=== PATIENT | female | born 1930 | race Caucasian/White ===

== ENCOUNTER 2017-03-26 21:13 | Observation (INO) | payer MEDICARE, BC ==
[~2017-03-26] VITALS: Ht 162.6 cm; Wt 85.0 kg
[2017-03-26] MEDS ORDERED: ALBUTEROL 0.5% (NEB) 2.5 MG/0.5 ML AMP INH STA (21:27)
[2017-03-26] MEDS ORDERED: METHYLPREDNISOLONE 125 MG INJ IV STA (21:27)
[2017-03-26 22:04] LABS: ADD SCAN DIFF NO
[2017-03-26 22:05] LABS: BASOPHILS % 0.4 % (0.0-2.0); EOSINOPHILS # 0.1 10^3/ul (0.0-0.5); EOSINOPHILS % 1.3 % (0.0-7.0); HEMATOCRIT 42.1 % (37.0-47.0); HEMOGLOBIN 14.4 g/dl (12.0-16.0); LYMPHOCYTES # 2.1 10^3/ul (0.8-2.9); LYMPHOCYTES % 22.9 % (15.0-51.0); MEAN CORPUSCULAR HEMOGLOBIN 31.3 pg (29.0-33.0); MEAN CORPUSCULAR HGB CONC 34.2 g/dl (32.0-37.0); MEAN CORPUSCULAR VOLUME 91.5 fl (82.0-101.0); MEAN PLATELET VOLUME 9.9 fl (7.4-10.4); MONOCYTE # 0.7 10^3/ul (0.3-0.9); MONOCYTES % 7.3 % (0.0-11.0); NEUTROPHIL # 6.1 10^3/ul (1.6-7.5); NEUTROPHILS % 67.9 % (39.0-77.0); PLATELET COUNT 211 10^3/UL (140-415); RED CELL DISTRIBUTION WIDTH 13.2 % (11.5-14.5)
[2017-03-26 22:23] LABS: ANION GAP 14 (8-16); BLOOD UREA NITROGEN 8 mg/dl (7-20); CALCIUM 9.6 mg/dl (8.4-10.2); CARBON DIOXIDE 23 mmol/L (21-31); CHLORIDE 105 mmol/L (97-110); CREATININE 1.06 mg/dl (0.44-1.00); GLUCOSE 131 mg/dl (70-220); POTASSIUM 3.4 mmol/L (3.5-5.1); SODIUM 139 mmol/L (135-144)
[2017-03-26 22:52] LABS: TROPONIN-I < 0.012 ng/ml (0.00-0.12)
--- NOTE | 2017-03-26 23:10 | RADRPT ---
PROCEDURE: XR Chest. CLINICAL INDICATION: Asthma and chest pain TECHNIQUE: AP Portable chest. COMPARISON: None available FINDINGS: The soft tissues and bones are remarkable for bilateral acromioclavicular osteoarthropathy and thora cic spondylosis.. Right lower lobe consolidation is present. No pleural effusions are noted. Mild cardiomegaly is present. Vascular calcifications are present of the thoracic aorta and the mitral a nnulus. No pneumothorax is present. Hyperinflation is present compatible with the patient's known reactive airway disease. IMPRESSION: 1. Right lower lobe pneumonia and recommend follow-up until resolution. 2. Mild cardiomegaly and atherosclerotic vascular disease with mitral annular calcifications. 3. Thoracic spondylosis and bilateral acromioclavicular osteoarthropathy. 4. Hyperinflation RPTAT: HDC .Mariel cMdowell MD, Date Time Electronically viewed and signed by .Mariel Mcdowell MD, on 03/26/2017 23:10 .C/
--- NOTE | 2017-03-26 23:12 | RADRPT ---
PROCEDURE: Abdominal series CLINICAL INDICATION: Abdominal pain TECHNIQUE: AP abdomen supine COMPARISON: None available other than chest x-ray 03/26/2017 FINDINGS: There is a nonspecific, nonobstructive bowel gas pattern. No air-fluid levels are seen. No free ai r is evident. No abnormal calcifications project over the renal collecting systems. Vascular calcif ications are present of the aorta and the mitral annulus. The cardiomediastinal silhouette is faye l in appearance. The lungs are remarkable for right lower lobe pneumonia. No pleural effusions are present. The osseus structures are remarkable for thoracic spondylosis. IMPRESSION: 1. Nonobstructive bowel gas pattern. 2. Right lower lobe pneumonia. 3. Atherosclerotic vascular disease and mitral annular calcifications RPTAT: HDC .Mariel Mcdowell MD, Date Time Electronically viewed and signed by .Mariel Mcdoewll MD, on 03/26/2017 23:12 .C/
[2017-03-27] MEDS ORDERED: CEFEPIME 1GM/50 ML (PMX) 50 ML IVPB ONE (00:02)
[2017-03-27] MEDS ORDERED: VANCOMYCIN 1 GM (PMX) 250 ML IVPB ONE (00:02)
--- NOTE | 2017-03-27 00:24 | ERA ---
ER Documentation Chief Complaint Date/Time DATE: 03/27/17 TIME: 00:22 Chief Complaint sob, congestion HPI 86 female comes in with complaints of shortness of breath and congestion. She has had a bronchoscopy done yesterday for possible lung mass. No fevers no chills. No nausea no vomiting. No other current complaints. ROS All systems reviewed and are negative except as per history of present illness. Allergies Allergies: Coded Allergies: No Known Allergy (Unverified , 03/27/17) PMhx/Soc History of Surgery: Yes (masectomy, partial lobectomy on left) Anesthesia Reaction: No Hx Neurological Disorder: No Hx Respiratory Disorders: No Hx Cardiac Disorders: Yes (htn) Hx Psychiatric Problems: No Hx Miscellaneous Medical Probl: Yes (breast ca) Hx Alcohol Use: No Hx Substance Use: No Hx Tobacco Use: No Smoking Status: Never smoker Physical Exam Vitals Vital Signs Date Time Temp Pulse Resp B/P Pulse Ox O2 Delivery O2 Flow Rate FiO2 03/26/17 21:34 94 24 98 21 03/26/17 21:23 97.8 93 20 131/93 98 Physical Exam Const: [] Head: Atraumatic Eyes: Normal Conjunctiva ENT: Normal External Ears, Nose and Mouth. Neck: Full range of motion..~ No meningismus. Resp: Clear to auscultation bilaterally Cardio: Regular rate and rhythm, no murmurs Abd: Soft, non tender, non distended. Normal bowel sounds Skin: No petechiae or rashes Back: No midline or flank tenderness Ext: No cyanosis, or edema Neur: Awake and alert Psych: Normal Mood and Affect Result Diagram: 03/26/17214903/26/172149 Results 24 hrs Laboratory Tests Test 03/26/17 21:50 White Blood Count 9.010^3/ul Red Blood Count 4.6010^6/ul Hemoglobin 14.4g/dl Hematocrit 42.1% Mean Corpuscular Volume 91.5fl Mean Corpuscular Hemoglobin 31.3pg Mean Corpuscular Hemoglobin Concent 34.2g/dl Red Cell Distribution Width 13.2% Platelet Count 90731^3/UL Mean Platelet Volume 9.9fl Neutrophils % 67.9% Lymphocytes % 22.9% Monocytes % 7.3% Eosinophils % 1.3% Basophils % 0.4% Nucleated Red Blood Cells % 0.0/100WBC Neutrophils # 6.110^3/ul Lymphocytes # 2.110^3/ul Monocytes # 0.710^3/ul Eosinophils # 0.110^3/ul Basophils # 0.010^3/ul Nucleated Red Blood Cells # 0.010^3/ul Sodium Level 139mmol/L Potassium Level 3.4mmol/L Chloride Level 105mmol/L Carbon Dioxide Level 23mmol/L Anion Gap 14 Blood Urea Nitrogen 8mg/dl Creatinine 1.06mg/dl Glucose Level 131mg/dl Calcium Level 9.6mg/dl Troponin I < 0.012ng/ml Current Medications Medications (Trade) Dose Ordered Sig/Raffy Route PRN Reason Start Time Stop Time Status Last Admin Dose Admin Albuterol (Proventil 0.5% (Neb)) 10 mg ONCE STAT INH 03/26/17 21:27 03/26/17 21:28 DC 03/26/17 21:34 Methylprednisolone Sodium Succinate 125 mg 125 mg ONCE STAT IV 03/26/17 21:27 03/26/17 21:28 DC 03/26/17 22:11 Cefepime HCl 50 ml @ 100 mls/hr ONCE ONCE IVPB 03/27/17 00:02 03/27/17 00:31 Vancomycin HCl (Vancocin) 250 ml @ 125 mls/hr ONCE ONCE IVPB 03/27/17 00:02 03/27/17 02:01 Procedures/MDM EKG: Rate/Rhythm: [Normal Sinus Rhythm] QRS, ST, T-waves: [No changes consistent w/ acute ischemia] Impression: [No evidence of ischemia or arrhythmia] Chest X-ray 1V Interpreted by me: Soft Tissue: No acute abnormalities Bones: No acute abnormalities Mediastinum/Cardiac Silhouette/Lungs: Right lower lobe pneumonia Medical decision-makin-year-old female who has evidence of pneumonia. Started on broad-spectrum antibiotics post blood cultures. Patient will be admitted to hospitalist Departure Diagnosis: Primary Impression: Pneumonia Qualified Code: J18.1 - Pneumonia of right lower lobe due to infectious organism Condition: Serious OMAREVANSEDILBERTOGEORGIALanette Mar 27, 2017 00:24
[2017-03-27] MEDS ORDERED: MULT-853 PO (01:14)
[2017-03-27] MEDS ORDERED: ASPI81TA3 PO (01:14)
[2017-03-27 04:14] VITALS: Ht 162.6 cm; Wt 85.0 kg
[2017-03-27 04:26] VITALS: BP 124/56; PULSE 85; RESP 20
[2017-03-27] MEDS ORDERED: ALBUTEROL/IPRATROPIUM (NEB) 3 ML AMP HHN PRN (04:30)
[2017-03-27] MEDS ORDERED: LEVOFLOXACIN 500MG/D5W (PMX) 100 ML IVPB SCH (04:30)
--- NOTE | 2017-03-27 05:42 | HP ---
DATE OF ADMISSION: 03/26/2017 CHIEF COMPLAINT: Shortness of breath, congestion and constipation and rectal pain. HISTORY OF PRESENT ILLNESS: The patient is an 86-year-old female with a history of hypertension, br east cancer status post mastectomy and left lung lobotomy who presented today complaining of f eeling congested and also feeling as if phlegm is somehow stuck along her throat and unable to cough it out. She also reports there is some shortness of breath and pain in her rectal area attributed to constipation. Denied chest pain, fever, chills, nausea, vomiting. The patient had a bronchoscop y yesterday. When the patient presented to the ER, vitals were stable. Chest x-ray shows right-sided pneumonia. REVIEW OF SYSTEMS: A 12-point review of systems was performed and was negative except as mentioned in the HPI. PAST MEDICAL HISTORY: As per HPI. PAST SURGICAL HISTORY: As per HPI. ALLERGIES: NO KNOWN DRUG ALLERGIES. HOME MEDICATIONS: 1. Aspirin. 2. Multivitamins. PHYSICAL EXAMINATION: VITAL SIGNS: Stable. GENERAL: The patient lying in bed, sleepy, arousable, no acute distress. HEENT: No obvious head deformity. Extraocular muscles intact. CARDIOVASCULAR: Regular rate and rhythm. No extra sounds. LUNGS: Decreased breath sounds at the bases, right more so than left. ABDOMEN: Soft. There is discomfort with palpation, mainly in the left lower quadrant region. EXTREMITIES: No edema. NEUROLOGIC: No focal deficits. IMAGING: Chest x-ray shows right-sided pneumonia. A KUB shows bowel gas pattern. IMPRESSION: 1. Right middle lobe pneumonia. 2. Constipation. 3. History of breast cancer status post mastectomy. 4. History of left-sided lobectomy. 5. History of hypertension, blood pressure in acceptable range. 6. Probable lung mass, status post bronchoscopy yesterday. PLAN: She will be on IV antibiotic. Will obtain sputum for gram stain and culture. She will receive breathing treatments with consideration of adding Mucomyst. Bowel regimen for constipation . Will attempt to gather additional information regarding the reason for bronchoscopy and would do further workup and management as needed. Further workup and management per clinical course. Dictated By: GEOR[place]IA ROMEO/SAVITA Conf#: [id number] DID#: [id number]
[2017-03-27 07:36] VITALS: BP 94/54; RESP 18
[2017-03-27] MEDS ORDERED: SOD CHLORIDE 0.9% 1,000 ML IV SCH (15:52)
[2017-03-27] MEDS ORDERED: BISACODYL 10 MG SUPP PR PRN (16:00)
[2017-03-27] MEDS ORDERED: GUAIFENESIN/DM 5ML CUP PO PRN (16:00)
[2017-03-27] MEDS ORDERED: ACETAMINOPHEN 325 MG TAB PO PRN (16:00)
[2017-03-27] MEDS ORDERED: morphine 2 MG INJ IV PRN (16:00)
[2017-03-27] MEDS ORDERED: MAGNESIUM HYDROXIDE 30ML CUP PO PRN (16:00)
[2017-03-27] MEDS ORDERED: ALBUTEROL 18 GM INHALER INH PRN (16:00)
[2017-03-27] MEDS ORDERED: ONDANSETRON 4 MG INJ IV PRN (16:00)
[2017-03-27] MEDS ORDERED: BISACODYL (EC) 5 MG TAB PO PRN (16:00)
[2017-03-27] MEDS ORDERED: NACL 0.9% 3 ML SYG IV SCH (16:00)
[2017-03-27] MEDS ORDERED: HYDROCODONE/APAP (5/325) TAB PO PRN (16:00)
--- NOTE | 2017-03-27 16:17 | PDOCDIS ---
Discharge Instructions DIAGNOSIS Discharge Diagnosis: pnemonia CONDITION Patient Condition: Good HOME CARE INSTRUCTIONS: Diet Instructions: Reduced Sodium ACTIVITY: Activity Restrictions: Slowly Increase Activity Do not Drive FOLLOW UP/APPOINTMENTS Appointments pcp 1wk Onc as directed MICHAEL RAMSAY MD Mar 27, 2017 16:17
[2017-03-27] MEDS ORDERED: BISA5TAB6 PO (16:19)
[2017-03-27] MEDS ORDERED: ACET325T40 PO (16:19)
[2017-03-27] MEDS ORDERED: UDROBDM PO (16:19)
[2017-03-27] MEDS ORDERED: LEVO750T25 PO (16:19)
[2017-03-27] MEDS ORDERED: ALBUTEROL 0.083% (NEB) 2.5 MG/3 ML AMP HHN ONE (16:30)
--- NOTE | 2017-03-28 02:53 | DS ---
DATE OF ADMISSION: 03/26/2017 DATE OF DISCHARGE: 03/27/2017 PRIMARY CARE PHYSICIAN: DE Sanchez. FIELD CROP I FARMWORKER: None. DIAGNOSIS ON ADMISSION: Pneumonia. DIAGNOSES ON DISCHARGE: 1. Pneumonia. 2. Recent history of lung biopsy. 3. Breast cancer? HOSPITAL COURSE: An 86-year-old female admitted with shortness of breath, productive cough. No fev ers. No weight loss. No loss of appetite. Imaging concerning for pneumonia. The patient is actua lly stable and fit for discharge on oral antibiotics. She has no tachypnea, no wheezing, no renal i nsufficiency/end organ damage or hypoxia. There is a concern about malignancy. The patient had a biopsy done this past Saturday. She is follow ing up with her specialist this Saturday for results. There is a history of breast cancer as well. DISCHARGE PLAN: Home. Follow up with primary in 1 week, oncologist this week. DIET: Low salt. ACTIVITY: No driving if dizzy. ALLERGIES: NONE. DURABLE MEDICAL EQUIPMENT: None. BARRIERS TO DISCHARGE: None. PENDING TESTS: None. FUNCTIONAL STATUS: The patient awake, alert, agrees with plan of care. CONDITION: Stable. REASON FOR ADMISSION: Shortness of breath. LABORATORY DATA: BMP unremarkable. White cell count of 9, hemoglobin and hematocrit of 14 and 42, platelets of 211. IMAGING: Chest x-ray was read as right lower lobe pneumonia, cardiomegaly, spondylosis. KUB read a s same including no other process. DISCHARGE PLAN: Home. DISCHARGE MEDICATIONS: The patient to continue all home medications. NEW MEDICATIONS: 1. Levaquin 750 daily. 2. Robitussin as needed. 3. Albuterol MDI. Patient has at home. 4. Tylenol as needed. Dictated By: MICHAEL RAMSAY MD AC/NTS Conf#: [id number] DID#: [id number]
[2017-03-28] MEDS ORDERED: LEVOFLOXACIN 750 MG TABLET PO SCH (06:00)
[2017-03-28] MEDS ORDERED: ASPIRIN 81 MG TAB PO SCH (09:00)
[2017-03-28] MEDS ORDERED: ENOXAPARIN 40 MG/0.4 ML SYG SC SCH (09:00)
== END 2017-03-27 18:55 | disposition home or self-care (01) ==
LOC: E/R 21:13 → MS2 23:57
PROVIDERS: ADMIT Internal Medicine; ATTEND Internal Medicine
DX: J18.9 Pneumonia, unspecified organism (principal); I10 Essential (primary) hypertension; K59.00 Constipation, unspecified; Z85.3 Personal history of malignant neoplasm of breast; Z79.82 Long term (current) use of aspirin
CPT/HCPCS: 71010; 74000; 80048; 84484; 85025; 87040; 93005; 94644; 94664; 96366; 96374; 96375; 99285; G0378; J0692; J2930; J3370; J7030

== ENCOUNTER 2017-06-17 01:50 | Inpatient (IN) | payer MEDICARE, BC ==
[~2017-06-17] VITALS: Ht 162.6 cm; Wt 90.9 kg
[~2017-06-17 01:50] MED LIST: ACET325T40 PO; ASPI81TA3 PO; BISA5TAB6 PO; LEVO750T25 PO; MULT-853 PO; UDROBDM PO
[2017-06-17 01:53] VITALS: Ht 162.6 cm; Wt 90.9 kg
[2017-06-17] MEDS ORDERED: CEFEPIME 2GM/50 ML (PMX) 50 ML IVPB STA (01:53)
[2017-06-17] MEDS ORDERED: SOD CHLORIDE 0.9% 1,000 ML IV STA ×3 (01:53→02:24)
[2017-06-17] MEDS ORDERED: VANCOMYCIN 1 GM (PMX) 250 ML IVPB ONE (02:00)
[2017-06-17 02:55] LABS: ABNORMAL IP MESSAGE 1; BASOPHILS % 0.4 % (0.0-2.0); HEMATOCRIT 42.3 % (37.0-47.0); HEMOGLOBIN 14.5 g/dl (12.0-16.0); LYMPHOCYTES # 0.2 10^3/ul (0.8-2.9); MEAN CORPUSCULAR HEMOGLOBIN 33.7 pg (29.0-33.0); MEAN CORPUSCULAR HGB CONC 34.3 g/dl (32.0-37.0); MEAN CORPUSCULAR VOLUME 98.4 fl (82.0-101.0); MEAN PLATELET VOLUME 10.7 fl (7.4-10.4); MONOCYTE # 0.1 10^3/ul (0.3-0.9); NEUTROPHILS % 82.9 % (39.0-77.0); NUCLEATED RED BLOOD CELLS% 1.7 /100WBC (0.0-0.0); PLATELET COUNT 113 10^3/UL (140-415); RED CELL DISTRIBUTION WIDTH 19.6 % (11.5-14.5); WHITE BLOOD COUNT 2.4 10^3/ul (4.8-10.8)
[2017-06-17 02:57] LABS: POSITIVE DIFF @See below
--- NOTE | 2017-06-17 02:59 | RADRPT ---
PROCEDURE: XR Chest. CLINICAL INDICATION: Sepsis. TECHNIQUE: Single frontal chest x-ray. COMPARISON: 03/26/2017 FINDINGS: Patient is rotated to the left. Heart is enlarged.. Pulmonary vessels are top normal caliber witho ut definite CHF.. There is mild right basilar atelectasis versus infiltrate.. There is no pleural e ffusion. There is no pneumothorax. Bones are osteopenic. There are degenerative changes of the th oracic spine.. IMPRESSION: Cardiomegaly. Pulmonary vessels top normal caliber. Right basilar atelectasis versus infiltrate. RPTAT: HMVK .Gregory Mccall MD, MD Date Time Electronically viewed and signed by .Gregory Mccall MD, on 06/17/2017 02:58 .K/
--- NOTE | 2017-06-17 03:03 | RADRPT ---
PROCEDURE: CT Brain without contrast. CLINICAL INDICATION: Sepsis TECHNIQUE: A CT of the brain was performed on a GE 64-slice CT scanner utilizing axial imaging fro m the skull base through the vertex without intravenous contrast. Multiplanar reformatted images wer e made. The CTDIvol is 44.33 mGy and the DLP is 810.25 mGycm. One or more of the following dose red uction techniques were used: automated exposure control, adjustment of the mA and/or kV according to patient size, or use of iterative reconstruction technique. COMPARISON: None. FINDINGS: 8 mm calcified extra-axial lesion is seen at the vertex. There is no intracranial hemorrhage, mass effect, or midline shift. No extra-axial fluid collection is seen. Mild diffuse cortical atrophy i s identified with compensatory ventricular and sulcal enlargement. Mild decreased attenuation is se en in the periventricular and deep white matter, compatible with microvascular ischemic disease. The esparza white matter differentiation is well preserved with no acute infarct detected. A sellar supra sellar mass is seen measuring 1.2 x 1.3 cm on sagittal image 48. There is polypoid mucosal thickeni ng in the maxillary sinuses. The calvarium is normal. Bilateral internal carotid arteries are calci fied. IMPRESSION: 1. No evidence of acute intracranial pathology. 2. 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 Contrast enhanced MRI is recommended. Mild cortical atrophy. 3. Mild cortical atrophy. Mild microvascular ischemic disease. RPTAT: HCNS Physician Vinny Date Time Electronically viewed and signed by Physician Vinny on 06/17/2017 03:03 APARNA/
[2017-06-17 03:21] LABS: INR 1.05; PROTIME 13.7 Sec (12.2-14.2); PT RATIO 1.1
[2017-06-17 03:26] LABS: ALANINE AMINOTRANSFERASE 75 IU/L (13-69); ALBUMIN 3.2 g/dl (3.3-4.9); ALBUMIN/GLOBULIN RATIO 1.06; ALKALINE PHOSPHATASE 109 IU/L (42-121); ANION GAP 22 (8-16); ASPARTATE AMINO TRANSFERASE 42 IU/L (15-46); BILIRUBIN,INDIRECT 1.3 mg/dl (0-1.1); BILIRUBIN,TOTAL 1.3 mg/dl (0.2-1.3); BLOOD UREA NITROGEN 17 mg/dl (7-20); CALCIUM 8.3 mg/dl (8.4-10.2); CARBON DIOXIDE 24 mmol/L (21-31); CHLORIDE 99 mmol/L (97-110); CREATININE 0.78 mg/dl (0.44-1.00); GLUCOSE 255 mg/dl (70-220); POTASSIUM 3.7 mmol/L (3.5-5.1); SODIUM 141 mmol/L (135-144); TOTAL PROTEIN 6.2 g/dl (6.1-8.1)
[2017-06-17 03:32] LABS: PARTIAL THROMBOPLASTIN TIME 25.5 Sec (25.0-35.0)
[2017-06-17 03:39] LABS: TROPONIN-I 0.166 ng/ml (0.00-0.12)
[2017-06-17 03:47] LABS: ADD UMIC NO; UR ASCORBIC ACID 20 mg/dL (NEGATIVE); UR BILIRUBIN (Dip) NEGATIVE (NEGATIVE); UR BLOOD (Dip) NEGATIVE (NEGATIVE); UR CLARITY CLEAR (CLEAR); UR COLOR YELLOW (YELLOW); UR GLUCOSE (Dip) NEGATIVE (NEGATIVE); UR KETONES (Dip) NEGATIVE (NEGATIVE); UR LEUKOCYTE ESTERASE (Dip) NEGATIVE Leu/ul (NEGATIVE); UR NITRITE (Dip) NEGATIVE (NEGATIVE); UR TOTAL PROTEIN (Dip) NEGATIVE (NEGATIVE); UR UROBILINOGEN (Dip) NEGATIVE (NEGATIVE)
--- NOTE | 2017-06-17 03:58 | ERA ---
ER Documentation Chief Complaint Date/Time DATE: 06/17/17 TIME: 03:55 Chief Complaint CHANNING RA102 from home,ground level fall,ALOC X1 week per EMS report ROS All systems reviewed and are negative except as per history of present illness. Medications Home Meds Active Scripts Bisacodyl* (Bisacodyl*) 5 Mg Tablet.dr, 5 MG PO DAILY Y for CONSTIPATION for 1 Day, #1 Prov:MICHAEL RAMSAY MD 03/27/17 Guaifenesin-Dextromethorphan* (Robitussin* DM) 100MG/10MG/5ML Syrup, 10 ML PO Q4H Y for COUGH for 1 Day, #1 Prov:MICHAEL RAMSAY MD 03/27/17 Acetaminophen (MAPAP) 325 Mg Tablet, 650 MG PO Q6H Y for PAIN LEVEL 1-3 OR FEVER for 1 Day, #1 TAB Prov:MICHAEL RAMSAY MD 03/27/17 Levofloxacin* (Levaquin*) 750 Mg Tablet, 750 MG PO DAILY@06 for 5 Days, #5 TAB Prov:MICHAEL RAMSAY MD 03/27/17 Reported Medications Multivits-Min/Iron/FA/Lutein (Centrum Silver Women Tablet) 1 Each Tablet, 1 EACH PO, TAB 03/27/17 Aspirin* (Aspirin* Chew) 81 Mg Tab.chew, 81 MG PO DAILY, TAB.CHEW 03/27/17 Allergies Allergies: Coded Allergies: No Known Allergy (Unverified , 03/27/17) PMhx/Soc History of Surgery: Yes (lung lobectomy, left masectomy) Anesthesia Reaction: No Hx Neurological Disorder: No Hx Respiratory Disorders: No Hx Cardiac Disorders: No Hx Psychiatric Problems: No Hx Miscellaneous Medical Probl: Yes (thyroid, gerd, brain/lung/liver mets, encephalopathy, breast ca) Hx Alcohol Use: No Hx Substance Use: No Hx Tobacco Use: No Smoking Status: Former smoker Physical Exam Vitals Vital Signs Date Time Temp Pulse Resp B/P Pulse Ox O2 Delivery O2 Flow Rate FiO2 06/17/17 03:21 Nasal Cannula 2 06/17/17 01:53 99.7 102 19 106/69 95 Physical Exam Const: [] Head: Atraumatic Eyes: Normal Conjunctiva ENT: Normal External Ears, Nose and Mouth. Neck: Full range of motion..~ No meningismus. Resp: Clear to auscultation bilaterally Cardio: Regular rate and rhythm, no murmurs Abd: Soft, non tender, non distended. Normal bowel sounds Skin: No petechiae or rashes Back: No midline or flank tenderness Ext: No cyanosis, or edema Neur: Awake and alert Psych: Normal Mood and Affect Result Diagram: 06/17/17 0200 06/17/17 0200 Results 24 hrs Laboratory Tests Test 06/17/17 02:00 06/17/17 02:26 White Blood Count 2.410^3/ul Red Blood Count 4.3010^6/ul Hemoglobin 14.5g/dl Hematocrit 42.3% Mean Corpuscular Volume 98.4fl Mean Corpuscular Hemoglobin 33.7pg Mean Corpuscular Hemoglobin Concent 34.3g/dl Red Cell Distribution Width 19.6% Platelet Count 24005^3/UL Mean Platelet Volume 10.7fl Neutrophils % 82.9% Lymphocytes % 10.0% Monocytes % 5.0% Eosinophils % 0.0% Basophils % 0.4% Nucleated Red Blood Cells % 1.7/100WBC Neutrophils # (Manual) 2.010^3/ul Lymphocytes # 0.210^3/ul Monocytes # 0.110^3/ul Eosinophils # 0.010^3/ul Basophils # 0.010^3/ul Nucleated Red Blood Cells # 0.010^3/ul Prothrombin Time 13.7Sec Prothrombin Time Ratio 1.1 INR International Normalized Ratio 1.05 Activated Partial Thromboplast Time 25.5Sec Sodium Level 141mmol/L Potassium Level 3.7mmol/L Chloride Level 99mmol/L Carbon Dioxide Level 24mmol/L Anion Gap 22 Blood Urea Nitrogen 17mg/dl Creatinine 0.78mg/dl Glucose Level 255mg/dl Lactic Acid Level 3.8mmol/L Calcium Level 8.3mg/dl Total Bilirubin 1.3mg/dl Direct Bilirubin 0.00mg/dl Indirect Bilirubin 1.3mg/dl Aspartate Amino Transf (AST/SGOT) 42IU/L Alanine Aminotransferase (ALT/SGPT) 75IU/L Alkaline Phosphatase 109IU/L Ammonia < 9umol/l Troponin I 0.166ng/ml Total Protein 6.2g/dl Albumin 3.2g/dl Globulin 3.00g/dl Albumin/Globulin Ratio 1.06 Thyroid Stimulating Hormone (TSH) Pending Urine Color YELLOW Urine Clarity CLEAR Urine pH 6.0 Urine Specific [place] 1.010 Urine Ketones NEGATIVEmg/dL Urine Nitrite NEGATIVEmg/dL Urine Bilirubin NEGATIVEmg/dL Urine Urobilinogen NEGATIVEmg/dL Urine Leukocyte Esterase NEGATIVELeu/ul Urine Hemoglobin NEGATIVEmg/dL Urine Glucose NEGATIVEmg/dL Urine Total Protein NEGATIVEmg/dl Current Medications Medications (Trade) Dose Ordered Sig/Raffy Route PRN Reason Start Time Stop Time Status Last Admin Dose Admin Cefepime HCl 50 ml @ 100 mls/hr ONCE STAT IVPB 06/17/17 01:53 06/17/17 02:22 DC 06/17/17 02:51 Vancomycin HCl 250 ml @ 125 mls/hr ONCE ONCE IVPB 06/17/17 02:00 06/17/17 03:59 06/17/17 03:46 Sodium Chloride 1,000 ml @ 1,000 mls/hr Q1H STAT IV 06/17/17 01:53 06/17/17 02:52 DC 06/17/17 02:10 Sodium Chloride 1,000 ml @ 1,000 mls/hr Q1H STAT IV 06/17/17 01:53 06/17/17 02:52 DC 06/17/17 02:10 Sodium Chloride (NS) 1,000 ml @ 1,000 mls/hr Q1H STAT IV 06/17/17 02:24 06/17/17 03:23 DC 06/17/17 02:24 Aspirin (Aspirin) 300 mg ONCE ONCE MS 06/17/17 04:00 06/17/17 04:01 Ondansetron HCl (Zofran Inj) 4 mg ER BRIDGE PRN IV NAUSEA AND/OR VOMITING 06/17/17 04:00 06/18/17 03:59 Acetaminophen (Tylenol Tab) 650 mg ER BRIDGE PRN PO MILD PAIN/FEVER 06/17/17 04:00 06/18/17 03:59 Procedures/MDM EKG read by me: Rate/Rhythm: First-degree AV block at a rate of 94 Intervals: Prolonged QTC of 510 Impression: First-degree AV block with prolonged QTC but no signs of ischemia Chest x-ray shows possible pneumonia Admit MDM: Patient's infectious symptoms have not stabilized and the patient is at risk of rapid decompensation. The patient will be admitted for careful hydration, antibiotic therapy, and infectious source control. Severe Sepsis criteria: Infectious source: Pneumonia End organ damage indicated by: Lactate greater than 2 Sepsis Management: Time of recognition of sepsis: 0200 Within 3 hours of recognition: Blood cultures x 2 before broad-spectrum antibiotics: [Yes] 30 ml/kg NS bolus [Completed] Initial lactate 3.8 Repeat lactate Pending Time of recognition of septic shock: [No septic shock] Septic Shock Assessment: Any lactic acid > 4.0 [No] Persistent hypotension (SBP < 90 or 40 mmHg drop, MAP < 65) despite 30 mL/kg IV fluid bolus [No] Volume Re-assessment for Septic Shock (post 30 ml/kg bolus): No septic shock at this time Persistent Hypotension Treatment: Comfort care [No] Central line [Not Required] Vasopressor started [Not required] I considered further perfusion assessment with CVP measurement, SCVO2, bedside ultrasound volume assessment, passive leg raise, trial of further fluid bolus. And proceeded with [30 ml/kg fluid bolus of NSS, broad spectrum antibiotics, and admission.]The patient was also given aspirin per rectum for a positive troponin. I believe the patient likely has heart strain from severe sepsis and not a true coronary artery occlusion. The patient is a poor prognosis given her age and comorbidities and I believe a discussion with family regarding goals of care would be appropriate. She is currently a full code. Accepting Care Team Current data and ongoing care discussed. Admitting Physician: Dr. Remy from the panel team as the patient was admitted to the panel team recently in March 2017 Dinkey Mechanic(s): [None] Outstanding Data: Culture results and repeat lactic acid Critical Care: Critical care time [35] minutes excluding all billable procedures Emergent fluid management while maintaining close respiratory support. Provision of immediate and broad-spectrum antibiotic therapy. Simultaneous assessment for possible sources in order to direct targeted therapy. Consideration for invasive and chemical support to prevent cardiopulmonary collapse. Departure Diagnosis: Primary Impression: Severe sepsis Additional Impressions: Altered mental status Qualified Code: R41.82 - Altered mental status, unspecified altered mental status type Fall Qualified Code: W19.XXXA - Fall, initial encounter Condition: Serious MYRTLE ECHOLS MD Jun 17, 2017 03:58
[2017-06-17] MEDS ORDERED: ONDANSETRON 4 MG INJ IV PRN (04:00)
[2017-06-17] MEDS ORDERED: ASPIRIN 300 MG SUPP PR ONE (04:00)
[2017-06-17] MEDS ORDERED: ACETAMINOPHEN 325 MG TAB PO PRN ×2 (04:00→04:30)
[2017-06-17 04:40] LABS: THYROID STIMULATING HORMONE < 0.015 MIU/L (0.465-4.680)
[2017-06-17] MEDS ORDERED: GLUCOSE GEL 15 GRAM TUBE BUCCAL PRN (05:00)
[2017-06-17] MEDS ORDERED: GLUCOSE GEL 15 GRAM TUBE PO PRN ×2 (05:00)
[2017-06-17] MEDS ORDERED: GLUCAGON 1 MG INJ IM PRN (05:00)
[2017-06-17] MEDS ORDERED: DEXTROSE 50% 50 ML SYRINGE IV PRN ×2 (05:00)
[2017-06-17] MEDS: SOD CHLORIDE 0.9% 1,000 ML IV SCH ×2 (06:56→18:17)
[2017-06-17] MEDS: PIPER-TAZO 3.375 GM IV (PMX) 100 ML IVPB SCH ×3 (07:04→22:30)
--- NOTE | 2017-06-17 07:05 | HP ---
Date/Time of Note Date/Time of Note DATE: 06/17/17 TIME: 06:58 Assessment/Plan VTE Prophylaxis VTE Prophylaxis Intervention: LMWH Assessment/Plan Assessment/Plan 86-year-old female who was brought in by her family after she accidentally fell out of bed managed for the followin. Severe sepsis with lactic acidosis thought to be secondary to developing pneumonia 2. Status post fall from bed 3. Metastatic breast cancer with metastases to the lungs, brain, thyroid and liver 4. Leukopenia and thrombocytopenia 5. Elevated troponin secondary to sepsis rule out NSTEMI 6. Hypothyroidism 7. Pituitary adenoma versus brain metastases Plan: Patient is to be admitted to telemetry floor, will complete ACS rule outs, get a 2D echo, as well as a cardiology consultation. In the interim we will commence broad-spectrum antibiotics for sepsis, sent for blood as well as urine cultures. We will await presents of more family members to give more detailed history regarding prognosis and stage of treatment of her cancers, We will repeat TSH and a full thyroid profile and once have more information regarding her chronic condition, we can institute treatment if indicated Further interventions will depend her clinical course Prognosis is guarded especially in the long-term Prophylaxis will be Lovenox and Pepcid Plan of care has been discussed with patient and her family. HPI/ROS Admit Date/Time Admit Date/Time June 17, 2017 Hx of Present Illness This is an 86-year-old female with a history of metastatic breast cancer t who was brought in by ambulance after she had fallen from her bed. The patient is at home with her family, and apparently she is being sick for the last week. The patient has not been her usual self. Today she fell out of her bed and the family had to call the ambulance to bring her to the emergency room where she was found to be septic. Family member that knows her history is not available at the bedside at this time, so we are not really sure what is going on with her metastatic breast cancer. No further history is really obtainable from the patient even though she is alert and will follow basic commands. PMH/Family/Social Past Medical History * Metastatic breast cancer Past Surgical History Report she is status post lung lobectomy as well as left mastectomy Family History Significant Family History: no pertinent family hx Social History Alcohol Use: none Smoking Status: Former smoker Exam/Review of Systems Vital Signs Vitals Vital Signs Date Time Temp Pulse Resp B/P Pulse Ox O2 Delivery O2 Flow Rate FiO2 06/17/17 06:48 97.6 82 17 143/84 100 Nasal Cannula 2.0 Exam Constitutional: alert, other Head: atraumatic, normocephalic (Close basic commands) Eyes: PERRL ENMT: nl nasal mucosa & septum Neck: supple Respiratory: crackles/rales, diminished breath sounds, No labored breathing Cardiovascular: regular rate and rhythm, No murmurs/extra sounds Gastrointestinal: bowel sounds, non-tender, soft Extremities: No edema Neurological: lethargic, nl mental status Labs Result Diagram: 06/17/17 0200 06/17/17 0200 Medications Medications Current Medications Acetaminophen (Tylenol Tab) 650 mg Q6H PRN PO PAIN LEVEL 1-3 OR FEVER; Start at 04:30 Aspirin 81 mg 81 mg DAILY PO ; Start 06/17/17 at 09:00 Piperacillin Sod/ Tazobactam Sod 100 ml @ 200 mls/hr Q8 IVPB ; Start 06/17/17 at 06:00 Sodium Chloride (NS) 1,000 ml @ 80 mls/hr [id number] IV ; Start 06/17/17 at 04:30 Ondansetron HCl (Zofran Inj) 4 mg Q6H PRN IV NAUSEA AND/OR VOMITING; Start at 04:30 Docusate Sodium (Colace) 100 mg BID PO ; Start 06/17/17 at 09:00 Enoxaparin Sodium (Lovenox) 30 mg DAILY SC ; Start 06/17/17 at 09:00 Diagnostic Test (Pha) (Accu-Chek) 1 ea 02 XX ; Start 06/18/17 at 02:00 Miscellaneous Information 1 ea NOTE XX ; Start 06/17/17 at 05:00 Glucose (Glutose) 15 gm Q15M PRN PO DECREASED GLUCOSE; Start 06/17/17 at 05:00 Glucose (Glutose) 22.5 gm Q15M PRN PO DECREASED GLUCOSE; Start 06/17/17 at 05: 00 Dextrose (D50w Syringe) 25 ml Q15M PRN IV DECREASED GLUCOSE; Start 06/17/17 at 05:00 Dextrose (D50w Syringe) 50 ml Q15M PRN IV DECREASED GLUCOSE; Start 06/17/17 at 05:00 Glucagon (Glucagen) 1 mg Q15M PRN IM DECREASED GLUCOSE; Start 06/17/17 at 05:00 Glucose (Glutose) 15 gm Q15M PRN BUCCAL DECREASED GLUCOSE; Start 06/17/17 at 05 :00 Procedures Procedures Laboratory Tests Test 06/17/17 02:00 06/17/17 02:26 06/17/17 05:34 White Blood Count 2.410^3/ul Red Blood Count 4.3010^6/ul Hemoglobin 14.5g/dl Hematocrit 42.3% Mean Corpuscular Volume 98.4fl Mean Corpuscular Hemoglobin 33.7pg Mean Corpuscular Hemoglobin Concent 34.3g/dl Red Cell Distribution Width 19.6% Platelet Count 98735^3/UL Mean Platelet Volume 10.7fl Neutrophils % 82.9% Lymphocytes % 10.0% Monocytes % 5.0% Eosinophils % 0.0% Basophils % 0.4% Nucleated Red Blood Cells % 1.7/100WBC Neutrophils # (Manual) 2.010^3/ul Lymphocytes # 0.210^3/ul Monocytes # 0.110^3/ul Eosinophils # 0.010^3/ul Basophils # 0.010^3/ul Nucleated Red Blood Cells # 0.010^3/ul Prothrombin Time 13.7Sec Prothrombin Time Ratio 1.1 INR International Normalized Ratio 1.05 Activated Partial Thromboplast Time 25.5Sec Sodium Level 141mmol/L Potassium Level 3.7mmol/L Chloride Level 99mmol/L Carbon Dioxide Level 24mmol/L Anion Gap 22 Blood Urea Nitrogen 17mg/dl Creatinine 0.78mg/dl Glucose Level 255mg/dl Lactic Acid Level 3.8mmol/L 2.7mmol/L Calcium Level 8.3mg/dl Total Bilirubin 1.3mg/dl Direct Bilirubin 0.00mg/dl Indirect Bilirubin 1.3mg/dl Aspartate Amino Transf (AST/SGOT) 42IU/L Alanine Aminotransferase (ALT/SGPT) 75IU/L Alkaline Phosphatase 109IU/L Ammonia < 9umol/l Troponin I 0.166ng/ml Total Protein 6.2g/dl Albumin 3.2g/dl Globulin 3.00g/dl Albumin/Globulin Ratio 1.06 Thyroid Stimulating Hormone (TSH) < 0.015MIU/L Free Thyroxine 2.46ng/dl Urine Color YELLOW Urine Clarity CLEAR Urine pH 6.0 Urine Specific [place] 1.010 Urine Ketones NEGATIVEmg/dL Urine Nitrite NEGATIVEmg/dL Urine Bilirubin NEGATIVEmg/dL Urine Urobilinogen NEGATIVEmg/dL Urine Leukocyte Esterase NEGATIVELeu/ul Urine Hemoglobin NEGATIVEmg/dL Urine Glucose NEGATIVEmg/dL Urine Total Protein NEGATIVEmg/dl Current Medications Medications (Trade) Dose Ordered Sig/Raffy Route PRN Reason Start Time Stop Time Status Last Admin Dose Admin Cefepime HCl 50 ml @ 100 mls/hr ONCE STAT IVPB 06/17/17 01:53 06/17/17 02:22 DC 06/17/17 02:51 100 MLS/HR Vancomycin HCl 250 ml @ 125 mls/hr ONCE ONCE IVPB 06/17/17 02:00 06/17/17 03:59 DC 06/17/17 03:46 125 MLS/HR Sodium Chloride 1,000 ml @ 1,000 mls/hr Q1H STAT IV 06/17/17 01:53 06/17/17 02:52 DC 06/17/17 02:10 1,000 MLS/HR Sodium Chloride 1,000 ml @ 1,000 mls/hr Q1H STAT IV 06/17/17 01:53 06/17/17 02:52 DC 06/17/17 02:10 1,000 MLS/HR Sodium Chloride (NS) 1,000 ml @ 1,000 mls/hr Q1H STAT IV 06/17/17 02:24 06/17/17 03:23 DC 06/17/17 02:24 1,000 MLS/HR Aspirin (Aspirin) 300 mg ONCE ONCE MO 06/17/17 04:00 06/17/17 04:01 DC 06/17/17 04:29 300 MG Ondansetron HCl (Zofran Inj) 4 mg ER BRIDGE PRN IV NAUSEA AND/OR VOMITING 06/17/17 04:00 06/18/17 03:59 Acetaminophen (Tylenol Tab) 650 mg ER BRIDGE PRN PO MILD PAIN/FEVER 06/17/17 04:00 06/18/17 03:59 Acetaminophen (Tylenol Tab) 650 mg Q6H PRN PO PAIN LEVEL 1-3 OR FEVER 06/17/17 04:30 Aspirin 81 mg 81 mg DAILY PO 06/17/17 09:00 Piperacillin Sod/ Tazobactam Sod 100 ml @ 200 mls/hr Q8 IVPB 06/17/17 06:00 Sodium Chloride (NS) 1,000 ml @ 80 mls/hr [id number] IV 06/17/17 04:30 Ondansetron HCl (Zofran Inj) 4 mg Q6H PRN IV NAUSEA AND/OR VOMITING 06/17/17 04:30 Docusate Sodium (Colace) 100 mg BID PO 06/17/17 09:00 Enoxaparin Sodium (Lovenox) 30 mg DAILY SC 06/17/17 09:00 Miscellaneous Information (* Miscellaneous Pharmacy Order) Discontinue current oral sulfonylur... ONCE ONCE XX 06/17/17 04:30 06/17/17 04:40 DC Diagnostic Test (Pha) (Accu-Chek) 1 ea 02 XX 06/18/17 02:00 Miscellaneous Information (* Miscellaneous Pharmacy Order) HYPOGLYCEMIA PROTOCOL w... ONCE ONCE XX 06/17/17 04:30 06/17/17 04:40 DC Insulin Aspart (Novolog Insulin Pen) NOVOLOG *MILD* ALGORITHM WITH MEALS BEDTIME SC 06/17/17 08:00 Miscellaneous Information (* Miscellaneous Pharmacy Order) Discontinue all previ... ONCE ONCE XX 06/17/17 04:30 06/17/17 04:40 DC Miscellaneous Information 1 ea NOTE XX 06/17/17 05:00 Glucose (Glutose) 15 gm Q15M PRN PO DECREASED GLUCOSE 06/17/17 05:00 Glucose (Glutose) 22.5 gm Q15M PRN PO DECREASED GLUCOSE 06/17/17 05:00 Dextrose (D50w Syringe) 25 ml Q15M PRN IV DECREASED GLUCOSE 06/17/17 05:00 Dextrose (D50w Syringe) 50 ml Q15M PRN IV DECREASED GLUCOSE 06/17/17 05:00 Glucagon (Glucagen) 1 mg Q15M PRN IM DECREASED GLUCOSE 06/17/17 05:00 Glucose (Glutose) 15 gm Q15M PRN BUCCAL DECREASED GLUCOSE 06/17/17 05:00 PROCEDURE: CT Brain without contrast. CLINICAL INDICATION: Sepsis TECHNIQUE: A CT of the brain was performed on a GE 64-slice CT scanner utilizing axial imaging from the skull base through the vertex without intravenous contrast. Multiplanar reformatted images were made. The CTDIvol is 44.33 mGy and the DLP is 810.25 mGycm. One or more of the following dose reduction techniques were used: automated exposure control, adjustment of the mA and/or kV according to patient size, or use of iterative reconstruction technique. COMPARISON: None. FINDINGS: 8 mm calcified extra-axial lesion is seen at the vertex. There is no intracranial hemorrhage, mass effect, or midline shift. No extra-axial fluid collection is seen. Mild diffuse cortical atrophy is identified with compensatory ventricular and sulcal enlargement. Mild decreased attenuation is seen in the periventricular and deep white matter, compatible with microvascular ischemic disease. The esparza white matter differentiation is well preserved with no acute infarct detected. A sellar suprasellar mass is seen measuring 1.2 x 1.3 cm on sagittal image 48. There is polypoid mucosal thickening in the maxillary sinuses. The calvarium is normal. Bilateral internal carotid arteries are calcified. IMPRESSION: 1. No evidence of acute intracranial pathology. 2. 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 Contrast enhanced MRI is recommended. Mild cortical atrophy. 3. Mild cortical atrophy. Mild microvascular ischemic disease. RPTAT: HCNS Noe Casey Physician Date Time Electronically viewed and signed by Noe Casey Physician on 06/17/2017 03: 03 CS/ CC: MYRTLE ECHOLS MD PROCEDURE: XR Chest. CLINICAL INDICATION: Sepsis. TECHNIQUE: Single frontal chest x-ray. COMPARISON: 03/26/2017 FINDINGS: Patient is rotated to the left. Heart is enlarged.. Pulmonary vessels are top normal caliber without definite CHF.. There is mild right basilar atelectasis versus infiltrate.. There is no pleural effusion. There is no pneumothorax. Bones are osteopenic. There are degenerative changes of the thoracic spine.. IMPRESSION: Cardiomegaly. Pulmonary vessels top normal caliber. Right basilar atelectasis versus infiltrate. RPTAT: HMVK .Gregory Mccall MD, MD Date Time Electronically viewed and signed by .Gregory Mccall MD, MD on 06/17/2017 02:58 .K/ CC: MYRTLE ECHOLS MD EKG read by me: Rate/Rhythm: First-degree AV block at a rate of 94 Intervals: Prolonged QTC of 510 Impression: First-degree AV block with prolonged QTC but no signs of ischemia GUI,BOLATITO M. Jun 17, 2017 07:05
[2017-06-17 08:20] VITALS: TEMP 97.6
[2017-06-17] MEDS: ENOXAPARIN 30 MG/0.3 ML SYG SC SCH (09:30)
[2017-06-17 09:36] LABS: INR 1.11; PROTIME 14.3 Sec (12.2-14.2); PT RATIO 1.1
[2017-06-17 09:37] LABS: PARTIAL THROMBOPLASTIN TIME 24.7 Sec (25.0-35.0)
[2017-06-17 09:40] LABS: CK-MB 7.82 ng/ml (0.0-2.4); TROPONIN-I 0.117 ng/ml (0.00-0.12)
[2017-06-17] MEDS: INSULIN ASPART [NOVOLOG] 3 ML PEN SC SCH ×4 (09:47→21:00)
[2017-06-17] MEDS: DOCUSATE SODIUM 100 MG CAP PO SCH ×2 (09:49→21:14)
[2017-06-17] MEDS: ASPIRIN 81 MG TAB PO SCH (09:50)
[2017-06-17 12:00] VITALS: PULSE 79
[2017-06-17 12:48] VITALS: BP 133/72; PULSE 78; RESP 14
[2017-06-17 14:54] VITALS: BP 140/64; PULSE 84; RESP 17
[2017-06-17 15:09] LABS: TROPONIN-I 0.075 ng/ml (0.00-0.12)
[2017-06-17 15:14] LABS: CK-MB 8.03 ng/ml (0.0-2.4)
[2017-06-17 16:00] VITALS: BP 133/74; PULSE 77; PULSE 78; RESP 16
--- NOTE | 2017-06-17 18:28 | PN ---
Date/Time of Note Date/Time of Note DATE: 06/17/17 TIME: 18:24 Assessment/Plan VTE Prophylaxis VTE Prophylaxis Intervention: LMWH Lines/Catheters Urinary Cath still in place: No Assessment/Plan Chief Complaint/Hosp Course S: Events noted. Appreciate cardiology consultation O: better bp No pallor/ JVD/ droop Reg Clear; no tachypnea Benign bowel No edema/Homans A/P 1. Probable recurrent pneumonia. Possibly postobstructive. Stable continue antibiotics 2. Metastatic Breast Ca to lung liver brain thyroid. And needs advanced care planning reevaluated 3. Subclinical hyperthyroidism? Consult endocrine 4. False positive troponin due to demand ischemia 5. Past tobacco 6. Recent pneumonia in March 7. Ftt/mechanical fall 8. First-degree AV block? . Pituitary adenoma? Problems: Exam/Review of Systems Vital Signs Vitals Vital Signs Date Time Temp Pulse Resp B/P Pulse Ox O2 Delivery O2 Flow Rate FiO2 06/17/17 16:00 77 16 133/74 98 06/17/17 14:54 97.8 Room Air 2.0 Results Result Diagram: 06/17/17 0200 06/17/17 0200 Results 24 hrs Laboratory Tests Test 06/17/17 02:00 06/17/17 02:26 06/17/17 05:34 06/17/17 07:25 White Blood Count 2.4 #L Red Blood Count 4.30 Hemoglobin 14.5 Hematocrit 42.3 Mean Corpuscular Volume 98.4 Mean Corpuscular Hemoglobin 33.7 H Mean Corpuscular Hemoglobin Concent 34.3 Red Cell Distribution Width 19.6 #H Platelet Count 113 #L Mean Platelet Volume 10.7 H Neutrophils % 82.9 H Lymphocytes % 10.0 L Monocytes % 5.0 Eosinophils % 0.0 Basophils % 0.4 Nucleated Red Blood Cells % 1.7 H Neutrophils # (Manual) 2.0 Lymphocytes # 0.2 L Monocytes # 0.1 L Eosinophils # 0.0 Basophils # 0.0 Nucleated Red Blood Cells # 0.0 Prothrombin Time 13.7 Prothrombin Time Ratio 1.1 INR International Normalized Ratio 1.05 Activated Partial Thromboplast Time 25.5 Sodium Level 141 Potassium Level 3.7 Chloride Level 99 Carbon Dioxide Level 24 Anion Gap 22 H Blood Urea Nitrogen 17 Creatinine 0.78 Glucose Level 255 H Lactic Acid Level 3.8 *H 2.7 *H 2.1 H Calcium Level 8.3 L Total Bilirubin 1.3 Direct Bilirubin 0.00 Indirect Bilirubin 1.3 H Aspartate Amino Transf (AST/SGOT) 42 Alanine Aminotransferase (ALT/SGPT) 75 H Alkaline Phosphatase 109 Ammonia < 9 L Troponin I 0.166 *H Total Protein 6.2 Albumin 3.2 L Globulin 3.00 Albumin/Globulin Ratio 1.06 Thyroid Stimulating Hormone (TSH) < 0.015 L Free Thyroxine 2.46 H Urine Color YELLOW Urine Clarity CLEAR Urine pH 6.0 Urine Specific [place] 1.010 Urine Ketones NEGATIVE Urine Nitrite NEGATIVE Urine Bilirubin NEGATIVE Urine Urobilinogen NEGATIVE Urine Leukocyte Esterase NEGATIVE Urine Hemoglobin NEGATIVE Urine Glucose NEGATIVE Urine Total Protein NEGATIVE Test 06/17/17 08:40 06/17/17 09:29 06/17/17 12:23 06/17/17 13:20 Prothrombin Time 14.3 H Prothrombin Time Ratio 1.1 INR International Normalized Ratio 1.11 Activated Partial Thromboplast Time 24.7 L Hemoglobin A1c 6.4 H Magnesium Level 2.2 Creatine Kinase 155 Creatine Kinase Index 5.0 Creatinine Kinase MB (Mass) 7.82 H Troponin I 0.117 Bedside Glucose 215 154 Lactic Acid Level 2.0 Test 06/17/17 13:30 06/17/17 18:15 Creatine Kinase 165 Creatine Kinase Index 4.9 Creatinine Kinase MB (Mass) 8.03 H Troponin I 0.075 Bedside Glucose 175 Medications Medications Current Medications Acetaminophen (Tylenol Tab) 650 mg Q6H PRN PO PAIN LEVEL 1-3 OR FEVER; Start at 04:30 Aspirin 81 mg 81 mg DAILY PO Last administered on 06/17/17 09:50; Admin Dose 81 MG; Start 06/17/17 at 09:00 Piperacillin Sod/ Tazobactam Sod 100 ml @ 200 mls/hr Q8 IVPB Last administered on 06/17/17 15:40; Admin Dose 200 MLS/HR; Start 06/17/17 at 06:00 Sodium Chloride (NS) 1,000 ml @ 80 mls/hr [id number] IV Last administered on 06/17 18:17; Admin Dose 80 MLS/HR; Start 06/17/17 at 04:30 Ondansetron HCl (Zofran Inj) 4 mg Q6H PRN IV NAUSEA AND/OR VOMITING; Start at 04:30 Docusate Sodium (Colace) 100 mg BID PO Last administered on 06/17/17 09:49; Admin Dose 100 MG; Start 06/17/17 at 09:00 Enoxaparin Sodium (Lovenox) 30 mg DAILY SC Last administered on 06/17/17 09:30 ; Admin Dose 30 MG; Start 06/17/17 at 09:00 Diagnostic Test (Pha) (Accu-Chek) 1 ea 02 XX ; Start 06/18/17 at 02:00 Miscellaneous Information 1 ea NOTE XX ; Start 06/17/17 at 05:00 Glucose (Glutose) 15 gm Q15M PRN PO DECREASED GLUCOSE; Start 06/17/17 at 05:00 Glucose (Glutose) 22.5 gm Q15M PRN PO DECREASED GLUCOSE; Start 06/17/17 at 05: 00 Dextrose (D50w Syringe) 25 ml Q15M PRN IV DECREASED GLUCOSE; Start 06/17/17 at 05:00 Dextrose (D50w Syringe) 50 ml Q15M PRN IV DECREASED GLUCOSE; Start 06/17/17 at 05:00 Glucagon (Glucagen) 1 mg Q15M PRN IM DECREASED GLUCOSE; Start 06/17/17 at 05:00 Glucose (Glutose) 15 gm Q15M PRN BUCCAL DECREASED GLUCOSE; Start 06/17/17 at 05 :00 MICHAEL RAMSAY MD Jun 17, 2017 18:28
[2017-06-17] MEDS ORDERED: GUAIFENESIN 20 MG/ML 5ML CUP PO PRN (18:30)
[2017-06-17] MEDS ORDERED: ALBUTEROL 0.083% (NEB) 2.5 MG/3 ML AMP HHN PRN (18:30)
[2017-06-17 20:00] VITALS: PULSE 73
[2017-06-17] MEDS: LACTOBACILLUS RHAMNOSUS CAP PO SCH (21:28)
[2017-06-18] VITALS (12 sets, daily range): BP systolic 124–140; BP diastolic 66–82; PULSE 80–93; RESP 18–19
[2017-06-18] MEDS ORDERED: VANCOMYCIN IV PER PHARMACY XX SCH (01:30)
[2017-06-18] MEDS: ACCU-CHEK XX SCH (02:00)
[2017-06-18] MEDS: SOD CHLORIDE 0.9% 1,000 ML IV SCH ×2 (03:23→17:29)
[2017-06-18] MEDS: PIPER-TAZO 3.375 GM IV (PMX) 100 ML IVPB SCH ×4 (06:30→22:03)
[2017-06-18 07:06] LABS: ABNORMAL IP MESSAGE 1; HEMOGLOBIN 12.7 g/dl (12.0-16.0); LYMPHOCYTES # 0.5 10^3/ul (0.8-2.9); LYMPHOCYTES % 15.1 % (15.0-51.0); MEAN CORPUSCULAR HEMOGLOBIN 33.9 pg (29.0-33.0); MEAN CORPUSCULAR HGB CONC 34.3 g/dl (32.0-37.0); MEAN CORPUSCULAR VOLUME 98.7 fl (82.0-101.0); MEAN PLATELET VOLUME 10.3 fl (7.4-10.4); MONOCYTE # 0.2 10^3/ul (0.3-0.9); MONOCYTES % 7.2 % (0.0-11.0); NEUTROPHILS % 76.4 % (39.0-77.0); NUCLEATED RED BLOOD CELLS% 0.7 /100WBC (0.0-0.0); PLATELET COUNT 125 10^3/UL (140-415); RED BLOOD COUNT 3.75 10^6/ul (4.20-5.40); RED CELL DISTRIBUTION WIDTH 19.4 % (11.5-14.5)
[2017-06-18 07:22] LABS: INR 1.11; PROTIME 14.3 Sec (12.2-14.2); PT RATIO 1.1
[2017-06-18 07:39] LABS: POSITIVE DIFF @See below
[2017-06-18] MEDS: INSULIN ASPART [NOVOLOG] 3 ML PEN SC SCH ×4 (08:00→21:00)
[2017-06-18] MEDS: FAMOTIDINE 20 MG TAB PO SCH ×2 (08:44→08:49)
[2017-06-18] MEDS: DOCUSATE SODIUM 100 MG CAP PO SCH ×3 (08:44→21:57)
[2017-06-18] MEDS: ASPIRIN 81 MG TAB PO SCH ×2 (08:44→08:48)
[2017-06-18] MEDS: LACTOBACILLUS RHAMNOSUS CAP PO SCH ×3 (08:44→21:57)
[2017-06-18 08:45] LABS: ALBUMIN 2.7 g/dl (3.3-4.9); ALBUMIN/GLOBULIN RATIO 1.03; BILIRUBIN,INDIRECT 0.6 mg/dl (0-1.1); BILIRUBIN,TOTAL 0.6 mg/dl (0.2-1.3); CALCIUM 7.5 mg/dl (8.4-10.2); CREATININE 0.49 mg/dl (0.44-1.00); POTASSIUM 3.1 mmol/L (3.5-5.1); TOTAL PROTEIN 5.3 g/dl (6.1-8.1)
[2017-06-18] MEDS: ENOXAPARIN 30 MG/0.3 ML SYG SC SCH (08:47)
[2017-06-18 09:05] LABS: MAGNESIUM 2.2 mg/dl (1.7-2.5); PHOSPHORUS 1.7 mg/dl (2.5-4.9)
--- NOTE | 2017-06-18 09:36 | CONS ---
DATE OF ADMISSION: 06/17/2017 DATE OF CONSULTATION: 06/17/2017 REASON FOR CONSULTATION: Abnormal troponin. CHIEF COMPLAINT: Status post fall. HISTORY OF PRESENT ILLNESS: Thank you for Dr. Hernandez in discussion of her status. Current discussion with the patient and most of the discussion with patient's daughter Meka over the phone. This is an unfortunate 86-year-old female with complicated medical history including metastatic brain cancer as well as lung cancer who was brought in after a fall. Apparently, the patient fell off the bed and was brought in by the family. Her troponin was mildly elevated . The patient denies any chest pain . According to the daughter, the patient has never had any cardiac history in the past. She denies any other history to me. She has a very poor memory. PAST MEDICAL HISTORY: Metastatic breast cancer, history of hypertension, history of thyroid disorder (detail is not clear per family), history of lung cancer status post lobectomy, history of breast surgery for the cancer. Apparently she is on chemotherapy and she has received radiation. According to the daughter, over the past 2 weeks the patient has had left-sided weakness of the arm as well. She could not describe it. SOCIAL HISTORY: The patient is a former smoker. The patient does not drink. Currently she lives with her family. FAMILY HISTORY: No reported early coronary artery disease. ALLERGIES: NO REPORTED ALLERGIES. MEDICATION: Is not completely clear. It has been reported the patient is taking aspirin, multivitamin, Levaquin. Family does not know the rest of her medications. She is not able to talk mentioned. PHYSICAL EXAMINATION: VITAL SIGNS: Temperature 97.8, heart rate 78, blood pressure 132/74, respiratory rate 16, satting 98%. HEENT: Normocephalic, atraumatic . Pupils are equal. CARDIOVASCULAR: PULMONARY: with no wheezes. Minimal rhonchi. GASTROINTESTINAL: Soft, obese, nontender. EXTREMITIES: With positive lower extremity edema. NEUROLOGIC: Awake. Oriented to person only. All extremities appear to be weak. PSYCH: Appears to be calm. DERMATOLOGY: No evidence of bleeding. Multiple seborrheic keratosis noted . LABORATORY: Sodium 141, potassium 3.7, BUN 17, creatinine 0.78, glucose 255, lactic acid 3.8. Troponin 0.166. 12, CK was 165 and of 8. EKG showed normal sinus rhythm with ST abnormality secondary to LVH and a strain. Echocardiogram was personally reviewed and showed moderate to severe LVH with ejection fraction more than 70 percent. TSH was less than 0.015, free T4 is 2.46. Brain CT shows no evidence of acute intracranial pathology, suprasellar mass, likely pituitary tumor. ASSESSMENT: 1. Mildly abnormal troponin with no chest pain and ejection fraction more than 70 percent. Most likely does have a false positive troponin. 2. Hypertension with hypertensive heart disease. 3. Abnormal EKG secondary to above. 4. Brain mass/tumor, possible adenoma per CT. 5. Metastatic breast cancer with metastasis to the brain. 6. Thyroid disorder. 7. Possible sepsis. 8. Status post fall. 9. Encephalopathy. 10. Hyperglycemia. 11. Elevated lactic acid/lactic acidosis and possible sepsis. RECOMMENDATIONS: The patient's home aspirin has been continued. If felt by neurology that it might be harmful from a brain standpoint, I believe it is very reasonable to stop the aspirin. Blood pressure is currently under good control. We will continue to monitor. Diabetic management as per Internal Medicine. Antibiotic and aspirin as per Internal Medicine. Thyroid management as per Internal Medicine again. Consider endocrine consultation and neurology consultation as well. Patient also would need case management involvement as far as disposition and support at home. For now, we will continue to monitor her on the telemetry. Conservative cardiac therapy is only recommended at this point. Discussed with the daughter Meka mckeon who also agrees to the above. Thank you . We will continue to follow along with you. Dictated By: Sabino Patino MD /bam/laura /Document#: [id number] CC: Fady Hernandez MD;*[facility]*
--- NOTE | 2017-06-18 10:05 | PN ---
Date/Time of Note Date/Time of Note DATE: 06/18/17 TIME: 10:01 Assessment/Plan VTE Prophylaxis VTE Prophylaxis Intervention: LMWH Lines/Catheters IV C[facility]ter Type (from [facility] Peripheral IV Urinary Cath still in place: No Assessment/Plan Chief Complaint/Hosp Course S: 06/17 Events noted. Appreciate cardio consult 06/18 no distress, although has cognitive impairment. no events overnight. denies headache. O: vss No pallor Reg Clear; no tachypnea Benign bowel No edema/Homans A/P 1. Sepsis/ Probable recurrent pneumonia related. Possibly postobstructive. Stable cont antibiotics. ID eval. 2. Metastatic Breast Ca to lung/ liver/ brain/ thyroid. Needs advanced care planning reevaluated 3. Subclinical hyperthyroidism? Consulted endocrine 4. False positive troponin due to demand ischemia/ sepsis. 5. Past tobacco 6. Recent pneumonia in March 7. Ftt/mechanical fall 8. First-degree AV block? 9. Pituitary adenoma? 10. Immunosuppressed due to malignancy Problems: Exam/Review of Systems Vital Signs Vitals Vital Signs Date Time Temp Pulse Resp B/P Pulse Ox O2 Delivery O2 Flow Rate FiO2 06/18/17 08:10 85 06/18/17 07:39 97.8 18 139/77 95 06/17/17 20:00 Nasal Cannula 2.0 Intake and Output 06/17/17 06/17/17 06/18/17 15:00 23:00 07:00 Intake Total 1100 ml 300 ml Balance 1100 ml 300 ml Results Result Diagram: 06/18/17 0625 06/18/17 0625 Results 24 hrs Laboratory Tests Test 06/17/17 12:23 06/17/17 13:20 06/17/17 13:30 06/17/17 18:15 Bedside Glucose 154 175 Lactic Acid Level 2.0 Creatine Kinase 165 Creatine Kinase Index 4.9 Creatinine Kinase MB (Mass) 8.03 H Troponin I 0.075 Test 06/17/17 21:18 06/18/17 06:25 06/18/17 06:40 06/18/17 07:48 Bedside Glucose 170 128 White Blood Count 3.0 #L Red Blood Count 3.75 L Hemoglobin 12.7 Hematocrit 37.0 Mean Corpuscular Volume 98.7 Mean Corpuscular Hemoglobin 33.9 H Mean Corpuscular Hemoglobin Concent 34.3 Red Cell Distribution Width 19.4 H Platelet Count 125 L Mean Platelet Volume 10.3 Neutrophils % 76.4 Lymphocytes % 15.1 Monocytes % 7.2 Eosinophils % 0.0 Basophils % 0.0 Nucleated Red Blood Cells % 0.7 H Neutrophils # (Manual) 2.3 Lymphocytes # 0.5 L Monocytes # 0.2 L Eosinophils # 0.0 Basophils # 0.0 Nucleated Red Blood Cells # 0.0 Prothrombin Time 14.3 H Prothrombin Time Ratio 1.1 INR International Normalized Ratio 1.11 Sodium Level 146 H Potassium Level 3.1 L Chloride Level 108 Carbon Dioxide Level 24 Anion Gap 17 H Blood Urea Nitrogen 11 Creatinine 0.49 Glucose Level 139 # Calcium Level 7.5 L Total Bilirubin 0.6 Direct Bilirubin 0.00 Indirect Bilirubin 0.6 Aspartate Amino Transf (AST/SGOT) 42 Alanine Aminotransferase (ALT/SGPT) 67 Alkaline Phosphatase 91 Troponin I 0.079 Total Protein 5.3 L Albumin 2.7 L Globulin 2.60 Albumin/Globulin Ratio 1.03 Free Thyroxine 2.32 H Phosphorus Level 1.7 L Magnesium Level 2.2 Total Triiodothyronine 0.60 L Medications Medications Current Medications Acetaminophen (Tylenol Tab) 650 mg Q6H PRN PO PAIN LEVEL 1-3 OR FEVER; Start at 04:30 Aspirin 81 mg 81 mg DAILY PO Last administered on 06/17/17 09:50; Admin Dose 81 MG; Start 06/17/17 at 09:00 Piperacillin Sod/ Tazobactam Sod 100 ml @ 200 mls/hr Q8 IVPB Last administered on 06/18/17 06:30; Admin Dose 200 MLS/HR; Start 06/17/17 at 06:00 Sodium Chloride (NS) 1,000 ml @ 80 mls/hr [id number] IV Last administered on 06/18 03:23; Admin Dose 80 MLS/HR; Start 06/17/17 at 04:30 Ondansetron HCl (Zofran Inj) 4 mg Q6H PRN IV NAUSEA AND/OR VOMITING; Start at 04:30 Docusate Sodium (Colace) 100 mg BID PO Last administered on 06/17/17 21:14; Admin Dose 100 MG; Start 06/17/17 at 09:00 Enoxaparin Sodium (Lovenox) 30 mg DAILY SC Last administered on 06/18/17 08:47 ; Admin Dose 30 MG; Start 06/17/17 at 09:00 Diagnostic Test (Pha) (Accu-Chek) 1 ea 02 XX ; Start 06/18/17 at 02:00 Miscellaneous Information 1 ea NOTE XX ; Start 06/17/17 at 05:00 Glucose (Glutose) 15 gm Q15M PRN PO DECREASED GLUCOSE; Start 06/17/17 at 05:00 Glucose (Glutose) 22.5 gm Q15M PRN PO DECREASED GLUCOSE; Start 06/17/17 at 05: 00 Dextrose (D50w Syringe) 25 ml Q15M PRN IV DECREASED GLUCOSE; Start 06/17/17 at 05:00 Dextrose (D50w Syringe) 50 ml Q15M PRN IV DECREASED GLUCOSE; Start 06/17/17 at 05:00 Glucagon (Glucagen) 1 mg Q15M PRN IM DECREASED GLUCOSE; Start 06/17/17 at 05:00 Glucose (Glutose) 15 gm Q15M PRN BUCCAL DECREASED GLUCOSE; Start 06/17/17 at 05 :00 Lactobacillus Acidophilus/ Rhamnosus (Culturelle) 1 cap BID PO Last administered on 06/17/17 21:28; Admin Dose 1 CAP; Start 06/17/17 at 21:00 Famotidine (Pepcid) 20 mg DAILY PO ; Start 06/18/17 at 09:00 Guaifenesin 100 mg 100 mg Q4H PRN PO COUGH; Start 06/17/17 at 18:30 Vancomycin HCl/ Sodium Chloride (Vancocin/NS) 250 ml @ 83.333 mls/ hr Q24H IVPB ; Start 06/18/17 at 13:00 MICHAEL RAMSAY MD Jun 18, 2017 10:05
[2017-06-18] MEDS ORDERED: LIDOCAINE 1% (MPF) 5 ML VIAL SC ONE (11:00)
[2017-06-18] MEDS: VANCOMYCIN 1.25 GM in SOD CHLORIDE 0.9% 250 ML IVPB SCH ×2 (13:00→17:29)
--- NOTE | 2017-06-18 13:01 | CONS ---
Date/Time of Note Date/Time of Note DATE: 06/18/17 TIME: 12:59 Consultation Date/Type/Reason Admit Date/Time June 17, 2017 Date of Consultation: Jun 17, 2017 Type of Consultation: ID Reason for Consultation Antibiotic management Social History Alcohol Use: none Smoking Status: Former smoker Exam/Review of Systems Vital Signs Vitals Vital Signs Date Time Temp Pulse Resp B/P Pulse Ox O2 Delivery O2 Flow Rate FiO2 06/18/17 12:17 82 06/18/17 11:33 97.8 18 140/82 97 06/18/17 08:00 Nasal Cannula 2.0 Intake and Output 06/17/17 06/17/17 06/18/17 15:00 23:00 07:00 Intake Total 1100 ml 300 ml Balance 1100 ml 300 ml Results Result Diagram: 06/18/17 0625 06/18/17 0625 Results 24 hrs Laboratory Tests Test 06/17/17 13:20 06/17/17 13:30 06/17/17 18:15 06/17/17 21:18 Lactic Acid Level 2.0 Creatine Kinase 165 Creatine Kinase Index 4.9 Creatinine Kinase MB (Mass) 8.03 H Troponin I 0.075 Bedside Glucose 175 170 Test 06/18/17 06:25 06/18/17 06:40 06/18/17 07:48 06/18/17 11:46 White Blood Count 3.0 #L Red Blood Count 3.75 L Hemoglobin 12.7 Hematocrit 37.0 Mean Corpuscular Volume 98.7 Mean Corpuscular Hemoglobin 33.9 H Mean Corpuscular Hemoglobin Concent 34.3 Red Cell Distribution Width 19.4 H Platelet Count 125 L Mean Platelet Volume 10.3 Neutrophils % 76.4 Lymphocytes % 15.1 Monocytes % 7.2 Eosinophils % 0.0 Basophils % 0.0 Nucleated Red Blood Cells % 0.7 H Neutrophils # (Manual) 2.3 Lymphocytes # 0.5 L Monocytes # 0.2 L Eosinophils # 0.0 Basophils # 0.0 Nucleated Red Blood Cells # 0.0 Prothrombin Time 14.3 H Prothrombin Time Ratio 1.1 INR International Normalized Ratio 1.11 Sodium Level 146 H Potassium Level 3.1 L Chloride Level 108 Carbon Dioxide Level 24 Anion Gap 17 H Blood Urea Nitrogen 11 Creatinine 0.49 Glucose Level 139 # Calcium Level 7.5 L Total Bilirubin 0.6 Direct Bilirubin 0.00 Indirect Bilirubin 0.6 Aspartate Amino Transf (AST/SGOT) 42 Alanine Aminotransferase (ALT/SGPT) 67 Alkaline Phosphatase 91 Troponin I 0.079 Total Protein 5.3 L Albumin 2.7 L Globulin 2.60 Albumin/Globulin Ratio 1.03 Free Thyroxine 2.32 H Phosphorus Level 1.7 L Magnesium Level 2.2 Total Triiodothyronine 0.60 L Bedside Glucose 128 111 Medications Medications Current Medications Acetaminophen (Tylenol Tab) 650 mg Q6H PRN PO PAIN LEVEL 1-3 OR FEVER; Start at 04:30 Aspirin 81 mg 81 mg DAILY PO Last administered on 06/17/17 09:50; Admin Dose 81 MG; Start 06/17/17 at 09:00 Piperacillin Sod/ Tazobactam Sod 100 ml @ 200 mls/hr Q8 IVPB Last administered on 06/18/17 06:30; Admin Dose 200 MLS/HR; Start 06/17/17 at 06:00 Sodium Chloride (NS) 1,000 ml @ 80 mls/hr [id number] IV Last administered on 06/18 03:23; Admin Dose 80 MLS/HR; Start 06/17/17 at 04:30 Ondansetron HCl (Zofran Inj) 4 mg Q6H PRN IV NAUSEA AND/OR VOMITING; Start at 04:30 Docusate Sodium (Colace) 100 mg BID PO Last administered on 06/17/17 21:14; Admin Dose 100 MG; Start 06/17/17 at 09:00 Enoxaparin Sodium (Lovenox) 30 mg DAILY SC Last administered on 06/18/17 08:47 ; Admin Dose 30 MG; Start 06/17/17 at 09:00 Diagnostic Test (Pha) (Accu-Chek) 1 ea 02 XX ; Start 06/18/17 at 02:00 Miscellaneous Information 1 ea NOTE XX ; Start 06/17/17 at 05:00 Glucose (Glutose) 15 gm Q15M PRN PO DECREASED GLUCOSE; Start 06/17/17 at 05:00 Glucose (Glutose) 22.5 gm Q15M PRN PO DECREASED GLUCOSE; Start 06/17/17 at 05: 00 Dextrose (D50w Syringe) 25 ml Q15M PRN IV DECREASED GLUCOSE; Start 06/17/17 at 05:00 Dextrose (D50w Syringe) 50 ml Q15M PRN IV DECREASED GLUCOSE; Start 06/17/17 at 05:00 Glucagon (Glucagen) 1 mg Q15M PRN IM DECREASED GLUCOSE; Start 06/17/17 at 05:00 Glucose (Glutose) 15 gm Q15M PRN BUCCAL DECREASED GLUCOSE; Start 06/17/17 at 05 :00 Lactobacillus Acidophilus/ Rhamnosus (Culturelle) 1 cap BID PO Last administered on 06/17/17t 21:28; Admin Dose 1 CAP; Start 06/17/17 at 21:00 Famotidine (Pepcid) 20 mg DAILY PO ; Start 06/18/17 at 09:00 Guaifenesin 100 mg 100 mg Q4H PRN PO COUGH; Start 06/17/17 at 18:30 Vancomycin HCl/ Sodium Chloride (Vancocin/NS) 250 ml @ 83.333 mls/ hr Q24H IVPB ; Start 06/18/17 at 13:00 KIRILL JALLOH MD Jun 18, 2017 13:00
--- NOTE | 2017-06-18 14:29 | RADRPT ---
Echocardiogram Report Patient Name: BERTHA ARREGUIN Gender: Female Date: 1930 Study Date: 17-Jun-2017 Financial Services Consultant: [facility] Location: 3304 Ref. Physician: KEVEN MESSER Quality: Adequate Procedures: Transthoracic echocardiogram with complete 2D, M-Mode, and doppler examination. Indications: NSTEMI. 2D/M Mode Doppler Measurement Value Normal Ranges Measurement Value Normal Ranges LVIDd 2D 2.1 3.5 - 5.6 cm AV Peak Connor 1.9 m/sec LVIDs 2D 1.3 2.1 - 4.1 cm AV Peak PG 14.0 mmHg FS 2D 39.7 % LVOT Peak Connor 1.4 m/sec LVPWd 2D 1.5 0.6 - 1.1 cm LVOT Peak PG 7.0 mmHg IVSd 2D 1.5 0.6 - 1.1 cm MV E Peak Connor 1.5 m/sec IVS/LVPW 2D 1.0 MV Peak Connor 1.4 m/sec AoR Diam 2D 2.6 2.0 - 3.7 cm MV Peak PG 8.0 mmHg LA/Ao 2D 1 0 - 1 MV Mean Connor 0.6 m/sec EDV 2D 9.8 cm3 MV Mean PG 2.0 mmHg ESV 2D 2.2 cm3 MV Decel Time 194 msec LA Dimen 2D 3.8 2.3 - 4.0 cm MV VTI 21.7 cm MR Peak PG 88.0 mmHg MR Peak Connor 4.7 m/sec TR Peak Connor 3.0 m/sec TR Peak PG 37.0 mmHg RVSP 47.0 mmHg Findings Left Ventricle: Hyperdynamic left ventricular systolic function. Normal left ventricular cavity size. Moderate concentric left ventricular hypertrophy. Ejection fraction is visually estimated at 70 %. Abnormal Diastolic Function. Right Ventricle: Normal right ventricular size. Normal right ventricular systolic function. Left Atrium: There is moderate enlargement of left atrium. Right Atrium: The right atrium is normal in size. Mitral Valve: Mitral valve leaflets appear mildly thickened. Severe mitral annular calcification. Mild mitral valve regurgitation. Mitral valve Max Velocity 1.44 m/sec. MaxPG 8.00 mmHg. MeanPG 2.00 mmHg. Aortic Valve: Aortic sclerosis without stenosis. Trace aortic valve regurgitation. Tricuspid Valve: Normal appearance of the tricuspid valve. Estimated peak PA systolic pressure 47 mmHg. There is mild tricuspid regurgitation. Pulmonic Valve: Pulmonic valve not well visualized. There is trace pulmonic regurgitation. Pericardium: Normal pericardium with no significant pericardial effusion. Aorta: Normal aortic root. IVC: Normal size and normal respiratory collapse consistent with normal right atrial pressure. Conclusions 1.Hyperdynamic left ventricular systolic function. Normal left ventricular cavity size. Moderate concentric left ventricular hypertrophy. Ejection fraction is visually estimated at 70 %. Abnormal Diastolic Function. 2.There is moderate enlargement of left atrium. 3.Mitral valve leaflets appear mildly thickened. Severe mitral annular calcification. Mild mitral valve regurgitation. Mitral valve Max Velocity 1.44 m/sec. MaxPG 8.00 mmHg. MeanPG 2.00 mmHg. 4.Aortic sclerosis without stenosis. Trace aortic valve regurgitation. 5.Normal appearance of the tricuspid valve. Estimated peak PA systolic pressure 47 mmHg. There is mild tricuspid regurgitation. 6.Normal size and normal respiratory collapse consistent with normal right atrial pressure. Electronically Signed By: Sabino Patino 18-Jun-2017 14:29:13 -0700 Patient Name: BERTHA ARREGUIN Study Date: 17-Jun-2017 [id number]
--- NOTE | 2017-06-18 15:22 | CONS ---
DATE OF ADMISSION: 06/17/2017 DATE OF CONSULTATION: 06/18/2017 INFECTIOUS DISEASE CONSULTATION: REASON FOR CONSULTATION: Antibiotic management. HISTORY OF PRESENT ILLNESS: Nicki Borjas is an 86-year-old female with a history of metastatic breast CA who was brought in by ambulance after she had fallen from bed. She has been sick for the last week. After she fell out of bed, the family called an ambulance to bring her to the hospital where she was found to be septic. On admission, white count is 2.4, H and H of 14.5 and 42.3, platelet count of 113,000. BUN and creatinine 17/0.78. Past medical history is significant for metastatic breast cancer. Patient is status post lung lobectomy as well as left mastectomy. Her blood cultures are growing gram-positive cocci in pairs and clusters. Her chest x-ray shows mild right basilar atelectasis versus infiltrate. No pleural effusion. No pneumothorax. Cardiomegaly. Right basilar atelectatic changes versus infiltrate is the reading. CT scan of the brain, mild cortical atrophy, mild microvascular ischemic disease. The patient was begun on vancomycin and. Zosyn. The patient was seen by Cardiology. PAST MEDICAL HISTORY: Past medical history and operations as outlined. FAMILY HISTORY: Noncontributory. SOCIAL HISTORY: She does not smoke, drink, or abuse drugs. She was a former smoker. ALLERGIES: NONE TO PENICILLIN, SULFA, OR FOODS. MEDICATIONS: Per chart. REVIEW OF SYSTEMS: Noncontributory. PHYSICAL EXAMINATION: GENERAL: The patient is a chronically ill-appearing female who is alert, responsive, in no acute distress. VITAL SIGNS: Stable. She is afebrile. SKIN: Without generalized rash. HEENT: Within normal limits. NECK: Supple. Lymph nodes nonpalpable. CHEST: Decreased breath sounds at the bases with crackles and rales. HEART: Without murmur or gallop. ABDOMEN: Soft, nontender, without organosplenomegaly or masses. EXTREMITIES: Without cyanosis, clubbing, or edema. RECTAL AND GENITAL: Exam is deferred. NEUROLOGICAL: Patient is lethargic, but able to respond. IMPRESSION AND PLAN: The source of sepsis is not clear. She has severe lactic acidosis probably related to pneumonia. She did fall out of bed and may have had atelectasis or pneumonia on that basis. She has metastatic breast cancer to the lungs, brain, thyroid and liver. She is leukopenic and thrombocytopenic. She has an elevated troponin secondary to sepsis. Hypothyroidism and pituitary adenoma versus brain metastasis. Patient is on vancomycin and Zosyn. A 2D echocardiogram has been ordered to be read by Dr. Patino. I will dictate my findings to the hospitalist and to Dr. Patino. Dictated By: Alejandro Robles MD JD/bam/jhonny /Document#: [id number]
--- NOTE | 2017-06-18 16:36 | CONS ---
Date/Time of Note Date/Time of Note DATE: 06/18/17 TIME: 16:30 Consult Date/Type/Reason Admit Date/Time Jun 17, 2017 at 03:48 Initial Consult Date 06/17/17 Type of Consultation: CARDIOLOGY Subjective CARDIOLOGY FOLLOW UP NOTE: D/W staff and rhythm was reviewed. pt remains in NSR She denies any cp or pressure to me. OBJECTIVE: HEENT: Normocephalic, atraumatic Pupils are equal. CARDIOVASCULAR: RRR systolic murmur. PULMONARY: no wheezes. Minimal rhonchi. GASTROINTESTINAL: Soft, obese, nontender. no rebound or guarding. EXTREMITIES: + lower extremity edema. NEUROLOGIC: Awake. Oriented to person only. left upper extremities appear to be weak. PSYCH: Appears to be calm. DERMATOLOGY: No evidence of bleeding. Multiple seborrheic keratosis noted echo personally reviewed 1. Hyperdynamic left ventricular systolic function. Normal left ventricular cavity size. Moderate concentric left ventricular hypertrophy. Ejection fraction is visually estimated at 70 %. Abnormal Diastolic Function. 2. There is moderate enlargement of left atrium. 3. Mitral valve leaflets appear mildly thickened. Severe mitral annular calcification. Mild mitral valve regurgitation. Mitral valve Max Velocity 1.44 m/sec. MaxPG 8.00 mmHg. MeanPG 2.00 mmHg. 4. Aortic sclerosis without stenosis. Trace aortic valve regurgitation. 5. Normal appearance of the tricuspid valve. Estimated peak PA systolic pressure 47 mmHg. There is mild tricuspid regurgitation. 6. Normal size and normal respiratory collapse consistent with normal right atrial pressure. Objective Vital Signs Date Time Temp Pulse Resp B/P Pulse Ox O2 Delivery O2 Flow Rate FiO2 06/18/17 12:17 82 06/18/17 11:33 97.8 18 140/82 97 06/18/17 08:00 Nasal Cannula 2.0 Intake and Output 06/17/17 06/17/17 06/18/17 15:00 23:00 07:00 Intake Total 1100 ml 300 ml Balance 1100 ml 300 ml Results/Medications Result Diagram: 06/18/17 0625 06/18/17 0625 Results 24 hrs Laboratory Tests Test 06/17/17 18:15 06/17/17 21:18 06/18/17 06:25 06/18/17 06:40 Bedside Glucose 175 170 White Blood Count 3.0 #L Red Blood Count 3.75 L Hemoglobin 12.7 Hematocrit 37.0 Mean Corpuscular Volume 98.7 Mean Corpuscular Hemoglobin 33.9 H Mean Corpuscular Hemoglobin Concent 34.3 Red Cell Distribution Width 19.4 H Platelet Count 125 L Mean Platelet Volume 10.3 Neutrophils % 76.4 Lymphocytes % 15.1 Monocytes % 7.2 Eosinophils % 0.0 Basophils % 0.0 Nucleated Red Blood Cells % 0.7 H Neutrophils # (Manual) 2.3 Lymphocytes # 0.5 L Monocytes # 0.2 L Eosinophils # 0.0 Basophils # 0.0 Nucleated Red Blood Cells # 0.0 Prothrombin Time 14.3 H Prothrombin Time Ratio 1.1 INR International Normalized Ratio 1.11 Sodium Level 146 H Potassium Level 3.1 L Chloride Level 108 Carbon Dioxide Level 24 Anion Gap 17 H Blood Urea Nitrogen 11 Creatinine 0.49 Glucose Level 139 # Calcium Level 7.5 L Total Bilirubin 0.6 Direct Bilirubin 0.00 Indirect Bilirubin 0.6 Aspartate Amino Transf (AST/SGOT) 42 Alanine Aminotransferase (ALT/SGPT) 67 Alkaline Phosphatase 91 Troponin I 0.079 Total Protein 5.3 L Albumin 2.7 L Globulin 2.60 Albumin/Globulin Ratio 1.03 Free Thyroxine 2.32 H Phosphorus Level 1.7 L Magnesium Level 2.2 Total Triiodothyronine 0.60 L Test 06/18/17 07:48 06/18/17 11:46 Bedside Glucose 128 111 Medications Current Medications Acetaminophen (Tylenol Tab) 650 mg Q6H PRN PO PAIN LEVEL 1-3 OR FEVER; Start at 04:30 Aspirin 81 mg 81 mg DAILY PO Last administered on 06/17/17 09:50; Admin Dose 81 MG; Start 06/17/17 at 09:00 Piperacillin Sod/ Tazobactam Sod 100 ml @ 200 mls/hr Q8 IVPB Last administered on 06/18/17 06:30; Admin Dose 200 MLS/HR; Start 06/17/17 at 06:00 Sodium Chloride (NS) 1,000 ml @ 80 mls/hr [id number] IV Last administered on 06/18 03:23; Admin Dose 80 MLS/HR; Start 06/17/17 at 04:30 Ondansetron HCl (Zofran Inj) 4 mg Q6H PRN IV NAUSEA AND/OR VOMITING; Start at 04:30 Docusate Sodium (Colace) 100 mg BID PO Last administered on 06/17/17 21:14; Admin Dose 100 MG; Start 06/17/17 at 09:00 Enoxaparin Sodium (Lovenox) 30 mg DAILY SC Last administered on 06/18/17 08:47 ; Admin Dose 30 MG; Start 06/17/17 at 09:00 Diagnostic Test (Pha) (Accu-Chek) 1 ea 02 XX ; Start 06/18/17 at 02:00 Miscellaneous Information 1 ea NOTE XX ; Start 06/17/17 at 05:00 Glucose (Glutose) 15 gm Q15M PRN PO DECREASED GLUCOSE; Start 06/17/17 at 05:00 Glucose (Glutose) 22.5 gm Q15M PRN PO DECREASED GLUCOSE; Start 06/17/17 at 05: 00 Dextrose (D50w Syringe) 25 ml Q15M PRN IV DECREASED GLUCOSE; Start 06/17/17 at 05:00 Dextrose (D50w Syringe) 50 ml Q15M PRN IV DECREASED GLUCOSE; Start 06/17/17 at 05:00 Glucagon (Glucagen) 1 mg Q15M PRN IM DECREASED GLUCOSE; Start 06/17/17 at 05:00 Glucose (Glutose) 15 gm Q15M PRN BUCCAL DECREASED GLUCOSE; Start 06/17/17 at 05 :00 Lactobacillus Acidophilus/ Rhamnosus (Culturelle) 1 cap BID PO Last administered on 06/17/17 21:28; Admin Dose 1 CAP; Start 06/17/17 at 21:00 Famotidine (Pepcid) 20 mg DAILY PO ; Start 06/18/17 at 09:00 Guaifenesin 100 mg 100 mg Q4H PRN PO COUGH; Start 06/17/17 at 18:30 Vancomycin HCl/ Sodium Chloride (Vancocin/NS) 250 ml @ 83.333 mls/ hr Q24H IVPB ; Start 06/18/17 at 13:00 Assessment/Plan Chief Complaint/Hosp Course 1. Mildly abnormal troponin with no chest pain and ejection fraction of 70%. Most likely c/w a false positive troponin. 2. Hypertension with hypertensive heart disease. 3. Abnormal EKG secondary to above. 4. Brain mass/tumor, possible adenoma per CT. 5. 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 6. Thyroid disorder. 7. Possible sepsis. 8. Status post fall. 9. Encephalopathy. 10. Hyperglycemia. 11. Elevated lactic acid/lactic acidosis and possible sepsis. RECOMMENDATIONS: The patient's home aspirin has been continued. If felt by neurology that it might be harmful from a neurology standpoint, I believe it is very reasonable to stop the aspirin. Blood pressure is currently under good control. We will continue to monitor. Diabetic management as per Internal Medicine. Antibiotic as per Internal Medicine. Thyroid management as per Internal Medicine and endocrine consult again. Conservative cardiac therapy is only recommended at this point. Thank you MELISSA LIZARRAGA MD [facility] Problems: MELISSA LIZARRAGA MD Jun 18, 2017 16:36
--- NOTE | 2017-06-18 17:13 | RADRPT ---
PROCEDURE: Ultrasound guidance for placement of needle in right upper extremity vein. CLINICAL INDICATION: Venous access. TECHNIQUE: Limited sonography of the right upper extremity was performed. Ultrasound images were recorded and stored in the patient's medical record. COMPARISON: None. FINDINGS: The ultrasound images demonstrate a patent right upper extremity vein. The PICC line was inserted b y the PICC line nurse. IMPRESSION: 1. Ultrasound guidance for a needle placement in a right upper extremity vein. 2. The visualized right upper extremity vein is patent. RPTAT: QQ .Daljit Ivy MD, MD Date Time Electronically viewed and signed by .Daljit Ivy MD, MD on 06/18/2017 17:13 .R/
--- NOTE | 2017-06-18 17:27 | RADRPT ---
PROCEDURE: XR Chest. CLINICAL INDICATION: Check PICC line position. TECHNIQUE: Single frontal view. COMPARISON: 06/17/2017. FINDINGS: There is a right arm PICC line with the tip in the lower superior vena cava. There is mild right ba silar atelectasis. The lungs are otherwise clear. The heart size is normal. There is no pleural effusion. There is no pneumothorax. IMPRESSION: 1. Right arm PICC line tip in satisfactory position. 2. Mild right basilar atelectasis. RPTAT: QQ .Daljit Ivy MD, MD Date Time Electronically viewed and signed by .Daljit Ivy MD, MD on 06/18/2017 17:27 .R/
[2017-06-18] MEDS ORDERED: SOD CHLORIDE 0.9% 100 ML ONE (17:56)
--- NOTE | 2017-06-18 18:06 | CONS ---
Date/Time of Note Date/Time of Note DATE: 06/18/17 TIME: 18:00 Assessment/Plan Assessment/Plan Problems: (1) Abnormal thyroid function test Status: Acute Comment: His available information this is a new phenomenon. I am not entirely certain I think this is consistent with euthyroid sick this could be apathetic hyperthyroidism. I room and trying get some more information on this. 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 Huang, to get more details and especially to determine what the overall plan of treatment is. This would affect her of our evaluation. Fascially since we may need to do some brain imaging (3) Pituitary mass Status: Acute Comment: Diagnosis. Before I take this poor lady through an MRI scan of the brain and the neck call to [facility] and see if we can get their imaging studies. We will go ahead and do the basic lab testing Consultation Date/Type/Reason Admit Date/Time Jun 17, 2017 at 03:48 Date of Consultation: Jun 18, 2017 Type of Consultation: Endocrinology Reason for Consultation Possible pituitary mass; suppressed TSH with elevated free T4; in the setting of septic shock with gram-positive cocci in the blood cultures; metastatic breast cancer Referring Provider: KEVEN MESSER of Present Illness 86-year-old female who is normally treated by Dr. Huang at [facility] [place]. She reports she has had brain scanning done within the last year. She reports she has cancer that is metastatic to multiple locations. We do not have specific data on this. Patient reports no known history of thyroid disorder and denies any known history of pituitary abnormalities. 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 COPD; diastolic dysfunction; mitral valve regurgitation Medical History: GERD Past Surgical History Chest post left lung lobectomy status post left mastectomy Family History Significant Family History: no pertinent family hx Social History Alcohol Use: none Smoking Status: Former smoker Drug Use: none Exam/Review of Systems Vital Signs Vitals Vital Signs Date Time Temp Pulse Resp B/P Pulse Ox O2 Delivery O2 Flow Rate FiO2 06/18/17 16:10 92 06/18/17 11:33 97.8 18 140/82 97 06/18/17 08:00 Nasal Cannula 2.0 Intake and Output 06/17/17 06/17/17 06/18/17 15:00 23:00 07:00 Intake Total 1100 ml 300 ml Balance 1100 ml 300 ml Exam Elderly female lying in bed Head: atraumatic, normocephalic Respiratory: clear to auscultation, normal air movement Cardiovascular: nl pulses, regular rate and rhythm Results Result Diagram: 06/18/17 0625 06/18/17 0625 Results 24 hrs Laboratory Tests Test 06/17/17 18:15 06/17/17 21:18 06/18/17 06:25 06/18/17 06:40 Bedside Glucose 175 170 White Blood Count 3.0 #L Red Blood Count 3.75 L Hemoglobin 12.7 Hematocrit 37.0 Mean Corpuscular Volume 98.7 Mean Corpuscular Hemoglobin 33.9 H Mean Corpuscular Hemoglobin Concent 34.3 Red Cell Distribution Width 19.4 H Platelet Count 125 L Mean Platelet Volume 10.3 Neutrophils % 76.4 Lymphocytes % 15.1 Monocytes % 7.2 Eosinophils % 0.0 Basophils % 0.0 Nucleated Red Blood Cells % 0.7 H Neutrophils # (Manual) 2.3 Lymphocytes # 0.5 L Monocytes # 0.2 L Eosinophils # 0.0 Basophils # 0.0 Nucleated Red Blood Cells # 0.0 Prothrombin Time 14.3 H Prothrombin Time Ratio 1.1 INR International Normalized Ratio 1.11 Sodium Level 146 H Potassium Level 3.1 L Chloride Level 108 Carbon Dioxide Level 24 Anion Gap 17 H Blood Urea Nitrogen 11 Creatinine 0.49 Glucose Level 139 # Calcium Level 7.5 L Total Bilirubin 0.6 Direct Bilirubin 0.00 Indirect Bilirubin 0.6 Aspartate Amino Transf (AST/SGOT) 42 Alanine Aminotransferase (ALT/SGPT) 67 Alkaline Phosphatase 91 Troponin I 0.079 Total Protein 5.3 L Albumin 2.7 L Globulin 2.60 Albumin/Globulin Ratio 1.03 Free Thyroxine 2.32 H Phosphorus Level 1.7 L Magnesium Level 2.2 Total Triiodothyronine 0.60 L Test 06/18/17 07:48 06/18/17 11:46 06/18/17 17:22 Bedside Glucose 128 111 102 Medications Medications Current Medications Acetaminophen (Tylenol Tab) 650 mg Q6H PRN PO PAIN LEVEL 1-3 OR FEVER; Start at 04:30 Aspirin 81 mg 81 mg DAILY PO Last administered on 06/17/17 09:50; Admin Dose 81 MG; Start 06/17/17 at 09:00 Piperacillin Sod/ Tazobactam Sod 100 ml @ 200 mls/hr Q8 IVPB Last administered on 06/18/17 17:26; Admin Dose 200 MLS/HR; Start 06/17/17 at 06:00 Sodium Chloride (NS) 1,000 ml @ 80 mls/hr [id number] IV Last administered on 06/18 03:23; Admin Dose 80 MLS/HR; Start 06/17/17 at 04:30 Ondansetron HCl (Zofran Inj) 4 mg Q6H PRN IV NAUSEA AND/OR VOMITING; Start at 04:30 Docusate Sodium (Colace) 100 mg BID PO Last administered on 06/17/17 21:14; Admin Dose 100 MG; Start 06/17/17 at 09:00 Enoxaparin Sodium (Lovenox) 30 mg DAILY SC Last administered on 06/18/17 08:47 ; Admin Dose 30 MG; Start 06/17/17 at 09:00 Diagnostic Test (Pha) (Accu-Chek) 1 ea 02 XX ; Start 06/18/17 at 02:00 Miscellaneous Information 1 ea NOTE XX ; Start 06/17/17 at 05:00 Glucose (Glutose) 15 gm Q15M PRN PO DECREASED GLUCOSE; Start 06/17/17 at 05:00 Glucose (Glutose) 22.5 gm Q15M PRN PO DECREASED GLUCOSE; Start 06/17/17 at 05: 00 Dextrose (D50w Syringe) 25 ml Q15M PRN IV DECREASED GLUCOSE; Start 06/17/17 at 05:00 Dextrose (D50w Syringe) 50 ml Q15M PRN IV DECREASED GLUCOSE; Start 06/17/17 at 05:00 Glucagon (Glucagen) 1 mg Q15M PRN IM DECREASED GLUCOSE; Start 06/17/17 at 05:00 Glucose (Glutose) 15 gm Q15M PRN BUCCAL DECREASED GLUCOSE; Start 06/17/17 at 05 :00 Lactobacillus Acidophilus/ Rhamnosus (Culturelle) 1 cap BID PO Last administered on 06/17/17 21:28; Admin Dose 1 CAP; Start 06/17/17 at 21:00 Famotidine (Pepcid) 20 mg DAILY PO ; Start 06/18/17 at 09:00 Guaifenesin 100 mg 100 mg Q4H PRN PO COUGH; Start 06/17/17 at 18:30 Vancomycin HCl/ Sodium Chloride (Vancocin/NS) 250 ml @ 83.333 mls/ hr Q24H IVPB Last administered on 06/18/17 17:29; Admin Dose 83.333 MLS/HR; Start at 13:00 IV Flush (NS 10 ml) 10 ml PRN PRN IV IV PROTOCOL; Start 06/18/17 at 17:00 JORDYN SERNA MD Jun 18, 2017 18:06
[2017-06-18] MEDS: ONDANSETRON 4 MG INJ IV PRN (20:50)
[2017-06-19] VITALS (14 sets, daily range): BP systolic 110–142; BP diastolic 58–70; PULSE 68–95; RESP 18–20
[2017-06-19] MEDS: ACCU-CHEK XX SCH (02:00)
[2017-06-19] MEDS: SOD CHLORIDE 0.9% 1,000 ML IV SCH ×2 (03:13→19:00)
[2017-06-19] MEDS: VANCOMYCIN 750 MG in SOD CHLORIDE 0.9% 150 ML IVPB SCH ×2 (05:13→16:30)
[2017-06-19] MEDS: PIPER-TAZO 3.375 GM IV (PMX) 100 ML IVPB SCH ×3 (06:51→21:18)
[2017-06-19 07:17] LABS: ABNORMAL IP MESSAGE 1; HEMATOCRIT 34.8 % (37.0-47.0); HEMOGLOBIN 11.7 g/dl (12.0-16.0); MEAN CORPUSCULAR HGB CONC 33.6 g/dl (32.0-37.0); MEAN CORPUSCULAR VOLUME 101.2 fl (82.0-101.0); MEAN PLATELET VOLUME 10.2 fl (7.4-10.4); NUCLEATED RED BLOOD CELLS% 1.8 /100WBC (0.0-0.0); PLATELET COUNT 119 10^3/UL (140-415); RED BLOOD COUNT 3.44 10^6/ul (4.20-5.40); RED CELL DISTRIBUTION WIDTH 19.3 % (11.5-14.5); WHITE BLOOD COUNT 1.6 10^3/ul (4.8-10.8)
[2017-06-19 07:19] LABS: POSITIVE DIFF @See below
[2017-06-19 07:58] LABS: MAGNESIUM 1.8 mg/dl (1.7-2.5); PHOSPHORUS 1.7 mg/dl (2.5-4.9)
[2017-06-19] MEDS: INSULIN ASPART [NOVOLOG] 3 ML PEN SC SCH ×4 (08:00→20:32)
[2017-06-19 08:06] LABS: ALBUMIN 2.5 g/dl (3.3-4.9); ALBUMIN/GLOBULIN RATIO 0.92; CALCIUM 6.6 mg/dl (8.4-10.2); CREATININE 0.36 mg/dl (0.44-1.00); TOTAL PROTEIN 5.2 g/dl (6.1-8.1)
[2017-06-19 08:11] LABS: POTASSIUM 2.4 mmol/L (3.5-5.1)
[2017-06-19] MEDS: FAMOTIDINE 20 MG TAB PO SCH (09:00)
[2017-06-19] MEDS: DOCUSATE SODIUM 100 MG CAP PO SCH ×2 (09:00→20:37)
[2017-06-19] MEDS: LACTOBACILLUS RHAMNOSUS CAP PO SCH ×2 (09:00→20:37)
[2017-06-19] MEDS: POTASSIUM CHLORIDE 20 MEQ POWDER FOR ORAL SOLN PO SCH ×2 (09:40→13:49)
[2017-06-19] MEDS: ASPIRIN 81 MG TAB PO SCH (09:40)
[2017-06-19] MEDS: ENOXAPARIN 30 MG/0.3 ML SYG SC SCH (09:41)
--- NOTE | 2017-06-19 09:41 | CONS ---
Date/Time of Note Date/Time of Note DATE: 06/19/17 TIME: 09:39 Consult Date/Type/Reason Admit Date/Time Jun 17, 2017 at 03:48 Initial Consult Date 06/17/17 Type of Consultation: cardiology Ordering Provider: KEVEN MESSER Subjective CARDIOLOGY FOLLOW UP NOTE: D/W staff and rhythm was reviewed. pt remains in NSR. no afib She denies any cp or pressure to me. no palpitations. no reports of darrhea per RN OBJECTIVE: HEENT: Normocephalic, atraumatic Pupils are equal. CARDIOVASCULAR: RRR systolic murmur. PULMONARY: no wheezes. Minimal rhonchi. GASTROINTESTINAL: Soft, obese, nontender. no rebound or guarding. EXTREMITIES: + lower extremity edema. NEUROLOGIC: Awake. Oriented to person only. left upper extremities appear to be weak. PSYCH: Appears to be calm. DERMATOLOGY: No evidence of bleeding. Multiple seborrheic keratosis noted echo personally reviewed 1. Hyperdynamic left ventricular systolic function. Normal left ventricular cavity size. Moderate concentric left ventricular hypertrophy. Ejection fraction is visually estimated at 70 %. Abnormal Diastolic Function. 2. There is moderate enlargement of left atrium. 3. Mitral valve leaflets appear mildly thickened. Severe mitral annular calcification. Mild mitral valve regurgitation. Mitral valve Max Velocity 1.44 m/sec. MaxPG 8.00 mmHg. MeanPG 2.00 mmHg. 4. Aortic sclerosis without stenosis. Trace aortic valve regurgitation. 5. Normal appearance of the tricuspid valve. Estimated peak PA systolic pressure 47 mmHg. There is mild tricuspid regurgitation. 6. Normal size and normal respiratory collapse consistent with normal right atrial pressure. Objective Vital Signs Date Time Temp Pulse Resp B/P Pulse Ox O2 Delivery O2 Flow Rate FiO2 06/19/17 08:29 78 06/19/17 08:10 98.0 18 124/67 81 06/19/17 08:02 2.0 06/18/17 08:00 Nasal Cannula Intake and Output 06/18/17 06/18/17 06/19/17 15:00 23:00 07:00 Intake Total 1300 ml 1050 ml Balance 1300 ml 1050 ml Results/Medications Result Diagram: 06/19/17 0633 06/19/17 0633 Results 24 hrs Laboratory Tests Test 06/18/17 11:46 06/18/17 17:22 06/18/17 18:48 06/18/17 22:01 Bedside Glucose 111 102 112 Random Cortisol 6.6 Test 06/19/17 06:33 06/19/17 07:44 White Blood Count 1.6 #L Red Blood Count 3.44 L Hemoglobin 11.7 L Hematocrit 34.8 L Mean Corpuscular Volume 101.2 H Mean Corpuscular Hemoglobin 34.0 H Mean Corpuscular Hemoglobin Concent 33.6 Red Cell Distribution Width 19.3 H Platelet Count 119 L Mean Platelet Volume 10.2 Neutrophils % Lymphocytes % Monocytes % Eosinophils % Basophils % Nucleated Red Blood Cells % 1.8 H Neutrophils # (Manual) 1.1 L Lymphocytes # Monocytes # Eosinophils # Basophils # Nucleated Red Blood Cells # Sodium Level 144 Potassium Level 2.4 *L Chloride Level 106 Carbon Dioxide Level 29 Anion Gap 11 Blood Urea Nitrogen 7 Creatinine 0.36 L Glucose Level 113 Calcium Level 6.6 L Phosphorus Level 1.7 L Magnesium Level 1.8 Total Bilirubin 1.0 Direct Bilirubin 0.00 Indirect Bilirubin 1.0 Aspartate Amino Transf (AST/SGOT) 45 Alanine Aminotransferase (ALT/SGPT) 63 Alkaline Phosphatase 90 Total Protein 5.2 L Albumin 2.5 L Globulin 2.70 Albumin/Globulin Ratio 0.92 Bedside Glucose 112 Medications Current Medications Acetaminophen (Tylenol Tab) 650 mg Q6H PRN PO PAIN LEVEL 1-3 OR FEVER; Start at 04:30 Aspirin 81 mg 81 mg DAILY PO Last administered on 06/17/17 09:50; Admin Dose 81 MG; Start 06/17/17 at 09:00 Piperacillin Sod/ Tazobactam Sod 100 ml @ 200 mls/hr Q8 IVPB Last administered on 06/19/17 06:51; Admin Dose 200 MLS/HR; Start 06/17/17 at 06:00 Sodium Chloride (NS) 1,000 ml @ 80 mls/hr [id number] IV Last administered on 06/19 03:13; Admin Dose 80 MLS/HR; Start 06/17/17 at 04:30 Ondansetron HCl (Zofran Inj) 4 mg Q6H PRN IV NAUSEA AND/OR VOMITING Last administered on 06/18/17 20:50; Admin Dose 4 MG; Start 06/17/17 at 04:30 Docusate Sodium (Colace) 100 mg BID PO Last administered on 06/18/17 21:57; Admin Dose 100 MG; Start 06/17/17 at 09:00 Enoxaparin Sodium (Lovenox) 30 mg DAILY SC Last administered on 06/18/17 08:47 ; Admin Dose 30 MG; Start 06/17/17 at 09:00 Diagnostic Test (Pha) (Accu-Chek) 1 ea 02 XX ; Start 06/18/17 at 02:00 Miscellaneous Information 1 ea NOTE XX ; Start 06/17/17 at 05:00 Glucose (Glutose) 15 gm Q15M PRN PO DECREASED GLUCOSE; Start 06/17/17 at 05:00 Glucose (Glutose) 22.5 gm Q15M PRN PO DECREASED GLUCOSE; Start 06/17/17 at 05: 00 Dextrose (D50w Syringe) 25 ml Q15M PRN IV DECREASED GLUCOSE; Start 06/17/17 at 05:00 Dextrose (D50w Syringe) 50 ml Q15M PRN IV DECREASED GLUCOSE; Start 06/17/17 at 05:00 Glucagon (Glucagen) 1 mg Q15M PRN IM DECREASED GLUCOSE; Start 06/17/17 at 05:00 Glucose (Glutose) 15 gm Q15M PRN BUCCAL DECREASED GLUCOSE; Start 06/17/17 at 05 :00 Lactobacillus Acidophilus/ Rhamnosus (Culturelle) 1 cap BID PO Last administered on 06/18/17 21:57; Admin Dose 1 CAP; Start 06/17/17 at 21:00 Famotidine (Pepcid) 20 mg DAILY PO ; Start 06/18/17 at 09:00 Guaifenesin (Robitussin Liquid Cup) 100 mg Q4H PRN PO COUGH; Start 06/17/17 at 18:30 IV Flush 10 ml 10 ml PRN PRN IV IV PROTOCOL; Start 06/18/17 at 17:00 Vancomycin HCl/ Sodium Chloride (Vancocin/NS) 150 ml @ 75 mls/hr Q12H IVPB Last administered on 06/19/17 05:13; Admin Dose 75 MLS/HR; Start 06/19/17 at 05 :00 Potassium Chloride 40 meq 40 meq Q4H PO ; Start 06/19/17 at 09:00; Stop at 13:01 Potassium Chloride 20 meq/ Sodium Chloride 110 ml @ 55 mls/hr ONCE ONCE IVPB ; Start 06/19/17 at 10:00; Stop 06/19/17 at 11:59 Magnesium Sulfate (Magnesium Sulfate 2 Gm/50 ml) 50 ml @ 25 mls/hr ONCE ONCE IVPB ; Start 06/19/17 at 10:30; Stop 06/19/17 at 12:29 Assessment/Plan Chief Complaint/Hosp Course 1. Mildly abnormal troponin with no chest pain and ejection fraction of 70%. Most likely c/w a false positive troponin. 2. Hypertension with hypertensive heart disease.:improved now 3. Abnormal EKG secondary to above. 4. Brain mass/tumor, possible adenoma per CT. 5. 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 6. Thyroid disorder. 7. Possible sepsis. 8. Status post fall. 9. Encephalopathy. 10. Hyperglycemia. 11. Elevated lactic acid/lactic acidosis and possible sepsis. RECOMMENDATIONS: . If felt by neurology that it might be harmful from a neurology standpoint, I believe it is very reasonable to stop the aspirin. Blood pressure is currently under good control. We will continue to monitor. Diabetic management as per Internal Medicine/ endocrine Antibiotic as per Internal Medicine. Thyroid management as per Internal Medicine and endocrine consult Conservative cardiac therapy is only recommended at this point. replace K and Mg. check labs again this pm and adjust Thank you MELISSA LIZARRAGA MD [facility] Problems: MELISSA LIZARRAGA MD Jun 19, 2017 09:41
[2017-06-19] MEDS ORDERED: POTASSIUM CHLORIDE 20 MEQ in SOD CHLORIDE 0.9% 100 ML IVPB ONE (10:00)
[2017-06-19] MEDS ORDERED: MAGNESIUM SULFATE 2 GM/50 ML 50 ML IVPB ONE (10:30)
[2017-06-19 11:57] LABS: ANISOCYTOSIS 1+ (0-0); EOSINOPHILS % (M) 1 % (0-7); ERYTHROBLAST% (NRBC) (M) 5 % (0-0); METAMYELOCYTES %M 1 % (0-0); MONOCYTES % (M) 1 % (0-11); OVALOCYTES 1+ (0-0); PLATELET ESTIMATE DECREASED; POIKILOCYTOSIS 1+ (0-0); POLYCHROMASIA 1+ (0-0)
--- NOTE | 2017-06-19 12:50 | CONS ---
Date/Time of Note Date/Time of Note DATE: 06/19/17 TIME: 12:45 Assessment/Plan Assessment/Plan Chief Complaint/Hosp Course 86-year-old female who is normally treated by Dr. Huang at [facility] [place]. She reports she has had brain scanning done within the last year. She reports she has cancer that is metastatic to multiple locations. We do not have specific data on this. Patient reports no known history of thyroid disorder and denies any known history of pituitary abnormalities. Problems: (1) Low serum cortisol level Status: Acute Comment: This may be due to low Cortisol binding globulin, but with pituitary mass and sepsis will sheck javan stim AND treat pending resuklts (2) Severe sepsis Status: Acute Comment: As per ID (3) Abnormal thyroid function test Status: Acute Comment: Noted, gathering data (4) Pituitary mass Status: Acute Comment: Requests for data from [facility] without response. If patient stabilizes then MRI of pituitary Consultation Date/Type/Reason Admit Date/Time Jun 17, 2017 at 03:48 Initial Consult Date 06/18/17 Type of Consultation: Endocrinology Reason for Consultation Abnormal thyroid function tests; Hirsutism; Pituitary mass; Abnormal cortisol levels Referring Provider: KEVEN MESSER 24 HR Interval Summary Free Text/Dictation Reprts no subjective changes, no new details from patient Exam/Review of Systems Vital Signs Vitals Vital Signs Date Time Temp Pulse Resp B/P Pulse Ox O2 Delivery O2 Flow Rate FiO2 06/19/17 12:00 97.8 80 20 128/64 96 06/19/17 08:02 2.0 06/18/17 08:00 Nasal Cannula Intake and Output 06/18/17 06/18/17 06/19/17 15:00 23:00 07:00 Intake Total 1300 ml 1050 ml Balance 1300 ml 1050 ml Results No change in exam Result Diagram: 06/19/17 0633 06/19/17 0633 Results 24 hrs Laboratory Tests Test 06/18/17 17:22 06/18/17 18:48 06/18/17 22:01 06/19/17 06:33 Bedside Glucose 102 112 Random Cortisol 6.6 White Blood Count 1.6 #L Red Blood Count 3.44 L Hemoglobin 11.7 L Hematocrit 34.8 L Mean Corpuscular Volume 101.2 H Mean Corpuscular Hemoglobin 34.0 H Mean Corpuscular Hemoglobin Concent 33.6 Red Cell Distribution Width 19.3 H Platelet Count 119 L Mean Platelet Volume 10.2 Neutrophils % Segmented Neutrophils % (Manual) 70 Lymphocytes % Lymphocytes % (Manual) 27 Monocytes % Monocytes % (Manual) 1 Eosinophils % Eosinophils % (Manual) 1 Basophils % Metamyelocytes % (manual) 1 H Nucleated Red Blood Cells % 5 H Neutrophils # (Manual) Absolute Lymphocytes (Manual) 0.4 L Lymphocytes # Monocytes # Absolute Monocytes (Manual) 0.0 L Eosinophils # Basophils # Metamyelocytes # 0.0 Nucleated Red Blood Cells # Platelet Estimate DECREASED Polychromasia 1+ Poikilocytosis 1+ Anisocytosis 1+ Ovalocytes 1+ Sodium Level 144 Potassium Level 2.4 *L Chloride Level 106 Carbon Dioxide Level 29 Anion Gap 11 Blood Urea Nitrogen 7 Creatinine 0.36 L Glucose Level 113 Calcium Level 6.6 L Phosphorus Level 1.7 L Magnesium Level 1.8 Total Bilirubin 1.0 Direct Bilirubin 0.00 Indirect Bilirubin 1.0 Aspartate Amino Transf (AST/SGOT) 45 Alanine Aminotransferase (ALT/SGPT) 63 Alkaline Phosphatase 90 Total Protein 5.2 L Albumin 2.5 L Globulin 2.70 Albumin/Globulin Ratio 0.92 Test 06/19/17 07:44 Bedside Glucose 112 Medications Medications Current Medications Acetaminophen (Tylenol Tab) 650 mg Q6H PRN PO PAIN LEVEL 1-3 OR FEVER; Start at 04:30 Aspirin 81 mg 81 mg DAILY PO Last administered on 06/19/17 09:40; Admin Dose 81 MG; Start 06/17/17 at 09:00 Piperacillin Sod/ Tazobactam Sod 100 ml @ 200 mls/hr Q8 IVPB Last administered on 06/19/17 06:51; Admin Dose 200 MLS/HR; Start 06/17/17 at 06:00 Sodium Chloride (NS) 1,000 ml @ 80 mls/hr [id number] IV Last administered on 06/19 03:13; Admin Dose 80 MLS/HR; Start 06/17/17 at 04:30 Ondansetron HCl (Zofran Inj) 4 mg Q6H PRN IV NAUSEA AND/OR VOMITING Last administered on 06/18/17 20:50; Admin Dose 4 MG; Start 06/17/17 at 04:30 Docusate Sodium (Colace) 100 mg BID PO Last administered on 06/18/17 21:57; Admin Dose 100 MG; Start 06/17/17 at 09:00 Enoxaparin Sodium (Lovenox) 30 mg DAILY SC Last administered on 06/19/17 09:41 ; Admin Dose 30 MG; Start 06/17/17 at 09:00 Diagnostic Test (Pha) (Accu-Chek) 1 ea 02 XX ; Start 06/18/17 at 02:00 Miscellaneous Information 1 ea NOTE XX ; Start 06/17/17 at 05:00 Glucose (Glutose) 15 gm Q15M PRN PO DECREASED GLUCOSE; Start 06/17/17 at 05:00 Glucose (Glutose) 22.5 gm Q15M PRN PO DECREASED GLUCOSE; Start 06/17/17 at 05: 00 Dextrose (D50w Syringe) 25 ml Q15M PRN IV DECREASED GLUCOSE; Start 06/17/17 at 05:00 Dextrose (D50w Syringe) 50 ml Q15M PRN IV DECREASED GLUCOSE; Start 06/17/17 at 05:00 Glucagon (Glucagen) 1 mg Q15M PRN IM DECREASED GLUCOSE; Start 06/17/17 at 05:00 Glucose (Glutose) 15 gm Q15M PRN BUCCAL DECREASED GLUCOSE; Start 06/17/17 at 05 :00 Lactobacillus Acidophilus/ Rhamnosus (Culturelle) 1 cap BID PO Last administered on 06/18/17 21:57; Admin Dose 1 CAP; Start 06/17/17 at 21:00 Famotidine (Pepcid) 20 mg DAILY PO ; Start 06/18/17 at 09:00 Guaifenesin (Robitussin Liquid Cup) 100 mg Q4H PRN PO COUGH; Start 06/17/17 at 18:30 IV Flush 10 ml 10 ml PRN PRN IV IV PROTOCOL; Start 06/18/17 at 17:00 Vancomycin HCl/ Sodium Chloride (Vancocin/NS) 150 ml @ 75 mls/hr Q12H IVPB Last administered on 06/19/17 05:13; Admin Dose 75 MLS/HR; Start 06/19/17 at 05 :00 Potassium Chloride (Potassium Chloride Pwd/Soln) 40 meq Q4H PO Last administered on 06/19/17 09:40; Admin Dose 40 MEQ; Start 06/19/17 at 09:00; Stop 06/19/17 at 13:01 Cosyntropin (Cortrosyn) 0.25 mg ONCE ONCE IV ; Start 06/19/17 at 13:30; Stop at 13:31 Hydrocortisone (Solu-Cortef) 50 mg Q8 IV ; Start 06/19/17 at 15:30; Stop at 15:29; Status UNV JORDYN SERNA MD Jun 19, 2017 12:50
[2017-06-19] MEDS ORDERED: COSYNTROPIN 0.25 MG INJ IV ONE (13:30)
[2017-06-19 15:19] LABS: CREATININE 0.43 mg/dl (0.44-1.00); POTASSIUM 3.2 mmol/L (3.5-5.1)
[2017-06-19 15:25] LABS: CALCIUM 5.7 mg/dl (8.4-10.2)
[2017-06-19] MEDS: HYDROCORTISONE 100 MG INJ IV SCH ×2 (16:29→21:17)
--- NOTE | 2017-06-19 18:45 | CONS ---
Date/Time of Note Date/Time of Note DATE: 06/19/17 TIME: 18:38 Assessment/Plan Assessment/Plan Additional Assessment/Plan History of breast cancer unconfirmed Mild dementia on examination Fall from bed Electrolyte abnormalities Elevated troponin level Contacted family members trying get a clear her story of her current and past medical history patient is a full code. Consultation Date/Type/Reason Admit Date/Time Jun 17, 2017 at 03:48 Reason for Consultation Palliative care Hx of Present Illness 86-year-old female who is a poor historian most information is taken from her medical records. Patient was brought to the emergency room and [facility] after a fall from her bed. Evaluated in the emergency room she was found to have elevated troponins, lactic acidosis and a history of metastatic breast cancer. This information is unclear to me at this time. Patient answers with one-word, yes, no, maybe however she states she has a granddaughter she lives with and a daughter who lives locally. She gives me a history of having an oncologist, but she states she saw her oncologist just recently in the diagnosis of breast cancer was made just 2 days ago. No family members immediately available to corroborate her story or give us additional information. Constitutional: no complaints (Denies fever chills or sweats) Respiratory: no complaints Cardiovascular: no complaints Gastrointestinal: no complaints Endocrine: no complaints Past Medical History Medical History: GERD Social History Alcohol Use: none Smoking Status: Former smoker Drug Use: none Exam/Review of Systems Vital Signs Vitals Vital Signs Date Time Temp Pulse Resp B/P Pulse Ox O2 Delivery O2 Flow Rate FiO2 06/19/17 16:05 71 06/19/17 16:00 97.0 20 129/61 96 06/19/17 08:02 2.0 06/18/17 08:00 Nasal Cannula Intake and Output 06/18/17 06/18/17 06/19/17 15:00 23:00 07:00 Intake Total 1300 ml 1050 ml Balance 1300 ml 1050 ml Exam Constitutional: other, well developed ENMT: nl external ears & nose, nl lips & teeth, nl nasal mucosa & septum Respiratory: No clear to auscultation, No congested cough, No crackles/rales, No diminished breath sounds, No intercostal retraction, No labored breathing, No normal air movement, No other, No respirations, No tactile fremitus, No wheezing Cardiovascular: No S3, No S4, No bruits, No diastolic murmur, No edema, No gallop, No irregular rhythm, No jugular venous distention (JVD), No murmurs/ extra sounds, No nl pulses, No other, No regular rate and rhythm, No rub, No systolic murmur Neurological: CEMENT MIXER II-XII intact, confused, focal weakness, lethargic, nl speech , nl strength Results Result Diagram: 06/19/17 0633 06/19/17 1441 Results 24 hrs Laboratory Tests Test 06/18/17 18:48 06/18/17 22:01 06/19/17 06:33 06/19/17 07:44 Random Cortisol 6.6 Bedside Glucose 112 112 White Blood Count 1.6 #L Red Blood Count 3.44 L Hemoglobin 11.7 L Hematocrit 34.8 L Mean Corpuscular Volume 101.2 H Mean Corpuscular Hemoglobin 34.0 H Mean Corpuscular Hemoglobin Concent 33.6 Red Cell Distribution Width 19.3 H Platelet Count 119 L Mean Platelet Volume 10.2 Neutrophils % Segmented Neutrophils % (Manual) 70 Lymphocytes % Lymphocytes % (Manual) 27 Monocytes % Monocytes % (Manual) 1 Eosinophils % Eosinophils % (Manual) 1 Basophils % Metamyelocytes % (manual) 1 H Nucleated Red Blood Cells % 5 H Neutrophils # (Manual) Absolute Lymphocytes (Manual) 0.4 L Lymphocytes # Monocytes # Absolute Monocytes (Manual) 0.0 L Eosinophils # Basophils # Metamyelocytes # 0.0 Nucleated Red Blood Cells # Platelet Estimate DECREASED Polychromasia 1+ Poikilocytosis 1+ Anisocytosis 1+ Ovalocytes 1+ Sodium Level 144 Potassium Level 2.4 *L Chloride Level 106 Carbon Dioxide Level 29 Anion Gap 11 Blood Urea Nitrogen 7 Creatinine 0.36 L Glucose Level 113 Calcium Level 6.6 L Phosphorus Level 1.7 L Magnesium Level 1.8 Total Bilirubin 1.0 Direct Bilirubin 0.00 Indirect Bilirubin 1.0 Aspartate Amino Transf (AST/SGOT) 45 Alanine Aminotransferase (ALT/SGPT) 63 Alkaline Phosphatase 90 Total Protein 5.2 L Albumin 2.5 L Globulin 2.70 Albumin/Globulin Ratio 0.92 Test 06/19/17 12:28 06/19/17 14:41 06/19/17 15:17 06/19/17 15:56 Bedside Glucose 113 Sodium Level 148 H Potassium Level 3.2 L Chloride Level 109 Carbon Dioxide Level 24 Anion Gap 18 #H Blood Urea Nitrogen 5 L Creatinine 0.43 L Glucose Level 95 Calcium Level 5.7 *L Random Cortisol 121.0 108.0 94.5 Test 06/19/17 17:01 Bedside Glucose 110 Medications Medications Current Medications Acetaminophen (Tylenol Tab) 650 mg Q6H PRN PO PAIN LEVEL 1-3 OR FEVER; Start at 04:30 Aspirin 81 mg 81 mg DAILY PO Last administered on 06/19/17 09:40; Admin Dose 81 MG; Start 06/17/17 at 09:00 Piperacillin Sod/ Tazobactam Sod 100 ml @ 200 mls/hr Q8 IVPB Last administered on 06/19/17 13:50; Admin Dose 200 MLS/HR; Start 06/17/17 at 06:00 Sodium Chloride (NS) 1,000 ml @ 80 mls/hr [id number] IV Last administered on 06/19 03:13; Admin Dose 80 MLS/HR; Start 06/17/17 at 04:30 Ondansetron HCl (Zofran Inj) 4 mg Q6H PRN IV NAUSEA AND/OR VOMITING Last administered on 06/18/17 20:50; Admin Dose 4 MG; Start 06/17/17 at 04:30 Docusate Sodium (Colace) 100 mg BID PO Last administered on 06/18/17 21:57; Admin Dose 100 MG; Start 06/17/17 at 09:00 Enoxaparin Sodium (Lovenox) 30 mg DAILY SC Last administered on 06/19/17 09:41 ; Admin Dose 30 MG; Start 06/17/17 at 09:00 Diagnostic Test (Pha) (Accu-Chek) 1 ea 02 XX ; Start 06/18/17 at 02:00 Miscellaneous Information 1 ea NOTE XX ; Start 06/17/17 at 05:00 Glucose (Glutose) 15 gm Q15M PRN PO DECREASED GLUCOSE; Start 06/17/17 at 05:00 Glucose (Glutose) 22.5 gm Q15M PRN PO DECREASED GLUCOSE; Start 06/17/17 at 05: 00 Dextrose (D50w Syringe) 25 ml Q15M PRN IV DECREASED GLUCOSE; Start 06/17/17 at 05:00 Dextrose (D50w Syringe) 50 ml Q15M PRN IV DECREASED GLUCOSE; Start 06/17/17 at 05:00 Glucagon (Glucagen) 1 mg Q15M PRN IM DECREASED GLUCOSE; Start 06/17/17 at 05:00 Glucose (Glutose) 15 gm Q15M PRN BUCCAL DECREASED GLUCOSE; Start 06/17/17 at 05 :00 Lactobacillus Acidophilus/ Rhamnosus (Culturelle) 1 cap BID PO Last administered on 06/18/17 21:57; Admin Dose 1 CAP; Start 06/17/17 at 21:00 Famotidine (Pepcid) 20 mg DAILY PO ; Start 06/18/17 at 09:00 Guaifenesin (Robitussin Liquid Cup) 100 mg Q4H PRN PO COUGH; Start 06/17/17 at 18:30 IV Flush 10 ml 10 ml PRN PRN IV IV PROTOCOL; Start 06/18/17 at 17:00 Vancomycin HCl/ Sodium Chloride (Vancocin/NS) 150 ml @ 75 mls/hr Q12H IVPB Last administered on 06/19/17 16:30; Admin Dose 75 MLS/HR; Start 06/19/17 at 05 :00 Hydrocortisone (Solu-Cortef) 50 mg Q8 IV Last administered on 06/19/17 16:29; Admin Dose 50 MG; Start 06/19/17 at 15:30; Stop 06/20/17 at 15:29 Miscellaneous Information (*Rx Drug Level Order Reminder*) VANCOMYCIN TROUGH AT 0400 ONCE ONCE XX ; Start 06/20/17 at 04:00; Stop 06/20/17 at 04:01 ESTELA PERES Jun 19, 2017 18:45
--- NOTE | 2017-06-19 19:22 | PN ---
Date/Time of Note Date/Time of Note DATE: 06/19/17 TIME: 19:20 Assessment/Plan VTE Prophylaxis VTE Prophylaxis Intervention: LMWH Lines/Catheters IV Catheter Type (from Nrsg): PICC Line Central line still needed: Yes (iv access) Urinary Cath still in place: No Assessment/Plan Chief Complaint/Hosp Course S: 06/17 Events noted. Appreciate cardio consult 06/18 no distress, although has cognitive impairment. no events overnight. denies headache. 06/19 poor appetite; didnt walk- tried O: vss No pallor Reg Clear; no tachypnea Benign bowel No edema non focal A/P 1. Sepsis? contaminant? R/o recurrent pneumonia. Possibly postobstructive. Stable cont antibiotics. 2. Metastatic Breast Ca to lung/ liver/ brain/ thyroid. Needs advanced care planning reevaluated 3. Subclinical hyperthyroidism? 4. False positive troponin due to demand ischemia/ sepsis?. 5. Past tobacco 6. Recent pneumonia in March 7. Ftt/mechanical fall 8. First-degree AV block? 9. Pituitary adenoma? 10. Immunosuppressed due to malignancy Problems: Exam/Review of Systems Vital Signs Vitals Vital Signs Date Time Temp Pulse Resp B/P Pulse Ox O2 Delivery O2 Flow Rate FiO2 06/19/17 16:05 71 06/19/17 16:00 97.0 20 129/61 96 06/19/17 08:02 2.0 06/18/17 08:00 Nasal Cannula Intake and Output 06/18/17 06/18/17 06/19/17 15:00 23:00 07:00 Intake Total 1300 ml 1050 ml Balance 1300 ml 1050 ml Results Result Diagram: 06/19/17 0633 06/19/17 1441 Results 24 hrs Laboratory Tests Test 06/18/17 22:01 06/19/17 06:33 06/19/17 07:44 06/19/17 12:28 Bedside Glucose 112 112 113 White Blood Count 1.6 #L Red Blood Count 3.44 L Hemoglobin 11.7 L Hematocrit 34.8 L Mean Corpuscular Volume 101.2 H Mean Corpuscular Hemoglobin 34.0 H Mean Corpuscular Hemoglobin Concent 33.6 Red Cell Distribution Width 19.3 H Platelet Count 119 L Mean Platelet Volume 10.2 Neutrophils % Segmented Neutrophils % (Manual) 70 Lymphocytes % Lymphocytes % (Manual) 27 Monocytes % Monocytes % (Manual) 1 Eosinophils % Eosinophils % (Manual) 1 Basophils % Metamyelocytes % (manual) 1 H Nucleated Red Blood Cells % 5 H Neutrophils # (Manual) Absolute Lymphocytes (Manual) 0.4 L Lymphocytes # Monocytes # Absolute Monocytes (Manual) 0.0 L Eosinophils # Basophils # Metamyelocytes # 0.0 Nucleated Red Blood Cells # Platelet Estimate DECREASED Polychromasia 1+ Poikilocytosis 1+ Anisocytosis 1+ Ovalocytes 1+ Sodium Level 144 Potassium Level 2.4 *L Chloride Level 106 Carbon Dioxide Level 29 Anion Gap 11 Blood Urea Nitrogen 7 Creatinine 0.36 L Glucose Level 113 Calcium Level 6.6 L Phosphorus Level 1.7 L Magnesium Level 1.8 Total Bilirubin 1.0 Direct Bilirubin 0.00 Indirect Bilirubin 1.0 Aspartate Amino Transf (AST/SGOT) 45 Alanine Aminotransferase (ALT/SGPT) 63 Alkaline Phosphatase 90 Total Protein 5.2 L Albumin 2.5 L Globulin 2.70 Albumin/Globulin Ratio 0.92 Test 06/19/17 14:41 06/19/17 15:17 06/19/17 15:56 06/19/17 17:01 Sodium Level 148 H Potassium Level 3.2 L Chloride Level 109 Carbon Dioxide Level 24 Anion Gap 18 #H Blood Urea Nitrogen 5 L Creatinine 0.43 L Glucose Level 95 Calcium Level 5.7 *L Random Cortisol 121.0 108.0 94.5 Bedside Glucose 110 Medications Medications Current Medications Acetaminophen (Tylenol Tab) 650 mg Q6H PRN PO PAIN LEVEL 1-3 OR FEVER; Start at 04:30 Aspirin 81 mg 81 mg DAILY PO Last administered on 06/19/17 09:40; Admin Dose 81 MG; Start 06/17/17 at 09:00 Piperacillin Sod/ Tazobactam Sod 100 ml @ 200 mls/hr Q8 IVPB Last administered on 06/19/17 13:50; Admin Dose 200 MLS/HR; Start 06/17/17 at 06:00 Sodium Chloride (NS) 1,000 ml @ 80 mls/hr [id number] IV Last administered on 06/19 03:13; Admin Dose 80 MLS/HR; Start 06/17/17 at 04:30 Ondansetron HCl (Zofran Inj) 4 mg Q6H PRN IV NAUSEA AND/OR VOMITING Last administered on 06/18/17 20:50; Admin Dose 4 MG; Start 06/17/17 at 04:30 Docusate Sodium (Colace) 100 mg BID PO Last administered on 06/18/17 21:57; Admin Dose 100 MG; Start 06/17/17 at 09:00 Enoxaparin Sodium (Lovenox) 30 mg DAILY SC Last administered on 06/19/17 09:41 ; Admin Dose 30 MG; Start 06/17/17 at 09:00 Diagnostic Test (Pha) (Accu-Chek) 1 ea 02 XX ; Start 06/18/17 at 02:00 Miscellaneous Information 1 ea NOTE XX ; Start 06/17/17 at 05:00 Glucose (Glutose) 15 gm Q15M PRN PO DECREASED GLUCOSE; Start 06/17/17 at 05:00 Glucose (Glutose) 22.5 gm Q15M PRN PO DECREASED GLUCOSE; Start 06/17/17 at 05: 00 Dextrose (D50w Syringe) 25 ml Q15M PRN IV DECREASED GLUCOSE; Start 06/17/17 at 05:00 Dextrose (D50w Syringe) 50 ml Q15M PRN IV DECREASED GLUCOSE; Start 06/17/17 at 05:00 Glucagon (Glucagen) 1 mg Q15M PRN IM DECREASED GLUCOSE; Start 06/17/17 at 05:00 Glucose (Glutose) 15 gm Q15M PRN BUCCAL DECREASED GLUCOSE; Start 06/17/17 at 05 :00 Lactobacillus Acidophilus/ Rhamnosus (Culturelle) 1 cap BID PO Last administered on 06/18/17 21:57; Admin Dose 1 CAP; Start 06/17/17 at 21:00 Famotidine (Pepcid) 20 mg DAILY PO ; Start 06/18/17 at 09:00 Guaifenesin (Robitussin Liquid Cup) 100 mg Q4H PRN PO COUGH; Start 06/17/17 at 18:30 IV Flush 10 ml 10 ml PRN PRN IV IV PROTOCOL; Start 06/18/17 at 17:00 Vancomycin HCl/ Sodium Chloride (Vancocin/NS) 150 ml @ 75 mls/hr Q12H IVPB Last administered on 06/19/17 16:30; Admin Dose 75 MLS/HR; Start 06/19/17 at 05 :00 Hydrocortisone (Solu-Cortef) 50 mg Q8 IV Last administered on 06/19/17t 16:29; Admin Dose 50 MG; Start 06/19/17 at 15:30; Stop 06/20/17 at 15:29 Miscellaneous Information (*Rx Drug Level Order Reminder*) VANCOMYCIN TROUGH AT 0400 ONCE ONCE XX ; Start 06/20/17 at 04:00; Stop 06/20/17 at 04:01 MICHAEL RAMSAY MD Jun 19, 2017 19:22
[2017-06-20] VITALS (10 sets, daily range): BP systolic 123–166; BP diastolic 61–119; PULSE 68–93; RESP 18–20
[2017-06-20] MEDS: ACCU-CHEK XX SCH (02:00)
[2017-06-20] MEDS: SOD CHLORIDE 0.9% 1,000 ML IV SCH ×2 (03:00→07:30)
--- NOTE | 2017-06-20 03:24 | PN ---
DATE: 06/19/2017 SUBJECTIVE DATA: No acute changes. The patient is awake, lying comfortably in bed. No fevers. LABORATORY AND DIAGNOSTIC DATA: WBC 1.6. H and H 11.7 and 34.8, platelets 119. BUN 7, creatinine 0.36, potassium 2.4. MICROBIOLOGY: Blood culture since admission grew Staph species. Urine culture is negative. DIAGNOSTICS: CT of the brain on admission revealed sellar suprasellar mass likely pituitary adenoma. No evidence of acute intracranial pathology. Mild cortical atrophy. Contrast enhanced MRI recommended. Chest x-ray revealed cardiomegaly, right basilar atelectasis versus infiltrates. ANTIMICROBIALS: The patient is on vancomycin and Zosyn, day number 3. PHYSICAL EXAMINATION: VITALS: Temperature 97.8, pulse 80, respirations 20, blood pressure 128/64, saturation 96 on 2 L. GENERAL: This is an obese, chronically ill-appearing, elderly white woman who is in no distress. HEENT: Head is atraumatic and normocephalic. Sclerae are anicteric. Buccal mucosa is dry. NECK: Supple. LUNGS: Chest rise is symmetrical. Breath sounds are diminished at the bases. HEART: S1, S2. ABDOMEN: Soft. Bowel sounds present. EXTREMITIES: With trace edema. ASSESSMENT: 1. Systemic inflammatory response syndrome. 2. Questionable right lower lobe pneumonia. 3. Coag-negative staph bacteremia. Rule out contaminant. 4. Pituitary adenoma as per CT of the brain. 5. History of metastatic breast cancer. 6. Status post fall. 7. Leukopenia. 8. Thrombocytopenia. PLAN: The patient remains hemodynamically stable. She is being seen by multiple consultants. Started on Solu-Cortef. We are going to repeat blood cultures. Repeat chest x-ray in a.m. Continue present care. Aspiration precaution. Dictated By: Sylvain Frances NP /bam/jeimy /Document#: [id number]
[2017-06-20 04:51] LABS: ABNORMAL IP MESSAGE 1; BASOPHILS % 0.5 % (0.0-2.0); HEMATOCRIT 32.5 % (37.0-47.0); HEMOGLOBIN 11.1 g/dl (12.0-16.0); LYMPHOCYTES # 0.3 10^3/ul (0.8-2.9); LYMPHOCYTES % 17.8 % (15.0-51.0); MEAN CORPUSCULAR HEMOGLOBIN 34.5 pg (29.0-33.0); MEAN CORPUSCULAR HGB CONC 34.2 g/dl (32.0-37.0); MEAN CORPUSCULAR VOLUME 100.9 fl (82.0-101.0); MEAN PLATELET VOLUME 9.8 fl (7.4-10.4); MONOCYTE # 0.1 10^3/ul (0.3-0.9); MONOCYTES % 5.4 % (0.0-11.0); NEUTROPHILS % 70.4 % (39.0-77.0); NUCLEATED RED BLOOD CELLS% 2.2 /100WBC (0.0-0.0); PLATELET COUNT 132 10^3/UL (140-415); RED BLOOD COUNT 3.22 10^6/ul (4.20-5.40); RED CELL DISTRIBUTION WIDTH 19.3 % (11.5-14.5); WHITE BLOOD COUNT 1.9 10^3/ul (4.8-10.8)
[2017-06-20 04:54] LABS: POSITIVE DIFF @See below
[2017-06-20] MEDS: HYDROCORTISONE 100 MG INJ IV SCH ×2 (05:11→13:54)
[2017-06-20] MEDS: PIPER-TAZO 3.375 GM IV (PMX) 100 ML IVPB SCH ×3 (05:11→22:01)
[2017-06-20 05:26] LABS: ALBUMIN 2.3 g/dl (3.3-4.9); ALBUMIN/GLOBULIN RATIO 0.92; BILIRUBIN,INDIRECT 0.7 mg/dl (0-1.1); BILIRUBIN,TOTAL 0.7 mg/dl (0.2-1.3); CREATININE 0.45 mg/dl (0.44-1.00); TOTAL PROTEIN 4.8 g/dl (6.1-8.1)
[2017-06-20 05:29] LABS: CALCIUM 5.9 mg/dl (8.4-10.2); POTASSIUM 2.6 mmol/L (3.5-5.1)
[2017-06-20] MEDS ORDERED: POTASSIUM CHLORIDE 20 MEQ POWDER FOR ORAL SOLN PO ONE (06:00)
[2017-06-20] MEDS: VANCOMYCIN 750 MG in SOD CHLORIDE 0.9% 150 ML IVPB SCH ×2 (06:33→16:56)
[2017-06-20] MEDS: INSULIN ASPART [NOVOLOG] 3 ML PEN SC SCH ×4 (08:00→20:13)
--- NOTE | 2017-06-20 08:28 | RADRPT ---
PROCEDURE: XR Chest 1 View. CLINICAL INDICATION: Cough TECHNIQUE: AP view of the chest was obtained. COMPARISON: June 18, 2017 FINDINGS: The cardiomediastinal silhouette is within normal limits. Calcified heart valve is observed. Centra l pulmonary vascular congestion and interstitial prominence in both lungs is stable. Small right ple ural effusion with associated lower lobe atelectasis/infiltrates is unchanged. Right-sided PICC line is stable. The osseous structures are osteopenic, but appear grossly intact. Surgical clips are s een in the left axilla. IMPRESSION: Stable central pulmonary vascular congestion and mild interstitial prominence in both lungs. Stable small right pleural effusion with associated lower lobe atelectasis/infiltrate. RPTAT: AA .Giovani Salazar MD, Date Time Electronically viewed and signed by .Giovani Salazar MD, MD on 06/20/2017 08:27 .P/
--- NOTE | 2017-06-20 09:15 | CONS ---
Date/Time of Note Date/Time of Note DATE: 06/20/17 TIME: 09:11 Consult Date/Type/Reason Admit Date/Time Jun 17, 2017 at 03:48 Initial Consult Date 06/17/17 Type of Consultation: CARDIOLGOY Reason for Consultation CARDIOLOGY FOLLOW UP NOTE: D/W staff and rhythm was reviewed. pt remains in NSR. no afib BUT Frequent PAC She denies any cp or pressure to me. no palpitations. she denies diarrhea OBJECTIVE: HEENT: Normocephalic, atraumatic Pupils are equal. CARDIOVASCULAR: RRR systolic murmur. PULMONARY: no wheezes. Minimal rhonchi. GASTROINTESTINAL: Soft, obese, nontender. no rebound or guarding. EXTREMITIES: + lower extremity edema. NEUROLOGIC: Awake. Oriented to person only. left upper extremities appear to be weak. PSYCH: Appears to be calm. DERMATOLOGY: No evidence of bleeding. Multiple seborrheic keratosis noted echo personally reviewed 1. Hyperdynamic left ventricular systolic function. Normal left ventricular cavity size. Moderate concentric left ventricular hypertrophy. Ejection fraction is visually estimated at 70 %. Abnormal Diastolic Function. 2. There is moderate enlargement of left atrium. 3. Mitral valve leaflets appear mildly thickened. Severe mitral annular calcification. Mild mitral valve regurgitation. Mitral valve Max Velocity 1.44 m/sec. MaxPG 8.00 mmHg. MeanPG 2.00 mmHg. 4. Aortic sclerosis without stenosis. Trace aortic valve regurgitation. 5. Normal appearance of the tricuspid valve. Estimated peak PA systolic pressure 47 mmHg. There is mild tricuspid regurgitation. 6. Normal size and normal respiratory collapse consistent with normal right atrial pressure. Ordering Provider: KEVEN MESSER Objective Vital Signs Date Time Temp Pulse Resp B/P Pulse Ox O2 Delivery O2 Flow Rate FiO2 06/20/17 08:42 86 06/20/17 07:55 98.3 19 166/74 97 06/19/17 08:02 2.0 06/18/17 08:00 Nasal Cannula Intake and Output 06/19/17 06/19/17 06/20/17 15:00 23:00 07:00 Intake Total 1180 ml 1540 ml Balance 1180 ml 1540 ml Results/Medications Result Diagram: 06/20/17 0410 06/20/17 0410 Results 24 hrs Laboratory Tests Test 06/19/17 12:28 06/19/17 14:41 06/19/17 15:17 06/19/17 15:56 Bedside Glucose 113 Sodium Level 148 H Potassium Level 3.2 L Chloride Level 109 Carbon Dioxide Level 24 Anion Gap 18 #H Blood Urea Nitrogen 5 L Creatinine 0.43 L Glucose Level 95 Calcium Level 5.7 *L Random Cortisol 121.0 108.0 94.5 Test 06/19/17 17:01 06/19/17 20:31 06/20/17 04:10 06/20/17 07:52 Bedside Glucose 110 137 134 White Blood Count 1.9 L Red Blood Count 3.22 L Hemoglobin 11.1 L Hematocrit 32.5 L Mean Corpuscular Volume 100.9 Mean Corpuscular Hemoglobin 34.5 H Mean Corpuscular Hemoglobin Concent 34.2 Red Cell Distribution Width 19.3 H Platelet Count 132 L Mean Platelet Volume 9.8 Neutrophils % 70.4 Lymphocytes % 17.8 Monocytes % 5.4 Eosinophils % 0.0 Basophils % 0.5 Nucleated Red Blood Cells % 2.2 H Neutrophils # (Manual) 1.3 L Lymphocytes # 0.3 L Monocytes # 0.1 L Eosinophils # 0.0 Basophils # 0.0 Nucleated Red Blood Cells # 0.0 Sodium Level 151 H Potassium Level 2.6 *L Chloride Level 114 H Carbon Dioxide Level 25 Anion Gap 15 Blood Urea Nitrogen 6 L Creatinine 0.45 Glucose Level 128 Calcium Level 5.9 *L Magnesium Level 2.0 Total Bilirubin 0.7 Direct Bilirubin 0.00 Indirect Bilirubin 0.7 Aspartate Amino Transf (AST/SGOT) 35 Alanine Aminotransferase (ALT/SGPT) 58 Alkaline Phosphatase 81 Total Protein 4.8 L Albumin 2.3 L Globulin 2.50 Albumin/Globulin Ratio 0.92 Vancomycin Level Trough 10.8 Medications Current Medications Acetaminophen (Tylenol Tab) 650 mg Q6H PRN PO PAIN LEVEL 1-3 OR FEVER; Start at 04:30 Aspirin 81 mg 81 mg DAILY PO Last administered on 06/19/17 09:40; Admin Dose 81 MG; Start 06/17/17 at 09:00 Piperacillin Sod/ Tazobactam Sod 100 ml @ 200 mls/hr Q8 IVPB Last administered on 06/20/17 05:11; Admin Dose 200 MLS/HR; Start 06/17/17 at 06:00 Sodium Chloride (NS) 1,000 ml @ 80 mls/hr [id number] IV Last administered on 06/20 03:00; Admin Dose 80 MLS/HR; Start 06/17/17 at 04:30 Ondansetron HCl (Zofran Inj) 4 mg Q6H PRN IV NAUSEA AND/OR VOMITING Last administered on 06/18/17 20:50; Admin Dose 4 MG; Start 06/17/17 at 04:30 Docusate Sodium (Colace) 100 mg BID PO Last administered on 06/19/17 20:37; Admin Dose 100 MG; Start 06/17/17 at 09:00 Enoxaparin Sodium (Lovenox) 30 mg DAILY SC Last administered on 06/19/17 09:41 ; Admin Dose 30 MG; Start 06/17/17 at 09:00 Diagnostic Test (Pha) (Accu-Chek) 1 ea 02 XX ; Start 06/18/17 at 02:00 Miscellaneous Information 1 ea NOTE XX ; Start 06/17/17 at 05:00 Glucose (Glutose) 15 gm Q15M PRN PO DECREASED GLUCOSE; Start 06/17/17 at 05:00 Glucose (Glutose) 22.5 gm Q15M PRN PO DECREASED GLUCOSE; Start 06/17/17 at 05: 00 Dextrose (D50w Syringe) 25 ml Q15M PRN IV DECREASED GLUCOSE; Start 06/17/17 at 05:00 Dextrose (D50w Syringe) 50 ml Q15M PRN IV DECREASED GLUCOSE; Start 06/17/17 at 05:00 Glucagon (Glucagen) 1 mg Q15M PRN IM DECREASED GLUCOSE; Start 06/17/17 at 05:00 Glucose (Glutose) 15 gm Q15M PRN BUCCAL DECREASED GLUCOSE; Start 06/17/17 at 05 :00 Lactobacillus Acidophilus/ Rhamnosus (Culturelle) 1 cap BID PO Last administered on 06/19/17 20:37; Admin Dose 1 CAP; Start 06/17/17 at 21:00 Famotidine (Pepcid) 20 mg DAILY PO ; Start 06/18/17 at 09:00 Guaifenesin (Robitussin Liquid Cup) 100 mg Q4H PRN PO COUGH; Start 06/17/17 at 18:30 IV Flush 10 ml 10 ml PRN PRN IV IV PROTOCOL; Start 06/18/17 at 17:00 Vancomycin HCl/ Sodium Chloride (Vancocin/NS) 150 ml @ 75 mls/hr Q12H IVPB Last administered on 06/20/17 06:33; Admin Dose 75 MLS/HR; Start 06/19/17 at 05 :00 Hydrocortisone (Solu-Cortef) 50 mg Q8 IV Last administered on 06/20/17 05:11; Admin Dose 50 MG; Start 06/19/17 at 15:30; Stop 06/20/17 at 15:29 Potassium Chloride (Potassium Chloride Pwd/Soln) 40 meq ONCE PO ; Start at 10:00; Stop 06/20/17 at 13:00 Assessment/Plan Chief Complaint/Hosp Course 1. Mildly abnormal troponin with no chest pain and ejection fraction of 70%. Most likely c/w a false positive troponin. 2. Hypertension with hypertensive heart disease.:improved now 3. Abnormal EKG secondary to above. 4. Brain mass/tumor, possible adenoma per CT. 5. 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 6. Thyroid disorder. 7. Possible sepsis. 8. Status post fall. 9. Encephalopathy. 10. Hyperglycemia. 11. Elevated lactic acid/lactic acidosis and possible sepsis. 12. severe hypo K. RECOMMENDATIONS: . If felt by neurology that it might be harmful from a neurology standpoint, I believe it is very reasonable to stop the aspirin. cont BP control. will add aldactone Diabetic management as per Internal Medicine/ endocrine Antibiotic as per Internal Medicine. Thyroid management as per Internal Medicine and endocrine consult Conservative cardiac therapy is only recommended at this point. replace K and Mg. WILL defer to IM team, Thank you MELISSA LIZARRAGA MD [facility] Problems: MELISSA LIZARRAGA MD Jun 20, 2017 09:15
[2017-06-20] MEDS ORDERED: POTASSIUM CHLORIDE 20 MEQ POWDER FOR ORAL SOLN PO SCH (10:00)
[2017-06-20] MEDS: DOCUSATE SODIUM 100 MG CAP PO SCH ×2 (10:04→20:23)
[2017-06-20] MEDS: FAMOTIDINE 20 MG TAB PO SCH (10:05)
[2017-06-20] MEDS: ASPIRIN 81 MG TAB PO SCH (10:05)
[2017-06-20] MEDS: LACTOBACILLUS RHAMNOSUS CAP PO SCH ×2 (10:05→20:23)
[2017-06-20] MEDS: SPIRONOLACTONE 25 MG TAB PO SCH (10:05)
[2017-06-20] MEDS: ENOXAPARIN 30 MG/0.3 ML SYG SC SCH (10:15)
--- NOTE | 2017-06-20 10:48 | CONS ---
Date/Time of Note Date/Time of Note DATE: 06/20/17 TIME: 10:45 Assessment/Plan Assessment/Plan Chief Complaint/Hosp Course 86-year-old female who is a poor historian most information is taken from her medical records. Patient was brought to the emergency room and [facility] after a fall from her bed. Evaluated in the emergency room she was found to have elevated troponins, lactic acidosis and a history of metastatic breast cancer. This information is unclear to me at this time. Patient answers with one-word, yes, no, maybe however she states she has a granddaughter she lives with and a daughter who lives locally. She gives me a history of having an oncologist, but she states she saw her oncologist just recently in the diagnosis of breast cancer was made just 2 days ago. No family members immediately available to corroborate her story or give us additional information. Problems: Additional Assessment/Plan SWS contacted familty members meting tomorrow at 1300.... establish goals of care. Consultation Date/Type/Reason Admit Date/Time Jun 17, 2017 at 03:48 Initial Consult Date 06/18/17 Type of Consultation: palliative Care Referring Provider: KEVEN MESSER Exam/Review of Systems Vital Signs Vitals Vital Signs Date Time Temp Pulse Resp B/P Pulse Ox O2 Delivery O2 Flow Rate FiO2 06/20/17 08:42 86 06/20/17 07:55 98.3 19 166/74 97 06/19/17 08:02 2.0 06/18/17 08:00 Nasal Cannula Intake and Output 06/19/17 06/19/17 06/20/17 15:00 23:00 07:00 Intake Total 1180 ml 1540 ml Balance 1180 ml 1540 ml Results Result Diagram: 06/20/17 0410 06/20/17 0410 Results 24 hrs Laboratory Tests Test 06/19/17 12:28 06/19/17 14:41 06/19/17 15:17 06/19/17 15:56 Bedside Glucose 113 Sodium Level 148 H Potassium Level 3.2 L Chloride Level 109 Carbon Dioxide Level 24 Anion Gap 18 #H Blood Urea Nitrogen 5 L Creatinine 0.43 L Glucose Level 95 Calcium Level 5.7 *L Random Cortisol 121.0 108.0 94.5 Test 06/19/17 17:01 06/19/17 20:31 06/20/17 04:10 06/20/17 07:52 Bedside Glucose 110 137 134 White Blood Count 1.9 L Red Blood Count 3.22 L Hemoglobin 11.1 L Hematocrit 32.5 L Mean Corpuscular Volume 100.9 Mean Corpuscular Hemoglobin 34.5 H Mean Corpuscular Hemoglobin Concent 34.2 Red Cell Distribution Width 19.3 H Platelet Count 132 L Mean Platelet Volume 9.8 Neutrophils % 70.4 Lymphocytes % 17.8 Monocytes % 5.4 Eosinophils % 0.0 Basophils % 0.5 Nucleated Red Blood Cells % 2.2 H Neutrophils # (Manual) 1.3 L Lymphocytes # 0.3 L Monocytes # 0.1 L Eosinophils # 0.0 Basophils # 0.0 Nucleated Red Blood Cells # 0.0 Sodium Level 151 H Potassium Level 2.6 *L Chloride Level 114 H Carbon Dioxide Level 25 Anion Gap 15 Blood Urea Nitrogen 6 L Creatinine 0.45 Glucose Level 128 Calcium Level 5.9 *L Magnesium Level 2.0 Total Bilirubin 0.7 Direct Bilirubin 0.00 Indirect Bilirubin 0.7 Aspartate Amino Transf (AST/SGOT) 35 Alanine Aminotransferase (ALT/SGPT) 58 Alkaline Phosphatase 81 Total Protein 4.8 L Albumin 2.3 L Globulin 2.50 Albumin/Globulin Ratio 0.92 Vancomycin Level Trough 10.8 Medications Medications Current Medications Acetaminophen (Tylenol Tab) 650 mg Q6H PRN PO PAIN LEVEL 1-3 OR FEVER; Start at 04:30 Aspirin 81 mg 81 mg DAILY PO Last administered on 06/20/17 10:05; Admin Dose 81 MG; Start 06/17/17 at 09:00 Piperacillin Sod/ Tazobactam Sod 100 ml @ 200 mls/hr Q8 IVPB Last administered on 06/20/17 05:11; Admin Dose 200 MLS/HR; Start 06/17/17 at 06:00 Sodium Chloride (NS) 1,000 ml @ 80 mls/hr [id number] IV Last administered on 06/20 03:00; Admin Dose 80 MLS/HR; Start 06/17/17 at 04:30 Ondansetron HCl (Zofran Inj) 4 mg Q6H PRN IV NAUSEA AND/OR VOMITING Last administered on 06/18/17 20:50; Admin Dose 4 MG; Start 06/17/17 at 04:30 Docusate Sodium (Colace) 100 mg BID PO Last administered on 06/20/17 10:04; Admin Dose 100 MG; Start 06/17/17 at 09:00 Enoxaparin Sodium (Lovenox) 30 mg DAILY SC Last administered on 06/20/17 10:15 ; Admin Dose 30 MG; Start 06/17/17 at 09:00 Diagnostic Test (Pha) (Accu-Chek) 1 ea 02 XX ; Start 06/18/17 at 02:00 Miscellaneous Information 1 ea NOTE XX ; Start 06/17/17 at 05:00 Glucose (Glutose) 15 gm Q15M PRN PO DECREASED GLUCOSE; Start 06/17/17 at 05:00 Glucose (Glutose) 22.5 gm Q15M PRN PO DECREASED GLUCOSE; Start 06/17/17 at 05: 00 Dextrose (D50w Syringe) 25 ml Q15M PRN IV DECREASED GLUCOSE; Start 06/17/17 at 05:00 Dextrose (D50w Syringe) 50 ml Q15M PRN IV DECREASED GLUCOSE; Start 06/17/17 at 05:00 Glucagon (Glucagen) 1 mg Q15M PRN IM DECREASED GLUCOSE; Start 06/17/17 at 05:00 Glucose (Glutose) 15 gm Q15M PRN BUCCAL DECREASED GLUCOSE; Start 06/17/17 at 05 :00 Lactobacillus Acidophilus/ Rhamnosus (Culturelle) 1 cap BID PO Last administered on 06/20/17 10:05; Admin Dose 1 CAP; Start 06/17/17 at 21:00 Famotidine (Pepcid) 20 mg DAILY PO Last administered on 06/20/17 10:05; Admin Dose 20 MG; Start 06/18/17 at 09:00 Guaifenesin (Robitussin Liquid Cup) 100 mg Q4H PRN PO COUGH; Start 06/17/17 at 18:30 IV Flush 10 ml 10 ml PRN PRN IV IV PROTOCOL; Start 06/18/17 at 17:00 Vancomycin HCl/ Sodium Chloride (Vancocin/NS) 150 ml @ 75 mls/hr Q12H IVPB Last administered on 06/20/17 06:33; Admin Dose 75 MLS/HR; Start 06/19/17 at 05 :00 Hydrocortisone (Solu-Cortef) 50 mg Q8 IV Last administered on 06/20/17 05:11; Admin Dose 50 MG; Start 06/19/17 at 15:30; Stop 06/20/17 at 15:29 Potassium Chloride (Potassium Chloride Pwd/Soln) 40 meq ONCE PO Last administered on 06/20/17 10:05; Admin Dose 40 MEQ; Start 06/20/17 at 10:00; Stop 06/20/17 at 13:00 Spironolactone (Aldactone) 25 mg DAILY PO Last administered on 06/20/17 10:05 ; Admin Dose 25 MG; Start 06/20/17 at 09:30 ESTELA PERES Jun 20, 2017 10:48
[2017-06-20 13:54] LABS: FREE T3 2.43 pg/ml (2.77-5.27)
[2017-06-20 14:10] LABS: THYROID STIMULATING HORMONE < 0.015 MIU/L (0.465-4.680)
--- NOTE | 2017-06-20 15:40 | PN ---
DATE: 06/20/2017 SUBJECTIVE DATA: No events overnight. Patient looks comfortable. No fevers. LABORATORY AND DIAGNOSTIC DATA: WBC today 1.9, platelets 132,000, neutrophils 70.4. BUN 6, creatinine 0.45. ANTIMICROBIALS: The patient is on IV vancomycin and Zosyn day #4. MICROBIOLOGY: Blood culture on admission grew coag-negative Staph species. Urine culture negative. Repeat blood cultures negative. IMAGING: Chest x-ray this morning revealed stable central pulmonary vascular congestion. Stable small right pleural effusion with associated lower lobe atelectasis/infiltrate. INDWELLING: The patient has PICC line placed. OBJECTIVE DATA: PHYSICAL EXAMINATION: GENERAL: Fragile, well-developed elderly woman in no distress. HEENT: Head atraumatic, normocephalic. Sclerae anicteric. Buccal mucosa dry. NECK: Supple. CHEST: Rise symmetrical. Breath sounds diminished at the bases. HEART: S1, S2. ABDOMEN: Soft, bowel sounds present. EXTREMITIES: Without cyanosis. ASSESSMENT: 1. Systemic inflammatory response syndrome possibly secondary to #2. 2. Right lower lobe pneumonia. 3. Coag-negative Staph bacteremia, likely contaminant with repeat cultures negative. 4. Pituitary adenoma. 5. Metastatic breast cancer. 6. Pancytopenia. PLAN: The patient remains unchanged. She is followed by multiple consultants. She is on Solu-Cortef. Repeat blood cultures negative. Continue present care. Anti-aspiration measures. Dictated By: Sylvain Frances NP /bam/garrick /Document#: [id number]
--- NOTE | 2017-06-20 17:29 | CONS ---
Date/Time of Note Date/Time of Note DATE: 06/20/17 TIME: 17:23 Assessment/Plan Assessment/Plan Chief Complaint/Hosp Course 86-year-old female who is normally treated by Dr. Haung at [facility] [place]. She reports she has had brain scanning done within the last year. She reports she has cancer that is metastatic to multiple locations. We do not have specific data on this. Patient reports no known history of thyroid disorder and denies any known history of pituitary abnormalities. 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 Given the overall status her likelihood at age 86 of long-term positive outcome has its limitations. Concur with palliative care consultation to discuss with the patient and the patient's family long-term goals of therapy. 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 (4) Pituitary mass Status: Acute Comment: I doubt that this represents metastatic disease from the breast although given the limited nature of the scan we have we do not know. Repeat the scans but that would mean the organ to be taking a much more aggressive approach. Before I do that I want to see what her other hormone studies are like. Is fairly clear that she does not have TSH insufficiency. Addition I do not feel that she has adrenal insufficiency. If we are going to pursue that she needs an MRI scan with and without contrast of the pituitary (5) Diastolic dysfunction Status: Chronic Comment: Noted (6) Abnormal thyroid function test Status: Acute Comment: I actually suspect that this is real she has a subclinical case of hyperthyroidism. Aggressive treatment of this would be somewhat tricky given that she already is leukopenic before I have given her a single agent. For now I think that will take a watch and wait approach until we know more about how were going to deal with the oncological issues (7) Low serum cortisol level Status: Acute Comment: This is very likely been due to a low cortisol binding globulin. Unfortunately the test has been corrupted. Logically speaking there is no way that those numbers represent having been drawn before the patient having been given IV hydrocortisone. I understand that the timing listed in the nursing notes states was done after however I am not sure that I buy it. Regardless it does not change therapeutics. Given the overall totality state I do not think that further cortisol administration is necessary (8) Mitral valvular regurgitation Status: Chronic Comment: Noted Qualifiers: Cardiac valve disease etiology: etiology unspecified Qualified Code: I34.0 - Mitral valve insufficiency, unspecified etiology (9) Severe sepsis Status: Acute Comment: As per infectious disease Consultation Date/Type/Reason Admit Date/Time Jun 17, 2017 at 03:48 Initial Consult Date 06/18/17 Type of Consultation: Endocrinology Reason for Consultation Subacute hyperthyroidism; pituitary mass; metastatic adenocarcinoma of the breast Referring Provider: KEVEN MESSER 24 HR Interval Summary Free Text/Dictation No changes Exam/Review of Systems Vital Signs Vitals Vital Signs Date Time Temp Pulse Resp B/P Pulse Ox O2 Delivery O2 Flow Rate FiO2 06/20/17 16:20 98.2 72 19 161/119 90 06/19/17 08:02 2.0 06/18/17 08:00 Nasal Cannula Intake and Output 06/19/17 06/19/17 06/20/17 15:00 23:00 07:00 Intake Total 1180 ml 1540 ml Balance 1180 ml 1540 ml Results No change in exam Result Diagram: 06/20/17 0410 06/20/17 0410 Results 24 hrs Laboratory Tests Test 06/19/17 20:31 06/20/17 04:10 06/20/17 04:25 06/20/17 07:52 Bedside Glucose 137 134 White Blood Count 1.9 L Red Blood Count 3.22 L Hemoglobin 11.1 L Hematocrit 32.5 L Mean Corpuscular Volume 100.9 Mean Corpuscular Hemoglobin 34.5 H Mean Corpuscular Hemoglobin Concent 34.2 Red Cell Distribution Width 19.3 H Platelet Count 132 L Mean Platelet Volume 9.8 Neutrophils % 70.4 Lymphocytes % 17.8 Monocytes % 5.4 Eosinophils % 0.0 Basophils % 0.5 Nucleated Red Blood Cells % 2.2 H Neutrophils # (Manual) 1.3 L Lymphocytes # 0.3 L Monocytes # 0.1 L Eosinophils # 0.0 Basophils # 0.0 Nucleated Red Blood Cells # 0.0 Sodium Level 151 H Potassium Level 2.6 *L Chloride Level 114 H Carbon Dioxide Level 25 Anion Gap 15 Blood Urea Nitrogen 6 L Creatinine 0.45 Glucose Level 128 Calcium Level 5.9 *L Magnesium Level 2.0 Total Bilirubin 0.7 Direct Bilirubin 0.00 Indirect Bilirubin 0.7 Aspartate Amino Transf (AST/SGOT) 35 Alanine Aminotransferase (ALT/SGPT) 58 Alkaline Phosphatase 81 Total Protein 4.8 L Albumin 2.3 L Globulin 2.50 Albumin/Globulin Ratio 0.92 Vancomycin Level Trough 10.8 Thyroid Stimulating Hormone (TSH) < 0.015 L Free Thyroxine 2.34 H Free Triiodothyronine (T3) pg/mL 2.43 L Test 06/20/17 12:23 Bedside Glucose 169 Medications Medications Current Medications Acetaminophen (Tylenol Tab) 650 mg Q6H PRN PO PAIN LEVEL 1-3 OR FEVER; Start at 04:30 Aspirin 81 mg 81 mg DAILY PO Last administered on 06/20/17 10:05; Admin Dose 81 MG; Start 06/17/17 at 09:00 Piperacillin Sod/ Tazobactam Sod 100 ml @ 200 mls/hr Q8 IVPB Last administered on 06/20/17 13:54; Admin Dose 200 MLS/HR; Start 06/17/17 at 06:00 Sodium Chloride (NS) 1,000 ml @ 80 mls/hr [id number] IV Last administered on 06/20 03:00; Admin Dose 80 MLS/HR; Start 06/17/17 at 04:30 Ondansetron HCl (Zofran Inj) 4 mg Q6H PRN IV NAUSEA AND/OR VOMITING Last administered on 06/18/17 20:50; Admin Dose 4 MG; Start 06/17/17 at 04:30 Docusate Sodium (Colace) 100 mg BID PO Last administered on 06/20/17 10:04; Admin Dose 100 MG; Start 06/17/17 at 09:00 Enoxaparin Sodium (Lovenox) 30 mg DAILY SC Last administered on 06/20/17 10:15 ; Admin Dose 30 MG; Start 06/17/17 at 09:00 Diagnostic Test (Pha) (Accu-Chek) 1 ea 02 XX ; Start 06/18/17 at 02:00 Miscellaneous Information 1 ea NOTE XX ; Start 06/17/17 at 05:00 Glucose (Glutose) 15 gm Q15M PRN PO DECREASED GLUCOSE; Start 06/17/17 at 05:00 Glucose (Glutose) 22.5 gm Q15M PRN PO DECREASED GLUCOSE; Start 06/17/17 at 05: 00 Dextrose (D50w Syringe) 25 ml Q15M PRN IV DECREASED GLUCOSE; Start 06/17/17 at 05:00 Dextrose (D50w Syringe) 50 ml Q15M PRN IV DECREASED GLUCOSE; Start 06/17/17 at 05:00 Glucagon (Glucagen) 1 mg Q15M PRN IM DECREASED GLUCOSE; Start 06/17/17 at 05:00 Glucose (Glutose) 15 gm Q15M PRN BUCCAL DECREASED GLUCOSE; Start 06/17/17 at 05 :00 Lactobacillus Acidophilus/ Rhamnosus (Culturelle) 1 cap BID PO Last administered on 06/20/17 10:05; Admin Dose 1 CAP; Start 06/17/17 at 21:00 Famotidine (Pepcid) 20 mg DAILY PO Last administered on 06/20/17 10:05; Admin Dose 20 MG; Start 06/18/17 at 09:00 Guaifenesin (Robitussin Liquid Cup) 100 mg Q4H PRN PO COUGH; Start 06/17/17 at 18:30 IV Flush 10 ml 10 ml PRN PRN IV IV PROTOCOL; Start 06/18/17 at 17:00 Vancomycin HCl/ Sodium Chloride (Vancocin/NS) 150 ml @ 75 mls/hr Q12H IVPB Last administered on 06/20/17 16:56; Admin Dose 75 MLS/HR; Start 06/19/17 at 05 :00 Spironolactone (Aldactone) 25 mg DAILY PO Last administered on 06/20/17 10:05 ; Admin Dose 25 MG; Start 06/20/17 at 09:30 JORDYN SERNA MD Jun 20, 2017 17:29
[2017-06-20] MEDS ORDERED: hydrALAzine 20 MG INJ IV ONE (17:30)
--- NOTE | 2017-06-20 17:40 | PN ---
Date/Time of Note Date/Time of Note DATE: 06/20/17 TIME: 17:39 Assessment/Plan VTE Prophylaxis VTE Prophylaxis Intervention: LMWH Lines/Catheters IV Catheter Type (from Nrsg): PICC Line Central line still needed: Yes (iv acccess) Urinary Cath still in place: No Assessment/Plan Chief Complaint/Hosp Course S: 06/17 Events noted. Appreciate cardio consult 06/18 no distress, although has cognitive impairment. no events overnight. denies headache. 06/19 poor appetite; didnt walk- 06/20: No events. Cultures remain normal. Will transfer to [facility] soon. O: vss No pallor Reg Clear; no tachypnea Benign bowel No edema non focal A/P 1. Sepsis? contaminant? R/o recurrent pneumonia. Possibly postobstructive. Stable cont antibiotics. 2. Metastatic Breast Ca to lung/ liver/ brain/ thyroid. Needs advanced care planning reevaluated 3. Subclinical hyperthyroidism? 4. False positive troponin due to demand ischemia/ sepsis?. 5. Past tobacco 6. Recent pneumonia in March 7. Ftt/mechanical fall. DC planning to sniff. 8. First-degree AV block? 9. Pituitary adenoma? 10. Immunosuppressed due to malignancy Problems: Exam/Review of Systems Vital Signs Vitals Vital Signs Date Time Temp Pulse Resp B/P Pulse Ox O2 Delivery O2 Flow Rate FiO2 06/20/17 16:20 98.2 72 19 161/119 90 06/19/17 08:02 2.0 06/18/17 08:00 Nasal Cannula Intake and Output 06/19/17 06/19/17 06/20/17 15:00 23:00 07:00 Intake Total 1180 ml 1540 ml Balance 1180 ml 1540 ml Results Result Diagram: 06/20/17 0410 06/20/17 0410 Results 24 hrs Laboratory Tests Test 06/19/17 20:31 06/20/17 04:10 06/20/17 04:25 06/20/17 07:52 Bedside Glucose 137 134 White Blood Count 1.9 L Red Blood Count 3.22 L Hemoglobin 11.1 L Hematocrit 32.5 L Mean Corpuscular Volume 100.9 Mean Corpuscular Hemoglobin 34.5 H Mean Corpuscular Hemoglobin Concent 34.2 Red Cell Distribution Width 19.3 H Platelet Count 132 L Mean Platelet Volume 9.8 Neutrophils % 70.4 Lymphocytes % 17.8 Monocytes % 5.4 Eosinophils % 0.0 Basophils % 0.5 Nucleated Red Blood Cells % 2.2 H Neutrophils # (Manual) 1.3 L Lymphocytes # 0.3 L Monocytes # 0.1 L Eosinophils # 0.0 Basophils # 0.0 Nucleated Red Blood Cells # 0.0 Sodium Level 151 H Potassium Level 2.6 *L Chloride Level 114 H Carbon Dioxide Level 25 Anion Gap 15 Blood Urea Nitrogen 6 L Creatinine 0.45 Glucose Level 128 Calcium Level 5.9 *L Magnesium Level 2.0 Total Bilirubin 0.7 Direct Bilirubin 0.00 Indirect Bilirubin 0.7 Aspartate Amino Transf (AST/SGOT) 35 Alanine Aminotransferase (ALT/SGPT) 58 Alkaline Phosphatase 81 Total Protein 4.8 L Albumin 2.3 L Globulin 2.50 Albumin/Globulin Ratio 0.92 Vancomycin Level Trough 10.8 Thyroid Stimulating Hormone (TSH) < 0.015 L Free Thyroxine 2.34 H Free Triiodothyronine (T3) pg/mL 2.43 L Test 06/20/17 12:23 06/20/17 17:13 Bedside Glucose 169 133 Medications Medications Current Medications Acetaminophen (Tylenol Tab) 650 mg Q6H PRN PO PAIN LEVEL 1-3 OR FEVER; Start at 04:30 Aspirin 81 mg 81 mg DAILY PO Last administered on 06/20/17 10:05; Admin Dose 81 MG; Start 06/17/17 at 09:00 Piperacillin Sod/ Tazobactam Sod 100 ml @ 200 mls/hr Q8 IVPB Last administered on 06/20/17 13:54; Admin Dose 200 MLS/HR; Start 06/17/17 at 06:00 Sodium Chloride (NS) 1,000 ml @ 80 mls/hr [id number] IV Last administered on 06/20 03:00; Admin Dose 80 MLS/HR; Start 06/17/17 at 04:30 Ondansetron HCl (Zofran Inj) 4 mg Q6H PRN IV NAUSEA AND/OR VOMITING Last administered on 06/18/17 20:50; Admin Dose 4 MG; Start 06/17/17 at 04:30 Docusate Sodium (Colace) 100 mg BID PO Last administered on 06/20/17 10:04; Admin Dose 100 MG; Start 06/17/17 at 09:00 Enoxaparin Sodium (Lovenox) 30 mg DAILY SC Last administered on 06/20/17 10:15 ; Admin Dose 30 MG; Start 06/17/17 at 09:00 Diagnostic Test (Pha) (Accu-Chek) 1 ea 02 XX ; Start 06/18/17 at 02:00 Miscellaneous Information 1 ea NOTE XX ; Start 06/17/17 at 05:00 Glucose (Glutose) 15 gm Q15M PRN PO DECREASED GLUCOSE; Start 06/17/17 at 05:00 Glucose (Glutose) 22.5 gm Q15M PRN PO DECREASED GLUCOSE; Start 06/17/17 at 05: 00 Dextrose (D50w Syringe) 25 ml Q15M PRN IV DECREASED GLUCOSE; Start 06/17/17 at 05:00 Dextrose (D50w Syringe) 50 ml Q15M PRN IV DECREASED GLUCOSE; Start 06/17/17 at 05:00 Glucagon (Glucagen) 1 mg Q15M PRN IM DECREASED GLUCOSE; Start 06/17/17 at 05:00 Glucose (Glutose) 15 gm Q15M PRN BUCCAL DECREASED GLUCOSE; Start 06/17/17 at 05 :00 Lactobacillus Acidophilus/ Rhamnosus (Culturelle) 1 cap BID PO Last administered on 06/20/17 10:05; Admin Dose 1 CAP; Start 06/17/17 at 21:00 Famotidine (Pepcid) 20 mg DAILY PO Last administered on 06/20/17 10:05; Admin Dose 20 MG; Start 06/18/17 at 09:00 Guaifenesin (Robitussin Liquid Cup) 100 mg Q4H PRN PO COUGH; Start 06/17/17 at 18:30 IV Flush 10 ml 10 ml PRN PRN IV IV PROTOCOL; Start 06/18/17 at 17:00 Vancomycin HCl/ Sodium Chloride (Vancocin/NS) 150 ml @ 75 mls/hr Q12H IVPB Last administered on 06/20/17 16:56; Admin Dose 75 MLS/HR; Start 06/19/17 at 05 :00 Spironolactone (Aldactone) 25 mg DAILY PO Last administered on 06/20/17 10:05 ; Admin Dose 25 MG; Start 06/20/17 at 09:30 MICHAEL RAMSAY MD Jun 20, 2017 17:40
[2017-06-20] MEDS ORDERED: POTASSIUM CHLORIDE 250 ML IVPB ONE (18:30)
[2017-06-20] MEDS ORDERED: hydrALAzine 20 MG INJ IV PRN (18:30)
[2017-06-20] MEDS: AMLODIPINE 5 MG TAB PO SCH (18:39)
[2017-06-20] MEDS: POTASSIUM CHLORIDE 20 MEQ POWDER FOR ORAL SOLN PO SCH (20:14)
[2017-06-21] VITALS (12 sets, daily range): BP systolic 102–137; BP diastolic 54–68; PULSE 84–97; RESP 18–20
[2017-06-21] MEDS: ACCU-CHEK XX SCH ×2 (01:31→21:47)
[2017-06-21] MEDS: VANCOMYCIN 750 MG in SOD CHLORIDE 0.9% 150 ML IVPB SCH ×2 (04:01→16:19)
[2017-06-21] MEDS: PIPER-TAZO 3.375 GM IV (PMX) 100 ML IVPB SCH ×3 (05:24→22:47)
[2017-06-21] MEDS: INSULIN ASPART [NOVOLOG] 3 ML PEN SC SCH ×4 (08:00→21:00)
[2017-06-21] MEDS: ASPIRIN 81 MG TAB PO SCH (08:17)
[2017-06-21] MEDS: SPIRONOLACTONE 25 MG TAB PO SCH (08:17)
[2017-06-21] MEDS: FAMOTIDINE 20 MG TAB PO SCH (08:17)
[2017-06-21] MEDS: AMLODIPINE 5 MG TAB PO SCH (08:18)
[2017-06-21 08:28] LABS: ABNORMAL IP MESSAGE 1; BASOPHILS % 0.4 % (0.0-2.0); EOSINOPHILS % 0.4 % (0.0-7.0); HEMATOCRIT 34.4 % (37.0-47.0); HEMOGLOBIN 11.6 g/dl (12.0-16.0); LYMPHOCYTES # 0.6 10^3/ul (0.8-2.9); LYMPHOCYTES % 25.7 % (15.0-51.0); MEAN CORPUSCULAR HGB CONC 33.7 g/dl (32.0-37.0); MEAN CORPUSCULAR VOLUME 100.9 fl (82.0-101.0); MEAN PLATELET VOLUME 9.9 fl (7.4-10.4); MONOCYTE # 0.2 10^3/ul (0.3-0.9); MONOCYTES % 9.6 % (0.0-11.0); NEUTROPHILS % 57.9 % (39.0-77.0); NUCLEATED RED BLOOD CELLS # 0.1 10^3/ul (0.0-0.0); NUCLEATED RED BLOOD CELLS% 3.6 /100WBC (0.0-0.0); PLATELET COUNT 183 10^3/UL (140-415); RED BLOOD COUNT 3.41 10^6/ul (4.20-5.40); RED CELL DISTRIBUTION WIDTH 20.9 % (11.5-14.5); WHITE BLOOD COUNT 2.5 10^3/ul (4.8-10.8)
[2017-06-21] MEDS: ENOXAPARIN 30 MG/0.3 ML SYG SC SCH (08:28)
[2017-06-21 08:30] LABS: POSITIVE DIFF @See below
[2017-06-21 08:42] LABS: INR 1.19; PROTIME 15.2 Sec (12.2-14.2); PT RATIO 1.2
[2017-06-21 08:52] LABS: ALBUMIN 2.8 g/dl (3.3-4.9); ALBUMIN/GLOBULIN RATIO 1.07; BILIRUBIN,INDIRECT 0.7 mg/dl (0-1.1); BILIRUBIN,TOTAL 0.7 mg/dl (0.2-1.3); CALCIUM 6.9 mg/dl (8.4-10.2); CREATININE 0.51 mg/dl (0.44-1.00); MAGNESIUM 2.2 mg/dl (1.7-2.5); PHOSPHORUS 0.8 mg/dl (2.5-4.9); TOTAL PROTEIN 5.4 g/dl (6.1-8.1)
[2017-06-21] MEDS: POTASSIUM CHLORIDE 20 MEQ POWDER FOR ORAL SOLN PO SCH ×2 (10:25→22:44)
[2017-06-21] MEDS: LACTOBACILLUS RHAMNOSUS CAP PO SCH ×2 (11:00→21:45)
[2017-06-21] MEDS: POTASSIUM CHLORIDE 10 MEQ in DEXTROSE 5% 1,000 ML IV SCH ×2 (12:31→21:46)
--- NOTE | 2017-06-21 14:00 | PN ---
DATE: 06/21/2017 SUBJECTIVE DATA: No acute changes. The patient is awake, getting a swallow eval done. She is in no distress. Afebrile. Temperature 97.7, pulse respirations 20, blood pressure 110/56, saturation 96 on room air. LABORATORY AND DIAGNOSTIC DATA: WBC 2.5, H and H 11.6 and 34.4, platelets 183,000; no shift, no bands. BUN 5, creatinine 0.51. MICROBIOLOGY: Blood culture on admission grew coag-negative staph species. Repeat blood cultures negative. Urine culture negative. Chest x-ray from yesterday revealed left lower lobe atelectasis, questionable infiltrate. ANTIMICROBIALS: The patient remains on IV vancomycin and Zosyn. OBJECTIVE DATA: GENERAL: Obese well-developed, fragile, elderly woman who is in no distress. HEENT: Head atraumatic, normocephalic. Sclerae anicteric. Buccal mucosa dry. NECK: Supple. Trachea midline. CHEST: Rise symmetrical. Breath sounds diminished at the bases. HEART: S1, S2. ABDOMEN: Soft, bowel sounds present. EXTREMITIES: Without cyanosis. ASSESSMENT: 1. Systemic inflammatory response syndrome. 2. Right lower lobe pneumonia. 3. Coagulase-negative Staph bacteremia, consistent with contaminant. 4. Pituitary adenoma. 5. Metastatic breast cancer. 6. Pancytopenia. PLAN: The patient remains unchanged. She is being followed by multiple consultants. Palliative care on case. Continue present care. Antibiotics. Repeat chest x-ray in a.m. Dictated By: Sylvain Frances NP /bam/ec /Document#: [id number]
[2017-06-21] MEDS ORDERED: POTASSIUM CHLORIDE (SR) 20 MEQ TAB PO STA (14:16)
--- NOTE | 2017-06-21 14:17 | CONS ---
Date/Time of Note Date/Time of Note DATE: 06/21/17 TIME: 14:14 Consult Date/Type/Reason Admit Date/Time Jun 17, 2017 at 03:48 Initial Consult Date 06/17/17 Type of Consultation: Endocrinology Ordering Provider: KEVEN MESSER Subjective CARDIOLOGY FOLLOW UP NOTE: D/W staff and rhythm was reviewed. pt remains in NSR. no afib BUT Frequent PAC and PVC She denies any cp or pressure to me. no palpitations. she denies diarrhea OBJECTIVE: HEENT: Normocephalic, atraumatic Pupils are equal. CARDIOVASCULAR: RRR systolic murmur. PULMONARY: no wheezes. Minimal rhonchi. GASTROINTESTINAL: Soft, obese, nontender. no rebound or guarding. EXTREMITIES: + lower extremity edema. NEUROLOGIC: Awake. Oriented to person only. left upper extremities appear to be weak. PSYCH: Appears to be calm. DERMATOLOGY: No evidence of bleeding. Multiple seborrheic keratosis noted echo personally reviewed 1. Hyperdynamic left ventricular systolic function. Normal left ventricular cavity size. Moderate concentric left ventricular hypertrophy. Ejection fraction is visually estimated at 70 %. Abnormal Diastolic Function. 2. There is moderate enlargement of left atrium. 3. Mitral valve leaflets appear mildly thickened. Severe mitral annular calcification. Mild mitral valve regurgitation. Mitral valve Max Velocity 1.44 m/sec. MaxPG 8.00 mmHg. MeanPG 2.00 mmHg. 4. Aortic sclerosis without stenosis. Trace aortic valve regurgitation. 5. Normal appearance of the tricuspid valve. Estimated peak PA systolic pressure 47 mmHg. There is mild tricuspid regurgitation. 6. Normal size and normal respiratory collapse consistent with normal right atrial pressure. Objective Vital Signs Date Time Temp Pulse Resp B/P Pulse Ox O2 Delivery O2 Flow Rate FiO2 06/21/17 12:23 97 06/21/17 11:41 97.7 20 110/56 96 06/19/17 08:02 2.0 06/18/17 08:00 Nasal Cannula Intake and Output 06/20/17 06/20/17 06/21/17 15:00 23:00 07:00 Intake Total 100 ml 450 ml 850 ml Balance 100 ml 450 ml 850 ml Results/Medications Result Diagram: 06/21/17 0653 06/21/17 0653 Results 24 hrs Laboratory Tests Test 06/20/17 17:13 06/20/17 20:11 06/21/17 06:53 06/21/17 07:39 Bedside Glucose 133 144 120 White Blood Count 2.5 #L Red Blood Count 3.41 L Hemoglobin 11.6 L Hematocrit 34.4 L Mean Corpuscular Volume 100.9 Mean Corpuscular Hemoglobin 34.0 H Mean Corpuscular Hemoglobin Concent 33.7 Red Cell Distribution Width 20.9 H Platelet Count 183 # Mean Platelet Volume 9.9 Neutrophils % 57.9 Lymphocytes % 25.7 Monocytes % 9.6 Eosinophils % 0.4 Basophils % 0.4 Nucleated Red Blood Cells % 3.6 H Neutrophils # (Manual) 1.4 L Lymphocytes # 0.6 L Monocytes # 0.2 L Eosinophils # 0.0 Basophils # 0.0 Nucleated Red Blood Cells # 0.1 H Prothrombin Time 15.2 H Prothrombin Time Ratio 1.2 INR International Normalized Ratio 1.19 Sodium Level 160 H Potassium Level 3.0 L Chloride Level 125 H Carbon Dioxide Level 29 Anion Gap 9 # Blood Urea Nitrogen 5 L Creatinine 0.51 Glucose Level 157 Calcium Level 6.9 L Phosphorus Level 0.8 L Magnesium Level 2.2 Total Bilirubin 0.7 Direct Bilirubin 0.00 Indirect Bilirubin 0.7 Aspartate Amino Transf (AST/SGOT) 39 Alanine Aminotransferase (ALT/SGPT) 63 Alkaline Phosphatase 92 Total Protein 5.4 L Albumin 2.8 L Globulin 2.60 Albumin/Globulin Ratio 1.07 Test 06/21/17 12:25 Bedside Glucose 186 Medications Current Medications Acetaminophen (Tylenol Tab) 650 mg Q6H PRN PO PAIN LEVEL 1-3 OR FEVER; Start at 04:30 Aspirin 81 mg 81 mg DAILY PO Last administered on 06/21/17 08:17; Admin Dose 81 MG; Start 06/17/17 at 09:00 Piperacillin Sod/ Tazobactam Sod (Zosyn 3.375gm/ 100 ml (Pmx)) 100 ml @ 200 mls /hr Q8 IVPB Last administered on 06/21/17 14:01; Admin Dose 200 MLS/HR; Start 06/17/17 at 06:00 Ondansetron HCl (Zofran Inj) 4 mg Q6H PRN IV NAUSEA AND/OR VOMITING Last administered on 06/18/17 20:50; Admin Dose 4 MG; Start 06/17/17 at 04:30 Enoxaparin Sodium (Lovenox) 30 mg DAILY SC Last administered on 06/21/17 08:28 ; Admin Dose 30 MG; Start 06/17/17 at 09:00 Diagnostic Test (Pha) (Accu-Chek) 1 ea 02 XX ; Start 06/18/17 at 02:00 Miscellaneous Information 1 ea NOTE XX ; Start 06/17/17 at 05:00 Glucose (Glutose) 15 gm Q15M PRN PO DECREASED GLUCOSE; Start 06/17/17 at 05:00 Glucose (Glutose) 22.5 gm Q15M PRN PO DECREASED GLUCOSE; Start 06/17/17 at 05: 00 Dextrose (D50w Syringe) 25 ml Q15M PRN IV DECREASED GLUCOSE; Start 06/17/17 at 05:00 Dextrose (D50w Syringe) 50 ml Q15M PRN IV DECREASED GLUCOSE; Start 06/17/17 at 05:00 Glucagon (Glucagen) 1 mg Q15M PRN IM DECREASED GLUCOSE; Start 06/17/17 at 05:00 Glucose (Glutose) 15 gm Q15M PRN BUCCAL DECREASED GLUCOSE; Start 06/17/17 at 05 :00 Lactobacillus Acidophilus/ Rhamnosus (Culturelle) 1 cap BID PO Last administered on 06/21/17 11:00; Admin Dose 1 CAP; Start 06/17/17 at 21:00 Famotidine (Pepcid) 20 mg DAILY PO Last administered on 06/21/17 08:17; Admin Dose 20 MG; Start 06/18/17 at 09:00 Guaifenesin (Robitussin Liquid Cup) 100 mg Q4H PRN PO COUGH; Start 06/17/17 at 18:30 IV Flush 10 ml 10 ml PRN PRN IV IV PROTOCOL; Start 06/18/17 at 17:00 Vancomycin HCl/ Sodium Chloride (Vancocin/NS) 150 ml @ 75 mls/hr Q12H IVPB Last administered on 06/21/17 04:01; Admin Dose 75 MLS/HR; Start 06/19/17 at 05: 00 Spironolactone (Aldactone) 25 mg DAILY PO Last administered on 06/21/17 08:17; Admin Dose 25 MG; Start 06/20/17 at 09:30 Hydralazine HCl (Apresoline) 5 mg Q4H PRN IV ELEVATED SYSTOLIC BP; Start at 18:30 Amlodipine Besylate (Norvasc) 5 mg DAILY PO Last administered on 06/21/17 08:18 ; Admin Dose 5 MG; Start 06/20/17 at 18:30 Docusate Sodium (Colace) 100 mg HS PO Last administered on 06/20/17 20:23; Admin Dose 100 MG; Start 06/20/17 at 21:00 Potassium Chloride 40 meq 40 meq BID PO Last administered on 06/21/17 10:25; Admin Dose 40 MEQ; Start 06/20/17 at 21:00 Potassium Chloride/Dextrose (KCl/D5W) 1,005 ml @ 100 mls/hr Q10H3M IV Last administered on 06/21/17 12:31; Admin Dose 100 MLS/HR; Start 06/21/17 at 12:00 Assessment/Plan Chief Complaint/Hosp Course 1. Mildly abnormal troponin with no chest pain and ejection fraction of 70%. Most likely c/w a false positive troponin. 2. Hypertension with hypertensive heart disease.:improved now 3. Abnormal EKG secondary to above. 4. Brain mass/tumor, possible adenoma per CT. 5. 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 6. Thyroid disorder. 7. Possible sepsis. 8. Status post fall. 9. Encephalopathy. 10. Hyperglycemia. 11. Elevated lactic acid/lactic acidosis and possible sepsis. 12. severe hypo K. RECOMMENDATIONS: . If felt by neurology that it might be harmful from a neurology standpoint, I believe it is very reasonable to stop the aspirin. cont BP control. will cont aldactone Diabetic management as per Internal Medicine/ endocrine Antibiotic as per Internal Medicine. Thyroid management as per Internal Medicine and endocrine consult Conservative cardiac therapy is only recommended at this point. replace K and Mg. WILL defer to IM team, no further cardiac rec at this time. will f/u prn Thank you MELISSA LIZARRAGA MD [facility] Problems: MELISSA LIZARRAGA MD Jun 21, 2017 14:17
[2017-06-21] MEDS ORDERED: POTASSIUM CHLORIDE 20 MEQ POWDER FOR ORAL SOLN PO STA (15:29)
--- NOTE | 2017-06-21 16:38 | PN ---
Date/Time of Note Date/Time of Note DATE: 06/21/17 TIME: 16:35 Assessment/Plan VTE Prophylaxis VTE Prophylaxis Intervention: anti-embolic stocking, contraindicated, SCD's Lines/Catheters Urinary Cath still in place: No Assessment/Plan Chief Complaint/Hosp Course S: 06/17 Events noted. Appreciate cardio consult 06/18 no distress, although has cognitive impairment. no events overnight. denies headache. 06/19 poor appetite; didnt walk- 06/20: No events. Cultures remain normal. Will transfer to snf soon. 06/21: Awake alert lethargic no dyspnea headache. Follows some one-step commands. Poor Appetite not walking. O: vss No pallor Reg Clear; no tachypnea Benign bowel No edema non focal A/P 1. Sepsis? contaminant? R/o recurrent pneumonia. Possibly postobstructive. Stable finish antibiotics. 2. Metastatic Breast Ca to lung/ liver/ brain/ thyroid. Needs advanced care planning reevaluated. Family meeting tomorrow. 3. Subclinical hyperthyroidism? 4. False positive troponin due to demand ischemia/ sepsis?. 5. Past tobacco 6. Recent pneumonia in March 7. Ftt/mechanical fall. DC planning to snf vs home with hospice. 8. First-degree AV block? 9. Pituitary adenoma? Awaiting outpatient records. 10. Immunosuppressed due to malignancy Problems: Exam/Review of Systems Vital Signs Vitals Vital Signs Date Time Temp Pulse Resp B/P Pulse Ox O2 Delivery O2 Flow Rate FiO2 06/21/17 15:37 98.3 87 20 102/54 94 06/19/17 08:02 2.0 06/18/17 08:00 Nasal Cannula Intake and Output 06/20/17 06/20/17 06/21/17 15:00 23:00 07:00 Intake Total 100 ml 450 ml 850 ml Balance 100 ml 450 ml 850 ml Results Result Diagram: 06/21/17 0653 06/21/17 0653 Results 24 hrs Laboratory Tests Test 06/20/17 17:13 06/20/17 20:11 06/21/17 06:53 06/21/17 07:39 Bedside Glucose 133 144 120 White Blood Count 2.5 #L Red Blood Count 3.41 L Hemoglobin 11.6 L Hematocrit 34.4 L Mean Corpuscular Volume 100.9 Mean Corpuscular Hemoglobin 34.0 H Mean Corpuscular Hemoglobin Concent 33.7 Red Cell Distribution Width 20.9 H Platelet Count 183 # Mean Platelet Volume 9.9 Neutrophils % 57.9 Lymphocytes % 25.7 Monocytes % 9.6 Eosinophils % 0.4 Basophils % 0.4 Nucleated Red Blood Cells % 3.6 H Neutrophils # (Manual) 1.4 L Lymphocytes # 0.6 L Monocytes # 0.2 L Eosinophils # 0.0 Basophils # 0.0 Nucleated Red Blood Cells # 0.1 H Prothrombin Time 15.2 H Prothrombin Time Ratio 1.2 INR International Normalized Ratio 1.19 Sodium Level 160 H Potassium Level 3.0 L Chloride Level 125 H Carbon Dioxide Level 29 Anion Gap 9 # Blood Urea Nitrogen 5 L Creatinine 0.51 Glucose Level 157 Calcium Level 6.9 L Phosphorus Level 0.8 L Magnesium Level 2.2 Total Bilirubin 0.7 Direct Bilirubin 0.00 Indirect Bilirubin 0.7 Aspartate Amino Transf (AST/SGOT) 39 Alanine Aminotransferase (ALT/SGPT) 63 Alkaline Phosphatase 92 Total Protein 5.4 L Albumin 2.8 L Globulin 2.60 Albumin/Globulin Ratio 1.07 Test 06/21/17 12:25 Bedside Glucose 186 Medications Medications Current Medications Acetaminophen (Tylenol Tab) 650 mg Q6H PRN PO PAIN LEVEL 1-3 OR FEVER; Start at 04:30 Aspirin 81 mg 81 mg DAILY PO Last administered on 06/21/17 08:17; Admin Dose 81 MG; Start 06/17/17 at 09:00 Piperacillin Sod/ Tazobactam Sod (Zosyn 3.375gm/ 100 ml (Pmx)) 100 ml @ 200 mls /hr Q8 IVPB Last administered on 06/21/17 14:01; Admin Dose 200 MLS/HR; Start 06/17/17 at 06:00 Ondansetron HCl (Zofran Inj) 4 mg Q6H PRN IV NAUSEA AND/OR VOMITING Last administered on 06/18/17 20:50; Admin Dose 4 MG; Start 06/17/17 at 04:30 Enoxaparin Sodium (Lovenox) 30 mg DAILY SC Last administered on 06/21/17 08:28 ; Admin Dose 30 MG; Start 06/17/17 at 09:00 Diagnostic Test (Pha) (Accu-Chek) 1 ea 02 XX ; Start 06/18/17 at 02:00 Miscellaneous Information 1 ea NOTE XX ; Start 06/17/17 at 05:00 Glucose (Glutose) 15 gm Q15M PRN PO DECREASED GLUCOSE; Start 06/17/17 at 05:00 Glucose (Glutose) 22.5 gm Q15M PRN PO DECREASED GLUCOSE; Start 06/17/17 at 05: 00 Dextrose (D50w Syringe) 25 ml Q15M PRN IV DECREASED GLUCOSE; Start 06/17/17 at 05:00 Dextrose (D50w Syringe) 50 ml Q15M PRN IV DECREASED GLUCOSE; Start 06/17/17 at 05:00 Glucagon (Glucagen) 1 mg Q15M PRN IM DECREASED GLUCOSE; Start 06/17/17 at 05:00 Glucose (Glutose) 15 gm Q15M PRN BUCCAL DECREASED GLUCOSE; Start 06/17/17 at 05 :00 Lactobacillus Acidophilus/ Rhamnosus (Culturelle) 1 cap BID PO Last administered on 06/21/17 11:00; Admin Dose 1 CAP; Start 06/17/17 at 21:00 Famotidine (Pepcid) 20 mg DAILY PO Last administered on 06/21/17 08:17; Admin Dose 20 MG; Start 06/18/17 at 09:00 Guaifenesin (Robitussin Liquid Cup) 100 mg Q4H PRN PO COUGH; Start 06/17/17 at 18:30 IV Flush 10 ml 10 ml PRN PRN IV IV PROTOCOL; Start 06/18/17 at 17:00 Vancomycin HCl/ Sodium Chloride (Vancocin/NS) 150 ml @ 75 mls/hr Q12H IVPB Last administered on 06/21/17 16:19; Admin Dose 75 MLS/HR; Start 06/19/17 at 05: 00 Spironolactone (Aldactone) 25 mg DAILY PO Last administered on 06/21/17 08:17; Admin Dose 25 MG; Start 06/20/17 at 09:30 Hydralazine HCl (Apresoline) 5 mg Q4H PRN IV ELEVATED SYSTOLIC BP; Start at 18:30 Amlodipine Besylate (Norvasc) 5 mg DAILY PO Last administered on 06/21/17 08:18 ; Admin Dose 5 MG; Start 06/20/17 at 18:30 Docusate Sodium (Colace) 100 mg HS PO Last administered on 06/20/17 20:23; Admin Dose 100 MG; Start 06/20/17 at 21:00 Potassium Chloride 40 meq 40 meq BID PO Last administered on 06/21/17 10:25; Admin Dose 40 MEQ; Start 06/20/17 at 21:00 Potassium Chloride/Dextrose (KCl/D5W) 1,005 ml @ 100 mls/hr Q10H3M IV Last administered on 06/21/17 12:31; Admin Dose 100 MLS/HR; Start 06/21/17 at 12:00 MICHAEL RAMSAY MD Jun 21, 2017 16:38
[2017-06-21] MEDS: DOCUSATE SODIUM 100 MG CAP PO SCH (21:45)
--- NOTE | 2017-06-21 22:30 | CONS ---
Date/Time of Note Date/Time of Note DATE: 06/21/17 TIME: 22:27 Assessment/Plan Assessment/Plan Chief Complaint/Hosp Course 86-year-old female who is normally treated by Dr. Huang at [facility] [place]. She reports she has had brain scanning done within the last year. She reports she has cancer that is metastatic to multiple locations. We do not have specific data on this. Patient reports no known history of thyroid disorder and denies any known history of pituitary abnormalities. Problems: (1) Pituitary mass Status: Acute Comment: In the setting of no clear direction regarding the metastatic Breast cancer will push ahead with pituitary work up. Records of prior scans not available so repeat . Note the normal prolactin level (2) Abnormal thyroid function test Status: Acute Comment: This is not from pituitary; observe Consultation Date/Type/Reason Admit Date/Time Jun 17, 2017 at 03:48 Initial Consult Date 06/18/17 Type of Consultation: Endocrinology Reason for Consultation Pituitary mass; subclinical hyperthyroidism Referring Provider: KEVEN MESSER 24 HR Interval Summary Free Text/Dictation No changes per patient though declining status Exam/Review of Systems Vital Signs Vitals Vital Signs Date Time Temp Pulse Resp B/P Pulse Ox O2 Delivery O2 Flow Rate FiO2 06/21/17 20:47 85 06/21/17 20:00 98.2 20 118/65 92 06/19/17 08:02 2.0 06/18/17 08:00 Nasal Cannula Intake and Output 06/20/17 06/20/17 06/21/17 15:00 23:00 07:00 Intake Total 100 ml 450 ml 850 ml Balance 100 ml 450 ml 850 ml Results concur with exam Dr. Evans Result Diagram: 06/21/17 0653 06/21/17 0653 Results 24 hrs Laboratory Tests Test 06/21/17 06:53 06/21/17 07:39 06/21/17 12:25 06/21/17 20:19 White Blood Count 2.5 #L Red Blood Count 3.41 L Hemoglobin 11.6 L Hematocrit 34.4 L Mean Corpuscular Volume 100.9 Mean Corpuscular Hemoglobin 34.0 H Mean Corpuscular Hemoglobin Concent 33.7 Red Cell Distribution Width 20.9 H Platelet Count 183 # Mean Platelet Volume 9.9 Neutrophils % 57.9 Lymphocytes % 25.7 Monocytes % 9.6 Eosinophils % 0.4 Basophils % 0.4 Nucleated Red Blood Cells % 3.6 H Neutrophils # (Manual) 1.4 L Lymphocytes # 0.6 L Monocytes # 0.2 L Eosinophils # 0.0 Basophils # 0.0 Nucleated Red Blood Cells # 0.1 H Prothrombin Time 15.2 H Prothrombin Time Ratio 1.2 INR International Normalized Ratio 1.19 Sodium Level 160 H Potassium Level 3.0 L Chloride Level 125 H Carbon Dioxide Level 29 Anion Gap 9 # Blood Urea Nitrogen 5 L Creatinine 0.51 Glucose Level 157 Calcium Level 6.9 L Phosphorus Level 0.8 L Magnesium Level 2.2 Total Bilirubin 0.7 Direct Bilirubin 0.00 Indirect Bilirubin 0.7 Aspartate Amino Transf (AST/SGOT) 39 Alanine Aminotransferase (ALT/SGPT) 63 Alkaline Phosphatase 92 Total Protein 5.4 L Albumin 2.8 L Globulin 2.60 Albumin/Globulin Ratio 1.07 Bedside Glucose 120 186 147 Medications Medications Current Medications Acetaminophen 650 mg 650 mg Q6H PRN PO PAIN LEVEL 1-3 OR FEVER; Start 06/17/17 at 04:30 Piperacillin Sod/ Tazobactam Sod (Zosyn 3.375gm/ 100 ml (Pmx)) 100 ml @ 200 mls /hr Q8 IVPB Last administered on 06/21/17 14:01; Admin Dose 200 MLS/HR; Start 06/17/17 at 06:00 Ondansetron HCl (Zofran Inj) 4 mg Q6H PRN IV NAUSEA AND/OR VOMITING Last administered on 06/18/17 20:50; Admin Dose 4 MG; Start 06/17/17 at 04:30 Diagnostic Test (Pha) (Accu-Chek) 1 ea 02 XX ; Start 06/18/17 at 02:00 Miscellaneous Information 1 ea NOTE XX ; Start 06/17/17 at 05:00 Glucose (Glutose) 15 gm Q15M PRN PO DECREASED GLUCOSE; Start 06/17/17 at 05:00 Glucose (Glutose) 22.5 gm Q15M PRN PO DECREASED GLUCOSE; Start 06/17/17 at 05: 00 Dextrose (D50w Syringe) 25 ml Q15M PRN IV DECREASED GLUCOSE; Start 06/17/17 at 05:00 Dextrose (D50w Syringe) 50 ml Q15M PRN IV DECREASED GLUCOSE; Start 06/17/17 at 05:00 Glucagon (Glucagen) 1 mg Q15M PRN IM DECREASED GLUCOSE; Start 06/17/17 at 05:00 Glucose (Glutose) 15 gm Q15M PRN BUCCAL DECREASED GLUCOSE; Start 06/17/17 at 05 :00 Lactobacillus Acidophilus/ Rhamnosus (Culturelle) 1 cap BID PO Last administered on 06/21/17 21:45; Admin Dose 1 CAP; Start 06/17/17 at 21:00 Famotidine (Pepcid) 20 mg DAILY PO Last administered on 06/21/17 08:17; Admin Dose 20 MG; Start 06/18/17 at 09:00 Guaifenesin (Robitussin Liquid Cup) 100 mg Q4H PRN PO COUGH; Start 06/17/17 at 18:30 IV Flush 10 ml 10 ml PRN PRN IV IV PROTOCOL; Start 06/18/17 at 17:00 Vancomycin HCl/ Sodium Chloride (Vancocin/NS) 150 ml @ 75 mls/hr Q12H IVPB Last administered on 06/21/17 16:19; Admin Dose 75 MLS/HR; Start 06/19/17 at 05: 00 Spironolactone (Aldactone) 25 mg DAILY PO Last administered on 06/21/17 08:17; Admin Dose 25 MG; Start 06/20/17 at 09:30 Hydralazine HCl (Apresoline) 5 mg Q4H PRN IV ELEVATED SYSTOLIC BP; Start at 18:30 Amlodipine Besylate (Norvasc) 5 mg DAILY PO Last administered on 06/21/17 08:18 ; Admin Dose 5 MG; Start 06/20/17 at 18:30 Docusate Sodium (Colace) 100 mg HS PO Last administered on 06/21/17 21:45; Admin Dose 100 MG; Start 06/20/17 at 21:00 Potassium Chloride 40 meq 40 meq BID PO Last administered on 06/21/17 10:25; Admin Dose 40 MEQ; Start 06/20/17 at 21:00 Potassium Chloride/Dextrose (KCl/D5W) 1,005 ml @ 100 mls/hr Q10H3M IV Last administered on 06/21/17 21:46; Admin Dose 100 MLS/HR; Start 06/21/17 at 12:00 JORDYN SERNA MD Jun 21, 2017 22:30
[2017-06-21] MEDS: POTASSIUM CHLORIDE 40 MEQ in SOD CHLORIDE 0.45% 1,000 ML IV SCH (23:23)
[2017-06-22] VITALS (12 sets, daily range): BP systolic 102–129; BP diastolic 49–69; PULSE 85–107; RESP 20–22
[2017-06-22] MEDS: VANCOMYCIN 750 MG in SOD CHLORIDE 0.9% 150 ML IVPB SCH ×2 (05:28→17:16)
[2017-06-22] MEDS: POTASSIUM CHLORIDE 40 MEQ in SOD CHLORIDE 0.45% 1,000 ML IV SCH (05:28)
[2017-06-22] MEDS: PIPER-TAZO 3.375 GM IV (PMX) 100 ML IVPB SCH ×3 (05:29→21:01)
[2017-06-22 07:50] LABS: ABNORMAL IP MESSAGE 1; BASOPHILS % 0.3 % (0.0-2.0); HEMATOCRIT 36.2 % (37.0-47.0); LYMPHOCYTES # 0.9 10^3/ul (0.8-2.9); LYMPHOCYTES % 32.2 % (15.0-51.0); MEAN CORPUSCULAR HEMOGLOBIN 34.5 pg (29.0-33.0); MEAN CORPUSCULAR HGB CONC 33.1 g/dl (32.0-37.0); MEAN PLATELET VOLUME 9.7 fl (7.4-10.4); MONOCYTE # 0.3 10^3/ul (0.3-0.9); NEUTROPHILS % 48.8 % (39.0-77.0); NUCLEATED RED BLOOD CELLS # 0.1 10^3/ul (0.0-0.0); NUCLEATED RED BLOOD CELLS% 4.2 /100WBC (0.0-0.0); PLATELET COUNT 203 10^3/UL (140-415); RED BLOOD COUNT 3.48 10^6/ul (4.20-5.40); RED CELL DISTRIBUTION WIDTH 22.1 % (11.5-14.5); WHITE BLOOD COUNT 2.9 10^3/ul (4.8-10.8)
[2017-06-22 07:51] LABS: POSITIVE DIFF @See below
[2017-06-22 08:00] LABS: INR 1.16; PROTIME 14.8 Sec (12.2-14.2); PT RATIO 1.2
[2017-06-22] MEDS: INSULIN ASPART [NOVOLOG] 3 ML PEN SC SCH ×4 (08:00→20:57)
[2017-06-22 08:08] LABS: CALCIUM 7.1 mg/dl (8.4-10.2); CREATININE 0.54 mg/dl (0.44-1.00); MAGNESIUM 2.1 mg/dl (1.7-2.5)
[2017-06-22] MEDS: POTASSIUM CHLORIDE 20 MEQ POWDER FOR ORAL SOLN PO SCH ×2 (09:00→21:00)
[2017-06-22] MEDS: FAMOTIDINE 20 MG TAB PO SCH (09:29)
[2017-06-22] MEDS: LACTOBACILLUS RHAMNOSUS CAP PO SCH ×2 (09:29→20:59)
[2017-06-22] MEDS: DEXTROSE 5% 1,000 ML IV SCH ×3 (09:29→21:01)
[2017-06-22] MEDS: SPIRONOLACTONE 25 MG TAB PO SCH (09:29)
[2017-06-22] MEDS: AMLODIPINE 5 MG TAB PO SCH (09:31)
[2017-06-22] MEDS ORDERED: POTASSIUM PHOSPHATE 30 MM in SOD CHLORIDE 0.9% 250 ML IVPB ONE (11:00)
--- NOTE | 2017-06-22 11:15 | PN ---
Date/Time of Note Date/Time of Note DATE: 06/22/17 TIME: 11:14 Assessment/Plan VTE Prophylaxis VTE Prophylaxis Intervention: LMWH Lines/Catheters IV Catheter Type (from Nrsg): PICC Line Central line still needed: Yes (iv access) Urinary Cath still in place: No Assessment/Plan Chief Complaint/Hosp Course S: 06/17 Events noted. Appreciate cardio consult 06/18 no distress, although has cognitive impairment. no events overnight. denies headache. 06/19 poor appetite; didnt walk- 06/20: No events. Cultures remain normal. Will transfer to snf soon. 06/21: Awake alert lethargic no dyspnea headache. Follows some one-step commands. Poor Appetite not walking. 06/22: Awake alert no pain distress. Follows one-step commands. O: vss No pallor Reg Clear; no tachypnea Benign bowel No edema non focal A/P 1. Sepsis? contaminant? R/o recurrent pneumonia. Possibly postobstructive. Stable finish antibiotics. 2. Metastatic Breast Ca to lung/ liver/ brain/ thyroid. Needs advanced care planning reevaluated. Family meeting pending. 3. Subclinical hyperthyroidism? 4. False positive troponin due to demand ischemia/ sepsis?. 5. Past tobacco 6. Recent pneumonia in March 7. Ftt/mechanical fall. DC planning to snf vs home with hospice. 8. First-degree AV block? 9. Pituitary adenoma? Awaiting outpatient records. 10. Immunosuppressed due to malignancy 11. Hypernatremia. Consult nephrology. Problems: Exam/Review of Systems Vital Signs Vitals Vital Signs Date Time Temp Pulse Resp B/P Pulse Ox O2 Delivery O2 Flow Rate FiO2 06/22/17 08:32 88 06/22/17 07:57 97.7 20 112/64 95 06/19/17 08:02 2.0 06/18/17 08:00 Nasal Cannula Intake and Output 06/21/17 06/21/17 06/22/17 15:00 23:00 07:00 Intake Total 100 ml 1150 ml 1300 ml Balance 100 ml 1150 ml 1300 ml Results Result Diagram: 06/22/17 0650 06/22/17 0650 Results 24 hrs Laboratory Tests Test 06/21/17 12:25 06/21/17 20:19 06/22/17 06:50 06/22/17 08:25 Bedside Glucose 186 147 113 White Blood Count 2.9 L Red Blood Count 3.48 L Hemoglobin 12.0 Hematocrit 36.2 L Mean Corpuscular Volume 104.0 H Mean Corpuscular Hemoglobin 34.5 H Mean Corpuscular Hemoglobin Concent 33.1 Red Cell Distribution Width 22.1 H Platelet Count 203 Mean Platelet Volume 9.7 Neutrophils % 48.8 Lymphocytes % 32.2 Monocytes % 9.0 Eosinophils % 1.0 Basophils % 0.3 Nucleated Red Blood Cells % 4.2 H Neutrophils # (Manual) 1.4 L Lymphocytes # 0.9 Monocytes # 0.3 Eosinophils # 0.0 Basophils # 0.0 Nucleated Red Blood Cells # 0.1 H Prothrombin Time 14.8 H Prothrombin Time Ratio 1.2 INR International Normalized Ratio 1.16 Sodium Level 161 *H Potassium Level 4.0 Chloride Level 127 H Carbon Dioxide Level 27 Anion Gap 11 Blood Urea Nitrogen 3 L Creatinine 0.54 Glucose Level 102 # Calcium Level 7.1 L Phosphorus Level 1.0 L Magnesium Level 2.1 Medications Medications Current Medications Acetaminophen 650 mg 650 mg Q6H PRN PO PAIN LEVEL 1-3 OR FEVER; Start 06/17/17 at 04:30 Piperacillin Sod/ Tazobactam Sod (Zosyn 3.375gm/ 100 ml (Pmx)) 100 ml @ 200 mls /hr Q8 IVPB Last administered on 06/22/17 05:29; Admin Dose 200 MLS/HR; Start 06/17/17 at 06:00 Ondansetron HCl (Zofran Inj) 4 mg Q6H PRN IV NAUSEA AND/OR VOMITING Last administered on 06/18/17 20:50; Admin Dose 4 MG; Start 06/17/17 at 04:30 Diagnostic Test (Pha) (Accu-Chek) 1 ea 02 XX ; Start 06/18/17 at 02:00 Miscellaneous Information 1 ea NOTE XX ; Start 06/17/17 at 05:00 Glucose (Glutose) 15 gm Q15M PRN PO DECREASED GLUCOSE; Start 06/17/17 at 05:00 Glucose (Glutose) 22.5 gm Q15M PRN PO DECREASED GLUCOSE; Start 06/17/17 at 05: 00 Dextrose (D50w Syringe) 25 ml Q15M PRN IV DECREASED GLUCOSE; Start 06/17/17 at 05:00 Dextrose (D50w Syringe) 50 ml Q15M PRN IV DECREASED GLUCOSE; Start 06/17/17 at 05:00 Glucagon (Glucagen) 1 mg Q15M PRN IM DECREASED GLUCOSE; Start 06/17/17 at 05:00 Glucose (Glutose) 15 gm Q15M PRN BUCCAL DECREASED GLUCOSE; Start 06/17/17 at 05 :00 Lactobacillus Acidophilus/ Rhamnosus (Culturelle) 1 cap BID PO Last administered on 06/22/17 09:29; Admin Dose 1 CAP; Start 06/17/17 at 21:00 Famotidine (Pepcid) 20 mg DAILY PO Last administered on 06/22/17 09:29; Admin Dose 20 MG; Start 06/18/17 at 09:00 Guaifenesin (Robitussin Liquid Cup) 100 mg Q4H PRN PO COUGH; Start 06/17/17 at 18:30 IV Flush 10 ml 10 ml PRN PRN IV IV PROTOCOL; Start 06/18/17 at 17:00 Vancomycin HCl/ Sodium Chloride (Vancocin/NS) 150 ml @ 75 mls/hr Q12H IVPB Last administered on 06/22/17 05:28; Admin Dose 75 MLS/HR; Start 06/19/17 at 05: 00 Spironolactone (Aldactone) 25 mg DAILY PO Last administered on 06/22/17 09:29; Admin Dose 25 MG; Start 06/20/17 at 09:30 Hydralazine HCl (Apresoline) 5 mg Q4H PRN IV ELEVATED SYSTOLIC BP; Start at 18:30 Amlodipine Besylate (Norvasc) 5 mg DAILY PO Last administered on 06/22/17 09:31 ; Admin Dose 5 MG; Start 06/20/17 at 18:30 Docusate Sodium (Colace) 100 mg HS PO Last administered on 06/21/17 21:45; Admin Dose 100 MG; Start 06/20/17 at 21:00 Potassium Chloride 40 meq 40 meq BID PO Last administered on 06/22/17 09:00; Admin Dose 40 MEQ; Start 06/20/17 at 21:00 Dextrose 1,000 ml @ 100 mls/hr Q10H IV Last administered on 06/22/17 09:29; Admin Dose 100 MLS/HR; Start 06/22/17 at 09:00 Potassium Phosphate/Sodium Chloride (K Phos (Mm)/NS) 260 ml @ 65 mls/hr ONCE ONCE IVPB ; Start 06/22/17 at 11:00; Stop 06/22/17 at 14:59 MICHAEL RAMSAY MD Jun 22, 2017 11:15
--- NOTE | 2017-06-22 11:46 | CONS ---
Date/Time of Note Date/Time of Note DATE: 06/22/17 TIME: 11:29 Assessment/Plan Assessment/Plan Chief Complaint/Hosp Course ID PROGRESS NOTE CURRENT ABX: ABX Day #6 => Vanco IV + Zosyn 24H INTERVAL SUMMARY * Stable -- no fevers, patient is somnolent, VSS, NAD * MICROBIOLOGY: Blood culture on admission grew coag-negative staph species. Repeat blood cultures negative. Urine culture negative. * CXR 06/20/17: Stable central pulmonary vascular congestion and mild interstitial prominence in both lungs. Stable small right pleural effusion with associated lower lobe atelectasis/infiltrate. PHYSICAL EXAMINATION: GENERAL: Obese 86 yo F, VSS, afebrile HEENT: Unremarkable NECK: Supple. Trachea midline. CHEST: Rise symmetrical. Breath sounds diminished. HEART: S1, S2. ABDOMEN: Soft, bowel sounds present. EXT: Moves all extremities ID ASSESSMENT 86 yo F w/Dx Breast Cancer w/ METS to Lung, Liver, Brain -> s/p Left Mastectomy admit with: 1. s/p SEPSIS criteria on admission: (+)TMax 99.7, HD 102, (+Lactic acidosis 3.8 2/2 acute PNA 2. Coagulase-negative Staph bacteremia on 11/22 bottled drawn on arrival in ED, consistent with contaminant. * Repeat BCx (-) 3. Right lower lobe pneumonia present on admission 4. Pulm Vasc Edema w/small R-pleural effusion => Hx of metastatic lung disease 5. Pancytopenia 2/2 breast cancer 6. s/p Fall 06/16/17 ( ? ) MRSA Nares -> Ordered today INVASIVES: PICC 06/18 RUXT CURRENT ABX: ABX Day #6 => Vanco IV + Zosyn ID RECOMMENDATIONS Continue current ABX, check nares for MRSA Anticipate DC vs taper ABX soon . Problems: Consultation Date/Type/Reason Admit Date/Time Jun 17, 2017 at 03:48 Initial Consult Date 06/18/17 Type of Consultation: ID Referring Provider: KEVEN MESSER Exam/Review of Systems Vital Signs Vitals Vital Signs Date Time Temp Pulse Resp B/P Pulse Ox O2 Delivery O2 Flow Rate FiO2 06/22/17 08:32 88 06/22/17 07:57 97.7 20 112/64 95 06/19/17 08:02 2.0 06/18/17 08:00 Nasal Cannula Intake and Output 06/21/17 06/21/17 06/22/17 15:00 23:00 07:00 Intake Total 100 ml 1150 ml 1300 ml Balance 100 ml 1150 ml 1300 ml Results Result Diagram: 06/22/17 0650 06/22/17 0650 Results 24 hrs Laboratory Tests Test 06/21/17 12:25 06/21/17 20:19 06/22/17 06:50 06/22/17 08:25 Bedside Glucose 186 147 113 White Blood Count 2.9 L Red Blood Count 3.48 L Hemoglobin 12.0 Hematocrit 36.2 L Mean Corpuscular Volume 104.0 H Mean Corpuscular Hemoglobin 34.5 H Mean Corpuscular Hemoglobin Concent 33.1 Red Cell Distribution Width 22.1 H Platelet Count 203 Mean Platelet Volume 9.7 Neutrophils % 48.8 Lymphocytes % 32.2 Monocytes % 9.0 Eosinophils % 1.0 Basophils % 0.3 Nucleated Red Blood Cells % 4.2 H Neutrophils # (Manual) 1.4 L Lymphocytes # 0.9 Monocytes # 0.3 Eosinophils # 0.0 Basophils # 0.0 Nucleated Red Blood Cells # 0.1 H Prothrombin Time 14.8 H Prothrombin Time Ratio 1.2 INR International Normalized Ratio 1.16 Sodium Level 161 *H Potassium Level 4.0 Chloride Level 127 H Carbon Dioxide Level 27 Anion Gap 11 Blood Urea Nitrogen 3 L Creatinine 0.54 Glucose Level 102 # Calcium Level 7.1 L Phosphorus Level 1.0 L Magnesium Level 2.1 Medications Medications Current Medications Acetaminophen 650 mg 650 mg Q6H PRN PO PAIN LEVEL 1-3 OR FEVER; Start 06/17/17 at 04:30 Piperacillin Sod/ Tazobactam Sod (Zosyn 3.375gm/ 100 ml (Pmx)) 100 ml @ 200 mls /hr Q8 IVPB Last administered on 06/22/17t 05:29; Admin Dose 200 MLS/HR; Start 06/17/17 at 06:00 Ondansetron HCl (Zofran Inj) 4 mg Q6H PRN IV NAUSEA AND/OR VOMITING Last administered on 06/18/17 20:50; Admin Dose 4 MG; Start 06/17/17 at 04:30 Diagnostic Test (Pha) (Accu-Chek) 1 ea 02 XX ; Start 06/18/17 at 02:00 Miscellaneous Information 1 ea NOTE XX ; Start 06/17/17 at 05:00 Glucose (Glutose) 15 gm Q15M PRN PO DECREASED GLUCOSE; Start 06/17/17 at 05:00 Glucose (Glutose) 22.5 gm Q15M PRN PO DECREASED GLUCOSE; Start 06/17/17 at 05: 00 Dextrose (D50w Syringe) 25 ml Q15M PRN IV DECREASED GLUCOSE; Start 06/17/17 at 05:00 Dextrose (D50w Syringe) 50 ml Q15M PRN IV DECREASED GLUCOSE; Start 06/17/17 at 05:00 Glucagon (Glucagen) 1 mg Q15M PRN IM DECREASED GLUCOSE; Start 06/17/17 at 05:00 Glucose (Glutose) 15 gm Q15M PRN BUCCAL DECREASED GLUCOSE; Start 06/17/17 at 05 :00 Lactobacillus Acidophilus/ Rhamnosus (Culturelle) 1 cap BID PO Last administered on 06/22/17 09:29; Admin Dose 1 CAP; Start 06/17/17 at 21:00 Famotidine (Pepcid) 20 mg DAILY PO Last administered on 06/22/17 09:29; Admin Dose 20 MG; Start 06/18/17 at 09:00 Guaifenesin (Robitussin Liquid Cup) 100 mg Q4H PRN PO COUGH; Start 06/17/17 at 18:30 IV Flush 10 ml 10 ml PRN PRN IV IV PROTOCOL; Start 06/18/17 at 17:00 Vancomycin HCl/ Sodium Chloride (Vancocin/NS) 150 ml @ 75 mls/hr Q12H IVPB Last administered on 06/22/17 05:28; Admin Dose 75 MLS/HR; Start 06/19/17 at 05: 00 Spironolactone (Aldactone) 25 mg DAILY PO Last administered on 06/22/17 09:29; Admin Dose 25 MG; Start 06/20/17 at 09:30 Hydralazine HCl (Apresoline) 5 mg Q4H PRN IV ELEVATED SYSTOLIC BP; Start at 18:30 Amlodipine Besylate (Norvasc) 5 mg DAILY PO Last administered on 06/22/17 09:31 ; Admin Dose 5 MG; Start 06/20/17 at 18:30 Docusate Sodium (Colace) 100 mg HS PO Last administered on 06/21/17 21:45; Admin Dose 100 MG; Start 06/20/17 at 21:00 Potassium Chloride 40 meq 40 meq BID PO Last administered on 06/22/17 09:00; Admin Dose 40 MEQ; Start 06/20/17 at 21:00 Dextrose 1,000 ml @ 100 mls/hr Q10H IV Last administered on 06/22/17 09:29; Admin Dose 100 MLS/HR; Start 06/22/17 at 09:00 Potassium Phosphate/Sodium Chloride (K Phos (Mm)/NS) 260 ml @ 65 mls/hr ONCE ONCE IVPB ; Start 06/22/17 at 11:00; Stop 06/22/17 at 14:59 DEISY BENÍTEZ NP Jun 22, 2017 11:40
--- NOTE | 2017-06-22 12:46 | CONS ---
Date/Time of Note Date/Time of Note DATE: 06/22/17 TIME: 12:38 Assessment/Plan Assessment/Plan Additional Assessment/Plan 1. electrolytes: has hypernatremia due to 7 liters free water deficit. There is no evidence of excess mineralocorticoid except few doses of flurinef that were given few days ago. Will send off urine studies. will continue with D5w. hypokalemia is now resolved (possibly due to Flurinef). will also correct hypophos. Vit d panel is pending 2. Status post fall from bed 3. Metastatic breast cancer with metastases to the lungs, brain, thyroid and liver 4. Leukopenia and thrombocytopenia 5. Elevated troponin 6. Hypothyroidism 7. Pituitary adenoma versus brain metastases Consultation Date/Type/Reason Admit Date/Time Jun 17, 2017 at 03:48 Type of Consultation: nephrology Reason for Consultation electrolyte abnormalities Hx of Present Illness Hx of Present Illness This is an 86-year-old female with a history of metastatic breast cancer t who was brought in by ambulance after she had fallen from her bed. While in ER she was noted to be hypotensive and was given multiple boluses of fluids and later was given flurinef. She also currently being treated for possible sepsis. She had transient hypokalemia which was corrected, however she now has hypernatremia. Her IVF was switched to D5w yesterday Brain CT shows possible mass in pit. Her random serum cortisol levels were normal. Cosyntropin test results were reviewed We were asked to assist with management of her electrolyte abnormalities PMH/Family/Social Past Medical History * Metastatic breast cancer Past Surgical History Report she is status post lung lobectomy as well as left mastectomy Family History Significant Family History: no pertinent family hx Social History Alcohol Use: none Smoking Status: Former smoker Exam/Review of Systems Constitutional: alert, other Head: atraumatic, normocephalic (Close basic commands) Eyes: PERRL ENMT: nl nasal mucosa & septum Neck: supple Respiratory: crackles/rales, diminished breath sounds, No labored breathing Cardiovascular: regular rate and rhythm, No murmurs/extra sounds Gastrointestinal: bowel sounds, non-tender, soft Extremities: No edema Neurological: lethargic, nl mental status Constitutional: no complaints (Denies fever chills or sweats) Respiratory: no complaints Cardiovascular: no complaints Gastrointestinal: no complaints Endocrine: no complaints Past Medical History Medical History: GERD Social History Alcohol Use: none Smoking Status: Former smoker Drug Use: none Exam/Review of Systems Vital Signs Vitals Vital Signs Date Time Temp Pulse Resp B/P Pulse Ox O2 Delivery O2 Flow Rate FiO2 06/22/17 12:17 88 06/22/17 11:40 97.7 20 129/66 98 06/19/17 08:02 2.0 06/18/17 08:00 Nasal Cannula Intake and Output 06/21/17 06/21/17 06/22/17 14:59 22:59 06:59 Intake Total 100 ml 1150 ml 1300 ml Balance 100 ml 1150 ml 1300 ml Results Result Diagram: 06/22/17 0650 06/22/17 0650 Results 24 hrs Laboratory Tests Test 06/21/17 20:19 06/22/17 06:50 06/22/17 08:25 Bedside Glucose 147 113 White Blood Count 2.9 L Red Blood Count 3.48 L Hemoglobin 12.0 Hematocrit 36.2 L Mean Corpuscular Volume 104.0 H Mean Corpuscular Hemoglobin 34.5 H Mean Corpuscular Hemoglobin Concent 33.1 Red Cell Distribution Width 22.1 H Platelet Count 203 Mean Platelet Volume 9.7 Neutrophils % 48.8 Lymphocytes % 32.2 Monocytes % 9.0 Eosinophils % 1.0 Basophils % 0.3 Nucleated Red Blood Cells % 4.2 H Neutrophils # (Manual) 1.4 L Lymphocytes # 0.9 Monocytes # 0.3 Eosinophils # 0.0 Basophils # 0.0 Nucleated Red Blood Cells # 0.1 H Prothrombin Time 14.8 H Prothrombin Time Ratio 1.2 INR International Normalized Ratio 1.16 Sodium Level 161 *H Potassium Level 4.0 Chloride Level 127 H Carbon Dioxide Level 27 Anion Gap 11 Blood Urea Nitrogen 3 L Creatinine 0.54 Glucose Level 102 # Calcium Level 7.1 L Phosphorus Level 1.0 L Magnesium Level 2.1 Medications Medications Current Medications Acetaminophen 650 mg 650 mg Q6H PRN PO PAIN LEVEL 1-3 OR FEVER; Start 06/17/17 at 04:30 Piperacillin Sod/ Tazobactam Sod (Zosyn 3.375gm/ 100 ml (Pmx)) 100 ml @ 200 mls /hr Q8 IVPB Last administered on 06/22/17t 05:29; Admin Dose 200 MLS/HR; Start 06/17/17 at 06:00 Ondansetron HCl (Zofran Inj) 4 mg Q6H PRN IV NAUSEA AND/OR VOMITING Last administered on 06/18/17 20:50; Admin Dose 4 MG; Start 06/17/17 at 04:30 Diagnostic Test (Pha) (Accu-Chek) 1 ea 02 XX ; Start 06/18/17 at 02:00 Miscellaneous Information 1 ea NOTE XX ; Start 06/17/17 at 05:00 Glucose (Glutose) 15 gm Q15M PRN PO DECREASED GLUCOSE; Start 06/17/17 at 05:00 Glucose (Glutose) 22.5 gm Q15M PRN PO DECREASED GLUCOSE; Start 06/17/17 at 05: 00 Dextrose (D50w Syringe) 25 ml Q15M PRN IV DECREASED GLUCOSE; Start 06/17/17 at 05:00 Dextrose (D50w Syringe) 50 ml Q15M PRN IV DECREASED GLUCOSE; Start 06/17/17 at 05:00 Glucagon (Glucagen) 1 mg Q15M PRN IM DECREASED GLUCOSE; Start 06/17/17 at 05:00 Glucose (Glutose) 15 gm Q15M PRN BUCCAL DECREASED GLUCOSE; Start 06/17/17 at 05 :00 Lactobacillus Acidophilus/ Rhamnosus (Culturelle) 1 cap BID PO Last administered on 06/22/17 09:29; Admin Dose 1 CAP; Start 06/17/17 at 21:00 Famotidine (Pepcid) 20 mg DAILY PO Last administered on 06/22/17 09:29; Admin Dose 20 MG; Start 06/18/17 at 09:00 Guaifenesin (Robitussin Liquid Cup) 100 mg Q4H PRN PO COUGH; Start 06/17/17 at 18:30 IV Flush 10 ml 10 ml PRN PRN IV IV PROTOCOL; Start 06/18/17 at 17:00 Vancomycin HCl/ Sodium Chloride (Vancocin/NS) 150 ml @ 75 mls/hr Q12H IVPB Last administered on 06/22/17 05:28; Admin Dose 75 MLS/HR; Start 06/19/17 at 05: 00 Spironolactone (Aldactone) 25 mg DAILY PO Last administered on 06/22/17 09:29; Admin Dose 25 MG; Start 06/20/17 at 09:30 Hydralazine HCl (Apresoline) 5 mg Q4H PRN IV ELEVATED SYSTOLIC BP; Start at 18:30 Amlodipine Besylate (Norvasc) 5 mg DAILY PO Last administered on 06/22/17 09:31 ; Admin Dose 5 MG; Start 06/20/17 at 18:30 Docusate Sodium (Colace) 100 mg HS PO Last administered on 06/21/17 21:45; Admin Dose 100 MG; Start 06/20/17 at 21:00 Potassium Chloride 40 meq 40 meq BID PO Last administered on 06/22/17 09:00; Admin Dose 40 MEQ; Start 06/20/17 at 21:00 Dextrose 1,000 ml @ 100 mls/hr Q10H IV Last administered on 06/22/17 09:29; Admin Dose 100 MLS/HR; Start 06/22/17 at 09:00 Potassium Phosphate/Sodium Chloride (K Phos (Mm)/NS) 260 ml @ 65 mls/hr ONCE ONCE IVPB ; Start 06/22/17 at 11:00; Stop 06/22/17 at 14:59 ISAAC MARTINEZ DO Jun 22, 2017 12:46
--- NOTE | 2017-06-22 14:08 | CONS ---
Date/Time of Note Date/Time of Note DATE: 06/22/17 TIME: 14:07 Assessment/Plan Assessment/Plan Chief Complaint/Hosp Course 86-year-old female who is normally treated by Dr. Huang at [facility] [place]. She reports she has had brain scanning done within the last year. She reports she has cancer that is metastatic to multiple locations. We do not have specific data on this. Patient reports no known history of thyroid disorder and denies any known history of pituitary abnormalities. Problems: (1) Altered mental status Status: Acute Comment: Patient's metabolically deteriorating. Nephrology is managing for electrolyte disturbances. This still is a very important question about what the long-term goals are. Primary care today stated "family meeting pending". In this setting will be forced to pursue more aggressive means Qualifiers: Altered mental status type: unspecified Qualified Code: R41.82 - Altered mental status, unspecified altered mental status type (2) Pituitary mass Status: Acute Comment: MRI scan pending although utility of this could be question (3) Abnormal thyroid function test Status: Acute Comment: Initiate treatment with low-dose methimazole Consultation Date/Type/Reason Admit Date/Time Jun 17, 2017 at 03:48 Initial Consult Date 06/18/17 Type of Consultation: Endocrinology Reason for Consultation Pituitary mass,: Subclinical hyperthyroidism Referring Provider: KEVEN MESSER 24 HR Interval Summary Free Text/Dictation Patient without appreciable changes not giving much history Exam/Review of Systems Vital Signs Vitals Vital Signs Date Time Temp Pulse Resp B/P Pulse Ox O2 Delivery O2 Flow Rate FiO2 06/22/17 12:17 88 06/22/17 11:40 97.7 20 129/66 98 06/19/17 08:02 2.0 06/18/17 08:00 Nasal Cannula Intake and Output 06/21/17 06/21/17 06/22/17 14:59 22:59 06:59 Intake Total 100 ml 1150 ml 1300 ml Balance 100 ml 1150 ml 1300 ml Results No change. Please see the labs Result Diagram: 06/22/17 0650 06/22/17 0650 Results 24 hrs Laboratory Tests Test 06/21/17 20:19 06/22/17 06:50 06/22/17 08:25 06/22/17 12:45 Bedside Glucose 147 113 135 White Blood Count 2.9 L Red Blood Count 3.48 L Hemoglobin 12.0 Hematocrit 36.2 L Mean Corpuscular Volume 104.0 H Mean Corpuscular Hemoglobin 34.5 H Mean Corpuscular Hemoglobin Concent 33.1 Red Cell Distribution Width 22.1 H Platelet Count 203 Mean Platelet Volume 9.7 Neutrophils % 48.8 Lymphocytes % 32.2 Monocytes % 9.0 Eosinophils % 1.0 Basophils % 0.3 Nucleated Red Blood Cells % 4.2 H Neutrophils # (Manual) 1.4 L Lymphocytes # 0.9 Monocytes # 0.3 Eosinophils # 0.0 Basophils # 0.0 Nucleated Red Blood Cells # 0.1 H Prothrombin Time 14.8 H Prothrombin Time Ratio 1.2 INR International Normalized Ratio 1.16 Sodium Level 161 *H Potassium Level 4.0 Chloride Level 127 H Carbon Dioxide Level 27 Anion Gap 11 Blood Urea Nitrogen 3 L Creatinine 0.54 Glucose Level 102 # Calcium Level 7.1 L Phosphorus Level 1.0 L Magnesium Level 2.1 Medications Medications Current Medications Acetaminophen 650 mg 650 mg Q6H PRN PO PAIN LEVEL 1-3 OR FEVER; Start 06/17/17 at 04:30 Piperacillin Sod/ Tazobactam Sod (Zosyn 3.375gm/ 100 ml (Pmx)) 100 ml @ 200 mls /hr Q8 IVPB Last administered on 06/22/17 05:29; Admin Dose 200 MLS/HR; Start 06/17/17 at 06:00 Ondansetron HCl (Zofran Inj) 4 mg Q6H PRN IV NAUSEA AND/OR VOMITING Last administered on 06/18/17 20:50; Admin Dose 4 MG; Start 06/17/17 at 04:30 Diagnostic Test (Pha) (Accu-Chek) 1 ea 02 XX ; Start 06/18/17 at 02:00 Miscellaneous Information 1 ea NOTE XX ; Start 06/17/17 at 05:00 Glucose (Glutose) 15 gm Q15M PRN PO DECREASED GLUCOSE; Start 06/17/17 at 05:00 Glucose (Glutose) 22.5 gm Q15M PRN PO DECREASED GLUCOSE; Start 06/17/17 at 05: 00 Dextrose (D50w Syringe) 25 ml Q15M PRN IV DECREASED GLUCOSE; Start 06/17/17 at 05:00 Dextrose (D50w Syringe) 50 ml Q15M PRN IV DECREASED GLUCOSE; Start 06/17/17 at 05:00 Glucagon (Glucagen) 1 mg Q15M PRN IM DECREASED GLUCOSE; Start 06/17/17 at 05:00 Glucose (Glutose) 15 gm Q15M PRN BUCCAL DECREASED GLUCOSE; Start 06/17/17 at 05 :00 Lactobacillus Acidophilus/ Rhamnosus (Culturelle) 1 cap BID PO Last administered on 06/22/17 09:29; Admin Dose 1 CAP; Start 06/17/17 at 21:00 Famotidine (Pepcid) 20 mg DAILY PO Last administered on 06/22/17 09:29; Admin Dose 20 MG; Start 06/18/17 at 09:00 Guaifenesin (Robitussin Liquid Cup) 100 mg Q4H PRN PO COUGH; Start 06/17/17 at 18:30 IV Flush 10 ml 10 ml PRN PRN IV IV PROTOCOL; Start 06/18/17 at 17:00 Vancomycin HCl/ Sodium Chloride (Vancocin/NS) 150 ml @ 75 mls/hr Q12H IVPB Last administered on 06/22/17 05:28; Admin Dose 75 MLS/HR; Start 06/19/17 at 05: 00 Spironolactone (Aldactone) 25 mg DAILY PO Last administered on 06/22/17 09:29; Admin Dose 25 MG; Start 06/20/17 at 09:30 Hydralazine HCl (Apresoline) 5 mg Q4H PRN IV ELEVATED SYSTOLIC BP; Start at 18:30 Amlodipine Besylate (Norvasc) 5 mg DAILY PO Last administered on 06/22/17 09:31 ; Admin Dose 5 MG; Start 06/20/17 at 18:30 Docusate Sodium (Colace) 100 mg HS PO Last administered on 06/21/17 21:45; Admin Dose 100 MG; Start 06/20/17 at 21:00 Potassium Chloride 40 meq 40 meq BID PO Last administered on 06/22/17 09:00; Admin Dose 40 MEQ; Start 06/20/17 at 21:00 Dextrose 1,000 ml @ 100 mls/hr Q10H IV Last administered on 06/22/17 09:29; Admin Dose 100 MLS/HR; Start 9/2/17 at 09:00 Potassium Phosphate/Sodium Chloride (K Phos (Mm)/NS) 260 ml @ 65 mls/hr ONCE ONCE IVPB Last administered on 06/22/17t 12:49; Admin Dose 65 MLS/HR; Start 06/22 at 11:00; Stop 06/22/17 at 14:59 Miscellaneous Information (*Rx Drug Level Order Reminder*) VANCOMYCIN TROUGH 06/23 AT 0400 ONCE ONCE XX ; Start 06/23/17 at 04:00; Stop 06/23/17 at 04:01 JORDYN SERNA MD Jun 22, 2017 14:08
[2017-06-22] MEDS: METHIMAZOLE 5 MG TAB PO SCH (14:59)
[2017-06-22] MEDS: DOCUSATE SODIUM 100 MG CAP PO SCH (21:00)
[2017-06-22] MEDS: ACCU-CHEK XX SCH (21:01)
[2017-06-23] VITALS (12 sets, daily range): BP systolic 112–123; BP diastolic 62–68; PULSE 83–95; RESP 16–20
[2017-06-23 04:26] LABS: ABNORMAL IP MESSAGE 1; HEMATOCRIT 37.3 % (37.0-47.0); HEMOGLOBIN 12.4 g/dl (12.0-16.0); MEAN CORPUSCULAR HEMOGLOBIN 34.4 pg (29.0-33.0); MEAN CORPUSCULAR HGB CONC 33.2 g/dl (32.0-37.0); MEAN CORPUSCULAR VOLUME 103.6 fl (82.0-101.0); MEAN PLATELET VOLUME 9.8 fl (7.4-10.4); NUCLEATED RED BLOOD CELLS% 4.6 /100WBC (0.0-0.0); PLATELET COUNT 203 10^3/UL (140-415); RED CELL DISTRIBUTION WIDTH 21.5 % (11.5-14.5); WHITE BLOOD COUNT 3.5 10^3/ul (4.8-10.8)
[2017-06-23] MEDS: PIPER-TAZO 3.375 GM IV (PMX) 100 ML IVPB SCH ×3 (04:31→23:19)
[2017-06-23] MEDS: VANCOMYCIN 750 MG in SOD CHLORIDE 0.9% 150 ML IVPB SCH (04:31)
[2017-06-23] MEDS: DEXTROSE 5% 1,000 ML IV SCH ×3 (04:32→23:20)
[2017-06-23 04:43] LABS: POSITIVE DIFF @See below
[2017-06-23 04:50] LABS: ALBUMIN 2.8 g/dl (3.3-4.9); ALBUMIN/GLOBULIN RATIO 1.03; BILIRUBIN,INDIRECT 0.8 mg/dl (0-1.1); BILIRUBIN,TOTAL 0.8 mg/dl (0.2-1.3); CALCIUM 7.1 mg/dl (8.4-10.2); CREATININE 0.61 mg/dl (0.44-1.00); PHOSPHORUS 1.4 mg/dl (2.5-4.9); POTASSIUM 3.6 mmol/L (3.5-5.1); TOTAL PROTEIN 5.5 g/dl (6.1-8.1)
[2017-06-23 05:25] LABS: METAMYELOCYTES %M 1 % (0-0); MONOCYTE # 0.2 10^3/ul (0.3-0.9)
[2017-06-23] MEDS: INSULIN ASPART [NOVOLOG] 3 ML PEN SC SCH ×4 (08:00→21:00)
[2017-06-23 08:46] LABS: BASOPHILS % 1.2 % (0.0-2.0); EOSINOPHILS % 0.9 % (0.0-7.0); MONOCYTES % 7.3 % (0.0-11.0); NEUTROPHILS % 51.3 % (39.0-77.0); NUCLEATED RED BLOOD CELLS # 0.2 10^3/ul (0.0-0.0)
[2017-06-23] MEDS: AMLODIPINE 5 MG TAB PO SCH (09:45)
[2017-06-23] MEDS: SPIRONOLACTONE 25 MG TAB PO SCH (09:45)
[2017-06-23] MEDS: METHIMAZOLE 5 MG TAB PO SCH (09:46)
[2017-06-23] MEDS: FAMOTIDINE 20 MG TAB PO SCH (09:46)
[2017-06-23] MEDS: POTASSIUM CHLORIDE 20 MEQ POWDER FOR ORAL SOLN PO SCH ×2 (09:46→21:49)
[2017-06-23] MEDS: LACTOBACILLUS RHAMNOSUS CAP PO SCH ×2 (09:46→21:48)
--- NOTE | 2017-06-23 10:26 | PN ---
Date/Time of Note Date/Time of Note DATE: 06/23/17 TIME: 10:24 Assessment/Plan VTE Prophylaxis VTE Prophylaxis Intervention: other Lines/Catheters IV C[facility] Type (from [facility] PICC Line Central line still needed: Yes Urinary Cath still in place: No Assessment/Plan Chief Complaint/Hosp Course renal follow up This is an 86-year-old female with a history of metastatic breast cancer t who was brought in by ambulance after she had fallen from her bed. While in ER she was noted to be hypotensive and was given multiple boluses of fluids and later was given flurinef. She also currently being treated for possible sepsis. She had transient hypokalemia which was corrected, however she now has hypernatremia. Her IVF was switched to D5w yesterday Brain CT shows possible mass in pit. Her random serum cortisol levels were normal. Cosyntropin test results were reviewed We were asked to assist with management of her electrolyte abnormalities her hypernatremia is responding well to D5W urine studies are pending Exam/Review of Systems Constitutional: alert, other Head: atraumatic, normocephalic (Close basic commands) Eyes: PERRL ENMT: nl nasal mucosa & septum Neck: supple Respiratory: crackles/rales, diminished breath sounds, No labored breathing Cardiovascular: regular rate and rhythm, No murmurs/extra sounds Gastrointestinal: bowel sounds, non-tender, soft Extremities: No edema Neurological: lethargic, nl mental status impression and Plan: 1. electrolytes: has hypernatremia due to 5 liters free water deficit. There is no evidence of excess mineralocorticoid except few doses of florinef that were given few days ago. Will send off urine studies. will continue with D5w. hypokalemia is now resolved (possibly due to Flurinef). will also correct hypophos. Vit d panel is pending 2. Status post fall from bed 3. Metastatic breast cancer with metastases to the lungs, brain, thyroid and liver 4. Leukopenia and thrombocytopenia 5. Elevated troponin 6. Hypothyroidism 7. Pituitary adenoma versus brain metastases Problems: Exam/Review of Systems Vital Signs Vitals Vital Signs Date Time Temp Pulse Resp B/P Pulse Ox O2 Delivery O2 Flow Rate FiO2 06/23/17 08:16 88 06/23/17 08:09 98.2 18 112/62 95 06/19/17 08:02 2.0 Intake and Output 06/22/17 06/22/17 06/23/17 15:00 23:00 07:00 Intake Total 650 ml 1120 ml 1800 ml Balance 650 ml 1120 ml 1800 ml Results Result Diagram: 06/23/17 0404 06/23/17 0404 Results 24 hrs Laboratory Tests Test 06/22/17 12:45 06/22/17 17:23 06/22/17 20:55 06/23/17 04:04 Bedside Glucose 135 136 151 White Blood Count 3.5 #L Red Blood Count 3.60 L Hemoglobin 12.4 Hematocrit 37.3 Mean Corpuscular Volume 103.6 H Mean Corpuscular Hemoglobin 34.4 H Mean Corpuscular Hemoglobin Concent 33.2 Red Cell Distribution Width 21.5 H Platelet Count 203 Mean Platelet Volume 9.8 Neutrophils % 51.3 Segmented Neutrophils % (Manual) 53 Band Neutrophils % (Manual) 10 H Lymphocytes % 32.0 Lymphocytes % (Manual) 28 Monocytes % 7.3 Monocytes % (Manual) 7 Eosinophils % 0.9 Eosinophils % (Manual) 1 Basophils % 1.2 Metamyelocytes % (manual) 1 H Nucleated Red Blood Cells % 1 H Neutrophils # (Manual) 1.9 Band Neutrophils # 0.3 Absolute Lymphocytes (Manual) 0.9 Lymphocytes # 1.0 Monocytes # 0.2 L Absolute Monocytes (Manual) 0.2 L Eosinophils # 0.0 Basophils # 0.0 Metamyelocytes # 0.0 Nucleated Red Blood Cells # 0.2 H Sodium Level 157 H Potassium Level 3.6 Chloride Level 124 H Carbon Dioxide Level 28 Anion Gap 9 Blood Urea Nitrogen 3 L Creatinine 0.61 Glucose Level 144 # Calcium Level 7.1 L Phosphorus Level 1.4 L Magnesium Level 2.0 Total Bilirubin 0.8 Direct Bilirubin 0.00 Indirect Bilirubin 0.8 Aspartate Amino Transf (AST/SGOT) 44 Alanine Aminotransferase (ALT/SGPT) 68 Alkaline Phosphatase 101 Total Protein 5.5 L Albumin 2.8 L Globulin 2.70 Albumin/Globulin Ratio 1.03 Vancomycin Level Trough 18.5 Test 06/23/17 08:04 Bedside Glucose 138 Medications Medications Current Medications Acetaminophen 650 mg 650 mg Q6H PRN PO PAIN LEVEL 1-3 OR FEVER; Start 06/17/17 at 04:30 Piperacillin Sod/ Tazobactam Sod (Zosyn 3.375gm/ 100 ml (Pmx)) 100 ml @ 200 mls /hr Q8 IVPB Last administered on 06/23/17 04:31; Admin Dose 200 MLS/HR; Start 06/17/17 at 06:00 Ondansetron HCl (Zofran Inj) 4 mg Q6H PRN IV NAUSEA AND/OR VOMITING Last administered on 06/18/17 20:50; Admin Dose 4 MG; Start 06/17/17 at 04:30 Diagnostic Test (Pha) (Accu-Chek) 1 ea 02 XX ; Start 06/18/17 at 02:00 Miscellaneous Information 1 ea NOTE XX ; Start 06/17/17 at 05:00 Glucose (Glutose) 15 gm Q15M PRN PO DECREASED GLUCOSE; Start 06/17/17 at 05:00 Glucose (Glutose) 22.5 gm Q15M PRN PO DECREASED GLUCOSE; Start 06/17/17 at 05: 00 Dextrose (D50w Syringe) 25 ml Q15M PRN IV DECREASED GLUCOSE; Start 06/17/17 at 05:00 Dextrose (D50w Syringe) 50 ml Q15M PRN IV DECREASED GLUCOSE; Start 06/17/17 at 05:00 Glucagon (Glucagen) 1 mg Q15M PRN IM DECREASED GLUCOSE; Start 06/17/17 at 05:00 Glucose (Glutose) 15 gm Q15M PRN BUCCAL DECREASED GLUCOSE; Start 06/17/17 at 05 :00 Lactobacillus Acidophilus/ Rhamnosus (Culturelle) 1 cap BID PO Last administered on 06/23/17 09:46; Admin Dose 1 CAP; Start 06/17/17 at 21:00 Famotidine (Pepcid) 20 mg DAILY PO Last administered on 06/23/17 09:46; Admin Dose 20 MG; Start 06/18/17 at 09:00 Guaifenesin (Robitussin Liquid Cup) 100 mg Q4H PRN PO COUGH; Start 06/17/17 at 18:30 IV Flush (NS 10 ml) 10 ml PRN PRN IV IV PROTOCOL; Start 06/18/17 at 17:00 Spironolactone (Aldactone) 25 mg DAILY PO Last administered on 06/23/17 09:45; Admin Dose 25 MG; Start 06/20/17 at 09:30 Hydralazine HCl (Apresoline) 5 mg Q4H PRN IV ELEVATED SYSTOLIC BP; Start at 18:30 Amlodipine Besylate (Norvasc) 5 mg DAILY PO Last administered on 06/23/17 09:45 ; Admin Dose 5 MG; Start 06/20/17 at 18:30 Docusate Sodium (Colace) 100 mg HS PO Last administered on 06/22/17 21:00; Admin Dose 100 MG; Start 06/20/17 at 21:00 Potassium Chloride 40 meq 40 meq BID PO Last administered on 06/23/17 09:46; Admin Dose 40 MEQ; Start 06/20/17 at 21:00 Dextrose (D5W) 1,000 ml @ 100 mls/hr Q10H IV Last administered on 06/23/17 04: 32; Admin Dose 100 MLS/HR; Start 06/22/17 at 09:00 Methimazole 5 mg 5 mg QAM PO Last administered on 06/23/17 09:46; Admin Dose 5 MG; Start 06/22/17 at 15:00 Vancomycin HCl/ Sodium Chloride (Vancocin/NS) 250 ml @ 83.333 mls/ hr Q24H IVPB ; Start 06/23/17 at 23:00 ISAAC MARTINEZ DO Jun 23, 2017 10:26
[2017-06-23 10:30] LABS: ANISOCYTOSIS 1+ (0-0); EOSINOPHILS % (M) 2 % (0-7); ERYTHROBLAST% (NRBC) (M) 2 % (0-0); GIANT THROMBO% (M) 4 % (0-0); MONOCYTES % (M) 4 % (0-11); MYELOCYTES % (M) 3 % (0-0); PLATELET ESTIMATE NORMAL; POIKILOCYTOSIS 1+ (0-0); POLYCHROMASIA 3+ (0-0); PROMYELOCYTES #M 0 10^3/ul (0-0); PROMYELOCYTES % (M) 2 % (0-0); REACTIVE LYMPHOCYTES% (M) 3 % (0-0)
--- NOTE | 2017-06-23 10:52 | PN ---
Date/Time of Note Date/Time of Note DATE: 06/23/17 TIME: 10:48 Assessment/Plan VTE Prophylaxis VTE Prophylaxis Intervention: LMWH Lines/Catheters IV Catheter Type (from [facility]rs[facility]): PICC Line Central line still needed: Yes (iv access) Urinary Cath still in place: No Assessment/Plan Chief Complaint/Hosp Course S: 06/17 Events noted. Appreciate cardio consult 06/18 no distress, although has cognitive impairment. no events overnight. denies headache. 06/19 poor appetite; didnt walk- 06/20: No events. Cultures remain normal. Will transfer to snf soon. 06/21: Awake alert lethargic no dyspnea headache. Follows some one-step commands. Poor Appetite not walking. 06/22: Awake alert no pain distress. Follows one-step commands. 06/23: No events. Still not ambulating and with poor appetite. O: vss No pallor/droop Reg Clear; no tachypnea Benign bowel No edema non focal A/P 1. Sepsis? contaminant? R/o recurrent pneumonia. Postobstructive? Stable finishing antibiotics. 2. Metastatic Breast Ca to lung/ liver/ brain/ thyroid. Needs advanced care planning reevaluated. [facility] records re-requested. Family meeting pending. 3. Clinical/ new hyperthyroidism. started treatment. 4. False positive troponin due to demand ischemia/ sepsis. 5. Past tobacco 6. Recent pneumonia in March. 7. Ftt/mechanical fall. DC planning to snf vs home hospice. Will consult [facility]. 8. First-degree AV block? 9. Pituitary adenoma? Awaiting outpatient records/ requested again. 10. Immunosuppressed due to malignancy 11. Hypernatremia. 12. Acute encephalopathy- multifactorial. Problems: Exam/Review of Systems Vital Signs Vitals Vital Signs Date Time Temp Pulse Resp B/P Pulse Ox O2 Delivery O2 Flow Rate FiO2 06/23/17 08:16 88 06/23/17 08:09 98.2 18 112/62 95 06/19/17 08:02 2.0 Intake and Output 06/22/17 06/22/17 06/23/17 15:00 23:00 07:00 Intake Total 650 ml 1120 ml 1800 ml Balance 650 ml 1120 ml 1800 ml Results Result Diagram: 06/23/17 0404 06/23/17 0404 Results 24 hrs Laboratory Tests Test 06/22/17 12:45 06/22/17 17:23 06/22/17 20:55 06/23/17 04:04 Bedside Glucose 135 136 151 White Blood Count 3.5 #L Red Blood Count 3.60 L Hemoglobin 12.4 Hematocrit 37.3 Mean Corpuscular Volume 103.6 H Mean Corpuscular Hemoglobin 34.4 H Mean Corpuscular Hemoglobin Concent 33.2 Red Cell Distribution Width 21.5 H Platelet Count 203 Mean Platelet Volume 9.8 Neutrophils % 51.3 Segmented Neutrophils % (Manual) 50 Band Neutrophils % (Manual) 10 H Lymphocytes % 32.0 Lymphocytes % (Manual) 25 Reactive Lymphocytes % (Manual) 3 H Monocytes % 7.3 Monocytes % (Manual) 4 Eosinophils % 0.9 Eosinophils % (Manual) 2 Basophils % 1.2 Metamyelocytes % (manual) 1 H Myelocytes % (Manual) 3 H Promyelocytes % (Manual) 2 H Nucleated Red Blood Cells % 2 H Neutrophils # (Manual) 1.8 Band Neutrophils # 0.3 Absolute Lymphocytes (Manual) 0.8 Lymphocytes # 1.0 Reactive Lymphocytes # 0.1 H Monocytes # 0.2 L Absolute Monocytes (Manual) 0.1 L Eosinophils # 0.0 Basophils # 0.0 Metamyelocytes # 0.0 Myelocytes # 0.1 H Promyelocytes # 0 Nucleated Red Blood Cells # 0.2 H Thrombocytosis 4 H Platelet Estimate NORMAL Polychromasia 3+ Poikilocytosis 1+ Anisocytosis 1+ Sodium Level 157 H Potassium Level 3.6 Chloride Level 124 H Carbon Dioxide Level 28 Anion Gap 9 Blood Urea Nitrogen 3 L Creatinine 0.61 Glucose Level 144 # Calcium Level 7.1 L Phosphorus Level 1.4 L Magnesium Level 2.0 Total Bilirubin 0.8 Direct Bilirubin 0.00 Indirect Bilirubin 0.8 Aspartate Amino Transf (AST/SGOT) 44 Alanine Aminotransferase (ALT/SGPT) 68 Alkaline Phosphatase 101 Total Protein 5.5 L Albumin 2.8 L Globulin 2.70 Albumin/Globulin Ratio 1.03 Vancomycin Level Trough 18.5 Test 06/23/17 08:04 Bedside Glucose 138 Medications Medications Current Medications Acetaminophen 650 mg 650 mg Q6H PRN PO PAIN LEVEL 1-3 OR FEVER; Start 06/17/17 at 04:30 Piperacillin Sod/ Tazobactam Sod (Zosyn 3.375gm/ 100 ml (Pmx)) 100 ml @ 200 mls /hr Q8 IVPB Last administered on 06/23/17 04:31; Admin Dose 200 MLS/HR; Start 06/17/17 at 06:00 Ondansetron HCl (Zofran Inj) 4 mg Q6H PRN IV NAUSEA AND/OR VOMITING Last administered on 06/18/17 20:50; Admin Dose 4 MG; Start 06/17/17 at 04:30 Diagnostic Test (Pha) (Accu-Chek) 1 ea 02 XX ; Start 06/18/17 at 02:00 Miscellaneous Information 1 ea NOTE XX ; Start 06/17/17 at 05:00 Glucose (Glutose) 15 gm Q15M PRN PO DECREASED GLUCOSE; Start 06/17/17 at 05:00 Glucose (Glutose) 22.5 gm Q15M PRN PO DECREASED GLUCOSE; Start 06/17/17 at 05: 00 Dextrose (D50w Syringe) 25 ml Q15M PRN IV DECREASED GLUCOSE; Start 06/17/17 at 05:00 Dextrose (D50w Syringe) 50 ml Q15M PRN IV DECREASED GLUCOSE; Start 06/17/17 at 05:00 Glucagon (Glucagen) 1 mg Q15M PRN IM DECREASED GLUCOSE; Start 06/17/17 at 05:00 Glucose (Glutose) 15 gm Q15M PRN BUCCAL DECREASED GLUCOSE; Start 06/17/17 at 05 :00 Lactobacillus Acidophilus/ Rhamnosus (Culturelle) 1 cap BID PO Last administered on 06/23/17 09:46; Admin Dose 1 CAP; Start 06/17/17 at 21:00 Famotidine (Pepcid) 20 mg DAILY PO Last administered on 06/23/17 09:46; Admin Dose 20 MG; Start 06/18/17 at 09:00 Guaifenesin (Robitussin Liquid Cup) 100 mg Q4H PRN PO COUGH; Start 06/17/17 at 18:30 IV Flush (NS 10 ml) 10 ml PRN PRN IV IV PROTOCOL; Start 06/18/17 at 17:00 Spironolactone (Aldactone) 25 mg DAILY PO Last administered on 06/23/17 09:45; Admin Dose 25 MG; Start 06/20/17 at 09:30 Hydralazine HCl (Apresoline) 5 mg Q4H PRN IV ELEVATED SYSTOLIC BP; Start at 18:30 Amlodipine Besylate (Norvasc) 5 mg DAILY PO Last administered on 06/23/17 09:45 ; Admin Dose 5 MG; Start 06/20/17 at 18:30 Docusate Sodium (Colace) 100 mg HS PO Last administered on 06/22/17 21:00; Admin Dose 100 MG; Start 06/20/17 at 21:00 Potassium Chloride 40 meq 40 meq BID PO Last administered on 06/23/17 09:46; Admin Dose 40 MEQ; Start 06/20/17 at 21:00 Dextrose (D5W) 1,000 ml @ 100 mls/hr Q10H IV Last administered on 06/23/17 04: 32; Admin Dose 100 MLS/HR; Start 06/22/17 at 09:00 Methimazole 5 mg 5 mg QAM PO Last administered on 06/23/17 09:46; Admin Dose 5 MG; Start 06/22/17 at 15:00 Vancomycin HCl/ Sodium Chloride (Vancocin/NS) 250 ml @ 83.333 mls/ hr Q24H IVPB ; Start 06/23/17 at 23:00 MICHAEL RAMSAY MD Jun 23, 2017 10:52
--- NOTE | 2017-06-23 13:52 | CONS ---
Date/Time of Note Date/Time of Note DATE: 06/23/17 TIME: 13:50 Assessment/Plan Assessment/Plan Chief Complaint/Hosp Course 86-year-old female who is normally treated by Dr. Huang at [facility] [place]. She reports she has had brain scanning done within the last year. She reports she has cancer that is metastatic to multiple locations. We do not have specific data on this. Patient reports no known history of thyroid disorder and denies any known history of pituitary abnormalities. Problems: (1) Pituitary mass Status: Acute Comment: MRI scan is still pending as of this moment. Ultimate decisions about what to do will be based upon what the plans are for the main diagnosis of metastatic breast cancer (2) Abnormal thyroid function test Status: Acute Comment: Now on treatment. Will hope for the best (3) Acute hypernatremia Status: Acute Comment: Occurred in the hospital. She has had a modest response to very low- dose D5 W. She still is modestly volume down. We will give a single fluid bolus of D5 quarter normal saline to bring her closer Consultation Date/Type/Reason Admit Date/Time Jun 17, 2017 at 03:48 Initial Consult Date 06/18/17 Type of Consultation: Endocrinology Reason for Consultation Pituitary mass; subclinical hyperthyroidism Referring Provider: KEVEN MESSER 24 HR Interval Summary Free Text/Dictation Patient without change little meaningful information Exam/Review of Systems Vital Signs Vitals Vital Signs Date Time Temp Pulse Resp B/P Pulse Ox O2 Delivery O2 Flow Rate FiO2 06/23/17 12:42 84 06/23/17 11:55 98.3 16 116/62 98 06/19/17 08:02 2.0 Intake and Output 06/22/17 06/22/17 06/23/17 15:00 23:00 07:00 Intake Total 650 ml 1120 ml 1800 ml Balance 650 ml 1120 ml 1800 ml Results No change Result Diagram: 06/23/17 0404 06/23/17 0404 Results 24 hrs Laboratory Tests Test 06/22/17 17:23 06/22/17 20:55 06/23/17 04:04 06/23/17 08:04 Bedside Glucose 136 151 138 White Blood Count 3.5 #L Red Blood Count 3.60 L Hemoglobin 12.4 Hematocrit 37.3 Mean Corpuscular Volume 103.6 H Mean Corpuscular Hemoglobin 34.4 H Mean Corpuscular Hemoglobin Concent 33.2 Red Cell Distribution Width 21.5 H Platelet Count 203 Mean Platelet Volume 9.8 Neutrophils % 51.3 Segmented Neutrophils % (Manual) 50 Band Neutrophils % (Manual) 10 H Lymphocytes % 32.0 Lymphocytes % (Manual) 25 Reactive Lymphocytes % (Manual) 3 H Monocytes % 7.3 Monocytes % (Manual) 4 Eosinophils % 0.9 Eosinophils % (Manual) 2 Basophils % 1.2 Metamyelocytes % (manual) 1 H Myelocytes % (Manual) 3 H Promyelocytes % (Manual) 2 H Nucleated Red Blood Cells % 2 H Neutrophils # (Manual) 1.8 Band Neutrophils # 0.3 Absolute Lymphocytes (Manual) 0.8 Lymphocytes # 1.0 Reactive Lymphocytes # 0.1 H Monocytes # 0.2 L Absolute Monocytes (Manual) 0.1 L Eosinophils # 0.0 Basophils # 0.0 Metamyelocytes # 0.0 Myelocytes # 0.1 H Promyelocytes # 0 Nucleated Red Blood Cells # 0.2 H Thrombocytosis 4 H Platelet Estimate NORMAL Polychromasia 3+ Poikilocytosis 1+ Anisocytosis 1+ Sodium Level 157 H Potassium Level 3.6 Chloride Level 124 H Carbon Dioxide Level 28 Anion Gap 9 Blood Urea Nitrogen 3 L Creatinine 0.61 Glucose Level 144 # Calcium Level 7.1 L Phosphorus Level 1.4 L Magnesium Level 2.0 Total Bilirubin 0.8 Direct Bilirubin 0.00 Indirect Bilirubin 0.8 Aspartate Amino Transf (AST/SGOT) 44 Alanine Aminotransferase (ALT/SGPT) 68 Alkaline Phosphatase 101 Total Protein 5.5 L Albumin 2.8 L Globulin 2.70 Albumin/Globulin Ratio 1.03 Vancomycin Level Trough 18.5 Test 06/23/17 12:14 Bedside Glucose 128 Medications Medications Current Medications Acetaminophen 650 mg 650 mg Q6H PRN PO PAIN LEVEL 1-3 OR FEVER; Start 06/17/17 at 04:30 Piperacillin Sod/ Tazobactam Sod (Zosyn 3.375gm/ 100 ml (Pmx)) 100 ml @ 200 mls /hr Q8 IVPB Last administered on 06/23/17 04:31; Admin Dose 200 MLS/HR; Start 06/17/17 at 06:00 Ondansetron HCl (Zofran Inj) 4 mg Q6H PRN IV NAUSEA AND/OR VOMITING Last administered on 06/18/17 20:50; Admin Dose 4 MG; Start 06/17/17 at 04:30 Diagnostic Test (Pha) (Accu-Chek) 1 ea 02 XX ; Start 06/18/17 at 02:00 Miscellaneous Information 1 ea NOTE XX ; Start 06/17/17 at 05:00 Glucose (Glutose) 15 gm Q15M PRN PO DECREASED GLUCOSE; Start 06/17/17 at 05:00 Glucose (Glutose) 22.5 gm Q15M PRN PO DECREASED GLUCOSE; Start 06/17/17 at 05: 00 Dextrose (D50w Syringe) 25 ml Q15M PRN IV DECREASED GLUCOSE; Start 06/17/17 at 05:00 Dextrose (D50w Syringe) 50 ml Q15M PRN IV DECREASED GLUCOSE; Start 06/17/17 at 05:00 Glucagon (Glucagen) 1 mg Q15M PRN IM DECREASED GLUCOSE; Start 06/17/17 at 05:00 Glucose (Glutose) 15 gm Q15M PRN BUCCAL DECREASED GLUCOSE; Start 06/17/17 at 05 :00 Lactobacillus Acidophilus/ Rhamnosus (Culturelle) 1 cap BID PO Last administered on 06/23/17 09:46; Admin Dose 1 CAP; Start 06/17/17 at 21:00 Famotidine (Pepcid) 20 mg DAILY PO Last administered on 06/23/17 09:46; Admin Dose 20 MG; Start 06/18/17 at 09:00 Guaifenesin (Robitussin Liquid Cup) 100 mg Q4H PRN PO COUGH; Start 06/17/17 at 18:30 IV Flush (NS 10 ml) 10 ml PRN PRN IV IV PROTOCOL; Start 06/18/17 at 17:00 Spironolactone (Aldactone) 25 mg DAILY PO Last administered on 06/23/17 09:45; Admin Dose 25 MG; Start 06/20/17 at 09:30 Hydralazine HCl (Apresoline) 5 mg Q4H PRN IV ELEVATED SYSTOLIC BP; Start at 18:30 Amlodipine Besylate (Norvasc) 5 mg DAILY PO Last administered on 06/23/17 09:45 ; Admin Dose 5 MG; Start 06/20/17 at 18:30 Docusate Sodium (Colace) 100 mg HS PO Last administered on 06/22/17 21:00; Admin Dose 100 MG; Start 06/20/17 at 21:00 Potassium Chloride 40 meq 40 meq BID PO Last administered on 06/23/17 09:46; Admin Dose 40 MEQ; Start 06/20/17 at 21:00 Dextrose (D5W) 1,000 ml @ 100 mls/hr Q10H IV Last administered on 06/23/17 04: 32; Admin Dose 100 MLS/HR; Start 06/22/17 at 09:00 Methimazole 5 mg 5 mg QAM PO Last administered on 06/23/17 09:46; Admin Dose 5 MG; Start 06/22/17 at 15:00 Vancomycin HCl/ Sodium Chloride (Vancocin/NS) 250 ml @ 83.333 mls/ hr Q24H IVPB ; Start 06/23/17 at 23:00 JORDYN SERNA MD Jun 23, 2017 13:52
[2017-06-23] MEDS ORDERED: DEXTROSE IV ONE (14:00)
[2017-06-23] MEDS ORDERED: NACL IV ONE (14:00)
--- NOTE | 2017-06-23 14:52 | CONS ---
Date/Time of Note Date/Time of Note DATE: 06/23/17 TIME: 14:50 Assessment/Plan Assessment/Plan Chief Complaint/Hosp Course ID PROGRESS NOTE CURRENT ABX: ABX Day #7 => Vanco IV + Zosyn 24H INTERVAL SUMMARY * Awake, alert, nods head to me "yes" when asked if she is doing ok * MRSA Nares screen in process * MICROBIOLOGY: Blood culture on admission grew coag-negative staph species. Repeat blood cultures negative. Urine culture negative. * CXR 06/20/17: Stable central pulmonary vascular congestion and mild interstitial prominence in both lungs. Stable small right pleural effusion with associated lower lobe atelectasis/infiltrate. PHYSICAL EXAMINATION: GENERAL: Obese 86 yo F, VSS, afebrile HEENT: Unremarkable NECK: Supple. Trachea midline. CHEST: Rise symmetrical. Breath sounds diminished. HEART: S1, S2. ABDOMEN: Soft, bowel sounds present. EXT: Moves all extremities ID ASSESSMENT 86 yo F w/Dx Breast Cancer w/ METS to Lung, Liver, Brain -> s/p Left Mastectomy admit with: 1. s/p SEPSIS criteria on admission: (+)TMax 99.7, HD 102, (+Lactic acidosis 3.8 2/2 acute PNA 2. Coagulase-negative Staph bacteremia on 2/2 bottled drawn on arrival in ED, consistent with contaminant. * Repeat BCx (-) 3. Right lower lobe pneumonia present on admission 4. Pulm Vasc Edema w/small R-pleural effusion => Hx of metastatic lung disease 5. Pancytopenia 2/2 breast cancer 6. s/p Fall 06/16/17 ( ? ) MRSA Nares -> Ordered today INVASIVES: PICC 06/18 RUXT CURRENT ABX: ABX Day #7 => Vanco IV + Zosyn ID RECOMMENDATIONS Continue current ABX, check nares for MRSA=> Pending Anticipate DC vs taper ABX soon . Problems: Consultation Date/Type/Reason Admit Date/Time Jun 17, 2017 at 03:48 Initial Consult Date 06/18/17 Type of Consultation: ID Referring Provider: KEVEN MESSER Exam/Review of Systems Vital Signs Vitals Vital Signs Date Time Temp Pulse Resp B/P Pulse Ox O2 Delivery O2 Flow Rate FiO2 06/23/17 12:42 84 06/23/17 11:55 98.3 16 116/62 98 06/19/17 08:02 2.0 Intake and Output 06/22/17 06/22/17 06/23/17 15:00 23:00 07:00 Intake Total 650 ml 1120 ml 1800 ml Balance 650 ml 1120 ml 1800 ml Results Result Diagram: 06/23/17 0404 06/23/17 0404 Results 24 hrs Laboratory Tests Test 06/22/17 17:23 06/22/17 20:55 06/23/17 04:04 06/23/17 08:04 Bedside Glucose 136 151 138 White Blood Count 3.5 #L Red Blood Count 3.60 L Hemoglobin 12.4 Hematocrit 37.3 Mean Corpuscular Volume 103.6 H Mean Corpuscular Hemoglobin 34.4 H Mean Corpuscular Hemoglobin Concent 33.2 Red Cell Distribution Width 21.5 H Platelet Count 203 Mean Platelet Volume 9.8 Neutrophils % 51.3 Segmented Neutrophils % (Manual) 50 Band Neutrophils % (Manual) 10 H Lymphocytes % 32.0 Lymphocytes % (Manual) 25 Reactive Lymphocytes % (Manual) 3 H Monocytes % 7.3 Monocytes % (Manual) 4 Eosinophils % 0.9 Eosinophils % (Manual) 2 Basophils % 1.2 Metamyelocytes % (manual) 1 H Myelocytes % (Manual) 3 H Promyelocytes % (Manual) 2 H Nucleated Red Blood Cells % 2 H Neutrophils # (Manual) 1.8 Band Neutrophils # 0.3 Absolute Lymphocytes (Manual) 0.8 Lymphocytes # 1.0 Reactive Lymphocytes # 0.1 H Monocytes # 0.2 L Absolute Monocytes (Manual) 0.1 L Eosinophils # 0.0 Basophils # 0.0 Metamyelocytes # 0.0 Myelocytes # 0.1 H Promyelocytes # 0 Nucleated Red Blood Cells # 0.2 H Thrombocytosis 4 H Platelet Estimate NORMAL Polychromasia 3+ Poikilocytosis 1+ Anisocytosis 1+ Sodium Level 157 H Potassium Level 3.6 Chloride Level 124 H Carbon Dioxide Level 28 Anion Gap 9 Blood Urea Nitrogen 3 L Creatinine 0.61 Glucose Level 144 # Calcium Level 7.1 L Phosphorus Level 1.4 L Magnesium Level 2.0 Total Bilirubin 0.8 Direct Bilirubin 0.00 Indirect Bilirubin 0.8 Aspartate Amino Transf (AST/SGOT) 44 Alanine Aminotransferase (ALT/SGPT) 68 Alkaline Phosphatase 101 Total Protein 5.5 L Albumin 2.8 L Globulin 2.70 Albumin/Globulin Ratio 1.03 Vancomycin Level Trough 18.5 Test 06/23/17 12:14 Bedside Glucose 128 Medications Medications Current Medications Acetaminophen 650 mg 650 mg Q6H PRN PO PAIN LEVEL 1-3 OR FEVER; Start 06/17/17 at 04:30 Piperacillin Sod/ Tazobactam Sod (Zosyn 3.375gm/ 100 ml (Pmx)) 100 ml @ 200 mls /hr Q8 IVPB Last administered on 06/23/17 14:23; Admin Dose 200 MLS/HR; Start 06/17/17 at 06:00 Ondansetron HCl (Zofran Inj) 4 mg Q6H PRN IV NAUSEA AND/OR VOMITING Last administered on 06/18/17 20:50; Admin Dose 4 MG; Start 06/17/17 at 04:30 Diagnostic Test (Pha) (Accu-Chek) 1 ea 02 XX ; Start 06/18/17 at 02:00 Miscellaneous Information 1 ea NOTE XX ; Start 06/17/17 at 05:00 Glucose (Glutose) 15 gm Q15M PRN PO DECREASED GLUCOSE; Start 06/17/17 at 05:00 Glucose (Glutose) 22.5 gm Q15M PRN PO DECREASED GLUCOSE; Start 06/17/17 at 05: 00 Dextrose (D50w Syringe) 25 ml Q15M PRN IV DECREASED GLUCOSE; Start 06/17/17 at 05:00 Dextrose (D50w Syringe) 50 ml Q15M PRN IV DECREASED GLUCOSE; Start 06/17/17 at 05:00 Glucagon (Glucagen) 1 mg Q15M PRN IM DECREASED GLUCOSE; Start 06/17/17 at 05:00 Glucose (Glutose) 15 gm Q15M PRN BUCCAL DECREASED GLUCOSE; Start 06/17/17 at 05 :00 Lactobacillus Acidophilus/ Rhamnosus (Culturelle) 1 cap BID PO Last administered on 06/23/17 09:46; Admin Dose 1 CAP; Start 06/17/17 at 21:00 Famotidine (Pepcid) 20 mg DAILY PO Last administered on 06/23/17 09:46; Admin Dose 20 MG; Start 06/18/17 at 09:00 Guaifenesin (Robitussin Liquid Cup) 100 mg Q4H PRN PO COUGH; Start 06/17/17 at 18:30 IV Flush (NS 10 ml) 10 ml PRN PRN IV IV PROTOCOL; Start 06/18/17 at 17:00 Spironolactone (Aldactone) 25 mg DAILY PO Last administered on 06/23/17 09:45; Admin Dose 25 MG; Start 06/20/17 at 09:30 Hydralazine HCl (Apresoline) 5 mg Q4H PRN IV ELEVATED SYSTOLIC BP; Start at 18:30 Amlodipine Besylate (Norvasc) 5 mg DAILY PO Last administered on 06/23/17 09:45 ; Admin Dose 5 MG; Start 06/20/17 at 18:30 Docusate Sodium (Colace) 100 mg HS PO Last administered on 06/22/17 21:00; Admin Dose 100 MG; Start 06/20/17 at 21:00 Potassium Chloride 40 meq 40 meq BID PO Last administered on 06/23/17 09:46; Admin Dose 40 MEQ; Start 06/20/17 at 21:00 Dextrose (D5W) 1,000 ml @ 125 mls/hr Q8H IV Last administered on 06/23/17 04: 32; Admin Dose 100 MLS/HR; Start 06/22/17 at 09:00 Methimazole 5 mg 5 mg QAM PO Last administered on 06/23/17 09:46; Admin Dose 5 MG; Start 06/22/17 at 15:00 Vancomycin HCl/ Sodium Chloride (Vancocin/NS) 250 ml @ 83.333 mls/ hr Q24H IVPB ; Start 06/23/17 at 23:00 DEISY BENÍTEZ NP Jun 23, 2017 14:52
[2017-06-23] MEDS: DOCUSATE SODIUM 100 MG CAP PO SCH (21:48)
[2017-06-23] MEDS: VANCOMYCIN 1.25 GM in SOD CHLORIDE 0.9% 250 ML IVPB SCH (23:19)
[2017-06-23] MEDS: ACCU-CHEK XX SCH (23:39)
[2017-06-24] VITALS (12 sets, daily range): BP systolic 83–126; BP diastolic 57–76; PULSE 73–82; RESP 18–20
[2017-06-24] MEDS: DEXTROSE 5% 1,000 ML IV SCH ×2 (06:17→15:35)
[2017-06-24] MEDS: PIPER-TAZO 3.375 GM IV (PMX) 100 ML IVPB SCH ×3 (06:17→21:36)
[2017-06-24] MEDS: INSULIN ASPART [NOVOLOG] 3 ML PEN SC SCH ×4 (08:00→21:00)
[2017-06-24 08:07] LABS: ABNORMAL IP MESSAGE 1; HEMATOCRIT 37.4 % (37.0-47.0); HEMOGLOBIN 12.3 g/dl (12.0-16.0); MEAN CORPUSCULAR HEMOGLOBIN 34.3 pg (29.0-33.0); MEAN CORPUSCULAR HGB CONC 32.9 g/dl (32.0-37.0); MEAN CORPUSCULAR VOLUME 104.2 fl (82.0-101.0); NUCLEATED RED BLOOD CELLS% 1.6 /100WBC (0.0-0.0); PLATELET COUNT 192 10^3/UL (140-415); RED BLOOD COUNT 3.59 10^6/ul (4.20-5.40); RED CELL DISTRIBUTION WIDTH 21.2 % (11.5-14.5); WHITE BLOOD COUNT 3.7 10^3/ul (4.8-10.8)
--- NOTE | 2017-06-24 08:17 | CONS ---
Date/Time of Note Date/Time of Note DATE: 06/24/17 TIME: 08:14 Assessment/Plan Assessment/Plan Chief Complaint/Hosp Course 86-year-old female who is normally treated by Dr. Huang at [facility] [place]. She reports she has had brain scanning done within the last year. She reports she has cancer that is metastatic to multiple locations. We do not have specific data on this. Patient reports no known history of thyroid disorder and denies any known history of pituitary abnormalities. Problems: (1) Pituitary mass Status: Acute Comment: At this time we are still awaiting the pituitary MRI scan. 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 (4) Acute hypernatremia Status: Acute Comment: Today's labs are pending. Nephrology is helping to direct Consultation Date/Type/Reason Admit Date/Time Jun 17, 2017 at 03:48 Initial Consult Date 06/18/17 Type of Consultation: Endocrinology Reason for Consultation Pituitary mass; subclinical hyperthyroidism Referring Provider: KEVEN MESSER 24 HR Interval Summary Free Text/Dictation Patient sleeping in bed somewhat difficult to arouse Subjective hx not possible: pt non-verbal Exam/Review of Systems Vital Signs Vitals Vital Signs Date Time Temp Pulse Resp B/P Pulse Ox O2 Delivery O2 Flow Rate FiO2 06/24/17 08:03 98.4 72 18 100/58 98 Intake and Output 06/23/17 06/23/17 06/24/17 15:00 23:00 07:00 Intake Total 100 ml 2325 ml Balance 100 ml 2325 ml Results No changes in exam Result Diagram: 06/23/17 0404 06/23/17 0404 Results 24 hrs Laboratory Tests Test 06/23/17 12:14 06/23/17 17:33 06/23/17 20:02 06/24/17 07:11 Bedside Glucose 128 209 175 White Blood Count Pending Red Blood Count Pending Hemoglobin Pending Hematocrit Pending Mean Corpuscular Volume Pending Mean Corpuscular Hemoglobin Pending Mean Corpuscular Hemoglobin Concent Pending Red Cell Distribution Width Pending Platelet Count Pending Mean Platelet Volume Pending Medications Medications Current Medications Acetaminophen 650 mg 650 mg Q6H PRN PO PAIN LEVEL 1-3 OR FEVER; Start 06/17/17 at 04:30 Piperacillin Sod/ Tazobactam Sod (Zosyn 3.375gm/ 100 ml (Pmx)) 100 ml @ 200 mls /hr Q8 IVPB Last administered on 06/24/17 06:17; Admin Dose 200 MLS/HR; Start 06/17/17 at 06:00 Ondansetron HCl (Zofran Inj) 4 mg Q6H PRN IV NAUSEA AND/OR VOMITING Last administered on 06/18/17 20:50; Admin Dose 4 MG; Start 06/17/17 at 04:30 Diagnostic Test (Pha) (Accu-Chek) 1 ea 02 XX ; Start 06/18/17 at 02:00 Miscellaneous Information 1 ea NOTE XX ; Start 06/17/17 at 05:00 Glucose (Glutose) 15 gm Q15M PRN PO DECREASED GLUCOSE; Start 06/17/17 at 05:00 Glucose (Glutose) 22.5 gm Q15M PRN PO DECREASED GLUCOSE; Start 06/17/17 at 05: 00 Dextrose (D50w Syringe) 25 ml Q15M PRN IV DECREASED GLUCOSE; Start 06/17/17 at 05:00 Dextrose (D50w Syringe) 50 ml Q15M PRN IV DECREASED GLUCOSE; Start 06/17/17 at 05:00 Glucagon (Glucagen) 1 mg Q15M PRN IM DECREASED GLUCOSE; Start 06/17/17 at 05:00 Glucose (Glutose) 15 gm Q15M PRN BUCCAL DECREASED GLUCOSE; Start 06/17/17 at 05 :00 Lactobacillus Acidophilus/ Rhamnosus (Culturelle) 1 cap BID PO Last administered on 06/23/17 21:48; Admin Dose 1 CAP; Start 06/17/17 at 21:00 Famotidine (Pepcid) 20 mg DAILY PO Last administered on 06/23/17 09:46; Admin Dose 20 MG; Start 06/18/17 at 09:00 Guaifenesin (Robitussin Liquid Cup) 100 mg Q4H PRN PO COUGH; Start 06/17/17 at 18:30 IV Flush (NS 10 ml) 10 ml PRN PRN IV IV PROTOCOL; Start 8/29/17 at 17:00 Spironolactone (Aldactone) 25 mg DAILY PO Last administered on 06/23/17 09:45; Admin Dose 25 MG; Start 06/20/17 at 09:30 Hydralazine HCl (Apresoline) 5 mg Q4H PRN IV ELEVATED SYSTOLIC BP; Start at 18:30 Amlodipine Besylate (Norvasc) 5 mg DAILY PO Last administered on 06/23/17 09:45 ; Admin Dose 5 MG; Start 06/20/17 at 18:30 Docusate Sodium (Colace) 100 mg HS PO Last administered on 06/23/17 21:48; Admin Dose 100 MG; Start 06/20/17 at 21:00 Potassium Chloride 40 meq 40 meq BID PO Last administered on 06/23/17 21:49; Admin Dose 40 MEQ; Start 06/20/17 at 21:00 Dextrose (D5W) 1,000 ml @ 125 mls/hr Q8H IV Last administered on 06/24/17 06: 17; Admin Dose 125 MLS/HR; Start 06/22/17 at 09:00 Methimazole 5 mg 5 mg QAM PO Last administered on 06/23/17 09:46; Admin Dose 5 MG; Start 06/22/17 at 15:00 Vancomycin HCl/ Sodium Chloride (Vancocin/NS) 250 ml @ 83.333 mls/ hr Q24H IVPB Last administered on 06/23/17 23:19; Admin Dose 83.333 MLS/HR; Start at 23:00 JORDYN SERNA MD Jun 24, 2017 08:17
[2017-06-24 08:23] LABS: POSITIVE DIFF @See below
[2017-06-24 08:34] LABS: CALCIUM 6.6 mg/dl (8.4-10.2); CREATININE 0.58 mg/dl (0.44-1.00); MAGNESIUM 1.9 mg/dl (1.7-2.5); PHOSPHORUS 1.8 mg/dl (2.5-4.9)
[2017-06-24] MEDS: POTASSIUM CHLORIDE 20 MEQ POWDER FOR ORAL SOLN PO SCH ×2 (09:00→21:35)
[2017-06-24 09:40] LABS: ANISOCYTOSIS 1+ (0-0); EOSINOPHILS % (M) 2 % (0-7); MONOCYTES % (M) 4 % (0-11); MYELOCYTES % (M) 3 % (0-0); PLATELET ESTIMATE NORMAL; POIKILOCYTOSIS 1+ (0-0); POLYCHROMASIA 3+ (0-0); REACTIVE LYMPHOCYTES% (M) 5 % (0-0)
--- NOTE | 2017-06-24 09:40 | PN ---
DATE: 06/24/2017 SUBJECTIVE DATA: The patient is lethargic. No other events noted. No hemoptysis, hematemesis or hematochezia. OBJECTIVE DATA: VITAL SIGNS: Blood pressure is 150, respirations 18, pulse 72, temperature 98.4. HEENT: Head is normocephalic. NECK: Supple. HEART: Regular rate. LUNGS: Diminished breath sounds at the base. ABDOMEN: Soft, nontender to palpation. No rebound or guarding. EXTREMITIES: Negative for clubbing, cyanosis. No edema. DERMATOLOGIC: No rashes. MUSCULOSKELETAL: No joint effusion. NEUROLOGIC: No change in exam. MEDICATIONS: Reviewed. LABORATORY AND DIAGNOSTIC DATA: Shows sodium 146, potassium 3, chloride 115, BUN 4, creatinine 0.58, phosphorus 1.8. White count 3.7, hemoglobin 10.3, hematocrit 37.4, platelet count is 192,000. ASSESSMENT AND PLAN: 1. Hypernatremia. Etiology secondary to insensible losses. The patient's sodium levels have been improving. Continue D5 water. We will decrease rate to 100 mL an hour. 2. Hypokalemia. Replete potassium chloride. 3. Hypophosphatemia. Replete with potassium phosphate. 4. Metastatic breast cancer with metastases to the lungs and brain. Continue to monitor. 5. Hypothyroidism. Continue current medical management. 6. Pituitary adenoma. Continue to monitor. Follow up with endocrinology. 7. Sepsis. Continue current antibiotic regimen. Dictated By: Saqib Duncan DO /bam/garrick /Document#: [id number]
[2017-06-24] MEDS: FAMOTIDINE 20 MG TAB PO SCH (09:54)
[2017-06-24] MEDS: SPIRONOLACTONE 25 MG TAB PO SCH (09:54)
[2017-06-24] MEDS: METHIMAZOLE 5 MG TAB PO SCH (09:55)
[2017-06-24] MEDS: AMLODIPINE 5 MG TAB PO SCH (09:55)
[2017-06-24] MEDS: LACTOBACILLUS RHAMNOSUS CAP PO SCH ×2 (09:56→21:35)
[2017-06-24] MEDS ORDERED: POTASSIUM PHOSPHATE 20 MEQ in SOD CHLORIDE 0.9% 250 ML IVPB ONE (10:00)
[2017-06-24] MEDS ORDERED: POTASSIUM CHLORIDE 250 ML IVPB ONE (10:00)
--- NOTE | 2017-06-24 12:19 | CONS ---
Date/Time of Note Date/Time of Note DATE: 06/24/17 TIME: 12:18 Assessment/Plan Assessment/Plan Chief Complaint/Hosp Course 86-year-old female who is a poor historian most information is taken from her medical records. Patient was brought to the emergency room and [facility] after a fall from her bed. Evaluated in the emergency room she was found to have elevated troponins, lactic acidosis and a history of metastatic breast cancer. This information is unclear to me at this time. Patient answers with one-word, yes, no, maybe however she states she has a granddaughter she lives with and a daughter who lives locally. She gives me a history of having an oncologist, but she states she saw her oncologist just recently in the diagnosis of breast cancer was made just 2 days ago. No family members immediately available to corroborate her story or give us additional information. Problems: Additional Assessment/Plan Postdated note for June 21, 2017 Chart reviewed once again there is been no clinical change. Patient remains somnolent but easily arousable family conference to be scheduled. The time will address goals of care Consultation Date/Type/Reason Admit Date/Time Jun 17, 2017 at 03:48 Initial Consult Date 06/18/17 Type of Consultation: Palliative care Referring Provider: KEVEN MESSER Exam/Review of Systems Vital Signs Vitals Vital Signs Date Time Temp Pulse Resp B/P Pulse Ox O2 Delivery O2 Flow Rate FiO2 06/24/17 12:13 79 06/24/17 11:46 97.7 18 104/68 98 Intake and Output 06/23/17 06/23/17 06/24/17 15:00 23:00 07:00 Intake Total 100 ml 2325 ml Balance 100 ml 2325 ml Results Result Diagram: 06/24/17 0711 06/24/17 0711 Results 24 hrs Laboratory Tests Test 06/23/17 17:33 06/23/17 20:02 06/24/17 07:11 06/24/17 08:29 Bedside Glucose 209 175 140 White Blood Count 3.7 L Red Blood Count 3.59 L Hemoglobin 12.3 Hematocrit 37.4 Mean Corpuscular Volume 104.2 H Mean Corpuscular Hemoglobin 34.3 H Mean Corpuscular Hemoglobin Concent 32.9 Red Cell Distribution Width 21.2 H Platelet Count 192 Mean Platelet Volume 10.0 Neutrophils % Segmented Neutrophils % (Manual) 51 Band Neutrophils % (Manual) 7 H Lymphocytes % Lymphocytes % (Manual) 28 Reactive Lymphocytes % (Manual) 5 H Monocytes % Monocytes % (Manual) 4 Eosinophils % Eosinophils % (Manual) 2 Basophils % Myelocytes % (Manual) 3 H Nucleated Red Blood Cells % 1.6 H Neutrophils # (Manual) 1.9 Band Neutrophils # 0.2 Absolute Lymphocytes (Manual) 1.0 Lymphocytes # Reactive Lymphocytes # 0.1 H Monocytes # Absolute Monocytes (Manual) 0.1 L Eosinophils # Basophils # Myelocytes # 0.1 H Nucleated Red Blood Cells # Platelet Estimate NORMAL Polychromasia 3+ Poikilocytosis 1+ Anisocytosis 1+ Sodium Level 146 H Potassium Level 3.0 L Chloride Level 115 H Carbon Dioxide Level 26 Anion Gap 8 Blood Urea Nitrogen 4 L Creatinine 0.58 Glucose Level 140 Calcium Level 6.6 L Phosphorus Level 1.8 L Magnesium Level 1.9 Test 06/24/17 11:52 Bedside Glucose 119 Medications Medications Current Medications Acetaminophen 650 mg 650 mg Q6H PRN PO PAIN LEVEL 1-3 OR FEVER; Start 06/17/17 at 04:30 Piperacillin Sod/ Tazobactam Sod (Zosyn 3.375gm/ 100 ml (Pmx)) 100 ml @ 200 mls /hr Q8 IVPB Last administered on 06/24/17 06:17; Admin Dose 200 MLS/HR; Start 06/17/17 at 06:00 Ondansetron HCl (Zofran Inj) 4 mg Q6H PRN IV NAUSEA AND/OR VOMITING Last administered on 06/18/17 20:50; Admin Dose 4 MG; Start 06/17/17 at 04:30 Diagnostic Test (Pha) (Accu-Chek) 1 ea 02 XX ; Start 06/18/17 at 02:00 Miscellaneous Information 1 ea NOTE XX ; Start 06/17/17 at 05:00 Glucose (Glutose) 15 gm Q15M PRN PO DECREASED GLUCOSE; Start 06/17/17 at 05:00 Glucose (Glutose) 22.5 gm Q15M PRN PO DECREASED GLUCOSE; Start 06/17/17 at 05: 00 Dextrose (D50w Syringe) 25 ml Q15M PRN IV DECREASED GLUCOSE; Start 06/17/17 at 05:00 Dextrose (D50w Syringe) 50 ml Q15M PRN IV DECREASED GLUCOSE; Start 06/17/17 at 05:00 Glucagon (Glucagen) 1 mg Q15M PRN IM DECREASED GLUCOSE; Start 06/17/17 at 05:00 Glucose (Glutose) 15 gm Q15M PRN BUCCAL DECREASED GLUCOSE; Start 06/17/17 at 05 :00 Lactobacillus Acidophilus/ Rhamnosus (Culturelle) 1 cap BID PO Last administered on 06/24/17 09:56; Admin Dose 1 CAP; Start 06/17/17 at 21:00 Famotidine (Pepcid) 20 mg DAILY PO Last administered on 06/24/17 09:54; Admin Dose 20 MG; Start 06/18/17 at 09:00 Guaifenesin (Robitussin Liquid Cup) 100 mg Q4H PRN PO COUGH; Start 06/17/17 at 18:30 IV Flush (NS 10 ml) 10 ml PRN PRN IV IV PROTOCOL; Start 06/18/17 at 17:00 Spironolactone (Aldactone) 25 mg DAILY PO Last administered on 06/24/17 09:54; Admin Dose 25 MG; Start 06/20/17 at 09:30 Hydralazine HCl (Apresoline) 5 mg Q4H PRN IV ELEVATED SYSTOLIC BP; Start at 18:30 Amlodipine Besylate (Norvasc) 5 mg DAILY PO Last administered on 06/24/17 09:55 ; Admin Dose 5 MG; Start 06/20/17 at 18:30 Docusate Sodium (Colace) 100 mg HS PO Last administered on 06/23/17 21:48; Admin Dose 100 MG; Start 06/20/17 at 21:00 Potassium Chloride 40 meq 40 meq BID PO Last administered on 06/23/17 21:49; Admin Dose 40 MEQ; Start 06/20/17 at 21:00 Dextrose (D5W) 1,000 ml @ 100 mls/hr Q10H IV Last administered on 06/24/17 06: 17; Admin Dose 125 MLS/HR; Start 06/22/17 at 09:00 Methimazole 5 mg 5 mg QAM PO Last administered on 06/24/17 09:55; Admin Dose 5 MG; Start 06/22/17 at 15:00 Vancomycin HCl 1.25 gm/Sodium Chloride 250 ml @ 83.333 mls/ hr Q24H IVPB Last administered on 06/23/17 23:19; Admin Dose 83.333 MLS/HR; Start 06/23/17 at 23:00 Potassium Chloride 250 ml @ 62.5 mls/hr ONCE ONCE IVPB Last administered on 09:56; Admin Dose 62.5 MLS/HR; Start 06/24/17 at 10:00; Stop 06/24/17 at 13:59 Potassium Phosphate/Sodium Chloride (K Phos (Meq)/NS) 254.5455 ml @ 63.636 m... ONCE ONCE IVPB Last administered on 06/24/17 11:50; Admin Dose 63.636 MLS /HR; Start 06/24/17 at 10:00; Stop 06/24/17 at 13:59 ESTELA PERES Jun 24, 2017 12:19
--- NOTE | 2017-06-24 12:29 | CONS ---
Date/Time of Note Date/Time of Note DATE: 06/24/17 TIME: 12:19 Assessment/Plan Assessment/Plan Chief Complaint/Hosp Course 86-year-old female who is a poor historian most information is taken from her medical records. Patient was brought to the emergency room and [facility] after a fall from her bed. Evaluated in the emergency room she was found to have elevated troponins, lactic acidosis and a history of metastatic breast cancer. This information is unclear to me at this time. Patient answers with one-word, yes, no, maybe however she states she has a granddaughter she lives with and a daughter who lives locally. She gives me a history of having an oncologist, but she states she saw her oncologist just recently in the diagnosis of breast cancer was made just 2 days ago. No family members immediately available to corroborate her story or give us additional information. Problems: Additional Assessment/Plan Postdated note for June 22 Family conference scheduled for 06/24/2017 to address all of palliative care issues at that time Consultation Date/Type/Reason Admit Date/Time Jun 17, 2017 at 03:48 Initial Consult Date 06/18/17 Type of Consultation: Palliative care Referring Provider: KEVEN MESSER Exam/Review of Systems Vital Signs Vitals Vital Signs Date Time Temp Pulse Resp B/P Pulse Ox O2 Delivery O2 Flow Rate FiO2 06/24/17 12:13 79 06/24/17 11:46 97.7 18 104/68 98 Intake and Output 06/23/17 06/23/17 06/24/17 15:00 23:00 07:00 Intake Total 100 ml 2325 ml Balance 100 ml 2325 ml Results Result Diagram: 06/24/17 0711 06/24/17 0711 Results 24 hrs Laboratory Tests Test 06/23/17 17:33 06/23/17 20:02 06/24/17 07:11 06/24/17 08:29 Bedside Glucose 209 175 140 White Blood Count 3.7 L Red Blood Count 3.59 L Hemoglobin 12.3 Hematocrit 37.4 Mean Corpuscular Volume 104.2 H Mean Corpuscular Hemoglobin 34.3 H Mean Corpuscular Hemoglobin Concent 32.9 Red Cell Distribution Width 21.2 H Platelet Count 192 Mean Platelet Volume 10.0 Neutrophils % Segmented Neutrophils % (Manual) 51 Band Neutrophils % (Manual) 7 H Lymphocytes % Lymphocytes % (Manual) 28 Reactive Lymphocytes % (Manual) 5 H Monocytes % Monocytes % (Manual) 4 Eosinophils % Eosinophils % (Manual) 2 Basophils % Myelocytes % (Manual) 3 H Nucleated Red Blood Cells % 1.6 H Neutrophils # (Manual) 1.9 Band Neutrophils # 0.2 Absolute Lymphocytes (Manual) 1.0 Lymphocytes # Reactive Lymphocytes # 0.1 H Monocytes # Absolute Monocytes (Manual) 0.1 L Eosinophils # Basophils # Myelocytes # 0.1 H Nucleated Red Blood Cells # Platelet Estimate NORMAL Polychromasia 3+ Poikilocytosis 1+ Anisocytosis 1+ Sodium Level 146 H Potassium Level 3.0 L Chloride Level 115 H Carbon Dioxide Level 26 Anion Gap 8 Blood Urea Nitrogen 4 L Creatinine 0.58 Glucose Level 140 Calcium Level 6.6 L Phosphorus Level 1.8 L Magnesium Level 1.9 Test 06/24/17 11:52 Bedside Glucose 119 Medications Medications Current Medications Acetaminophen 650 mg 650 mg Q6H PRN PO PAIN LEVEL 1-3 OR FEVER; Start 06/17/17 at 04:30 Piperacillin Sod/ Tazobactam Sod (Zosyn 3.375gm/ 100 ml (Pmx)) 100 ml @ 200 mls /hr Q8 IVPB Last administered on 06/24/17 06:17; Admin Dose 200 MLS/HR; Start 06/17/17 at 06:00 Ondansetron HCl (Zofran Inj) 4 mg Q6H PRN IV NAUSEA AND/OR VOMITING Last administered on 06/18/17 20:50; Admin Dose 4 MG; Start 06/17/17 at 04:30 Diagnostic Test (Pha) (Accu-Chek) 1 ea 02 XX ; Start 06/18/17 at 02:00 Miscellaneous Information 1 ea NOTE XX ; Start 06/17/17 at 05:00 Glucose (Glutose) 15 gm Q15M PRN PO DECREASED GLUCOSE; Start 06/17/17 at 05:00 Glucose (Glutose) 22.5 gm Q15M PRN PO DECREASED GLUCOSE; Start 06/17/17 at 05: 00 Dextrose (D50w Syringe) 25 ml Q15M PRN IV DECREASED GLUCOSE; Start 06/17/17 at 05:00 Dextrose (D50w Syringe) 50 ml Q15M PRN IV DECREASED GLUCOSE; Start 06/17/17 at 05:00 Glucagon (Glucagen) 1 mg Q15M PRN IM DECREASED GLUCOSE; Start 06/17/17 at 05:00 Glucose (Glutose) 15 gm Q15M PRN BUCCAL DECREASED GLUCOSE; Start 06/17/17 at 05 :00 Lactobacillus Acidophilus/ Rhamnosus (Culturelle) 1 cap BID PO Last administered on 06/24/17 09:56; Admin Dose 1 CAP; Start 06/17/17 at 21:00 Famotidine (Pepcid) 20 mg DAILY PO Last administered on 06/24/17 09:54; Admin Dose 20 MG; Start 06/18/17 at 09:00 Guaifenesin (Robitussin Liquid Cup) 100 mg Q4H PRN PO COUGH; Start 06/17/17 at 18:30 IV Flush (NS 10 ml) 10 ml PRN PRN IV IV PROTOCOL; Start 06/18/17 at 17:00 Spironolactone (Aldactone) 25 mg DAILY PO Last administered on 06/24/17 09:54; Admin Dose 25 MG; Start 06/20/17 at 09:30 Hydralazine HCl (Apresoline) 5 mg Q4H PRN IV ELEVATED SYSTOLIC BP; Start at 18:30 Amlodipine Besylate (Norvasc) 5 mg DAILY PO Last administered on 06/24/17 09:55 ; Admin Dose 5 MG; Start 06/20/17 at 18:30 Docusate Sodium (Colace) 100 mg HS PO Last administered on 06/23/17 21:48; Admin Dose 100 MG; Start 06/20/17 at 21:00 Potassium Chloride 40 meq 40 meq BID PO Last administered on 06/23/17 21:49; Admin Dose 40 MEQ; Start 06/20/17 at 21:00 Dextrose (D5W) 1,000 ml @ 100 mls/hr Q10H IV Last administered on 06/24/17 06: 17; Admin Dose 125 MLS/HR; Start 06/22/17 at 09:00 Methimazole 5 mg 5 mg QAM PO Last administered on 06/24/17 09:55; Admin Dose 5 MG; Start 06/22/17 at 15:00 Vancomycin HCl 1.25 gm/Sodium Chloride 250 ml @ 83.333 mls/ hr Q24H IVPB Last administered on 06/23/17 23:19; Admin Dose 83.333 MLS/HR; Start 06/23/17 at 23:00 Potassium Chloride 250 ml @ 62.5 mls/hr ONCE ONCE IVPB Last administered on 09:56; Admin Dose 62.5 MLS/HR; Start 06/24/17 at 10:00; Stop 06/24/17 at 13:59 Potassium Phosphate/Sodium Chloride (K Phos (Meq)/NS) 254.5455 ml @ 63.636 m... ONCE ONCE IVPB Last administered on 06/24/17 11:50; Admin Dose 63.636 MLS /HR; Start 06/24/17 at 10:00; Stop 06/24/17 at 13:59 ESTELA PERES Jun 24, 2017 12:29
--- NOTE | 2017-06-24 15:59 | PN ---
Date/Time of Note Date/Time of Note DATE: 06/24/17 TIME: 15:31 Assessment/Plan VTE Prophylaxis VTE Prophylaxis Intervention: contraindicated Lines/Catheters IV Catheter Type (from Nrs): PICC Line Central line still needed: Yes Urinary Cath still in place: No Assessment/Plan Assessment/Plan 1. Failure to thrive 2/2 metastatic breast cancer - Patient more lethargic and not tolerating PO diet per nursing staff - replacing electrolytes as needed - Palliative on board and case discussed with Dr. Dominguez this afternoon about plans of care. Assistance is greatly appreciated - Plans for legal intervention due to ambiguity over who has POA for decision making - Hospice on board but will need to address legal issue in order to decide whether patient will be send home or to inpatient hospice facility 2. Hypernatremia. Etiology secondary to insensible losses. - Nephrology on board and recommendations appreciated. Progress note reviewed - Improving, 146 today. Will continue D5W but rate at 100ml 3. Hypokalemia - 3.0, Replete potassium chloride. will continue to monitor 4. Hypophosphatemia. - 1.8 today, Replete with potassium phosphate. 5. 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 - Prognosis- poor 6. Abnormal thyroid function - Stable. Continue current medical management. 7. Pituitary adenoma - Endocrinology on board and recommendations appreciated. MRI brain ordered today 8. Sepsis 2/2 RLL PNA - appears to be resolved. WBC stabilizing and no fevers appreciated - antibiotic course completed - ID on board and recommendations appreciated 9. Acute encephalopathy- multifactorial Subjective 24 Hr Interval Summary Free Text/Dictation Patient seen and examined at bedside. Condition discussed with nursing staff, Natasha, and states patient has been more lethargic and not tolerating PO intake. Patient is somnolent yet arousable. Answering questions with only yes and no but denies any pain, shortness of breath, chest pain, or abdominal pain. Exam/Review of Systems Vital Signs Vitals Vital Signs Date Time Temp Pulse Resp B/P Pulse Ox O2 Delivery O2 Flow Rate FiO2 06/24/17 12:13 79 06/24/17 11:46 97.7 18 104/68 98 Intake and Output 06/23/17 06/23/17 06/24/17 15:00 23:00 07:00 Intake Total 100 ml 2325 ml Balance 100 ml 2325 ml Exam General- lethargic, no acute distress, oriented to self and place CVS- RRR, no murmurs Lungs- clear to auscultation, diminished at bases, no wheezes or crackles GI- soft, nontender, nondistended, no guarding or rebound Extremities- muscle wasting of LE b/l, pulses intact, no cyanosis, edema, clubbing Neuro- no focal deficits appreciated Results Result Diagram: 06/24/17 0711 06/24/17 0711 Results 24 hrs Laboratory Tests Test 06/23/17 17:33 06/23/17 20:02 06/24/17 07:11 06/24/17 08:29 Bedside Glucose 209 175 140 White Blood Count 3.7 L Red Blood Count 3.59 L Hemoglobin 12.3 Hematocrit 37.4 Mean Corpuscular Volume 104.2 H Mean Corpuscular Hemoglobin 34.3 H Mean Corpuscular Hemoglobin Concent 32.9 Red Cell Distribution Width 21.2 H Platelet Count 192 Mean Platelet Volume 10.0 Neutrophils % Segmented Neutrophils % (Manual) 51 Band Neutrophils % (Manual) 7 H Lymphocytes % Lymphocytes % (Manual) 28 Reactive Lymphocytes % (Manual) 5 H Monocytes % Monocytes % (Manual) 4 Eosinophils % Eosinophils % (Manual) 2 Basophils % Myelocytes % (Manual) 3 H Nucleated Red Blood Cells % 1.6 H Neutrophils # (Manual) 1.9 Band Neutrophils # 0.2 Absolute Lymphocytes (Manual) 1.0 Lymphocytes # Reactive Lymphocytes # 0.1 H Monocytes # Absolute Monocytes (Manual) 0.1 L Eosinophils # Basophils # Myelocytes # 0.1 H Nucleated Red Blood Cells # Platelet Estimate NORMAL Polychromasia 3+ Poikilocytosis 1+ Anisocytosis 1+ Sodium Level 146 H Potassium Level 3.0 L Chloride Level 115 H Carbon Dioxide Level 26 Anion Gap 8 Blood Urea Nitrogen 4 L Creatinine 0.58 Glucose Level 140 Calcium Level 6.6 L Phosphorus Level 1.8 L Magnesium Level 1.9 Test 06/24/17 11:52 Bedside Glucose 119 Medications Medications Current Medications Acetaminophen 650 mg 650 mg Q6H PRN PO PAIN LEVEL 1-3 OR FEVER; Start 06/17/17 at 04:30 Piperacillin Sod/ Tazobactam Sod (Zosyn 3.375gm/ 100 ml (Pmx)) 100 ml @ 200 mls /hr Q8 IVPB Last administered on 06/24/17 15:29; Admin Dose 200 MLS/HR; Start 06/17/17 at 06:00 Ondansetron HCl (Zofran Inj) 4 mg Q6H PRN IV NAUSEA AND/OR VOMITING Last administered on 06/18/17 20:50; Admin Dose 4 MG; Start 06/17/17 at 04:30 Diagnostic Test (Pha) (Accu-Chek) 1 ea 02 XX ; Start 06/18/17 at 02:00 Miscellaneous Information 1 ea NOTE XX ; Start 06/17/17 at 05:00 Glucose (Glutose) 15 gm Q15M PRN PO DECREASED GLUCOSE; Start 06/17/17 at 05:00 Glucose (Glutose) 22.5 gm Q15M PRN PO DECREASED GLUCOSE; Start 06/17/17 at 05: 00 Dextrose (D50w Syringe) 25 ml Q15M PRN IV DECREASED GLUCOSE; Start 06/17/17 at 05:00 Dextrose (D50w Syringe) 50 ml Q15M PRN IV DECREASED GLUCOSE; Start 06/17/17 at 05:00 Glucagon (Glucagen) 1 mg Q15M PRN IM DECREASED GLUCOSE; Start 06/17/17 at 05:00 Glucose (Glutose) 15 gm Q15M PRN BUCCAL DECREASED GLUCOSE; Start 06/17/17 at 05 :00 Lactobacillus Acidophilus/ Rhamnosus (Culturelle) 1 cap BID PO Last administered on 06/24/17 09:56; Admin Dose 1 CAP; Start 06/17/17 at 21:00 Famotidine (Pepcid) 20 mg DAILY PO Last administered on 06/24/17 09:54; Admin Dose 20 MG; Start 06/18/17 at 09:00 Guaifenesin (Robitussin Liquid Cup) 100 mg Q4H PRN PO COUGH; Start 06/17/17 at 18:30 IV Flush (NS 10 ml) 10 ml PRN PRN IV IV PROTOCOL; Start 06/18/17 at 17:00 Spironolactone (Aldactone) 25 mg DAILY PO Last administered on 06/24/17 09:54; Admin Dose 25 MG; Start 06/20/17 at 09:30 Hydralazine HCl (Apresoline) 5 mg Q4H PRN IV ELEVATED SYSTOLIC BP; Start at 18:30 Amlodipine Besylate (Norvasc) 5 mg DAILY PO Last administered on 06/24/17 09:55 ; Admin Dose 5 MG; Start 06/20/17 at 18:30 Docusate Sodium (Colace) 100 mg HS PO Last administered on 06/23/17 21:48; Admin Dose 100 MG; Start 06/20/17 at 21:00 Potassium Chloride 40 meq 40 meq BID PO Last administered on 06/23/17 21:49; Admin Dose 40 MEQ; Start 06/20/17 at 21:00 Dextrose (D5W) 1,000 ml @ 100 mls/hr Q10H IV Last administered on 06/24/17 06: 17; Admin Dose 125 MLS/HR; Start 06/22/17 at 09:00 Methimazole 5 mg 5 mg QAM PO Last administered on 06/24/17 09:55; Admin Dose 5 MG; Start 06/22/17 at 15:00 Vancomycin HCl/ Sodium Chloride (Vancocin/NS) 250 ml @ 83.333 mls/ hr Q24H IVPB Last administered on 06/23/17 23:19; Admin Dose 83.333 MLS/HR; Start at 23:00 MONA ADAIR MD Jun 24, 2017 15:41
--- NOTE | 2017-06-24 20:29 | CONS ---
Date/Time of Note Date/Time of Note DATE: 06/24/17 TIME: 20:25 Assessment/Plan Assessment/Plan Chief Complaint/Hosp Course ID PROGRESS NOTE CURRENT ABX: ABX Day #8 => Vanco IV + Zosyn == DC ABX tonight 24H INTERVAL SUMMARY * No fevers, VSS, (+)loose stools == C.Diff in process * MRSA Nares screen in process * MICROBIOLOGY: Blood culture on admission grew coag-negative staph species. Repeat blood cultures negative. Urine culture negative. * CXR 06/20/17: Stable central pulmonary vascular congestion and mild interstitial prominence in both lungs. Stable small right pleural effusion with associated lower lobe atelectasis/infiltrate. PHYSICAL EXAMINATION: GENERAL: Obese 86 yo F, VSS, afebrile HEENT: Unremarkable NECK: Supple. Trachea midline. CHEST: Rise symmetrical. Breath sounds diminished. HEART: S1, S2. ABDOMEN: Soft, bowel sounds present. EXT: Moves all extremities ID ASSESSMENT 86 yo F w/Dx Breast Cancer w/ METS to Lung, Liver, Brain -> s/p Left Mastectomy admit with: 1. s/p SEPSIS criteria on admission: (+)TMax 99.7, HD 102, (+Lactic acidosis 3.8 2/2 acute PNA 2. Coagulase-negative Staph bacteremia on 2/2 bottled drawn on arrival in ED, consistent with contaminant. * Repeat BCx (-) 3. Right lower lobe pneumonia present on admission 4. Pulm Vasc Edema w/small R-pleural effusion => Hx of metastatic lung disease 5. Pancytopenia 2/2 breast cancer 6. s/p Fall 06/16/17 7. ABX associated diarrhea ( ? ) MRSA Nares -> Ordered today INVASIVES: PICC 06/18 RUXT CURRENT ABX: ABX Day #8 => Vanco IV + Zosyn == DC ABX tonight ID RECOMMENDATIONS DC ABX tonight -- ABX associated diarrhea f/u MRSA nares pending f/u Stool C.Diff pending . Problems: Consultation Date/Type/Reason Admit Date/Time Jun 17, 2017 at 03:48 Initial Consult Date 06/18/17 Type of Consultation: ID Referring Provider: KEVEN MESSER Exam/Review of Systems Vital Signs Vitals Vital Signs Date Time Temp Pulse Resp B/P Pulse Ox O2 Delivery O2 Flow Rate FiO2 06/24/17 16:24 78 06/24/17 15:52 98.2 18 83/76 96 Intake and Output 06/23/17 06/23/17 06/24/17 15:00 23:00 07:00 Intake Total 100 ml 2325 ml Balance 100 ml 2325 ml Results Result Diagram: 06/24/17 0711 06/24/17 0711 Results 24 hrs Laboratory Tests Test 06/24/17 07:11 06/24/17 08:29 06/24/17 11:52 06/24/17 17:12 White Blood Count 3.7 L Red Blood Count 3.59 L Hemoglobin 12.3 Hematocrit 37.4 Mean Corpuscular Volume 104.2 H Mean Corpuscular Hemoglobin 34.3 H Mean Corpuscular Hemoglobin Concent 32.9 Red Cell Distribution Width 21.2 H Platelet Count 192 Mean Platelet Volume 10.0 Neutrophils % Segmented Neutrophils % (Manual) 51 Band Neutrophils % (Manual) 7 H Lymphocytes % Lymphocytes % (Manual) 28 Reactive Lymphocytes % (Manual) 5 H Monocytes % Monocytes % (Manual) 4 Eosinophils % Eosinophils % (Manual) 2 Basophils % Myelocytes % (Manual) 3 H Nucleated Red Blood Cells % 1.6 H Neutrophils # (Manual) 1.9 Band Neutrophils # 0.2 Absolute Lymphocytes (Manual) 1.0 Lymphocytes # Reactive Lymphocytes # 0.1 H Monocytes # Absolute Monocytes (Manual) 0.1 L Eosinophils # Basophils # Myelocytes # 0.1 H Nucleated Red Blood Cells # Platelet Estimate NORMAL Polychromasia 3+ Poikilocytosis 1+ Anisocytosis 1+ Sodium Level 146 H Potassium Level 3.0 L Chloride Level 115 H Carbon Dioxide Level 26 Anion Gap 8 Blood Urea Nitrogen 4 L Creatinine 0.58 Glucose Level 140 Calcium Level 6.6 L Phosphorus Level 1.8 L Magnesium Level 1.9 Bedside Glucose 140 119 175 Test 06/24/17 20:12 Bedside Glucose 133 Medications Medications Current Medications Acetaminophen 650 mg 650 mg Q6H PRN PO PAIN LEVEL 1-3 OR FEVER; Start 06/17/17 at 04:30 Piperacillin Sod/ Tazobactam Sod (Zosyn 3.375gm/ 100 ml (Pmx)) 100 ml @ 200 mls /hr Q8 IVPB Last administered on 06/24/17 15:29; Admin Dose 200 MLS/HR; Start 06/17/17 at 06:00 Ondansetron HCl (Zofran Inj) 4 mg Q6H PRN IV NAUSEA AND/OR VOMITING Last administered on 06/18/17 20:50; Admin Dose 4 MG; Start 06/17/17 at 04:30 Diagnostic Test (Pha) (Accu-Chek) 1 ea 02 XX ; Start 06/18/17 at 02:00 Miscellaneous Information 1 ea NOTE XX ; Start 06/17/17 at 05:00 Glucose (Glutose) 15 gm Q15M PRN PO DECREASED GLUCOSE; Start 06/17/17 at 05:00 Glucose (Glutose) 22.5 gm Q15M PRN PO DECREASED GLUCOSE; Start 06/17/17 at 05: 00 Dextrose (D50w Syringe) 25 ml Q15M PRN IV DECREASED GLUCOSE; Start 06/17/17 at 05:00 Dextrose (D50w Syringe) 50 ml Q15M PRN IV DECREASED GLUCOSE; Start 06/17/17 at 05:00 Glucagon (Glucagen) 1 mg Q15M PRN IM DECREASED GLUCOSE; Start 06/17/17 at 05:00 Glucose (Glutose) 15 gm Q15M PRN BUCCAL DECREASED GLUCOSE; Start 06/17/17 at 05 :00 Lactobacillus Acidophilus/ Rhamnosus (Culturelle) 1 cap BID PO Last administered on 06/24/17 09:56; Admin Dose 1 CAP; Start 06/17/17 at 21:00 Famotidine (Pepcid) 20 mg DAILY PO Last administered on 06/24/17 09:54; Admin Dose 20 MG; Start 06/18/17 at 09:00 Guaifenesin (Robitussin Liquid Cup) 100 mg Q4H PRN PO COUGH; Start 06/17/17 at 18:30 IV Flush (NS 10 ml) 10 ml PRN PRN IV IV PROTOCOL; Start 06/18/17 at 17:00 Spironolactone (Aldactone) 25 mg DAILY PO Last administered on 06/24/17 09:54; Admin Dose 25 MG; Start 06/20/17 at 09:30 Hydralazine HCl (Apresoline) 5 mg Q4H PRN IV ELEVATED SYSTOLIC BP; Start at 18:30 Amlodipine Besylate (Norvasc) 5 mg DAILY PO Last administered on 06/24/17 09:55 ; Admin Dose 5 MG; Start 06/20/17 at 18:30 Docusate Sodium (Colace) 100 mg HS PO Last administered on 06/23/17 21:48; Admin Dose 100 MG; Start 06/20/17 at 21:00 Potassium Chloride 40 meq 40 meq BID PO Last administered on 06/23/17 21:49; Admin Dose 40 MEQ; Start 06/20/17 at 21:00 Dextrose (D5W) 1,000 ml @ 100 mls/hr Q10H IV Last administered on 06/24/17 15: 35; Admin Dose 100 MLS/HR; Start 06/22/17 at 09:00 Methimazole 5 mg 5 mg QAM PO Last administered on 06/24/17 09:55; Admin Dose 5 MG; Start 06/22/17 at 15:00 Vancomycin HCl/ Sodium Chloride (Vancocin/NS) 250 ml @ 83.333 mls/ hr Q24H IVPB Last administered on 06/23/17 23:19; Admin Dose 83.333 MLS/HR; Start at 23:00 DEISY BENÍTEZ NP Jun 24, 2017 20:29
[2017-06-24 20:55] LABS: FREE TESTOSTERONE 2.7 pg/mL (0.2-3.7)
[2017-06-24] MEDS: DOCUSATE SODIUM 100 MG CAP PO SCH (21:35)
[2017-06-25] VITALS (13 sets, daily range): BP systolic 96–123; BP diastolic 52–70; PULSE 40–100; RESP 17–18
[2017-06-25] MEDS: ACCU-CHEK XX SCH (02:00)
[2017-06-25] MEDS: PIPER-TAZO 3.375 GM IV (PMX) 100 ML IVPB SCH ×3 (05:56→22:12)
[2017-06-25] MEDS: DEXTROSE 5% 1,000 ML IV SCH ×3 (05:56→22:12)
[2017-06-25] MEDS: VANCOMYCIN 1.25 GM in SOD CHLORIDE 0.9% 250 ML IVPB SCH (05:58)
[2017-06-25 07:37] LABS: BASOPHILS % 0.6 % (0.0-2.0); EOSINOPHILS % 0.9 % (0.0-7.0); HEMOGLOBIN 11.8 g/dl (12.0-16.0); LYMPHOCYTES % 28.7 % (15.0-51.0); MEAN CORPUSCULAR HEMOGLOBIN 34.3 pg (29.0-33.0); MEAN CORPUSCULAR HGB CONC 32.8 g/dl (32.0-37.0); MEAN CORPUSCULAR VOLUME 104.7 fl (82.0-101.0); MEAN PLATELET VOLUME 10.3 fl (7.4-10.4); MONOCYTE # 0.2 10^3/ul (0.3-0.9); MONOCYTES % 5.7 % (0.0-11.0); NEUTROPHILS % 59.2 % (39.0-77.0); NUCLEATED RED BLOOD CELLS% 1.1 /100WBC (0.0-0.0); PLATELET COUNT 187 10^3/UL (140-415); RED BLOOD COUNT 3.44 10^6/ul (4.20-5.40); RED CELL DISTRIBUTION WIDTH 20.5 % (11.5-14.5); WHITE BLOOD COUNT 3.5 10^3/ul (4.8-10.8)
--- NOTE | 2017-06-25 07:58 | CONS ---
Date/Time of Note Date/Time of Note DATE: 06/25/17 TIME: 07:56 Consult Date/Type/Reason Admit Date/Time Jun 17, 2017 at 03:48 Initial Consult Date 06/17/17 Type of Consultation: cardiology Ordering Provider: KEVEN MESSER Subjective CARDIOLOGY FOLLOW UP NOTE: D/W staff and rhythm was reviewed. pt remains in NSR. no afib She denies any cp or pressure to me. no palpitations. she denies diarrhea to me. OBJECTIVE: HEENT: Normocephalic, atraumatic Pupils are equal. CARDIOVASCULAR: RRR systolic murmur. PULMONARY: no wheezes. Minimal rhonchi. GASTROINTESTINAL: Soft, obese, nontender. no rebound or guarding. EXTREMITIES: + lower extremity edema. NEUROLOGIC: Awake. Oriented to person only. left upper extremitie appear to be weak. PSYCH: calm. pleasant DERMATOLOGY: No evidence of bleeding. Multiple seborrheic keratosis noted echo personally reviewed 1. Hyperdynamic left ventricular systolic function. Normal left ventricular cavity size. Moderate concentric left ventricular hypertrophy. Ejection fraction is visually estimated at 70 %. Abnormal Diastolic Function. 2. There is moderate enlargement of left atrium. 3. Mitral valve leaflets appear mildly thickened. Severe mitral annular calcification. Mild mitral valve regurgitation. Mitral valve Max Velocity 1.44 m/sec. MaxPG 8.00 mmHg. MeanPG 2.00 mmHg. 4. Aortic sclerosis without stenosis. Trace aortic valve regurgitation. 5. Normal appearance of the tricuspid valve. Estimated peak PA systolic pressure 47 mmHg. There is mild tricuspid regurgitation. 6. Normal size and normal respiratory collapse consistent with normal right atrial pressure. Objective Vital Signs Date Time Temp Pulse Resp B/P Pulse Ox O2 Delivery O2 Flow Rate FiO2 06/25/17 06:18 40 06/25/17 04:01 98.4 18 96/52 94 Intake and Output 06/24/17 06/24/17 06/25/17 14:59 22:59 06:59 Intake Total 400 ml 450 ml 1470 ml Balance 400 ml 450 ml 1470 ml Results/Medications Result Diagram: 06/25/17 0616 06/24/17 0711 Results 24 hrs Laboratory Tests Test 06/24/17 08:29 06/24/17 11:52 06/24/17 17:12 06/24/17 20:12 Bedside Glucose 140 119 175 133 Test 06/25/17 06:16 White Blood Count 3.5 L Red Blood Count 3.44 L Hemoglobin 11.8 L Hematocrit 36.0 L Mean Corpuscular Volume 104.7 H Mean Corpuscular Hemoglobin 34.3 H Mean Corpuscular Hemoglobin Concent 32.8 Red Cell Distribution Width 20.5 H Platelet Count 187 Mean Platelet Volume 10.3 Neutrophils % 59.2 Lymphocytes % 28.7 Monocytes % 5.7 Eosinophils % 0.9 Basophils % 0.6 Nucleated Red Blood Cells % 1.1 H Neutrophils # (Manual) 2.1 Lymphocytes # 1.0 Monocytes # 0.2 L Eosinophils # 0.0 Basophils # 0.0 Nucleated Red Blood Cells # 0.0 Medications Current Medications Acetaminophen 650 mg 650 mg Q6H PRN PO PAIN LEVEL 1-3 OR FEVER; Start 06/17/17 at 04:30 Piperacillin Sod/ Tazobactam Sod (Zosyn 3.375gm/ 100 ml (Pmx)) 100 ml @ 200 mls /hr Q8 IVPB Last administered on 06/25/17 05:56; Admin Dose 200 MLS/HR; Start 06/17/17 at 06:00 Ondansetron HCl (Zofran Inj) 4 mg Q6H PRN IV NAUSEA AND/OR VOMITING Last administered on 06/18/17 20:50; Admin Dose 4 MG; Start 06/17/17 at 04:30 Diagnostic Test (Pha) (Accu-Chek) 1 ea 02 XX ; Start 06/18/17 at 02:00 Miscellaneous Information 1 ea NOTE XX ; Start 06/17/17 at 05:00 Glucose (Glutose) 15 gm Q15M PRN PO DECREASED GLUCOSE; Start 06/17/17 at 05:00 Glucose (Glutose) 22.5 gm Q15M PRN PO DECREASED GLUCOSE; Start 06/17/17 at 05: 00 Dextrose (D50w Syringe) 25 ml Q15M PRN IV DECREASED GLUCOSE; Start 06/17/17 at 05:00 Dextrose (D50w Syringe) 50 ml Q15M PRN IV DECREASED GLUCOSE; Start 06/17/17 at 05:00 Glucagon (Glucagen) 1 mg Q15M PRN IM DECREASED GLUCOSE; Start 06/17/17 at 05:00 Glucose (Glutose) 15 gm Q15M PRN BUCCAL DECREASED GLUCOSE; Start 06/17/17 at 05 :00 Lactobacillus Acidophilus/ Rhamnosus (Culturelle) 1 cap BID PO Last administered on 06/24/17 21:35; Admin Dose 1 CAP; Start 06/17/17 at 21:00 Famotidine (Pepcid) 20 mg DAILY PO Last administered on 06/24/17 09:54; Admin Dose 20 MG; Start 06/18/17 at 09:00 Guaifenesin (Robitussin Liquid Cup) 100 mg Q4H PRN PO COUGH; Start 06/17/17 at 18:30 IV Flush (NS 10 ml) 10 ml PRN PRN IV IV PROTOCOL; Start 06/18/17 at 17:00 Spironolactone (Aldactone) 25 mg DAILY PO Last administered on 06/24/17 09:54; Admin Dose 25 MG; Start 06/20/17 at 09:30 Hydralazine HCl (Apresoline) 5 mg Q4H PRN IV ELEVATED SYSTOLIC BP; Start at 18:30 Amlodipine Besylate (Norvasc) 5 mg DAILY PO Last administered on 06/24/17 09:55 ; Admin Dose 5 MG; Start 06/20/17 at 18:30 Docusate Sodium (Colace) 100 mg HS PO Last administered on 06/24/17 21:35; Admin Dose 100 MG; Start 06/20/17 at 21:00 Potassium Chloride 40 meq 40 meq BID PO Last administered on 06/24/17 21:35; Admin Dose 40 MEQ; Start 06/20/17 at 21:00 Dextrose (D5W) 1,000 ml @ 100 mls/hr Q10H IV Last administered on 06/25/17 05: 56; Admin Dose 100 MLS/HR; Start 06/22/17 at 09:00 Methimazole 5 mg 5 mg QAM PO Last administered on 06/24/17 09:55; Admin Dose 5 MG; Start 06/22/17 at 15:00 Vancomycin HCl/ Sodium Chloride (Vancocin/NS) 250 ml @ 83.333 mls/ hr Q24H IVPB Last administered on 06/25/17 05:58; Admin Dose 83.333 MLS/HR; Start at 23:00 Assessment/Plan Chief Complaint/Hosp Course 1. Mildly abnormal troponin with no chest pain and ejection fraction of 70%. Most likely c/w a false positive troponin. 2. Hypertension with hypertensive heart disease.:improved now 3. Abnormal EKG secondary to above. 4. Brain mass/tumor, possible adenoma per CT. 5. 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 6. Thyroid disorder. 7. Possible sepsis. 8. Status post fall. 9. Encephalopathy. 10. Hyperglycemia. 11. Elevated lactic acid/lactic acidosis and possible sepsis. 12. severe hypo K. RECOMMENDATIONS: . cont BP control. will cont aldactone Diabetic management as per Internal Medicine/ endocrine rec Antibiotic as per Internal Medicine. Thyroid management as per Internal Medicine and endocrine consult Conservative cardiac therapy is only recommended at this point. replace K and Mg prn. today AM labs are pending tele monitoring for now until at least lytes are well corrected. Thank you MELISSA LIZARRAGA MD [facility] Problems: MELISSA LIZARRAGA MD Jun 25, 2017 07:58
[2017-06-25] MEDS: INSULIN ASPART [NOVOLOG] 3 ML PEN SC SCH ×4 (08:00→21:00)
[2017-06-25] MEDS: POTASSIUM CHLORIDE 20 MEQ POWDER FOR ORAL SOLN PO SCH ×2 (09:00→21:11)
[2017-06-25 10:38] LABS: ALBUMIN 2.4 g/dl (3.3-4.9); CALCIUM 6.4 mg/dl (8.4-10.2); CREATININE 0.61 mg/dl (0.44-1.00); MAGNESIUM 1.7 mg/dl (1.7-2.5); PHOSPHORUS 2.2 mg/dl (2.5-4.9)
[2017-06-25 10:42] LABS: POTASSIUM 2.9 mmol/L (3.5-5.1)
[2017-06-25] MEDS: LACTOBACILLUS RHAMNOSUS CAP PO SCH ×2 (11:18→21:11)
[2017-06-25] MEDS: FAMOTIDINE 20 MG TAB PO SCH (11:19)
[2017-06-25] MEDS: METHIMAZOLE 5 MG TAB PO SCH (11:19)
[2017-06-25] MEDS: SPIRONOLACTONE 25 MG TAB PO SCH (11:20)
[2017-06-25] MEDS: AMLODIPINE 5 MG TAB PO SCH (11:21)
[2017-06-25] MEDS: POTASSIUM CHLORIDE 250 ML IVPB SCH ×2 (11:27→15:24)
--- NOTE | 2017-06-25 11:27 | PN ---
DATE: 06/25/2017 SUBJECTIVE DATA: The patient is stable. No events overnight. No fevers, chills, nausea, or vomiting. OBJECTIVE DATA: VITAL SIGNS: Blood pressure is 97/53, respirations 18, pulse 79, and temperature 97.6. HEENT: Head is normocephalic. NECK: Supple. HEART: Regular rate. LUNGS: Diminished breath sounds at the base. ABDOMEN: Soft, nontender to palpation. No rebound or guarding. EXTREMITIES: Negative for clubbing or cyanosis. No edema. DERMATOLOGIC: Clean. No rashes. MUSCULOSKELETAL: No joint effusion. NEUROLOGIC: Unchanged exam. MEDICATION: The patient's medications have been reviewed. LABORATORY AND DIAGNOSTIC DATA: Reviewed. Labs currently pending. ASSESSMENT AND PLAN: 1. Hyponatremia, etiology secondary to insensible losses. The patient's sodium levels are improving. Continue D5W. 2. Hypokalemia. Continue to monitor and replete. 3. Hyperphosphatemia. We will monitor replete as needed. 4. Metastatic breast cancer with METS to lungs and brain. Continue to monitor. 5. Hypothyroidism. Continue medical management. 6. Pituitary adenoma. Continue to monitor. 7. Sepsis. Continue current antibiotic regimen. Dictated By: Saqib Duncan DO /bam/yuridia /Document#: [id number]
--- NOTE | 2017-06-25 13:43 | CONS ---
Date/Time of Note Date/Time of Note DATE: 06/25/17 TIME: 13:41 Assessment/Plan Assessment/Plan Chief Complaint/Hosp Course 86-year-old female who is normally treated by Dr. Huang at [facility] [place]. She reports she has had brain scanning done within the last year. She reports she has cancer that is metastatic to multiple locations. We do not have specific data on this. Patient reports no known history of thyroid disorder and denies any known history of pituitary abnormalities. 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 Apparently the case supervisormanager event worker and [facility] have obtained information from the patient's daughter and the patient's significant other that she is to be on hospice care. We will try and get this information transmitted to the primary care team so they can address CODE STATUS and discharge planning. In the meantime given the above I am not can put her through an MRI scan protocol for a pituitary lesion that we are not going to treat. (2) Pituitary mass Status: Acute Comment: As above (3) Abnormal thyroid function test Status: Acute Comment: As above. The methimazole becomes optional at this point Consultation Date/Type/Reason Admit Date/Time Jun 17, 2017 at 03:48 Initial Consult Date 06/18/17 Type of Consultation: Endocrinology Reason for Consultation Pituitary mass; subclinical hyperthyroidism; widely metastatic breast cancer. Referring Provider: KEVEN MESSER 24 HR Interval Summary Subjective hx not possible: pt non-verbal Exam/Review of Systems Vital Signs Vitals Vital Signs Date Time Temp Pulse Resp B/P Pulse Ox O2 Delivery O2 Flow Rate FiO2 06/25/17 11:47 97.1 81 17 112/70 96 Intake and Output 06/24/17 06/24/17 06/25/17 15:00 23:00 07:00 Intake Total 400 ml 450 ml 1470 ml Balance 400 ml 450 ml 1470 ml Exam Constitutional: non-verbal Results No changes Result Diagram: 06/25/17 0616 06/25/17 0616 Results 24 hrs Laboratory Tests Test 06/24/17 17:12 06/24/17 20:12 06/25/17 06:16 06/25/17 08:07 Bedside Glucose 175 133 124 White Blood Count 3.5 L Red Blood Count 3.44 L Hemoglobin 11.8 L Hematocrit 36.0 L Mean Corpuscular Volume 104.7 H Mean Corpuscular Hemoglobin 34.3 H Mean Corpuscular Hemoglobin Concent 32.8 Red Cell Distribution Width 20.5 H Platelet Count 187 Mean Platelet Volume 10.3 Neutrophils % 59.2 Lymphocytes % 28.7 Monocytes % 5.7 Eosinophils % 0.9 Basophils % 0.6 Nucleated Red Blood Cells % 1.1 H Neutrophils # (Manual) 2.1 Lymphocytes # 1.0 Monocytes # 0.2 L Eosinophils # 0.0 Basophils # 0.0 Nucleated Red Blood Cells # 0.0 Sodium Level 146 H Potassium Level 2.9 *L Chloride Level 116 H Carbon Dioxide Level 25 Anion Gap 8 Blood Urea Nitrogen 5 L Creatinine 0.61 Glucose Level 140 Calcium Level 6.4 L Phosphorus Level 2.2 L Magnesium Level 1.7 Albumin 2.4 L Test 06/25/17 11:25 Bedside Glucose 170 Medications Medications Current Medications Acetaminophen 650 mg 650 mg Q6H PRN PO PAIN LEVEL 1-3 OR FEVER; Start 06/17/17 at 04:30 Piperacillin Sod/ Tazobactam Sod (Zosyn 3.375gm/ 100 ml (Pmx)) 100 ml @ 200 mls /hr Q8 IVPB Last administered on 06/25/17 05:56; Admin Dose 200 MLS/HR; Start 06/17/17 at 06:00 Ondansetron HCl (Zofran Inj) 4 mg Q6H PRN IV NAUSEA AND/OR VOMITING Last administered on 06/18/17 20:50; Admin Dose 4 MG; Start 06/17/17 at 04:30 Diagnostic Test (Pha) (Accu-Chek) 1 ea 02 XX ; Start 06/18/17 at 02:00 Miscellaneous Information 1 ea NOTE XX ; Start 06/17/17 at 05:00 Glucose (Glutose) 15 gm Q15M PRN PO DECREASED GLUCOSE; Start 06/17/17 at 05:00 Glucose (Glutose) 22.5 gm Q15M PRN PO DECREASED GLUCOSE; Start 06/17/17 at 05: 00 Dextrose (D50w Syringe) 25 ml Q15M PRN IV DECREASED GLUCOSE; Start 06/17/17 at 05:00 Dextrose (D50w Syringe) 50 ml Q15M PRN IV DECREASED GLUCOSE; Start 06/17/17 at 05:00 Glucagon (Glucagen) 1 mg Q15M PRN IM DECREASED GLUCOSE; Start 06/17/17 at 05:00 Glucose (Glutose) 15 gm Q15M PRN BUCCAL DECREASED GLUCOSE; Start 06/17/17 at 05 :00 Lactobacillus Acidophilus/ Rhamnosus (Culturelle) 1 cap BID PO Last administered on 06/25/17 11:18; Admin Dose 1 CAP; Start 06/17/17 at 21:00 Famotidine (Pepcid) 20 mg DAILY PO Last administered on 06/25/17 11:19; Admin Dose 20 MG; Start 06/18/17 at 09:00 Guaifenesin (Robitussin Liquid Cup) 100 mg Q4H PRN PO COUGH; Start 06/17/17 at 18:30 IV Flush (NS 10 ml) 10 ml PRN PRN IV IV PROTOCOL; Start 06/18/17 at 17:00 Spironolactone (Aldactone) 25 mg DAILY PO Last administered on 06/25/17 11:20; Admin Dose 25 MG; Start 06/20/17 at 09:30 Hydralazine HCl (Apresoline) 5 mg Q4H PRN IV ELEVATED SYSTOLIC BP; Start at 18:30 Amlodipine Besylate (Norvasc) 5 mg DAILY PO Last administered on 06/25/17 11:21 ; Admin Dose 5 MG; Start 06/20/17 at 18:30 Docusate Sodium (Colace) 100 mg HS PO Last administered on 06/24/17 21:35; Admin Dose 100 MG; Start 06/20/17 at 21:00 Potassium Chloride 40 meq 40 meq BID PO Last administered on 06/24/17 21:35; Admin Dose 40 MEQ; Start 06/20/17 at 21:00 Dextrose (D5W) 1,000 ml @ 100 mls/hr Q10H IV Last administered on 06/25/17 05: 56; Admin Dose 100 MLS/HR; Start 06/22/17 at 09:00 Methimazole 5 mg 5 mg QAM PO Last administered on 06/25/17 11:19; Admin Dose 5 MG; Start 06/22/17 at 15:00 Vancomycin HCl 1.25 gm/Sodium Chloride 250 ml @ 83.333 mls/ hr Q24H IVPB ; Start 06/26/17 at 06:00 Potassium Chloride (KCl 40 MEQ/250 ML NS) 250 ml @ 62.5 mls/hr Q4H IVPB Last administered on 06/25/17t 11:27; Admin Dose 62.5 MLS/HR; Start 06/25/17 at 11:30; Stop 06/25/17 at 19:29 JORDYN SERNA MD Jun 25, 2017 13:43
--- NOTE | 2017-06-25 16:37 | PN ---
Date/Time of Note Date/Time of Note DATE: 06/25/17 TIME: 16:36 Assessment/Plan VTE Prophylaxis VTE Prophylaxis Intervention: contraindicated Lines/Catheters IV Catheter Type (from Nrs): PICC Line Central line still needed: Yes Urinary Cath still in place: No Assessment/Plan Assessment/Plan 1. Failure to thrive 2/2 metastatic breast cancer - still lethargic and has poor PO intake - replacing electrolytes as needed - Palliative on board and recommendations appreciated. - Hospice on board and per case management, family has agreed to home with home hospice. However, POA will need to be arranged prior to proceeding. Appreciate assistance - Will address code status as well once POA determined due to patients lethargic state 2. Hypernatremia. Etiology secondary to insensible losses. - Nephrology on board and recommendations appreciated. Progress note reviewed - Improving, 146 today. Will continue D5W per nephrology 3. Hypokalemia - 3.9, Replete potassium chloride. will continue to monitor 4. Hypophosphatemia. - 2.2 today 5. 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 - Prognosis- poor 6. Abnormal thyroid function - Stable. Continue current medical management. 7. Pituitary adenoma - Endocrinology on board and recommendations appreciated. will not pursue further workup due to hospice disposition once POA determined 8. Sepsis 2/2 RLL PNA - appears to be resolved. WBC stabilizing and no fevers appreciated - antibiotic course completed - ID on board and recommendations appreciated 9. Acute encephalopathy- multifactorial Subjective 24 Hr Interval Summary Free Text/Dictation Patient is more lethargic this morning but arousable. She denies any complaints and no acute overnight events Exam/Review of Systems Vital Signs Vitals Vital Signs Date Time Temp Pulse Resp B/P Pulse Ox O2 Delivery O2 Flow Rate FiO2 06/25/17 12:00 93 06/25/17 11:47 97.1 17 112/70 96 Intake and Output 06/24/17 06/24/17 06/25/17 15:00 23:00 07:00 Intake Total 400 ml 450 ml 1470 ml Balance 400 ml 450 ml 1470 ml Exam General: Lethargic but arousable to touch and name. no acute distress Neck: Supple. CVS: Regular rate and rhythm. Lungs: Diminished breath sounds at the base. Abdomen: Soft, nontender to palpation. No rebound or guarding. Ext: Negative for clubbing or cyanosis. No edema. Results Result Diagram: 06/25/17 0616 06/25/17 0616 Results 24 hrs Laboratory Tests Test 06/24/17 17:12 06/24/17 20:12 06/25/17 06:16 06/25/17 08:07 Bedside Glucose 175 133 124 White Blood Count 3.5 L Red Blood Count 3.44 L Hemoglobin 11.8 L Hematocrit 36.0 L Mean Corpuscular Volume 104.7 H Mean Corpuscular Hemoglobin 34.3 H Mean Corpuscular Hemoglobin Concent 32.8 Red Cell Distribution Width 20.5 H Platelet Count 187 Mean Platelet Volume 10.3 Neutrophils % 59.2 Lymphocytes % 28.7 Monocytes % 5.7 Eosinophils % 0.9 Basophils % 0.6 Nucleated Red Blood Cells % 1.1 H Neutrophils # (Manual) 2.1 Lymphocytes # 1.0 Monocytes # 0.2 L Eosinophils # 0.0 Basophils # 0.0 Nucleated Red Blood Cells # 0.0 Sodium Level 146 H Potassium Level 2.9 *L Chloride Level 116 H Carbon Dioxide Level 25 Anion Gap 8 Blood Urea Nitrogen 5 L Creatinine 0.61 Glucose Level 140 Calcium Level 6.4 L Phosphorus Level 2.2 L Magnesium Level 1.7 Albumin 2.4 L Test 06/25/17 11:25 Bedside Glucose 170 Medications Medications Current Medications Acetaminophen 650 mg 650 mg Q6H PRN PO PAIN LEVEL 1-3 OR FEVER; Start 06/17/17 at 04:30 Piperacillin Sod/ Tazobactam Sod (Zosyn 3.375gm/ 100 ml (Pmx)) 100 ml @ 200 mls /hr Q8 IVPB Last administered on 06/25/17 14:31; Admin Dose 200 MLS/HR; Start 06/17/17 at 06:00 Ondansetron HCl (Zofran Inj) 4 mg Q6H PRN IV NAUSEA AND/OR VOMITING Last administered on 06/18/17 20:50; Admin Dose 4 MG; Start 06/17/17 at 04:30 Diagnostic Test (Pha) (Accu-Chek) 1 ea 02 XX ; Start 06/18/17 at 02:00 Miscellaneous Information 1 ea NOTE XX ; Start 06/17/17 at 05:00 Glucose (Glutose) 15 gm Q15M PRN PO DECREASED GLUCOSE; Start 06/17/17 at 05:00 Glucose (Glutose) 22.5 gm Q15M PRN PO DECREASED GLUCOSE; Start 06/17/17 at 05: 00 Dextrose (D50w Syringe) 25 ml Q15M PRN IV DECREASED GLUCOSE; Start 06/17/17 at 05:00 Dextrose (D50w Syringe) 50 ml Q15M PRN IV DECREASED GLUCOSE; Start 06/17/17 at 05:00 Glucagon (Glucagen) 1 mg Q15M PRN IM DECREASED GLUCOSE; Start 06/17/17 at 05:00 Glucose (Glutose) 15 gm Q15M PRN BUCCAL DECREASED GLUCOSE; Start 06/17/17 at 05 :00 Lactobacillus Acidophilus/ Rhamnosus (Culturelle) 1 cap BID PO Last administered on 06/25/17 11:18; Admin Dose 1 CAP; Start 06/17/17 at 21:00 Famotidine (Pepcid) 20 mg DAILY PO Last administered on 06/25/17 11:19; Admin Dose 20 MG; Start 06/18/17 at 09:00 Guaifenesin (Robitussin Liquid Cup) 100 mg Q4H PRN PO COUGH; Start 06/17/17 at 18:30 IV Flush (NS 10 ml) 10 ml PRN PRN IV IV PROTOCOL; Start 06/18/17 at 17:00 Spironolactone (Aldactone) 25 mg DAILY PO Last administered on 06/25/17 11:20; Admin Dose 25 MG; Start 06/20/17 at 09:30 Hydralazine HCl (Apresoline) 5 mg Q4H PRN IV ELEVATED SYSTOLIC BP; Start at 18:30 Amlodipine Besylate (Norvasc) 5 mg DAILY PO Last administered on 06/25/17 11:21 ; Admin Dose 5 MG; Start 06/20/17 at 18:30 Docusate Sodium (Colace) 100 mg HS PO Last administered on 06/24/17 21:35; Admin Dose 100 MG; Start 06/20/17 at 21:00 Potassium Chloride 40 meq 40 meq BID PO Last administered on 06/24/17 21:35; Admin Dose 40 MEQ; Start 06/20/17 at 21:00 Dextrose (D5W) 1,000 ml @ 100 mls/hr Q10H IV Last administered on 06/25/17 05: 56; Admin Dose 100 MLS/HR; Start 06/22/17 at 09:00 Methimazole 5 mg 5 mg QAM PO Last administered on 06/25/17 11:19; Admin Dose 5 MG; Start 06/22/17 at 15:00 Vancomycin HCl 1.25 gm/Sodium Chloride 250 ml @ 83.333 mls/ hr Q24H IVPB ; Start 06/26/17 at 06:00 Potassium Chloride (KCl 40 MEQ/250 ML NS) 250 ml @ 62.5 mls/hr Q4H IVPB Last administered on 06/25/17 15:24; Admin Dose 62.5 MLS/HR; Start 06/25/17 at 11:30; Stop 06/25/17 at 19:29 MONA ADAIR MD Jun 25, 2017 16:37
[2017-06-25] MEDS: DOCUSATE SODIUM 100 MG CAP PO SCH (21:11)
[2017-06-26] VITALS (12 sets, daily range): BP systolic 103–123; BP diastolic 53–67; PULSE 79–95; RESP 18–19
[2017-06-26] MEDS: ACCU-CHEK XX SCH (02:00)
--- NOTE | 2017-06-26 02:57 | PN ---
DATE: 06/25/2017 SUBJECTIVE: The patient is lying comfortably in bed. Afebrile. LABS: WBC today 3.5, platelets 187, no shift. BUN 5, creatinine 0.61. ANTIMICROBIALS: She is on IV vancomycin and Zosyn, day number 9. PHYSICAL EXAMINATION: GENERAL: Morbidly obese, well developed, elderly woman, who is in no distress. HEENT: Head is atraumatic and normocephalic. Sclerae are anicteric. Buccal mucosa is dry. NECK: Supple. LUNGS: Chest rise is symmetrical. Breath sounds are diminished at the bases. HEART: S1, S2. ABDOMEN: Soft. Bowel sounds are present. EXTREMITIES: Without cyanosis. ASSESSMENT: 1. Right lower lobe pneumonia. 2. Coag-negative Staph bacteremia, consistent with contaminant. 3. Metastatic breast cancer. 4. Obesity. 5. Pituitary adenoma. PLAN: The patient remains stable. We will continue her on current antibiotics for a couple more days. Replete potassium. Follow recommendations of consultants. Dictated By: Sylvain Frances NP /bam/jeimy /Document#: [id number]
[2017-06-26] MEDS: PIPER-TAZO 3.375 GM IV (PMX) 100 ML IVPB SCH (05:50)
[2017-06-26] MEDS ORDERED: VANCOMYCIN 1.25 GM in SOD CHLORIDE 0.9% 250 ML IVPB SCH (06:00)
[2017-06-26] MEDS: INSULIN ASPART [NOVOLOG] 3 ML PEN SC SCH ×4 (08:00→20:34)
[2017-06-26 08:07] LABS: ALBUMIN 2.5 g/dl (3.3-4.9); ALBUMIN/GLOBULIN RATIO 0.89; BILIRUBIN,INDIRECT 0.8 mg/dl (0-1.1); BILIRUBIN,TOTAL 0.8 mg/dl (0.2-1.3); CALCIUM 6.5 mg/dl (8.4-10.2); CREATININE 0.67 mg/dl (0.44-1.00); MAGNESIUM 1.8 mg/dl (1.7-2.5); POTASSIUM 3.6 mmol/L (3.5-5.1); TOTAL PROTEIN 5.3 g/dl (6.1-8.1)
--- NOTE | 2017-06-26 08:54 | CONS ---
Date/Time of Note Date/Time of Note DATE: 06/26/17 TIME: 08:52 Consult Date/Type/Reason Admit Date/Time Jun 17, 2017 at 03:48 Initial Consult Date 06/17/17 Type of Consultation: CARDIOLOGY Ordering Provider: KEVEN MESSER Subjective CARDIOLOGY FOLLOW UP NOTE: D/W staff and rhythm was reviewed. pt remains in NSR. no afib she still has frequent PVC but improved today. She denies any cp or pressure to me. no palpitations. pt with no diarrhea according to RN OBJECTIVE: HEENT: Normocephalic, atraumatic Pupils are equal. CARDIOVASCULAR: RRR systolic murmur. PULMONARY: no wheezes. Minimal rhonchi. GASTROINTESTINAL: Soft, obese, nontender. no rebound or guarding. EXTREMITIES: + lower extremity edema. NEUROLOGIC: Awake. Oriented to person only. left upper extremities appear to be weak. PSYCH: calm. pleasant DERMATOLOGY: No evidence of bleeding. Multiple seborrheic keratosis noted Objective Vital Signs Date Time Temp Pulse Resp B/P Pulse Ox O2 Delivery O2 Flow Rate FiO2 06/26/17 08:45 87 06/26/17 08:20 98.4 19 109/56 93 Intake and Output 06/25/17 06/25/17 06/26/17 15:00 23:00 07:00 Intake Total 1300 ml 210 ml Balance 1300 ml 210 ml Results/Medications Result Diagram: 06/25/17 0616 06/26/17 0701 Results 24 hrs Laboratory Tests Test 06/25/17 11:25 06/25/17 18:19 06/25/17 21:04 06/26/17 07:01 Bedside Glucose 170 89 112 Sodium Level 148 H Potassium Level 3.6 Chloride Level 119 H Carbon Dioxide Level 23 Anion Gap 10 Blood Urea Nitrogen 4 L Creatinine 0.67 Glucose Level 153 Calcium Level 6.5 L Magnesium Level 1.8 Total Bilirubin 0.8 Direct Bilirubin 0.00 Indirect Bilirubin 0.8 Aspartate Amino Transf (AST/SGOT) 30 Alanine Aminotransferase (ALT/SGPT) 47 Alkaline Phosphatase 94 Total Protein 5.3 L Albumin 2.5 L Globulin 2.80 Albumin/Globulin Ratio 0.89 Test 06/26/17 08:29 Bedside Glucose 128 Medications Current Medications Acetaminophen (Tylenol Tab) 650 mg Q6H PRN PO PAIN LEVEL 1-3 OR FEVER; Start at 04:30 Ondansetron HCl (Zofran Inj) 4 mg Q6H PRN IV NAUSEA AND/OR VOMITING Last administered on 06/18/17 20:50; Admin Dose 4 MG; Start 06/17/17 at 04:30 Diagnostic Test (Pha) (Accu-Chek) 1 ea 02 XX Last administered on 06/26/17 02: 00; Admin Dose 1 EA; Start 06/18/17 at 02:00 Miscellaneous Information 1 ea NOTE XX ; Start 06/17/17 at 05:00 Glucose (Glutose) 15 gm Q15M PRN PO DECREASED GLUCOSE; Start 06/17/17 at 05:00 Glucose (Glutose) 22.5 gm Q15M PRN PO DECREASED GLUCOSE; Start 06/17/17 at 05: 00 Dextrose (D50w Syringe) 25 ml Q15M PRN IV DECREASED GLUCOSE; Start 06/17/17 at 05:00 Dextrose (D50w Syringe) 50 ml Q15M PRN IV DECREASED GLUCOSE; Start 06/17/17 at 05:00 Glucagon (Glucagen) 1 mg Q15M PRN IM DECREASED GLUCOSE; Start 06/17/17 at 05:00 Glucose (Glutose) 15 gm Q15M PRN BUCCAL DECREASED GLUCOSE; Start 06/17/17 at 05 :00 Lactobacillus Acidophilus/ Rhamnosus (Culturelle) 1 cap BID PO Last administered on 06/25/17 21:11; Admin Dose 1 CAP; Start 06/17/17 at 21:00 Famotidine (Pepcid) 20 mg DAILY PO Last administered on 06/25/17 11:19; Admin Dose 20 MG; Start 06/18/17 at 09:00 Guaifenesin (Robitussin Liquid Cup) 100 mg Q4H PRN PO COUGH; Start 06/17/17 at 18:30 IV Flush (NS 10 ml) 10 ml PRN PRN IV IV PROTOCOL; Start 06/18/17 at 17:00 Spironolactone (Aldactone) 25 mg DAILY PO Last administered on 06/25/17 11:20; Admin Dose 25 MG; Start 06/20/17 at 09:30 Hydralazine HCl (Apresoline) 5 mg Q4H PRN IV ELEVATED SYSTOLIC BP; Start at 18:30 Amlodipine Besylate (Norvasc) 5 mg DAILY PO Last administered on 06/25/17 11:21 ; Admin Dose 5 MG; Start 06/20/17 at 18:30 Docusate Sodium (Colace) 100 mg HS PO Last administered on 06/25/17 21:11; Admin Dose 100 MG; Start 06/20/17 at 21:00 Potassium Chloride 40 meq 40 meq BID PO Last administered on 06/25/17 21:11; Admin Dose 40 MEQ; Start 06/20/17 at 21:00 Dextrose (D5W) 1,000 ml @ 100 mls/hr Q10H IV Last administered on 06/25/17 22: 12; Admin Dose 100 MLS/HR; Start 06/22/17 at 09:00 Methimazole 5 mg 5 mg QAM PO Last administered on 06/25/17 11:19; Admin Dose 5 MG; Start 06/22/17 at 15:00 Magnesium Sulfate/ Sodium Chloride (Magnesium Sulfate/NS) 106 ml @ 35.333 mls/ hr ONCE IVPB ; Start 06/26/17 at 10:00; Stop 06/26/17 at 12:59 Assessment/Plan Chief Complaint/Hosp Course 1. Mildly abnormal troponin with no chest pain and ejection fraction of 70%. Most likely c/w a false positive troponin. 2. Hypertension with hypertensive heart disease.:improved now 3. Abnormal EKG secondary to above. 4. Brain mass/tumor, possible adenoma per CT. 5. 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 6. Thyroid disorder. 7. Possible sepsis. 8. Status post fall. 9. Encephalopathy. 10. Hyperglycemia. 11. Elevated lactic acid/lactic acidosis and possible sepsis. 12. severe hypo K. is being replaced. RECOMMENDATIONS: . cont BP control. will cont aldactone Diabetic management as per Internal Medicine/ endocrine rec Antibiotic as per Internal Medicine. Thyroid management as per Internal Medicine and endocrine consult Conservative cardiac therapy is only recommended at this point. replace K and Mg prn. tele monitoring for now until at least lytes are well corrected. hospice eval is pending Thank you MELISSA LIZARRAGA MD [facility] Problems: MELISSA LIZARRAGA MD Jun 26, 2017 08:54
[2017-06-26] MEDS: DEXTROSE 5% 1,000 ML IV SCH ×3 (08:59→22:40)
[2017-06-26] MEDS: FAMOTIDINE 20 MG TAB PO SCH (09:00)
[2017-06-26] MEDS: POTASSIUM CHLORIDE 20 MEQ POWDER FOR ORAL SOLN PO SCH ×2 (09:00→20:33)
[2017-06-26] MEDS: METHIMAZOLE 5 MG TAB PO SCH (09:01)
[2017-06-26] MEDS: SPIRONOLACTONE 25 MG TAB PO SCH (09:01)
[2017-06-26] MEDS: AMLODIPINE 5 MG TAB PO SCH (09:04)
--- NOTE | 2017-06-26 09:55 | CONS ---
Date/Time of Note Date/Time of Note DATE: 06/26/17 TIME: 09:49 Assessment/Plan Assessment/Plan Chief Complaint/Hosp Course 86-year-old female who is a poor historian most information is taken from her medical records. Patient was brought to the emergency room and [facility] after a fall from her bed. Evaluated in the emergency room she was found to have elevated troponins, lactic acidosis and a history of metastatic breast cancer. This information is unclear to me at this time. Patient answers with one-word, yes, no, maybe however she states she has a granddaughter she lives with and a daughter who lives locally. She gives me a history of having an oncologist, but she states she saw her oncologist just recently in the diagnosis of breast cancer was made just 2 days ago. No family members immediately available to corroborate her story or give us additional information. Problems: Additional Assessment/Plan Post dated note 06/24 Spoke with daughter and patients live in boyfriend of 51 years... I am not sure legally who can be the decision maker since patient cannot herself.. Therefore I will ask for a change of code until tis is clarified. Family members agree. Consultation Date/Type/Reason Admit Date/Time Jun 17, 2017 at 03:48 Initial Consult Date 06/18/17 Type of Consultation: pallliative care Referring Provider: KEVEN MESSER Exam/Review of Systems Vital Signs Vitals Vital Signs Date Time Temp Pulse Resp B/P Pulse Ox O2 Delivery O2 Flow Rate FiO2 06/26/17 08:45 87 06/26/17 08:20 98.4 19 109/56 93 Intake and Output 06/25/17 06/25/17 06/26/17 15:00 23:00 07:00 Intake Total 1300 ml 210 ml Balance 1300 ml 210 ml Results Result Diagram: 06/25/17 0616 06/26/17 0701 Results 24 hrs Laboratory Tests Test 06/25/17 11:25 06/25/17 18:19 06/25/17 21:04 06/26/17 07:01 Bedside Glucose 170 89 112 Sodium Level 148 H Potassium Level 3.6 Chloride Level 119 H Carbon Dioxide Level 23 Anion Gap 10 Blood Urea Nitrogen 4 L Creatinine 0.67 Glucose Level 153 Calcium Level 6.5 L Magnesium Level 1.8 Total Bilirubin 0.8 Direct Bilirubin 0.00 Indirect Bilirubin 0.8 Aspartate Amino Transf (AST/SGOT) 30 Alanine Aminotransferase (ALT/SGPT) 47 Alkaline Phosphatase 94 Total Protein 5.3 L Albumin 2.5 L Globulin 2.80 Albumin/Globulin Ratio 0.89 Test 06/26/17 08:29 Bedside Glucose 128 Medications Medications Current Medications Acetaminophen (Tylenol Tab) 650 mg Q6H PRN PO PAIN LEVEL 1-3 OR FEVER; Start at 04:30 Ondansetron HCl (Zofran Inj) 4 mg Q6H PRN IV NAUSEA AND/OR VOMITING Last administered on 06/18/17 20:50; Admin Dose 4 MG; Start 06/17/17 at 04:30 Diagnostic Test (Pha) (Accu-Chek) 1 ea 02 XX Last administered on 06/26/17 02: 00; Admin Dose 1 EA; Start 06/18/17 at 02:00 Miscellaneous Information 1 ea NOTE XX ; Start 06/17/17 at 05:00 Glucose (Glutose) 15 gm Q15M PRN PO DECREASED GLUCOSE; Start 06/17/17 at 05:00 Glucose (Glutose) 22.5 gm Q15M PRN PO DECREASED GLUCOSE; Start 06/17/17 at 05: 00 Dextrose (D50w Syringe) 25 ml Q15M PRN IV DECREASED GLUCOSE; Start 06/17/17 at 05:00 Dextrose (D50w Syringe) 50 ml Q15M PRN IV DECREASED GLUCOSE; Start 06/17/17 at 05:00 Glucagon (Glucagen) 1 mg Q15M PRN IM DECREASED GLUCOSE; Start 06/17/17 at 05:00 Glucose (Glutose) 15 gm Q15M PRN BUCCAL DECREASED GLUCOSE; Start 06/17/17 at 05 :00 Lactobacillus Acidophilus/ Rhamnosus (Culturelle) 1 cap BID PO Last administered on 06/25/17 21:11; Admin Dose 1 CAP; Start 06/17/17 at 21:00 Famotidine (Pepcid) 20 mg DAILY PO Last administered on 06/26/17 09:00; Admin Dose 20 MG; Start 06/18/17 at 09:00 Guaifenesin (Robitussin Liquid Cup) 100 mg Q4H PRN PO COUGH; Start 06/17/17 at 18:30 IV Flush (NS 10 ml) 10 ml PRN PRN IV IV PROTOCOL; Start 06/18/17 at 17:00 Spironolactone (Aldactone) 25 mg DAILY PO Last administered on 06/26/17 09:01; Admin Dose 25 MG; Start 06/20/17 at 09:30 Hydralazine HCl (Apresoline) 5 mg Q4H PRN IV ELEVATED SYSTOLIC BP; Start at 18:30 Amlodipine Besylate (Norvasc) 5 mg DAILY PO Last administered on 06/26/17 09:04 ; Admin Dose 5 MG; Start 06/20/17 at 18:30 Docusate Sodium (Colace) 100 mg HS PO Last administered on 06/25/17 21:11; Admin Dose 100 MG; Start 06/20/17 at 21:00 Potassium Chloride 40 meq 40 meq BID PO Last administered on 06/26/17 09:00; Admin Dose 40 MEQ; Start 06/20/17 at 21:00 Dextrose (D5W) 1,000 ml @ 100 mls/hr Q10H IV Last administered on 06/26/17 08: 59; Admin Dose 100 MLS/HR; Start 06/22/17 at 09:00 Methimazole 5 mg 5 mg QAM PO Last administered on 06/26/17 09:01; Admin Dose 5 MG; Start 06/22/17 at 15:00 Magnesium Sulfate/ Sodium Chloride (Magnesium Sulfate/NS) 106 ml @ 35.333 mls/ hr ONCE IVPB ; Start 06/26/17 at 10:00; Stop 06/26/17 at 12:59 ESTELA PERES Jun 26, 2017 09:54
--- NOTE | 2017-06-26 09:57 | CONS ---
Date/Time of Note Date/Time of Note DATE: 06/26/17 TIME: 09:55 Assessment/Plan Assessment/Plan Chief Complaint/Hosp Course 86-year-old female who is a poor historian most information is taken from her medical records. Patient was brought to the emergency room and [facility] after a fall from her bed. Evaluated in the emergency room she was found to have elevated troponins, lactic acidosis and a history of metastatic breast cancer. This information is unclear to me at this time. Patient answers with one-word, yes, no, maybe however she states she has a granddaughter she lives with and a daughter who lives locally. She gives me a history of having an oncologist, but she states she saw her oncologist just recently in the diagnosis of breast cancer was made just 2 days ago. No family members immediately available to corroborate her story or give us additional information. Problems: Additional Assessment/Plan Clarified decision maker who is daughter , called and left a message, she has my call back number. I will suggest Hospice care and address code status . Consultation Date/Type/Reason Admit Date/Time Jun 17, 2017 at 03:48 Initial Consult Date 06/18/17 Type of Consultation: pallliative care Referring Provider: KEVEN MESSER 24 HR Interval Summary Free Text/Dictation Clarified decision maker who is daughter , called and left a message, she has my call back number. I will suggest Hospice care and address code status . Exam/Review of Systems Vital Signs Vitals Vital Signs Date Time Temp Pulse Resp B/P Pulse Ox O2 Delivery O2 Flow Rate FiO2 06/26/17 08:45 87 06/26/17 08:20 98.4 19 109/56 93 Intake and Output 06/25/17 06/25/17 06/26/17 15:00 23:00 07:00 Intake Total 1300 ml 210 ml Balance 1300 ml 210 ml Results Result Diagram: 06/25/17 0616 06/26/17 0701 Results 24 hrs Laboratory Tests Test 06/25/17 11:25 06/25/17 18:19 06/25/17 21:04 06/26/17 07:01 Bedside Glucose 170 89 112 Sodium Level 148 H Potassium Level 3.6 Chloride Level 119 H Carbon Dioxide Level 23 Anion Gap 10 Blood Urea Nitrogen 4 L Creatinine 0.67 Glucose Level 153 Calcium Level 6.5 L Magnesium Level 1.8 Total Bilirubin 0.8 Direct Bilirubin 0.00 Indirect Bilirubin 0.8 Aspartate Amino Transf (AST/SGOT) 30 Alanine Aminotransferase (ALT/SGPT) 47 Alkaline Phosphatase 94 Total Protein 5.3 L Albumin 2.5 L Globulin 2.80 Albumin/Globulin Ratio 0.89 Test 06/26/17 08:29 Bedside Glucose 128 Medications Medications Current Medications Acetaminophen (Tylenol Tab) 650 mg Q6H PRN PO PAIN LEVEL 1-3 OR FEVER; Start at 04:30 Ondansetron HCl (Zofran Inj) 4 mg Q6H PRN IV NAUSEA AND/OR VOMITING Last administered on 06/18/17 20:50; Admin Dose 4 MG; Start 06/17/17 at 04:30 Diagnostic Test (Pha) (Accu-Chek) 1 ea 02 XX Last administered on 06/26/17 02: 00; Admin Dose 1 EA; Start 06/18/17 at 02:00 Miscellaneous Information 1 ea NOTE XX ; Start 06/17/17 at 05:00 Glucose (Glutose) 15 gm Q15M PRN PO DECREASED GLUCOSE; Start 06/17/17 at 05:00 Glucose (Glutose) 22.5 gm Q15M PRN PO DECREASED GLUCOSE; Start 06/17/17 at 05: 00 Dextrose (D50w Syringe) 25 ml Q15M PRN IV DECREASED GLUCOSE; Start 06/17/17 at 05:00 Dextrose (D50w Syringe) 50 ml Q15M PRN IV DECREASED GLUCOSE; Start 06/17/17 at 05:00 Glucagon (Glucagen) 1 mg Q15M PRN IM DECREASED GLUCOSE; Start 06/17/17 at 05:00 Glucose (Glutose) 15 gm Q15M PRN BUCCAL DECREASED GLUCOSE; Start 06/17/17 at 05 :00 Lactobacillus Acidophilus/ Rhamnosus (Culturelle) 1 cap BID PO Last administered on 06/25/17 21:11; Admin Dose 1 CAP; Start 06/17/17 at 21:00 Famotidine (Pepcid) 20 mg DAILY PO Last administered on 06/26/17 09:00; Admin Dose 20 MG; Start 06/18/17 at 09:00 Guaifenesin (Robitussin Liquid Cup) 100 mg Q4H PRN PO COUGH; Start 06/17/17 at 18:30 IV Flush (NS 10 ml) 10 ml PRN PRN IV IV PROTOCOL; Start 06/18/17 at 17:00 Spironolactone (Aldactone) 25 mg DAILY PO Last administered on 06/26/17 09:01; Admin Dose 25 MG; Start 06/20/17 at 09:30 Hydralazine HCl (Apresoline) 5 mg Q4H PRN IV ELEVATED SYSTOLIC BP; Start at 18:30 Amlodipine Besylate (Norvasc) 5 mg DAILY PO Last administered on 06/26/17 09:04 ; Admin Dose 5 MG; Start 06/20/17 at 18:30 Docusate Sodium (Colace) 100 mg HS PO Last administered on 06/25/17 21:11; Admin Dose 100 MG; Start 06/20/17 at 21:00 Potassium Chloride 40 meq 40 meq BID PO Last administered on 06/26/17 09:00; Admin Dose 40 MEQ; Start 06/20/17 at 21:00 Dextrose (D5W) 1,000 ml @ 100 mls/hr Q10H IV Last administered on 06/26/17 08: 59; Admin Dose 100 MLS/HR; Start 06/22/17 at 09:00 Methimazole 5 mg 5 mg QAM PO Last administered on 06/26/17 09:01; Admin Dose 5 MG; Start 06/22/17 at 15:00 Magnesium Sulfate/ Sodium Chloride (Magnesium Sulfate/NS) 106 ml @ 35.333 mls/ hr ONCE IVPB ; Start 06/26/17 at 10:00; Stop 06/26/17 at 12:59 ESTELA PERES Jun 26, 2017 09:57
[2017-06-26] MEDS ORDERED: MAGNESIUM SULFATE 3 GM in SOD CHLORIDE 0.9% 100 ML IVPB SCH (10:00)
--- NOTE | 2017-06-26 11:04 | PN ---
DATE: 06/26/2017 SUBJECTIVE DATA: The patient is stable. No events overnight. No fevers, chills, nausea, vomiting. OBJECTIVE DATA: VITAL SIGNS: Blood pressure 109/56, respirations 19, pulse 70, temperature 98.4. HEENT: Head is normocephalic. NECK: Supple. HEART: Regular rate. LUNGS: Diminished breath sounds at the base. ABDOMEN: Soft, nontender to palpation. No rebound or guarding. EXTREMITIES: Negative for clubbing, cyanosis. No edema. DERMATOLOGIC: No rashes. MUSCULOSKELETAL: No joint effusion. NEUROLOGIC: Unchanged exam. MEDICATIONS: Reviewed. LABORATORY AND DIAGNOSTIC DATA: Sodium 140, potassium 3.6, chloride 119, BUN 4, creatinine 0.67. ASSESSMENT AND PLAN: 1. Hypernatremia secondary insensible loss. Continue D5 water. 2. Hypokalemia. Continue monitor and replete. 3. Hypophosphatemia. Continue to monitor and replete. 4. Metastatic breast cancer. Continue current treatment plan. 5. Hypothyroidism. Continue Synthroid. 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 7. Sepsis. Continue current antibiotic regimen. Dictated By: Saqib Duncan DO /bam/garrick /Document#: [id number]
[2017-06-26] MEDS: LACTOBACILLUS RHAMNOSUS CAP PO SCH ×2 (12:20→20:33)
--- NOTE | 2017-06-26 13:45 | PN ---
DATE: 06/26/2017 SUBJECTIVE DATA: No acute changes overnight. No fevers. The patient is awake, lying comfortably in bed. Denies pain. No labs this morning. The patient is off antibiotics. OBJECTIVE DATA: PHYSICAL EXAMINATION: This is a fragile, obese elderly woman, who is in no distress. HEENT: Head atraumatic, normocephalic. Sclerae anicteric. Buccal mucosa pink, dry. NECK: Supple. CHEST: Rise symmetrical. Breath sounds diminished at the bases. HEART: S1, S2. ABDOMEN: Soft, bowel sounds present. EXTREMITIES: No cyanosis. ASSESSMENT: 1. Status post-systemic inflammatory response syndrome. 2. Pneumonia on admission, completed antibiotics. 3. Metastatic breast cancer. 4. Obesity. 5. Status [id number] Staphylococcus bacteremia with repeat blood cultures negative, consistent with contaminant. PLAN: The patient remains stable, completed antibiotics. She is being followed by multiple consultants. She is also being followed by palliative care. Pending family's decision regarding code status. Dictated By: Sylvain Frances NP /bam/garrick /Document#: [id number]
--- NOTE | 2017-06-26 15:47 | PN ---
Date/Time of Note Date/Time of Note DATE: 06/26/17 TIME: 15:46 Assessment/Plan VTE Prophylaxis VTE Prophylaxis Intervention: other Lines/Catheters IV Catheter Type (from Nrs): PICC Line Central line still needed: Yes (need for IV access) Urinary Cath still in place: No Assessment/Plan Assessment/Plan 1. Failure to thrive 2/2 metastatic breast cancer - Patient is stable and still has poor PO intake - replacing electrolytes as needed - Palliative on board and recommendations appreciated. - Patients daughter now refusing hospice for the patient and will need to have a meeting to discuss goals of care 2. Hypernatremia. Etiology secondary to insensible losses. - Nephrology on board and recommendations appreciated. Progress note reviewed - labs not drawn today 3. Hypokalemia - will continue to monitor 4. Hypophosphatemia. 5. 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 Will need to address with family goals of care - Prognosis- poor 6. Abnormal thyroid function - Stable. Continue current medical management. 7. Pituitary adenoma - Endocrinology on board and recommendations appreciated. 8. Sepsis 2/2 RLL PNA - appears to be resolved. WBC stabilizing and no fevers appreciated - antibiotic course completed - ID on board and recommendations appreciated 9. Acute encephalopathy- multifactorial Subjective 24 Hr Interval Summary Free Text/Dictation Patient seen and examined. Patient more awake and alert today, requesting water. No acute overnight events. Patient's daughter met with hospice and now refusing hospice care. Exam/Review of Systems Vital Signs Vitals Vital Signs Date Time Temp Pulse Resp B/P Pulse Ox O2 Delivery O2 Flow Rate FiO2 06/26/17 12:43 88 06/26/17 12:39 97.4 19 112/64 93 Intake and Output 06/25/17 06/25/17 06/26/17 15:00 23:00 07:00 Intake Total 1300 ml 210 ml Balance 1300 ml 210 ml Exam General: Lethargic but arousable to touch and name. no acute distress Neck: Supple. CVS: Regular rate and rhythm. Lungs: Diminished breath sounds at the base. Abdomen: Soft, nontender to palpation. No rebound or guarding. Ext: Negative for clubbing or cyanosis. No edema. Results Result Diagram: 06/25/17 0616 06/26/17 0701 Results 24 hrs Laboratory Tests Test 06/25/17 18:19 06/25/17 21:04 06/26/17 07:01 06/26/17 08:29 Bedside Glucose 89 112 128 Sodium Level 148 H Potassium Level 3.6 Chloride Level 119 H Carbon Dioxide Level 23 Anion Gap 10 Blood Urea Nitrogen 4 L Creatinine 0.67 Glucose Level 153 Calcium Level 6.5 L Magnesium Level 1.8 Total Bilirubin 0.8 Direct Bilirubin 0.00 Indirect Bilirubin 0.8 Aspartate Amino Transf (AST/SGOT) 30 Alanine Aminotransferase (ALT/SGPT) 47 Alkaline Phosphatase 94 Total Protein 5.3 L Albumin 2.5 L Globulin 2.80 Albumin/Globulin Ratio 0.89 Test 06/26/17 12:18 Bedside Glucose 135 Medications Medications Current Medications Acetaminophen (Tylenol Tab) 650 mg Q6H PRN PO PAIN LEVEL 1-3 OR FEVER; Start at 04:30 Ondansetron HCl (Zofran Inj) 4 mg Q6H PRN IV NAUSEA AND/OR VOMITING Last administered on 06/18/17 20:50; Admin Dose 4 MG; Start 06/17/17 at 04:30 Diagnostic Test (Pha) (Accu-Chek) 1 ea 02 XX Last administered on 06/26/17 02: 00; Admin Dose 1 EA; Start 06/18/17 at 02:00 Miscellaneous Information 1 ea NOTE XX ; Start 06/17/17 at 05:00 Glucose (Glutose) 15 gm Q15M PRN PO DECREASED GLUCOSE; Start 06/17/17 at 05:00 Glucose (Glutose) 22.5 gm Q15M PRN PO DECREASED GLUCOSE; Start 06/17/17 at 05: 00 Dextrose (D50w Syringe) 25 ml Q15M PRN IV DECREASED GLUCOSE; Start 06/17/17 at 05:00 Dextrose (D50w Syringe) 50 ml Q15M PRN IV DECREASED GLUCOSE; Start 06/17/17 at 05:00 Glucagon (Glucagen) 1 mg Q15M PRN IM DECREASED GLUCOSE; Start 06/17/17 at 05:00 Glucose (Glutose) 15 gm Q15M PRN BUCCAL DECREASED GLUCOSE; Start 06/17/17 at 05 :00 Lactobacillus Acidophilus/ Rhamnosus (Culturelle) 1 cap BID PO Last administered on 06/26/17 12:20; Admin Dose 1 CAP; Start 06/17/17 at 21:00 Famotidine (Pepcid) 20 mg DAILY PO Last administered on 06/26/17 09:00; Admin Dose 20 MG; Start 06/18/17 at 09:00 Guaifenesin (Robitussin Liquid Cup) 100 mg Q4H PRN PO COUGH; Start 06/17/17 at 18:30 IV Flush (NS 10 ml) 10 ml PRN PRN IV IV PROTOCOL; Start 06/18/17 at 17:00 Spironolactone (Aldactone) 25 mg DAILY PO Last administered on 06/26/17 09:01; Admin Dose 25 MG; Start 06/20/17 at 09:30 Hydralazine HCl (Apresoline) 5 mg Q4H PRN IV ELEVATED SYSTOLIC BP; Start at 18:30 Amlodipine Besylate (Norvasc) 5 mg DAILY PO Last administered on 06/26/17 09:04 ; Admin Dose 5 MG; Start 06/20/17 at 18:30 Docusate Sodium (Colace) 100 mg HS PO Last administered on 06/25/17 21:11; Admin Dose 100 MG; Start 06/20/17 at 21:00 Potassium Chloride 40 meq 40 meq BID PO Last administered on 06/26/17 09:00; Admin Dose 40 MEQ; Start 06/20/17 at 21:00 Dextrose (D5W) 1,000 ml @ 100 mls/hr Q10H IV Last administered on 06/26/17 08: 59; Admin Dose 100 MLS/HR; Start 06/22/17 at 09:00 Methimazole (Tapazole) 5 mg QAM PO Last administered on 06/26/17 09:01; Admin Dose 5 MG; Start 06/22/17 at 15:00 MONA ADAIR MD Jun 26, 2017 15:47
--- NOTE | 2017-06-26 18:04 | CONS ---
Date/Time of Note Date/Time of Note DATE: 06/26/17 TIME: 18:02 Assessment/Plan Assessment/Plan Chief Complaint/Hosp Course 86-year-old female who is normally treated by Dr. Huang at [facility]. She reports she has had brain scanning done within the last year. She reports she has cancer that is metastatic to multiple locations. We do not have specific data on this. Patient reports no known history of thyroid disorder and denies any known history of pituitary abnormalities. Problems: (1) Pituitary mass Status: Acute Comment: At this time I have opted not to pursue MRI scanning. While this is a relatively nontraumatic investigation the likelihood of a yielding information based on the blood testing we have that we can easily manage is nil. Therefore doing a test that might suggest the need to do him type of neurosurgical intervention and patient in the status would be fruitless. (2) Abnormal thyroid function test Status: Acute Comment: Patient is on treatment for subclinical hyperthyroidism. I do not believe this is apathetic hyperthyroidism she has not come around. 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 Consultation Date/Type/Reason Admit Date/Time Jun 17, 2017 at 03:48 Initial Consult Date 06/18/17 Type of Consultation: Endocrinology Reason for Consultation Pituitary mass; subclinical hyperthyroidism; metastatic breast cancer to multiple different sites Referring Provider: KEVEN MESSER 24 HR Interval Summary Subjective hx not possible: pt non-verbal Exam/Review of Systems Vital Signs Vitals Vital Signs Date Time Temp Pulse Resp B/P Pulse Ox O2 Delivery O2 Flow Rate FiO2 06/26/17 16:31 79 06/26/17 12:39 97.4 19 112/64 93 Intake and Output 06/25/17 06/25/17 06/26/17 15:00 23:00 07:00 Intake Total 1300 ml 210 ml Balance 1300 ml 210 ml Results no Change in status Result Diagram: 06/25/17 0616 06/26/17 0701 Results 24 hrs Laboratory Tests Test 06/25/17 18:19 06/25/17 21:04 06/26/17 07:01 06/26/17 08:29 Bedside Glucose 89 112 128 Sodium Level 148 H Potassium Level 3.6 Chloride Level 119 H Carbon Dioxide Level 23 Anion Gap 10 Blood Urea Nitrogen 4 L Creatinine 0.67 Glucose Level 153 Calcium Level 6.5 L Magnesium Level 1.8 Total Bilirubin 0.8 Direct Bilirubin 0.00 Indirect Bilirubin 0.8 Aspartate Amino Transf (AST/SGOT) 30 Alanine Aminotransferase (ALT/SGPT) 47 Alkaline Phosphatase 94 Total Protein 5.3 L Albumin 2.5 L Globulin 2.80 Albumin/Globulin Ratio 0.89 Test 06/26/17 12:18 06/26/17 17:16 Bedside Glucose 135 133 Medications Medications Current Medications Acetaminophen (Tylenol Tab) 650 mg Q6H PRN PO PAIN LEVEL 1-3 OR FEVER; Start at 04:30 Ondansetron HCl (Zofran Inj) 4 mg Q6H PRN IV NAUSEA AND/OR VOMITING Last administered on 06/18/17 20:50; Admin Dose 4 MG; Start 06/17/17 at 04:30 Diagnostic Test (Pha) (Accu-Chek) 1 ea 02 XX Last administered on 06/26/17 02: 00; Admin Dose 1 EA; Start 06/18/17 at 02:00 Miscellaneous Information 1 ea NOTE XX ; Start 06/17/17 at 05:00 Glucose (Glutose) 15 gm Q15M PRN PO DECREASED GLUCOSE; Start 06/17/17 at 05:00 Glucose (Glutose) 22.5 gm Q15M PRN PO DECREASED GLUCOSE; Start 06/17/17 at 05: 00 Dextrose (D50w Syringe) 25 ml Q15M PRN IV DECREASED GLUCOSE; Start 06/17/17 at 05:00 Dextrose (D50w Syringe) 50 ml Q15M PRN IV DECREASED GLUCOSE; Start 06/17/17 at 05:00 Glucagon (Glucagen) 1 mg Q15M PRN IM DECREASED GLUCOSE; Start 06/17/17 at 05:00 Glucose (Glutose) 15 gm Q15M PRN BUCCAL DECREASED GLUCOSE; Start 06/17/17 at 05 :00 Lactobacillus Acidophilus/ Rhamnosus (Culturelle) 1 cap BID PO Last administered on 06/26/17 12:20; Admin Dose 1 CAP; Start 06/17/17 at 21:00 Famotidine (Pepcid) 20 mg DAILY PO Last administered on 06/26/17 09:00; Admin Dose 20 MG; Start 06/18/17 at 09:00 Guaifenesin (Robitussin Liquid Cup) 100 mg Q4H PRN PO COUGH; Start 06/17/17 at 18:30 IV Flush (NS 10 ml) 10 ml PRN PRN IV IV PROTOCOL; Start 06/18/17 at 17:00 Spironolactone (Aldactone) 25 mg DAILY PO Last administered on 06/26/17 09:01; Admin Dose 25 MG; Start 06/20/17 at 09:30 Hydralazine HCl (Apresoline) 5 mg Q4H PRN IV ELEVATED SYSTOLIC BP; Start at 18:30 Amlodipine Besylate (Norvasc) 5 mg DAILY PO Last administered on 06/26/17 09:04 ; Admin Dose 5 MG; Start 06/20/17 at 18:30 Docusate Sodium (Colace) 100 mg HS PO Last administered on 06/25/17 21:11; Admin Dose 100 MG; Start 06/20/17 at 21:00 Potassium Chloride 40 meq 40 meq BID PO Last administered on 06/26/17 09:00; Admin Dose 40 MEQ; Start 06/20/17 at 21:00 Dextrose (D5W) 1,000 ml @ 100 mls/hr Q10H IV Last administered on 06/26/17 08: 59; Admin Dose 100 MLS/HR; Start 06/22/17 at 09:00 Methimazole (Tapazole) 5 mg QAM PO Last administered on 06/26/17 09:01; Admin Dose 5 MG; Start 06/22/17 at 15:00 JORDYN SERNA MD Jun 26, 2017 18:04
[2017-06-26] MEDS: DOCUSATE SODIUM 100 MG CAP PO SCH (20:33)
[2017-06-27 02:00] VITALS: BP 100/62; RESP 18
[2017-06-27] MEDS: ACCU-CHEK XX SCH (02:00)
[2017-06-27] MEDS: DEXTROSE 5% 1,000 ML IV SCH ×4 (04:14→23:54)
[2017-06-27] MEDS: METHIMAZOLE 5 MG TAB PO SCH (07:56)
[2017-06-27] MEDS: POTASSIUM CHLORIDE 20 MEQ POWDER FOR ORAL SOLN PO SCH ×2 (07:56→20:56)
[2017-06-27] MEDS: LACTOBACILLUS RHAMNOSUS CAP PO SCH ×2 (07:58→20:55)
[2017-06-27] MEDS: AMLODIPINE 5 MG TAB PO SCH (07:58)
[2017-06-27] MEDS: FAMOTIDINE 20 MG TAB PO SCH (07:58)
[2017-06-27] MEDS: SPIRONOLACTONE 25 MG TAB PO SCH (07:58)
[2017-06-27] MEDS: INSULIN ASPART [NOVOLOG] 3 ML PEN SC SCH ×4 (08:01→20:56)
[2017-06-27 08:19] LABS: ALBUMIN 2.3 g/dl (3.3-4.9); ALBUMIN/GLOBULIN RATIO 0.85; BILIRUBIN,INDIRECT 0.6 mg/dl (0-1.1); BILIRUBIN,TOTAL 0.6 mg/dl (0.2-1.3); CALCIUM 6.3 mg/dl (8.4-10.2); CREATININE 0.57 mg/dl (0.44-1.00); MAGNESIUM 2.3 mg/dl (1.7-2.5); POTASSIUM 3.2 mmol/L (3.5-5.1)
--- NOTE | 2017-06-27 08:20 | CONS ---
Date/Time of Note Date/Time of Note DATE: 06/27/17 TIME: 08:19 Consult Date/Type/Reason Admit Date/Time Jun 17, 2017 at 03:48 Initial Consult Date 06/17/17 Type of Consultation: CARDIOLOGY Ordering Provider: KEVEN MESSER Subjective CARDIOLOGY FOLLOW UP NOTE: D/W staff . pt is off of tele now. She denies any cp or pressure to me. no palpitations. OBJECTIVE: HEENT: Normocephalic, atraumatic Pupils are equal. CARDIOVASCULAR: RRR systolic murmur. PULMONARY: no wheezes. Minimal rhonchi. GASTROINTESTINAL: Soft, obese, nontender. no rebound or guarding. EXTREMITIES: + lower extremity edema. NEUROLOGIC: Awake. Oriented to person only. left upper extremitie appear to be weak. PSYCH: calm. pleasant DERMATOLOGY: No evidence of bleeding. Multiple seborrheic keratosis noted echo personally reviewed 1. Hyperdynamic left ventricular systolic function. Normal left ventricular cavity size. Moderate concentric left ventricular hypertrophy. Ejection fraction is visually estimated at 70 %. Abnormal Diastolic Function. 2. There is moderate enlargement of left atrium. 3. Mitral valve leaflets appear mildly thickened. Severe mitral annular calcification. Mild mitral valve regurgitation. Mitral valve Max Velocity 1.44 m/sec. MaxPG 8.00 mmHg. MeanPG 2.00 mmHg. 4. Aortic sclerosis without stenosis. Trace aortic valve regurgitation. 5. Normal appearance of the tricuspid valve. Estimated peak PA systolic pressure 47 mmHg. There is mild tricuspid regurgitation. 6. Normal size and normal respiratory collapse consistent with normal right atrial pressure. Objective Vital Signs Date Time Temp Pulse Resp B/P Pulse Ox O2 Delivery O2 Flow Rate FiO2 06/27/17 02:00 97.4 73 18 100/62 93 Intake and Output 06/26/17 06/26/17 06/27/17 15:00 23:00 07:00 Intake Total 1666 ml 700 ml Balance 1666 ml 700 ml Results/Medications Result Diagram: 06/25/17 0616 06/26/17 0701 Results 24 hrs Laboratory Tests Test 06/26/17 08:29 06/26/17 12:18 06/26/17 17:16 06/26/17 20:32 Bedside Glucose 128 135 133 126 Test 06/27/17 08:00 Bedside Glucose 124 Medications Current Medications Acetaminophen (Tylenol Tab) 650 mg Q6H PRN PO PAIN LEVEL 1-3 OR FEVER; Start at 04:30 Ondansetron HCl (Zofran Inj) 4 mg Q6H PRN IV NAUSEA AND/OR VOMITING Last administered on 06/18/17 20:50; Admin Dose 4 MG; Start 06/17/17 at 04:30 Diagnostic Test (Pha) (Accu-Chek) 1 ea 02 XX Last administered on 06/26/17 02: 00; Admin Dose 1 EA; Start 06/18/17 at 02:00 Miscellaneous Information 1 ea NOTE XX ; Start 06/17/17 at 05:00 Glucose (Glutose) 15 gm Q15M PRN PO DECREASED GLUCOSE; Start 06/17/17 at 05:00 Glucose (Glutose) 22.5 gm Q15M PRN PO DECREASED GLUCOSE; Start 06/17/17 at 05: 00 Dextrose (D50w Syringe) 25 ml Q15M PRN IV DECREASED GLUCOSE; Start 06/17/17 at 05:00 Dextrose (D50w Syringe) 50 ml Q15M PRN IV DECREASED GLUCOSE; Start 06/17/17 at 05:00 Glucagon (Glucagen) 1 mg Q15M PRN IM DECREASED GLUCOSE; Start 06/17/17 at 05:00 Glucose (Glutose) 15 gm Q15M PRN BUCCAL DECREASED GLUCOSE; Start 06/17/17 at 05 :00 Lactobacillus Acidophilus/ Rhamnosus (Culturelle) 1 cap BID PO Last administered on 06/27/17 07:58; Admin Dose 1 CAP; Start 06/17/17 at 21:00 Famotidine (Pepcid) 20 mg DAILY PO Last administered on 06/27/17 07:58; Admin Dose 20 MG; Start 06/18/17 at 09:00 Guaifenesin (Robitussin Liquid Cup) 100 mg Q4H PRN PO COUGH; Start 06/17/17 at 18:30 IV Flush (NS 10 ml) 10 ml PRN PRN IV IV PROTOCOL; Start 06/18/17 at 17:00 Spironolactone (Aldactone) 25 mg DAILY PO Last administered on 06/27/17 07:58; Admin Dose 25 MG; Start 06/20/17 at 09:30 Hydralazine HCl (Apresoline) 5 mg Q4H PRN IV ELEVATED SYSTOLIC BP; Start at 18:30 Amlodipine Besylate (Norvasc) 5 mg DAILY PO Last administered on 06/27/17 07:58 ; Admin Dose 5 MG; Start 06/20/17 at 18:30 Docusate Sodium (Colace) 100 mg HS PO Last administered on 06/26/17 20:33; Admin Dose 100 MG; Start 06/20/17 at 21:00 Potassium Chloride 40 meq 40 meq BID PO Last administered on 06/27/17 07:56; Admin Dose 40 MEQ; Start 06/20/17 at 21:00 Dextrose (D5W) 1,000 ml @ 100 mls/hr Q10H IV Last administered on 06/26/17 22: 40; Admin Dose 100 MLS/HR; Start 06/22/17 at 09:00 Methimazole (Tapazole) 5 mg QAM PO Last administered on 06/27/17 07:56; Admin Dose 5 MG; Start 06/22/17 at 15:00 Assessment/Plan Chief Complaint/Hosp Course 1. Mildly abnormal troponin with no chest pain and ejection fraction of 70%. Most likely c/w a false positive troponin. 2. Hypertension with hypertensive heart disease.:improved now 3. Abnormal EKG secondary to above. 4. Brain mass/tumor, possible adenoma per CT. 5. 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 6. Thyroid disorder. 7. Possible sepsis. 8. Status post fall. 9. Encephalopathy. 10. Hyperglycemia. 11. Elevated lactic acid/lactic acidosis and possible sepsis. 12. severe hypo K. . RECOMMENDATIONS: . cont BP control. will cont aldactone Diabetic management as per Internal Medicine/ endocrine rec Antibiotic as per Internal Medicine. Thyroid management as per Internal Medicine and endocrine consult Conservative cardiac therapy is only recommended at this point. replace K and Mg prn. Thank you MELISSA LIZARRAGA MD [facility] Problems: MELISSA LIZARRAGA MD Jun 27, 2017 08:20
[2017-06-27 08:21] VITALS: BP 90/54; RESP 16
--- NOTE | 2017-06-27 10:20 | PN ---
DATE: 06/27/2017 SUBJECTIVE DATA: The patient is stable. No events overnight. No fevers, chills, nausea, vomiting. OBJECTIVE DATA: VITAL SIGNS: Blood pressure is 90/54, respirations 16, pulse 78, temperature is 97.3. HEENT: Head is normocephalic. NECK: Supple. HEART: Regular rate. LUNGS: Diminished breath sounds at the base. ABDOMEN: Soft, nontender to palpation. No rebound or guarding. EXTREMITIES: Negative for clubbing, cyanosis. No edema. DERMATOLOGIC: Clean. No rashes. MUSCULOSKELETAL: No joint effusion. NEUROLOGIC: No change in exam. MEDICATIONS: Reviewed. LABORATORY DATA: Sodium 144, potassium 3.2, chloride 115, BUN 103, creatinine 0.57. White count 3.5, hemoglobin 9.8, hematocrit 36.9, platelet count is 187,000. ASSESSMENT AND PLAN: 1. Hyponatremia secondary to losses, improved. Continue D5 water. 2. Hypokalemia. Will replete potassium chloride. 3. Status hypophosphatemia, improved. 4. Metastatic breast cancer. Continue current medical management. 5. Hypothyroidism, continue Synthroid. 6. Adrenal adenoma. Follow up with Endocrinology. 7. Sepsis, clinically improving. Continue current antibiotic regimen. 8. Abnormal troponin. No chest pain. Possibly false positive. Continue to monitor. Follow up with Cardiology. 9. Hypertension. Continue current blood pressure regimen. Dictated By: Saqib Duncan DO /bam/umu /Document#: [id number]
[2017-06-27] MEDS ORDERED: POTASSIUM CHLORIDE 250 ML IVPB SCH (10:30)
[2017-06-27 14:02] VITALS: BP 113/60; RESP 16
--- NOTE | 2017-06-27 14:53 | PN ---
Date/Time of Note Date/Time of Note DATE: 06/27/17 TIME: 14:46 Assessment/Plan VTE Prophylaxis VTE Prophylaxis Intervention: other Lines/Catheters IV Catheter Type (from Nrsg): PICC Line Central line still needed: Yes (need IV access) Urinary Cath still in place: No Assessment/Plan Assessment/Plan 1. Failure to thrive 2/2 metastatic breast cancer - replacing electrolytes as needed - Palliative on board and recommendations appreciated. - Need to address goals of care with the family 2. Hypernatremia. Etiology secondary to insensible losses. - Nephrology on board and recommendations appreciated. Progress note reviewed 3. Hypokalemia - will continue to monitor 4. Hypophosphatemia. 5. 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 - Prognosis- poor 6. Abnormal thyroid function - Stable. Continue current medical management. 7. Pituitary adenoma - Endocrinology on board and recommendations appreciated. 8. Sepsis 2/2 RLL PNA- resolved - antibiotic course completed - ID on board and recommendations appreciated 9. Acute encephalopathy- multifactorial Subjective 24 Hr Interval Summary Free Text/Dictation Patient seen and examined. Resting comfortably at bedside. Will answer questions with a mumble but denies any pain, shortness of breath, nausea, vomiting, No acute distress and no overnight events. Exam/Review of Systems Vital Signs Vitals Vital Signs Date Time Temp Pulse Resp B/P Pulse Ox O2 Delivery O2 Flow Rate FiO2 06/27/17 14:02 97.8 79 16 113/60 96 Intake and Output 06/26/17 06/26/17 06/27/17 15:00 23:00 07:00 Intake Total 1666 ml 700 ml Balance 1666 ml 700 ml Exam General: resting comfortable. no acute distress Neck: Supple. CVS: Regular rate and rhythm. Lungs: Diminished breath sounds at the base. no wheezes or rhonchi Abdomen: Soft, nontender to palpation. No rebound or guarding. Ext: Negative for clubbing or cyanosis. +b/l LE edema Results Result Diagram: 06/25/17 0616 06/27/17 0539 Results 24 hrs Laboratory Tests Test 06/26/17 17:16 06/26/17 20:32 06/27/17 05:39 06/27/17 08:00 Bedside Glucose 133 126 124 Sodium Level 144 Potassium Level 3.2 L Chloride Level 115 H Carbon Dioxide Level 25 Anion Gap 7 L Blood Urea Nitrogen 3 L Creatinine 0.57 Glucose Level 131 Calcium Level 6.3 L Magnesium Level 2.3 Total Bilirubin 0.6 Direct Bilirubin 0.00 Indirect Bilirubin 0.6 Aspartate Amino Transf (AST/SGOT) 30 Alanine Aminotransferase (ALT/SGPT) 46 Alkaline Phosphatase 96 Total Protein 5.0 L Albumin 2.3 L Globulin 2.70 Albumin/Globulin Ratio 0.85 Test 06/27/17 12:32 Bedside Glucose 124 Medications Medications Current Medications Acetaminophen (Tylenol Tab) 650 mg Q6H PRN PO PAIN LEVEL 1-3 OR FEVER; Start at 04:30 Ondansetron HCl (Zofran Inj) 4 mg Q6H PRN IV NAUSEA AND/OR VOMITING Last administered on 06/18/17 20:50; Admin Dose 4 MG; Start 06/17/17 at 04:30 Diagnostic Test (Pha) (Accu-Chek) 1 ea 02 XX Last administered on 06/26/17 02: 00; Admin Dose 1 EA; Start 06/18/17 at 02:00 Miscellaneous Information 1 ea NOTE XX ; Start 06/17/17 at 05:00 Glucose (Glutose) 15 gm Q15M PRN PO DECREASED GLUCOSE; Start 06/17/17 at 05:00 Glucose (Glutose) 22.5 gm Q15M PRN PO DECREASED GLUCOSE; Start 06/17/17 at 05: 00 Dextrose (D50w Syringe) 25 ml Q15M PRN IV DECREASED GLUCOSE; Start 06/17/17 at 05:00 Dextrose (D50w Syringe) 50 ml Q15M PRN IV DECREASED GLUCOSE; Start 06/17/17 at 05:00 Glucagon (Glucagen) 1 mg Q15M PRN IM DECREASED GLUCOSE; Start 06/17/17 at 05:00 Glucose (Glutose) 15 gm Q15M PRN BUCCAL DECREASED GLUCOSE; Start 06/17/17 at 05 :00 Lactobacillus Acidophilus/ Rhamnosus (Culturelle) 1 cap BID PO Last administered on 06/27/17 07:58; Admin Dose 1 CAP; Start 06/17/17 at 21:00 Famotidine (Pepcid) 20 mg DAILY PO Last administered on 06/27/17 07:58; Admin Dose 20 MG; Start 06/18/17 at 09:00 Guaifenesin (Robitussin Liquid Cup) 100 mg Q4H PRN PO COUGH; Start 06/17/17 at 18:30 IV Flush (NS 10 ml) 10 ml PRN PRN IV IV PROTOCOL; Start 06/18/17 at 17:00 Spironolactone (Aldactone) 25 mg DAILY PO Last administered on 06/27/17 07:58; Admin Dose 25 MG; Start 06/20/17 at 09:30 Hydralazine HCl (Apresoline) 5 mg Q4H PRN IV ELEVATED SYSTOLIC BP; Start at 18:30 Amlodipine Besylate (Norvasc) 5 mg DAILY PO Last administered on 06/27/17 07:58 ; Admin Dose 5 MG; Start 06/20/17 at 18:30 Docusate Sodium (Colace) 100 mg HS PO Last administered on 06/26/17 20:33; Admin Dose 100 MG; Start 06/20/17 at 21:00 Potassium Chloride 40 meq 40 meq BID PO Last administered on 06/27/17 07:56; Admin Dose 40 MEQ; Start 06/20/17 at 21:00 Dextrose (D5W) 1,000 ml @ 100 mls/hr Q10H IV Last administered on 06/27/17 09: 03; Admin Dose 100 MLS/HR; Start 06/22/17 at 09:00 Methimazole (Tapazole) 5 mg QAM PO Last administered on 06/27/17 07:56; Admin Dose 5 MG; Start 06/22/17 at 15:00 MONA ADAIR MD Jun 27, 2017 14:53
--- NOTE | 2017-06-27 17:35 | CONS ---
Date/Time of Note Date/Time of Note DATE: 06/27/17 TIME: 17:33 Assessment/Plan Assessment/Plan Chief Complaint/Hosp Course SUBJECTIVE DATA: No acute changes overnight. No fevers. PHYSICAL EXAMINATION: This is a fragile, obese elderly woman, who is in no distress. HEENT: Head atraumatic, normocephalic. Sclerae anicteric. Buccal mucosa pink, dry. NECK: Supple. CHEST: Rise symmetrical. Breath sounds diminished at the bases. HEART: S1, S2. ABDOMEN: Soft, bowel sounds present. EXTREMITIES: No cyanosis. ASSESSMENT: 1. Status post-systemic inflammatory response syndrome. 2. S/p Pneumonia on admission==> completed antibiotics. 3. Metastatic breast cancer. 4. Obesity. 5. Status [id number] Staphylococcus bacteremia with repeat blood cultures negative, consistent with contaminant. PLAN: The patient remains stable, off antibiotics, continue present care, repeat cx's prn, aspiration precautions. DW staff Problems: Consultation Date/Type/Reason Admit Date/Time Jun 17, 2017 at 03:48 Initial Consult Date 06/18/17 Type of Consultation: ID Referring Provider: KEVEN MESSER Exam/Review of Systems Vital Signs Vitals Vital Signs Date Time Temp Pulse Resp B/P Pulse Ox O2 Delivery O2 Flow Rate FiO2 06/27/17 14:02 97.8 79 16 113/60 96 Intake and Output 06/26/17 06/26/17 06/27/17 15:00 23:00 07:00 Intake Total 1666 ml 700 ml Balance 1666 ml 700 ml Results Result Diagram: 06/25/17 0616 06/27/17 0539 Results 24 hrs Laboratory Tests Test 06/26/17 20:32 06/27/17 05:39 06/27/17 08:00 06/27/17 12:32 Bedside Glucose 126 124 124 Sodium Level 144 Potassium Level 3.2 L Chloride Level 115 H Carbon Dioxide Level 25 Anion Gap 7 L Blood Urea Nitrogen 3 L Creatinine 0.57 Glucose Level 131 Calcium Level 6.3 L Magnesium Level 2.3 Total Bilirubin 0.6 Direct Bilirubin 0.00 Indirect Bilirubin 0.6 Aspartate Amino Transf (AST/SGOT) 30 Alanine Aminotransferase (ALT/SGPT) 46 Alkaline Phosphatase 96 Total Protein 5.0 L Albumin 2.3 L Globulin 2.70 Albumin/Globulin Ratio 0.85 Medications Medications Current Medications Acetaminophen (Tylenol Tab) 650 mg Q6H PRN PO PAIN LEVEL 1-3 OR FEVER; Start at 04:30 Ondansetron HCl (Zofran Inj) 4 mg Q6H PRN IV NAUSEA AND/OR VOMITING Last administered on 06/18/17 20:50; Admin Dose 4 MG; Start 06/17/17 at 04:30 Diagnostic Test (Pha) (Accu-Chek) 1 ea 02 XX Last administered on 06/26/17 02: 00; Admin Dose 1 EA; Start 06/18/17 at 02:00 Miscellaneous Information 1 ea NOTE XX ; Start 06/17/17 at 05:00 Glucose (Glutose) 15 gm Q15M PRN PO DECREASED GLUCOSE; Start 06/17/17 at 05:00 Glucose (Glutose) 22.5 gm Q15M PRN PO DECREASED GLUCOSE; Start 06/17/17 at 05: 00 Dextrose (D50w Syringe) 25 ml Q15M PRN IV DECREASED GLUCOSE; Start 06/17/17 at 05:00 Dextrose (D50w Syringe) 50 ml Q15M PRN IV DECREASED GLUCOSE; Start 06/17/17 at 05:00 Glucagon (Glucagen) 1 mg Q15M PRN IM DECREASED GLUCOSE; Start 06/17/17 at 05:00 Glucose (Glutose) 15 gm Q15M PRN BUCCAL DECREASED GLUCOSE; Start 06/17/17 at 05 :00 Lactobacillus Acidophilus/ Rhamnosus (Culturelle) 1 cap BID PO Last administered on 06/27/17 07:58; Admin Dose 1 CAP; Start 06/17/17 at 21:00 Famotidine (Pepcid) 20 mg DAILY PO Last administered on 06/27/17 07:58; Admin Dose 20 MG; Start 06/18/17 at 09:00 Guaifenesin (Robitussin Liquid Cup) 100 mg Q4H PRN PO COUGH; Start 06/17/17 at 18:30 IV Flush (NS 10 ml) 10 ml PRN PRN IV IV PROTOCOL; Start 06/18/17 at 17:00 Spironolactone (Aldactone) 25 mg DAILY PO Last administered on 06/27/17 07:58; Admin Dose 25 MG; Start 06/20/17 at 09:30 Hydralazine HCl (Apresoline) 5 mg Q4H PRN IV ELEVATED SYSTOLIC BP; Start at 18:30 Amlodipine Besylate (Norvasc) 5 mg DAILY PO Last administered on 06/27/17 07:58 ; Admin Dose 5 MG; Start 06/20/17 at 18:30 Docusate Sodium (Colace) 100 mg HS PO Last administered on 06/26/17 20:33; Admin Dose 100 MG; Start 06/20/17 at 21:00 Potassium Chloride 40 meq 40 meq BID PO Last administered on 06/27/17 07:56; Admin Dose 40 MEQ; Start 06/20/17 at 21:00 Dextrose (D5W) 1,000 ml @ 100 mls/hr Q10H IV Last administered on 06/27/17 09: 03; Admin Dose 100 MLS/HR; Start 06/22/17 at 09:00 Methimazole (Tapazole) 5 mg QAM PO Last administered on 06/27/17 07:56; Admin Dose 5 MG; Start 06/22/17 at 15:00 KIMBERLEY GALDAMEZ NP Jun 27, 2017 17:34
--- NOTE | 2017-06-27 18:17 | CONS ---
Date/Time of Note Date/Time of Note DATE: 06/27/17 TIME: 18:15 Assessment/Plan Assessment/Plan Chief Complaint/Hosp Course 86-year-old female who is normally treated by Dr. Huang at [facility] [place]. She reports she has had brain scanning done within the last year. She reports she has cancer that is metastatic to multiple locations. We do not have specific data on this. Patient reports no known history of thyroid disorder and denies any known history of pituitary abnormalities. 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 Given the directives to keep moving forward I will go ahead and reorder the MRI scan of the pituitary gland although I am not personally of the opinion that this is in the patient's ultimate best interest (2) Pituitary mass Status: Acute Comment: As above go ahead and do the imaging study. Please note sac quite possible that this pituitary lesion represents metastatic breast cancer (3) Abnormal thyroid function test Status: Acute Comment: She is taking medications when she swallows. She is not eating but she is taking liquids orally. Consultation Date/Type/Reason Admit Date/Time Jun 17, 2017 at 03:48 Initial Consult Date 06/18/17 Type of Consultation: Endocrinology Reason for Consultation Pituitary mass; subclinical hyperthyroidism Referring Provider: KEVEN MESSER 24 HR Interval Summary Free Text/Dictation Patient states "just let me sleep, leave me alone" client's answer further questions Exam/Review of Systems Vital Signs Vitals Vital Signs Date Time Temp Pulse Resp B/P Pulse Ox O2 Delivery O2 Flow Rate FiO2 06/27/17 14:02 97.8 79 16 113/60 96 Intake and Output 06/26/17 06/26/17 06/27/17 15:00 23:00 07:00 Intake Total 1666 ml 700 ml Balance 1666 ml 700 ml Exam This response is actually improvement versus the last couple of days for response Respiratory: clear to auscultation, normal air movement Cardiovascular: nl pulses, regular rate and rhythm Results Result Diagram: 06/25/17 0616 06/27/17 0539 Results 24 hrs Laboratory Tests Test 06/26/17 20:32 06/27/17 05:39 06/27/17 08:00 06/27/17 12:32 Bedside Glucose 126 124 124 Sodium Level 144 Potassium Level 3.2 L Chloride Level 115 H Carbon Dioxide Level 25 Anion Gap 7 L Blood Urea Nitrogen 3 L Creatinine 0.57 Glucose Level 131 Calcium Level 6.3 L Magnesium Level 2.3 Total Bilirubin 0.6 Direct Bilirubin 0.00 Indirect Bilirubin 0.6 Aspartate Amino Transf (AST/SGOT) 30 Alanine Aminotransferase (ALT/SGPT) 46 Alkaline Phosphatase 96 Total Protein 5.0 L Albumin 2.3 L Globulin 2.70 Albumin/Globulin Ratio 0.85 Test 06/27/17 17:48 Bedside Glucose 114 Medications Medications Current Medications Acetaminophen (Tylenol Tab) 650 mg Q6H PRN PO PAIN LEVEL 1-3 OR FEVER; Start at 04:30 Ondansetron HCl (Zofran Inj) 4 mg Q6H PRN IV NAUSEA AND/OR VOMITING Last administered on 06/18/17 20:50; Admin Dose 4 MG; Start 06/17/17 at 04:30 Diagnostic Test (Pha) (Accu-Chek) 1 ea 02 XX Last administered on 06/26/17 02: 00; Admin Dose 1 EA; Start 06/18/17 at 02:00 Miscellaneous Information 1 ea NOTE XX ; Start 06/17/17 at 05:00 Glucose (Glutose) 15 gm Q15M PRN PO DECREASED GLUCOSE; Start 06/17/17 at 05:00 Glucose (Glutose) 22.5 gm Q15M PRN PO DECREASED GLUCOSE; Start 06/17/17 at 05: 00 Dextrose (D50w Syringe) 25 ml Q15M PRN IV DECREASED GLUCOSE; Start 06/17/17 at 05:00 Dextrose (D50w Syringe) 50 ml Q15M PRN IV DECREASED GLUCOSE; Start 06/17/17 at 05:00 Glucagon (Glucagen) 1 mg Q15M PRN IM DECREASED GLUCOSE; Start 06/17/17 at 05:00 Glucose (Glutose) 15 gm Q15M PRN BUCCAL DECREASED GLUCOSE; Start 06/17/17 at 05 :00 Lactobacillus Acidophilus/ Rhamnosus (Culturelle) 1 cap BID PO Last administered on 06/27/17 07:58; Admin Dose 1 CAP; Start 06/17/17 at 21:00 Famotidine (Pepcid) 20 mg DAILY PO Last administered on 06/27/17 07:58; Admin Dose 20 MG; Start 06/18/17 at 09:00 Guaifenesin (Robitussin Liquid Cup) 100 mg Q4H PRN PO COUGH; Start 06/17/17 at 18:30 IV Flush (NS 10 ml) 10 ml PRN PRN IV IV PROTOCOL; Start 06/18/17 at 17:00 Spironolactone (Aldactone) 25 mg DAILY PO Last administered on 06/27/17 07:58; Admin Dose 25 MG; Start 06/20/17 at 09:30 Hydralazine HCl (Apresoline) 5 mg Q4H PRN IV ELEVATED SYSTOLIC BP; Start at 18:30 Amlodipine Besylate (Norvasc) 5 mg DAILY PO Last administered on 06/27/17 07:58 ; Admin Dose 5 MG; Start 06/20/17 at 18:30 Docusate Sodium (Colace) 100 mg HS PO Last administered on 06/26/17 20:33; Admin Dose 100 MG; Start 06/20/17 at 21:00 Potassium Chloride 40 meq 40 meq BID PO Last administered on 06/27/17 07:56; Admin Dose 40 MEQ; Start 06/20/17 at 21:00 Dextrose (D5W) 1,000 ml @ 100 mls/hr Q10H IV Last administered on 06/27/17 09: 03; Admin Dose 100 MLS/HR; Start 06/22/17 at 09:00 Methimazole (Tapazole) 5 mg QAM PO Last administered on 06/27/17 07:56; Admin Dose 5 MG; Start 06/22/17 at 15:00 JORDYN ESRNA MD Jun 27, 2017 18:17
[2017-06-27 19:52] VITALS: BP 110/66; RESP 18
[2017-06-27] MEDS: DOCUSATE SODIUM 100 MG CAP PO SCH (20:55)
[2017-06-27] MEDS ORDERED: LORAZEPAM 2 MG INJ IV ONE (23:02)
--- NOTE | 2017-06-27 23:57 | RADRPT ---
PROCEDURE: MR Brain and pituitary gland without contrast. CLINICAL INDICATION: Pituitary mass along the CT brain 06/17/2017. TECHNIQUE: An MRI of the brain and pituitary gland was performed on a 1.5 amy scanner utilizing the following sequences: Dedicated thin section pre and postcontrast MRI images of the pituitary gla nd with standard MRI images of the brain including: Sagittal T1 weighted, axial T2 weighted, axial F LAIR, coronal GRE, and axial diffusion weighted with ADC mapping. The patient was unable to complete the examination and no intravenous contrast was administered. COMPARISON: CT brain 06/17/2017 FINDINGS: MRI brain: No evidence of restricted diffusion to suggest acute or early subacute ischemic infarction. No abn ormal extra-axial fluid collections are seen. No hypointense signal abnormalities are seen on the GRE images to suggest the presence of blood degr adation products. Scattered nonspecific FLAIR/T2 signal hyperintensity foci in the subcortical and p eriventricular white matter compatible with sequelae of moderate chronic microvascular ischemic dise ase. There is preservation of esparza white differentiation and moderate central cerebral and cerebellar vol ume loss. Remote lacunar infarcts in the basal ganglia and thalami bilaterally . 2 cm mucous retenti on cyst or polyp in the right maxillary sinus and 1 cm mucous retention cyst or polyp in the left ma xillary sinus. The posterior fossa contents, brainstem, seventh - eighth cranial nerve complexes, orbits, paranasal sinuses, and mastoid air cells are unremarkable. Normal flow voids are visible in the proximal intracranial arteries and dural sinuses, indicating pa tency. The postcontrast images show no abnormal parenchymal, leptomeningeal, or dural enhancement. MRI pituitary: The pituitary sella is narrowed due to tortuous course of the cavernous carotid arteries. There is mild suprasellar extension of pituitary tissue with heterogeneous signal on T1 and T2-weighted seque nces measuring approximately 11 x 5 x 14 mm . This appears to impinge upon the optic chiasm. 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 Contrast imaging is required for further characterization. IMPRESSION: 1. 11 x 5 x 14 mm enlargement of the pituitary gland with narrowing of the pituitary sella secondar y to tortuous cavernous carotid arteries. Postcontrast imaging cannot be performed as the patient wa s unable to continue. Further evaluation with contrast imaging is recommended to exclude the possibi lity of macroadenoma. 2. Moderate chronic microvascular ischemic changes and age related volume loss. No acute or early s ubacute ischemic infarction. 3. Sinus disease as detailed above. 2. 3. RPTAT:AAJJ Jairon Tate Physician Date Time Electronically viewed and signed by Jairon Tate Physician on 06/27/2017 23:57 ERIKA/
[2017-06-28 01:21] VITALS: BP 99/60; RESP 18
[2017-06-28] MEDS: ACCU-CHEK XX SCH (01:23)
[2017-06-28 06:09] LABS: BASOPHILS % 0.8 % (0.0-2.0); EOSINOPHILS % 0.8 % (0.0-7.0); HEMATOCRIT 35.3 % (37.0-47.0); HEMOGLOBIN 11.5 g/dl (12.0-16.0); LYMPHOCYTES # 0.9 10^3/ul (0.8-2.9); LYMPHOCYTES % 23.3 % (15.0-51.0); MEAN CORPUSCULAR HGB CONC 32.6 g/dl (32.0-37.0); MEAN CORPUSCULAR VOLUME 101.1 fl (82.0-101.0); MEAN PLATELET VOLUME 10.5 fl (7.4-10.4); MONOCYTE # 0.5 10^3/ul (0.3-0.9); MONOCYTES % 11.3 % (0.0-11.0); NEUTROPHILS % 60.3 % (39.0-77.0); NUCLEATED RED BLOOD CELLS% 0.8 /100WBC (0.0-0.0); PLATELET COUNT 213 10^3/UL (140-415); RED BLOOD COUNT 3.49 10^6/ul (4.20-5.40); RED CELL DISTRIBUTION WIDTH 20.4 % (11.5-14.5)
[2017-06-28 06:46] LABS: CALCIUM 6.4 mg/dl (8.4-10.2); CREATININE 0.66 mg/dl (0.44-1.00); MAGNESIUM 2.2 mg/dl (1.7-2.5); PHOSPHORUS 1.8 mg/dl (2.5-4.9); POTASSIUM 3.6 mmol/L (3.5-5.1)
[2017-06-28 07:46] VITALS: BP 99/55; RESP 18
[2017-06-28] MEDS: INSULIN ASPART [NOVOLOG] 3 ML PEN SC SCH ×4 (07:59→21:00)
[2017-06-28] MEDS: METHIMAZOLE 5 MG TAB PO SCH ×2 (08:01→08:43)
[2017-06-28] MEDS: FAMOTIDINE 20 MG TAB PO SCH ×2 (08:01→08:43)
[2017-06-28] MEDS: POTASSIUM CHLORIDE 20 MEQ POWDER FOR ORAL SOLN PO SCH ×3 (08:01→21:00)
[2017-06-28] MEDS: SPIRONOLACTONE 25 MG TAB PO SCH ×2 (08:01→08:42)
[2017-06-28] MEDS: LACTOBACILLUS RHAMNOSUS CAP PO SCH ×3 (08:01→21:00)
[2017-06-28] MEDS: AMLODIPINE 5 MG TAB PO SCH (08:43)
--- NOTE | 2017-06-28 08:45 | CONS ---
Date/Time of Note Date/Time of Note DATE: 06/28/17 TIME: 08:40 Assessment/Plan Assessment/Plan Chief Complaint/Hosp Course 86-year-old female who is normally treated by Dr. Huang at [facility] [place]. She reports she has had brain scanning done within the last year. She reports she has cancer that is metastatic to multiple locations. We do not have specific data on this. Patient reports no known history of thyroid disorder and denies any known history of pituitary abnormalities. Problems: (1) Pituitary mass Status: Acute Comment: We Have an incomplete imaging study of this. The optic he has him is not at threat at this time. As such there is no indication for more aggressive treatments. I will defer off further evaluation of this until we have resolution of the metastatic breast cancer. Consultation Date/Type/Reason Admit Date/Time Jun 17, 2017 at 03:48 Initial Consult Date 06/18/17 Type of Consultation: Endocrinology Reason for Consultation Pituitary mass; subclinical hyperthyroidism Referring Provider: KEVEN MESSER 24 HR Interval Summary Free Text/Dictation Patient's verbal but non-cooperative for questions Exam/Review of Systems Vital Signs Vitals Vital Signs Date Time Temp Pulse Resp B/P Pulse Ox O2 Delivery O2 Flow Rate FiO2 06/28/17 07:46 98.4 77 18 99/55 97 Intake and Output 06/27/17 06/27/17 06/28/17 15:00 23:00 07:00 Intake Total 1000 ml 1440 ml 1035 ml Balance 1000 ml 1440 ml 1035 ml Results There is no change in exam, visual gomez are full to confrontation to the best the patient will cooperate for the exam Result Diagram: 06/28/17 0531 06/28/17 0531 Results 24 hrs Laboratory Tests Test 06/27/17 12:32 06/27/17 17:48 06/27/17 20:55 06/28/17 05:31 Bedside Glucose 124 114 116 White Blood Count 4.0 L Red Blood Count 3.49 L Hemoglobin 11.5 L Hematocrit 35.3 L Mean Corpuscular Volume 101.1 H Mean Corpuscular Hemoglobin 33.0 Mean Corpuscular Hemoglobin Concent 32.6 Red Cell Distribution Width 20.4 H Platelet Count 213 Mean Platelet Volume 10.5 H Neutrophils % 60.3 Lymphocytes % 23.3 Monocytes % 11.3 H Eosinophils % 0.8 Basophils % 0.8 Nucleated Red Blood Cells % 0.8 H Neutrophils # (Manual) 2.4 Lymphocytes # 0.9 Monocytes # 0.5 Eosinophils # 0.0 Basophils # 0.0 Nucleated Red Blood Cells # 0.0 Sodium Level 141 Potassium Level 3.6 Chloride Level 116 H Carbon Dioxide Level 24 Anion Gap 5 L Blood Urea Nitrogen 4 L Creatinine 0.66 Glucose Level 125 Calcium Level 6.4 L Phosphorus Level 1.8 L Magnesium Level 2.2 Test 06/28/17 07:58 Bedside Glucose 115 Medications Medications Current Medications Acetaminophen (Tylenol Tab) 650 mg Q6H PRN PO PAIN LEVEL 1-3 OR FEVER; Start at 04:30 Ondansetron HCl (Zofran Inj) 4 mg Q6H PRN IV NAUSEA AND/OR VOMITING Last administered on 06/18/17 20:50; Admin Dose 4 MG; Start 06/17/17 at 04:30 Diagnostic Test (Pha) (Accu-Chek) 1 ea 02 XX Last administered on 06/26/17 02: 00; Admin Dose 1 EA; Start 06/18/17 at 02:00 Miscellaneous Information 1 ea NOTE XX ; Start 06/17/17 at 05:00 Glucose (Glutose) 15 gm Q15M PRN PO DECREASED GLUCOSE; Start 06/17/17 at 05:00 Glucose (Glutose) 22.5 gm Q15M PRN PO DECREASED GLUCOSE; Start 06/17/17 at 05: 00 Dextrose (D50w Syringe) 25 ml Q15M PRN IV DECREASED GLUCOSE; Start 06/17/17 at 05:00 Dextrose (D50w Syringe) 50 ml Q15M PRN IV DECREASED GLUCOSE; Start 06/17/17 at 05:00 Glucagon (Glucagen) 1 mg Q15M PRN IM DECREASED GLUCOSE; Start 06/17/17 at 05:00 Glucose (Glutose) 15 gm Q15M PRN BUCCAL DECREASED GLUCOSE; Start 06/17/17 at 05 :00 Lactobacillus Acidophilus/ Rhamnosus (Culturelle) 1 cap BID PO Last administered on 06/27/17 07:58; Admin Dose 1 CAP; Start 06/17/17 at 21:00 Famotidine (Pepcid) 20 mg DAILY PO Last administered on 06/27/17 07:58; Admin Dose 20 MG; Start 06/18/17 at 09:00 Guaifenesin (Robitussin Liquid Cup) 100 mg Q4H PRN PO COUGH; Start 06/17/17 at 18:30 IV Flush (NS 10 ml) 10 ml PRN PRN IV IV PROTOCOL; Start 06/18/17 at 17:00 Spironolactone (Aldactone) 25 mg DAILY PO Last administered on 06/27/17 07:58; Admin Dose 25 MG; Start 06/20/17 at 09:30 Hydralazine HCl (Apresoline) 5 mg Q4H PRN IV ELEVATED SYSTOLIC BP; Start at 18:30 Amlodipine Besylate (Norvasc) 5 mg DAILY PO Last administered on 06/27/17 07:58 ; Admin Dose 5 MG; Start 06/20/17 at 18:30 Docusate Sodium (Colace) 100 mg HS PO Last administered on 06/26/17 20:33; Admin Dose 100 MG; Start 06/20/17 at 21:00 Potassium Chloride 40 meq 40 meq BID PO Last administered on 06/27/17 07:56; Admin Dose 40 MEQ; Start 06/20/17 at 21:00 Dextrose (D5W) 1,000 ml @ 100 mls/hr Q10H IV Last administered on 06/27/17 23: 54; Admin Dose 100 MLS/HR; Start 06/22/17 at 09:00 Methimazole (Tapazole) 5 mg QAM PO Last administered on 06/27/17 07:56; Admin Dose 5 MG; Start 06/22/17 at 15:00 JORDYN SERNA MD Jun 28, 2017 08:45
--- NOTE | 2017-06-28 09:07 | PN ---
Date/Time of Note Date/Time of Note DATE: 06/28/17 TIME: 09:04 Assessment/Plan VTE Prophylaxis VTE Prophylaxis Intervention: other VTE Contraindication Reason: refusal of treatment by patient Lines/Catheters IV C[facility]ter Type (from [facility]): PICC Line Central line still needed: Yes (IV access) Urinary Cath still in place: No Assessment/Plan Assessment/Plan 1. Failure to thrive 2/2 metastatic breast cancer - Patient is refusing her medications and electrolyte replacement - Spoke with Celina from Hospice as well as case management. Plan is to call the family and offer SNF while waiting for hospice decision since no acute treatment is currently being given to the patient. - Palliative on board and recommendations appreciated. 2. Hypernatremia. Etiology secondary to insensible losses- resolved - Nephrology on board and recommendations appreciated. Progress note reviewed 3. Hypokalemia - 3.6 today - refusing replacement 4. Hypophosphatemia. - 1.8 - refusing replacement 5. 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 Abnormal thyroid function - Stable. Continue current medical management. - Appreciate input from Endocrinology 7. Pituitary adenoma - Endocrinology on board and recommendations appreciated. 8. Sepsis 2/2 RLL PNA- resolved - antibiotic course completed - ID on board and recommendations appreciated 9. Acute encephalopathy- multifactorial Subjective 24 Hr Interval Summary Free Text/Dictation Patient seen and examined. Resting comfortably and in no acute distress. No acute overnight events. Patient is refusing her medication as well as electrolyte replacement treatment . Denies any chest pain, shortness of breath , fevers, hunger, thirst, or other issues. Exam/Review of Systems Vital Signs Vitals Vital Signs Date Time Temp Pulse Resp B/P Pulse Ox O2 Delivery O2 Flow Rate FiO2 06/28/17 07:46 98.4 77 18 99/55 97 Intake and Output 06/27/17 06/27/17 06/28/17 15:00 23:00 07:00 Intake Total 1000 ml 1440 ml 1035 ml Balance 1000 ml 1440 ml 1035 ml Exam General: resting comfortable. no acute distress Neck: Supple. CVS: Regular rate and rhythm. Lungs: Diminished breath sounds at the base. no wheezes or rhonchi Abdomen: Soft, nontender to palpation. No rebound or guarding. Ext: Negative for clubbing or cyanosis. +b/l LE edema Results Result Diagram: 06/28/17 0531 06/28/17 0531 Results 24 hrs Laboratory Tests Test 06/27/17 12:32 06/27/17 17:48 06/27/17 20:55 06/28/17 05:31 Bedside Glucose 124 114 116 White Blood Count 4.0 L Red Blood Count 3.49 L Hemoglobin 11.5 L Hematocrit 35.3 L Mean Corpuscular Volume 101.1 H Mean Corpuscular Hemoglobin 33.0 Mean Corpuscular Hemoglobin Concent 32.6 Red Cell Distribution Width 20.4 H Platelet Count 213 Mean Platelet Volume 10.5 H Neutrophils % 60.3 Lymphocytes % 23.3 Monocytes % 11.3 H Eosinophils % 0.8 Basophils % 0.8 Nucleated Red Blood Cells % 0.8 H Neutrophils # (Manual) 2.4 Lymphocytes # 0.9 Monocytes # 0.5 Eosinophils # 0.0 Basophils # 0.0 Nucleated Red Blood Cells # 0.0 Sodium Level 141 Potassium Level 3.6 Chloride Level 116 H Carbon Dioxide Level 24 Anion Gap 5 L Blood Urea Nitrogen 4 L Creatinine 0.66 Glucose Level 125 Calcium Level 6.4 L Phosphorus Level 1.8 L Magnesium Level 2.2 Test 06/28/17 07:58 Bedside Glucose 115 Medications Medications Current Medications Acetaminophen (Tylenol Tab) 650 mg Q6H PRN PO PAIN LEVEL 1-3 OR FEVER; Start at 04:30 Ondansetron HCl (Zofran Inj) 4 mg Q6H PRN IV NAUSEA AND/OR VOMITING Last administered on 06/18/17 20:50; Admin Dose 4 MG; Start 06/17/17 at 04:30 Diagnostic Test (Pha) (Accu-Chek) 1 ea 02 XX Last administered on 06/26/17 02: 00; Admin Dose 1 EA; Start 06/18/17 at 02:00 Miscellaneous Information 1 ea NOTE XX ; Start 06/17/17 at 05:00 Glucose (Glutose) 15 gm Q15M PRN PO DECREASED GLUCOSE; Start 06/17/17 at 05:00 Glucose (Glutose) 22.5 gm Q15M PRN PO DECREASED GLUCOSE; Start 06/17/17 at 05: 00 Dextrose (D50w Syringe) 25 ml Q15M PRN IV DECREASED GLUCOSE; Start 06/17/17 at 05:00 Dextrose (D50w Syringe) 50 ml Q15M PRN IV DECREASED GLUCOSE; Start 06/17/17 at 05:00 Glucagon (Glucagen) 1 mg Q15M PRN IM DECREASED GLUCOSE; Start 06/17/17 at 05:00 Glucose (Glutose) 15 gm Q15M PRN BUCCAL DECREASED GLUCOSE; Start 06/17/17 at 05 :00 Lactobacillus Acidophilus/ Rhamnosus (Culturelle) 1 cap BID PO Last administered on 06/27/17 07:58; Admin Dose 1 CAP; Start 06/17/17 at 21:00 Famotidine (Pepcid) 20 mg DAILY PO Last administered on 06/27/17 07:58; Admin Dose 20 MG; Start 06/18/17 at 09:00 Guaifenesin (Robitussin Liquid Cup) 100 mg Q4H PRN PO COUGH; Start 06/17/17 at 18:30 IV Flush (NS 10 ml) 10 ml PRN PRN IV IV PROTOCOL; Start 06/18/17 at 17:00 Spironolactone (Aldactone) 25 mg DAILY PO Last administered on 06/27/17 07:58; Admin Dose 25 MG; Start 06/20/17 at 09:30 Hydralazine HCl (Apresoline) 5 mg Q4H PRN IV ELEVATED SYSTOLIC BP; Start at 18:30 Amlodipine Besylate (Norvasc) 5 mg DAILY PO Last administered on 06/27/17 07:58 ; Admin Dose 5 MG; Start 06/20/17 at 18:30 Docusate Sodium (Colace) 100 mg HS PO Last administered on 06/26/17 20:33; Admin Dose 100 MG; Start 06/20/17 at 21:00 Potassium Chloride 40 meq 40 meq BID PO Last administered on 06/27/17 07:56; Admin Dose 40 MEQ; Start 06/20/17 at 21:00 Dextrose (D5W) 1,000 ml @ 50 mls/hr Q20H IV Last administered on 06/27/17 23: 54; Admin Dose 100 MLS/HR; Start 06/22/17 at 09:00 Methimazole 5 mg 5 mg QAM PO Last administered on 06/27/17 07:56; Admin Dose 5 MG; Start 9/2/17 at 15:00 Potassium Phosphate/Sodium Chloride (K Phos (Meq)/NS) 254.5455 ml @ 63.636 m... ONCE ONCE IVPB ; Start 06/28/17 at 09:00; Stop 06/28/17 at 12:59; Status MONA OVALLES MD Jun 28, 2017 09:07
--- NOTE | 2017-06-28 09:32 | PN ---
DATE: 06/28/2017 SUBJECTIVE DATA: The patient is stable. No events overnight. No fevers, chills, nausea, vomiting. OBJECTIVE DATA: VITAL SIGNS: Blood pressure 99/55, respirations 18, pulse 97, temperature 98.4. HEENT: Head is normocephalic. NECK: Supple. HEART: Regular rate. LUNGS: Showed diminished breath sounds at the base. ABDOMEN: Soft, nontender to palpation. No rebound or guarding. EXTREMITIES: Negative for clubbing, cyanosis. No edema. DERMATOLOGIC: Clean. No rashes. MUSCULOSKELETAL: No joint effusion. NEUROLOGIC: No change in exam. MEDICATIONS: Reviewed. LABORATORY AND DIAGNOSTIC DATA: Reviewed. ASSESSMENT AND PLAN: 1. Hypernatremia, improved. Continue D5 water. 2. Hypokalemia, improved. 3. Metastatic breast cancer. Continue medical management. 4. Hypothyroidism. Continue Synthroid. 5. Adrenal adenoma. Follow up with Endocrinology. 6. Sepsis clinically improving. Continue current antibiotic regimen. 7. Hypertension. Continue current blood pressure regimen. 8. Hypophosphatemia. Continue to monitor and replete. 9. Sepsis secondary to pneumonia. The patient is completing antibiotic course. 10. Acute encephalopathy. Etiology multifactorial. Continue to monitor. Dictated By: Saqib Duncan DO /bam/brianna /Document#: [id number]
[2017-06-28] MEDS ORDERED: POTASSIUM PHOSPHATE 20 MEQ in SOD CHLORIDE 0.9% 250 ML IVPB ONE (09:35)
[2017-06-28] MEDS: DEXTROSE 5% 1,000 ML IV SCH ×2 (11:27→17:31)
[2017-06-28 14:05] VITALS: BP 105/59; RESP 16
--- NOTE | 2017-06-28 14:55 | CONS ---
Date/Time of Note Date/Time of Note DATE: 06/28/17 TIME: 14:54 Assessment/Plan Assessment/Plan Chief Complaint/Hosp Course SUBJECTIVE DATA: No acute changes overnight. Looks comfortable, afebrile Abx: none PHYSICAL EXAMINATION: This is a fragile, obese elderly woman, who is in no distress. HEENT: Head atraumatic, normocephalic. Sclerae anicteric. Buccal mucosa pink, dry. NECK: Supple. CHEST: Rise symmetrical. Breath sounds diminished at the bases. HEART: S1, S2. ABDOMEN: Soft, bowel sounds present. EXTREMITIES: No cyanosis. ASSESSMENT: 1. Status post-systemic inflammatory response syndrome. 2. S/p Pneumonia on admission==> completed antibiotics. 3. Metastatic breast cancer. 4. Obesity. 5. Status [id number] Staphylococcus bacteremia with repeat blood cultures negative, consistent with contaminant. PLAN: The patient remains stable, off antibiotics, continue present care, repeat cx's prn, aspiration precautions, repeat cx's prn [facility] staff Problems: Consultation Date/Type/Reason Admit Date/Time Jun 17, 2017 at 03:48 Initial Consult Date 06/18/17 Type of Consultation: ID Referring Provider: KEVEN MESSER Exam/Review of Systems Vital Signs Vitals Vital Signs Date Time Temp Pulse Resp B/P Pulse Ox O2 Delivery O2 Flow Rate FiO2 06/28/17 14:05 97.6 78 16 105/59 96 Intake and Output 06/27/17 06/27/17 06/28/17 15:00 23:00 07:00 Intake Total 1000 ml 1440 ml 1035 ml Balance 1000 ml 1440 ml 1035 ml Results Result Diagram: 06/28/17 0531 06/28/17 0531 Results 24 hrs Laboratory Tests Test 06/27/17 17:48 06/27/17 20:55 06/28/17 05:31 06/28/17 07:58 Bedside Glucose 114 116 115 White Blood Count 4.0 L Red Blood Count 3.49 L Hemoglobin 11.5 L Hematocrit 35.3 L Mean Corpuscular Volume 101.1 H Mean Corpuscular Hemoglobin 33.0 Mean Corpuscular Hemoglobin Concent 32.6 Red Cell Distribution Width 20.4 H Platelet Count 213 Mean Platelet Volume 10.5 H Neutrophils % 60.3 Lymphocytes % 23.3 Monocytes % 11.3 H Eosinophils % 0.8 Basophils % 0.8 Nucleated Red Blood Cells % 0.8 H Neutrophils # (Manual) 2.4 Lymphocytes # 0.9 Monocytes # 0.5 Eosinophils # 0.0 Basophils # 0.0 Nucleated Red Blood Cells # 0.0 Sodium Level 141 Potassium Level 3.6 Chloride Level 116 H Carbon Dioxide Level 24 Anion Gap 5 L Blood Urea Nitrogen 4 L Creatinine 0.66 Glucose Level 125 Calcium Level 6.4 L Phosphorus Level 1.8 L Magnesium Level 2.2 Test 06/28/17 12:16 Bedside Glucose 120 Medications Medications Current Medications Acetaminophen (Tylenol Tab) 650 mg Q6H PRN PO PAIN LEVEL 1-3 OR FEVER; Start at 04:30 Ondansetron HCl (Zofran Inj) 4 mg Q6H PRN IV NAUSEA AND/OR VOMITING Last administered on 06/18/17 20:50; Admin Dose 4 MG; Start 06/17/17 at 04:30 Diagnostic Test (Pha) (Accu-Chek) 1 ea 02 XX Last administered on 06/26/17 02: 00; Admin Dose 1 EA; Start 06/18/17 at 02:00 Miscellaneous Information 1 ea NOTE XX ; Start 06/17/17 at 05:00 Glucose (Glutose) 15 gm Q15M PRN PO DECREASED GLUCOSE; Start 06/17/17 at 05:00 Glucose (Glutose) 22.5 gm Q15M PRN PO DECREASED GLUCOSE; Start 06/17/17 at 05: 00 Dextrose (D50w Syringe) 25 ml Q15M PRN IV DECREASED GLUCOSE; Start 06/17/17 at 05:00 Dextrose (D50w Syringe) 50 ml Q15M PRN IV DECREASED GLUCOSE; Start 06/17/17 at 05:00 Glucagon (Glucagen) 1 mg Q15M PRN IM DECREASED GLUCOSE; Start 06/17/17 at 05:00 Glucose (Glutose) 15 gm Q15M PRN BUCCAL DECREASED GLUCOSE; Start 06/17/17 at 05 :00 Lactobacillus Acidophilus/ Rhamnosus (Culturelle) 1 cap BID PO Last administered on 06/27/17 07:58; Admin Dose 1 CAP; Start 06/17/17 at 21:00 Famotidine (Pepcid) 20 mg DAILY PO Last administered on 06/27/17 07:58; Admin Dose 20 MG; Start 06/18/17 at 09:00 Guaifenesin (Robitussin Liquid Cup) 100 mg Q4H PRN PO COUGH; Start 06/17/17 at 18:30 IV Flush (NS 10 ml) 10 ml PRN PRN IV IV PROTOCOL; Start 06/18/17 at 17:00 Spironolactone (Aldactone) 25 mg DAILY PO Last administered on 06/27/17 07:58; Admin Dose 25 MG; Start 06/20/17 at 09:30 Hydralazine HCl (Apresoline) 5 mg Q4H PRN IV ELEVATED SYSTOLIC BP; Start at 18:30 Amlodipine Besylate (Norvasc) 5 mg DAILY PO Last administered on 06/27/17 07:58 ; Admin Dose 5 MG; Start 06/20/17 at 18:30 Docusate Sodium (Colace) 100 mg HS PO Last administered on 06/26/17 20:33; Admin Dose 100 MG; Start 06/20/17 at 21:00 Potassium Chloride 40 meq 40 meq BID PO Last administered on 06/27/17 07:56; Admin Dose 40 MEQ; Start 06/20/17 at 21:00 Dextrose (D5W) 1,000 ml @ 50 mls/hr Q20H IV Last administered on 06/27/17 23: 54; Admin Dose 100 MLS/HR; Start 06/22/17 at 09:00 Methimazole (Tapazole) 5 mg QAM PO Last administered on 06/27/17 07:56; Admin Dose 5 MG; Start 06/22/17 at 15:00 KIMBERLEY GALDAMEZ NP Jun 28, 2017 14:55
--- NOTE | 2017-06-28 18:08 | CONS ---
Date/Time of Note Date/Time of Note DATE: 06/28/17 TIME: 18:05 Consult Date/Type/Reason Admit Date/Time Jun 17, 2017 at 03:48 Initial Consult Date 06/17/17 Type of Consultation: CARDIOLOGY Ordering Provider: KEVEN MESSER Subjective CARDIOLOGY FOLLOW UP NOTE: D/W staff . pt is off of tele now. She denies any cp or pressure to me. no palpitations. OBJECTIVE: HEENT: Normocephalic, atraumatic Pupils are equal. CARDIOVASCULAR: RRR systolic murmur. PULMONARY: no wheezes. Minimal rhonchi. GASTROINTESTINAL: Soft, obese, nontender. no rebound or guarding. EXTREMITIES: + lower extremity edema. NEUROLOGIC: Awake. Oriented to person only. PSYCH: calm. pleasant DERMATOLOGY: No evidence of bleeding. Multiple seborrheic keratosis noted echo personally reviewed 1. Hyperdynamic left ventricular systolic function. Normal left ventricular cavity size. Moderate concentric left ventricular hypertrophy. Ejection fraction is visually estimated at 70 %. Abnormal Diastolic Function. 2. There is moderate enlargement of left atrium. 3. Mitral valve leaflets appear mildly thickened. Severe mitral annular calcification. Mild mitral valve regurgitation. Mitral valve Max Velocity 1.44 m/sec. MaxPG 8.00 mmHg. MeanPG 2.00 mmHg. 4. Aortic sclerosis without stenosis. Trace aortic valve regurgitation. 5. Normal appearance of the tricuspid valve. Estimated peak PA systolic pressure 47 mmHg. There is mild tricuspid regurgitation. 6. Normal size and normal respiratory collapse consistent with normal right atrial pressure. Objective Vital Signs Date Time Temp Pulse Resp B/P Pulse Ox O2 Delivery O2 Flow Rate FiO2 06/28/17 14:05 97.6 78 16 105/59 96 Intake and Output 06/27/17 06/27/17 06/28/17 15:00 23:00 07:00 Intake Total 1000 ml 1440 ml 1035 ml Balance 1000 ml 1440 ml 1035 ml Results/Medications Result Diagram: 06/28/17 0531 06/28/17 0531 Results 24 hrs Laboratory Tests Test 06/27/17 20:55 06/28/17 05:31 06/28/17 07:58 06/28/17 12:16 Bedside Glucose 116 115 120 White Blood Count 4.0 L Red Blood Count 3.49 L Hemoglobin 11.5 L Hematocrit 35.3 L Mean Corpuscular Volume 101.1 H Mean Corpuscular Hemoglobin 33.0 Mean Corpuscular Hemoglobin Concent 32.6 Red Cell Distribution Width 20.4 H Platelet Count 213 Mean Platelet Volume 10.5 H Neutrophils % 60.3 Lymphocytes % 23.3 Monocytes % 11.3 H Eosinophils % 0.8 Basophils % 0.8 Nucleated Red Blood Cells % 0.8 H Neutrophils # (Manual) 2.4 Lymphocytes # 0.9 Monocytes # 0.5 Eosinophils # 0.0 Basophils # 0.0 Nucleated Red Blood Cells # 0.0 Sodium Level 141 Potassium Level 3.6 Chloride Level 116 H Carbon Dioxide Level 24 Anion Gap 5 L Blood Urea Nitrogen 4 L Creatinine 0.66 Glucose Level 125 Calcium Level 6.4 L Phosphorus Level 1.8 L Magnesium Level 2.2 Test 06/28/17 17:29 Bedside Glucose 127 Medications Current Medications Acetaminophen (Tylenol Tab) 650 mg Q6H PRN PO PAIN LEVEL 1-3 OR FEVER; Start at 04:30 Ondansetron HCl (Zofran Inj) 4 mg Q6H PRN IV NAUSEA AND/OR VOMITING Last administered on 06/18/17 20:50; Admin Dose 4 MG; Start 06/17/17 at 04:30 Diagnostic Test (Pha) (Accu-Chek) 1 ea 02 XX Last administered on 06/26/17 02: 00; Admin Dose 1 EA; Start 06/18/17 at 02:00 Miscellaneous Information 1 ea NOTE XX ; Start 06/17/17 at 05:00 Glucose (Glutose) 15 gm Q15M PRN PO DECREASED GLUCOSE; Start 06/17/17 at 05:00 Glucose (Glutose) 22.5 gm Q15M PRN PO DECREASED GLUCOSE; Start 06/17/17 at 05: 00 Dextrose (D50w Syringe) 25 ml Q15M PRN IV DECREASED GLUCOSE; Start 06/17/17 at 05:00 Dextrose (D50w Syringe) 50 ml Q15M PRN IV DECREASED GLUCOSE; Start 06/17/17 at 05:00 Glucagon (Glucagen) 1 mg Q15M PRN IM DECREASED GLUCOSE; Start 06/17/17 at 05:00 Glucose (Glutose) 15 gm Q15M PRN BUCCAL DECREASED GLUCOSE; Start 06/17/17 at 05 :00 Lactobacillus Acidophilus/ Rhamnosus (Culturelle) 1 cap BID PO Last administered on 06/27/17 07:58; Admin Dose 1 CAP; Start 06/17/17 at 21:00 Famotidine (Pepcid) 20 mg DAILY PO Last administered on 06/27/17 07:58; Admin Dose 20 MG; Start 06/18/17 at 09:00 Guaifenesin (Robitussin Liquid Cup) 100 mg Q4H PRN PO COUGH; Start 06/17/17 at 18:30 IV Flush (NS 10 ml) 10 ml PRN PRN IV IV PROTOCOL; Start 06/18/17 at 17:00 Spironolactone (Aldactone) 25 mg DAILY PO Last administered on 06/27/17 07:58; Admin Dose 25 MG; Start 06/20/17 at 09:30 Hydralazine HCl (Apresoline) 5 mg Q4H PRN IV ELEVATED SYSTOLIC BP; Start at 18:30 Amlodipine Besylate (Norvasc) 5 mg DAILY PO Last administered on 06/27/17 07:58 ; Admin Dose 5 MG; Start 06/20/17 at 18:30 Docusate Sodium (Colace) 100 mg HS PO Last administered on 06/26/17 20:33; Admin Dose 100 MG; Start 06/20/17 at 21:00 Potassium Chloride 40 meq 40 meq BID PO Last administered on 06/27/17 07:56; Admin Dose 40 MEQ; Start 06/20/17 at 21:00 Dextrose (D5W) 1,000 ml @ 50 mls/hr Q20H IV Last administered on 06/28/17 17: 31; Admin Dose 50 MLS/HR; Start 06/22/17 at 09:00 Methimazole (Tapazole) 5 mg QAM PO Last administered on 06/27/17 07:56; Admin Dose 5 MG; Start 06/22/17 at 15:00 Assessment/Plan Chief Complaint/Hosp Course 1. Mildly abnormal troponin with no chest pain and ejection fraction of 70%. Most likely c/w a false positive troponin. 2. Hypertension with hypertensive heart disease.:improved now 3. Abnormal EKG secondary to above. 4. Brain mass/tumor, possible adenoma per CT. 5. 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 6. Thyroid disorder. 7. Possible sepsis. 8. Status post fall. 9. Encephalopathy. 10. Hyperglycemia. 11. Elevated lactic acid/lactic acidosis and possible sepsis. 12. severe hypo K. . RECOMMENDATIONS: . cont BP control. currently well controlled. Diabetic management as per Internal Medicine/ endocrine rec Antibiotic as per Internal Medicine. Thyroid management as per Internal Medicine and endocrine consult Conservative cardiac therapy is only recommended at this point. replace K and Mg prn. no further cardiac work up is needed at this time. will f/u prn Thank you MELISSA LIZARRAGA MD FAC Problems: MELISSA LIZARRAGA MD Jun 28, 2017 18:08
[2017-06-28 20:48] VITALS: BP 122/57; RESP 16
[2017-06-28] MEDS: DOCUSATE SODIUM 100 MG CAP PO SCH (21:00)
[2017-06-29] MEDS: ACCU-CHEK XX SCH (02:00)
[2017-06-29 02:55] VITALS: BP 126/65; RESP 16
[2017-06-29 07:03] LABS: CALCIUM 6.4 mg/dl (8.4-10.2); CREATININE 0.68 mg/dl (0.44-1.00); PHOSPHORUS 2.6 mg/dl (2.5-4.9); POTASSIUM 3.3 mmol/L (3.5-5.1)
[2017-06-29 07:24] VITALS: BP 109/59; RESP 18
[2017-06-29] MEDS: DEXTROSE 5% 1,000 ML IV SCH (07:27)
[2017-06-29] MEDS: INSULIN ASPART [NOVOLOG] 3 ML PEN SC SCH ×4 (08:15→21:00)
[2017-06-29] MEDS: AMLODIPINE 5 MG TAB PO SCH (08:26)
[2017-06-29] MEDS: SPIRONOLACTONE 25 MG TAB PO SCH (08:26)
[2017-06-29] MEDS: FAMOTIDINE 20 MG TAB PO SCH (08:26)
[2017-06-29] MEDS: LACTOBACILLUS RHAMNOSUS CAP PO SCH ×2 (08:26→21:00)
[2017-06-29] MEDS: POTASSIUM CHLORIDE 20 MEQ POWDER FOR ORAL SOLN PO SCH ×2 (08:27→21:00)
[2017-06-29] MEDS: METHIMAZOLE 5 MG TAB PO SCH (08:27)
[2017-06-29] MEDS ORDERED: POTASSIUM CHLORIDE 250 ML IVPB ONE (09:30)
[2017-06-29] MEDS: D5W + KCL 20 MEQ 1,000 ML IV SCH (09:52)
--- NOTE | 2017-06-29 13:39 | PN ---
Date/Time of Note Date/Time of Note DATE: 06/29/17 TIME: 13:32 Assessment/Plan VTE Prophylaxis VTE Prophylaxis Intervention: contraindicated Lines/Catheters IV Catheter Type (from [facility]): PICC Line Central line still needed: Yes (need for IV access due to poor venous access) Urinary Cath still in place: No Assessment/Plan Assessment/Plan 1. Failure to thrive 2/2 metastatic breast cancer - Patient does not have adequate PO intake. Monitoring electrolytes and replacing as needed - Palliative on board and recommendations appreciated. 2. Hypernatremia. Etiology secondary to insensible losses- resolved - Nephrology on board and recommendations appreciated. Progress note reviewed 3. Hypokalemia - 3.3 today - replaced 4. Hypophosphatemia. - 2.6 5. 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 Will work with case management on arrangements to get patient home in the next 24-48 hours since patient has remained stable and no acute management required at this time. 6. Abnormal thyroid function - Stable. Continue current medical management. - Appreciate input from Endocrinology 7. Pituitary adenoma - Endocrinology on board and recommendations appreciated. 8. Sepsis 2/2 RLL PNA- resolved - antibiotic course completed - ID on board and recommendations appreciated 9. Acute encephalopathy- multifactorial Subjective 24 Hr Interval Summary Free Text/Dictation Patient resting comfortable. Opened eyes when spoken to but told to "leave her alone." Denies any acute complaints and no overnight events. Exam/Review of Systems Vital Signs Vitals Vital Signs Date Time Temp Pulse Resp B/P Pulse Ox O2 Delivery O2 Flow Rate FiO2 06/29/17 07:24 97.4 80 18 109/59 95 06/29/17 01:40 2.0 Intake and Output 06/28/17 06/28/17 06/29/17 15:00 23:00 07:00 Intake Total 779.55 ml 240 ml 1560 ml Balance 779.55 ml 240 ml 1560 ml Exam General: resting comfortable. no acute distress Neck: Supple. CVS: Regular rate and rhythm. Lungs: Diminished breath sounds at the base. no wheezes or rhonchi Abdomen: Soft, nontender to palpation. No rebound or guarding. Ext: Negative for clubbing or cyanosis. +b/l LE edema Results Result Diagram: 06/28/17 0531 06/29/17 0539 Results 24 hrs Laboratory Tests Test 06/28/17 17:29 06/28/17 21:09 06/29/17 05:39 06/29/17 08:20 Bedside Glucose 127 106 117 Sodium Level 142 Potassium Level 3.3 L Chloride Level 115 H Carbon Dioxide Level 23 Anion Gap 7 L Blood Urea Nitrogen 4 L Creatinine 0.68 Glucose Level 113 Calcium Level 6.4 L Phosphorus Level 2.6 Magnesium Level 2.0 Test 06/29/17 12:11 Bedside Glucose 144 Medications Medications Current Medications Acetaminophen (Tylenol Tab) 650 mg Q6H PRN PO PAIN LEVEL 1-3 OR FEVER; Start at 04:30 Ondansetron HCl (Zofran Inj) 4 mg Q6H PRN IV NAUSEA AND/OR VOMITING Last administered on 06/18/17 20:50; Admin Dose 4 MG; Start 06/17/17 at 04:30 Diagnostic Test (Pha) (Accu-Chek) 1 ea 02 XX Last administered on 06/26/17 02: 00; Admin Dose 1 EA; Start 06/18/17 at 02:00 Miscellaneous Information 1 ea NOTE XX ; Start 06/17/17 at 05:00 Glucose (Glutose) 15 gm Q15M PRN PO DECREASED GLUCOSE; Start 06/17/17 at 05:00 Glucose (Glutose) 22.5 gm Q15M PRN PO DECREASED GLUCOSE; Start 06/17/17 at 05: 00 Dextrose (D50w Syringe) 25 ml Q15M PRN IV DECREASED GLUCOSE; Start 06/17/17 at 05:00 Dextrose (D50w Syringe) 50 ml Q15M PRN IV DECREASED GLUCOSE; Start 06/17/17 at 05:00 Glucagon (Glucagen) 1 mg Q15M PRN IM DECREASED GLUCOSE; Start 06/17/17 at 05:00 Glucose (Glutose) 15 gm Q15M PRN BUCCAL DECREASED GLUCOSE; Start 06/17/17 at 05 :00 Lactobacillus Acidophilus/ Rhamnosus (Culturelle) 1 cap BID PO Last administered on 06/27/17 07:58; Admin Dose 1 CAP; Start 06/17/17 at 21:00 Famotidine (Pepcid) 20 mg DAILY PO Last administered on 06/27/17 07:58; Admin Dose 20 MG; Start 06/18/17 at 09:00 Guaifenesin (Robitussin Liquid Cup) 100 mg Q4H PRN PO COUGH; Start 06/17/17 at 18:30 IV Flush (NS 10 ml) 10 ml PRN PRN IV IV PROTOCOL; Start 06/18/17 at 17:00 Spironolactone (Aldactone) 25 mg DAILY PO Last administered on 06/27/17 07:58; Admin Dose 25 MG; Start 06/20/17 at 09:30 Hydralazine HCl (Apresoline) 5 mg Q4H PRN IV ELEVATED SYSTOLIC BP; Start at 18:30 Amlodipine Besylate (Norvasc) 5 mg DAILY PO Last administered on 06/27/17 07:58 ; Admin Dose 5 MG; Start 06/20/17 at 18:30 Docusate Sodium (Colace) 100 mg HS PO Last administered on 06/26/17 20:33; Admin Dose 100 MG; Start 06/20/17 at 21:00 Potassium Chloride (Potassium Chloride Pwd/Soln) 40 meq BID PO Last administered on 06/27/17 07:56; Admin Dose 40 MEQ; Start 06/20/17 at 21:00 Methimazole 5 mg 5 mg QAM PO Last administered on 06/27/17 07:56; Admin Dose 5 MG; Start 06/22/17 at 15:00 Potassium Chloride/Dextrose (D5W + KCl 20 Meq) 1,000 ml @ 50 mls/hr Q20H IV Last administered on 06/29/17 09:52; Admin Dose 50 MLS/HR; Start 06/29/17 at 09: 00 MONA ADAIR MD Jun 29, 2017 13:39
--- NOTE | 2017-06-29 14:31 | PN ---
DATE: 06/29/2017 SUBJECTIVE DATA: The patient is stable. No events overnight. No fevers, chills, nausea, vomiting. OBJECTIVE DATA: VITAL SIGNS: Blood pressure 109/59, respirations 18, pulse 80, temperature 97.4. HEENT: Head is normocephalic. NECK: Supple. HEART: Regular rate. LUNGS: Diminished breath sounds at the base. ABDOMEN: Soft, nontender to palpation. No rebound or guarding. EXTREMITIES: Negative for clubbing, cyanosis. No edema. DERMATOLOGIC: No rashes. MUSCULOSKELETAL: No joint effusion. NEUROLOGIC: No change in exam. MEDICATIONS: Reviewed. LABORATORY AND DIAGNOSTIC DATA: Reviewed. Patient has sodium 142, potassium 3.3, BUN 4, creatinine 0.68. ASSESSMENT AND PLAN: 1. Hyponatremia, improved. Patient is on D5 water. Will consider discontinue. 2. Hypokalemia. Replete potassium chloride. 3. Metastatic breast cancer. Continue medical management. 4. Hypothyroidism. Continue Synthroid. 5. Adrenal adenoma. Follow up with Endocrinology. 6. Sepsis. Clinically improving. Patient is completing antibiotic course. 7. Hypertension. Continue current blood pressure regimen. 8. Hypophosphatemia. Continue to monitor and replete. 9. Acute encephalopathy. multifactorial. Continue to monitor. Dictated By: Saqib Duncan DO /bam/belem /Document#: [id number]
[2017-06-29 14:32] VITALS: BP 110/63; RESP 18
[2017-06-29 19:42] VITALS: BP 103/53; RESP 18
[2017-06-29] MEDS: DOCUSATE SODIUM 100 MG CAP PO SCH (21:00)
[2017-06-30 01:26] VITALS: BP 111/72; RESP 18
[2017-06-30] MEDS: ACCU-CHEK XX SCH (02:00)
[2017-06-30] MEDS: D5W + KCL 20 MEQ 1,000 ML IV SCH ×2 (05:00→10:32)
[2017-06-30 05:54] LABS: BASOPHILS % 0.7 % (0.0-2.0); HEMATOCRIT 34.7 % (37.0-47.0); HEMOGLOBIN 11.5 g/dl (12.0-16.0); LYMPHOCYTES % 24.1 % (15.0-51.0); MEAN CORPUSCULAR HEMOGLOBIN 33.5 pg (29.0-33.0); MEAN CORPUSCULAR HGB CONC 33.1 g/dl (32.0-37.0); MEAN CORPUSCULAR VOLUME 101.2 fl (82.0-101.0); MEAN PLATELET VOLUME 10.4 fl (7.4-10.4); MONOCYTE # 0.5 10^3/ul (0.3-0.9); MONOCYTES % 12.3 % (0.0-11.0); NEUTROPHILS % 58.2 % (39.0-77.0); PLATELET COUNT 259 10^3/UL (140-415); RED BLOOD COUNT 3.43 10^6/ul (4.20-5.40); RED CELL DISTRIBUTION WIDTH 19.7 % (11.5-14.5); WHITE BLOOD COUNT 4.1 10^3/ul (4.8-10.8)
[2017-06-30 06:31] LABS: ALBUMIN 2.3 g/dl (3.3-4.9); CALCIUM 6.5 mg/dl (8.4-10.2); CREATININE 0.65 mg/dl (0.44-1.00); PHOSPHORUS 2.1 mg/dl (2.5-4.9); POTASSIUM 3.7 mmol/L (3.5-5.1)
[2017-06-30 07:39] VITALS: BP 116/55; RESP 18
[2017-06-30] MEDS: INSULIN ASPART [NOVOLOG] 3 ML PEN SC SCH ×4 (07:56→21:00)
--- NOTE | 2017-06-30 09:19 | PN ---
Date/Time of Note Date/Time of Note DATE: 06/30/17 TIME: 09:17 Assessment/Plan VTE Prophylaxis VTE Prophylaxis Intervention: other Lines/Catheters [facility] Type [facility] PICC Line Central line still needed: Yes Urinary Cath still in place: No Assessment/Plan Assessment/Plan 1. Failure to thrive 2/2 metastatic breast cancer - Patient continues to refuse all PO intake as well as medications. Monitoring electrolytes and replacing as needed - Palliative on board and recommendations appreciated. 2. Hypernatremia. Etiology secondary to insensible losses- resolved - Nephrology on board and recommendations appreciated 3. Hypokalemia- improving - 3.7 today 4. Hypophosphatemia. - 2.1, replaced 5. 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 Will work with case management on arrangements to get patient home in the next 24-48 hours since patient has remained stable and no acute management required at this time. 6. Abnormal thyroid function - Stable. Continue current medical management. - Appreciate input from Endocrinology 7. Pituitary adenoma - Endocrinology on board and recommendations appreciated. 8. Sepsis 2/2 RLL PNA- resolved - antibiotic course completed - ID on board and recommendations appreciated 9. Acute encephalopathy- multifactorial Subjective 24 Hr Interval Summary Free Text/Dictation Patient more awake and alert this am. C/o thirst and asked for water. States does not have an appetite and does not want to take her PO medications. Denies any fevers, chills, nausea, vomiting, chest pain or shortness of breath Exam/Review of Systems Vital Signs Vitals Vital Signs Date Time Temp Pulse Resp B/P Pulse Ox O2 Delivery O2 Flow Rate FiO2 06/30/17 07:39 97.8 81 18 116/55 95 06/30/17 00:34 2.0 06/29/17 16:58 28 Intake and Output 06/29/17 06/29/17 06/30/17 15:00 23:00 07:00 Intake Total 450 ml 690 ml 1250 ml Balance 450 ml 690 ml 1250 ml Exam General: resting comfortable. no acute distress Neck: Supple. CVS: Regular rate and rhythm. Lungs: Diminished breath sounds at the base. no wheezes or rhonchi Abdomen: Soft, nontender to palpation. No rebound or guarding. Ext: Negative for clubbing or cyanosis. +b/l trace LE edema Results Result Diagram: 06/30/17 0503 06/30/17 0503 Results 24 hrs Laboratory Tests Test 06/29/17 12:11 06/29/17 17:08 06/29/17 21:47 06/30/17 05:03 Bedside Glucose 144 116 95 White Blood Count 4.1 L Red Blood Count 3.43 L Hemoglobin 11.5 L Hematocrit 34.7 L Mean Corpuscular Volume 101.2 H Mean Corpuscular Hemoglobin 33.5 H Mean Corpuscular Hemoglobin Concent 33.1 Red Cell Distribution Width 19.7 H Platelet Count 259 # Mean Platelet Volume 10.4 Neutrophils % 58.2 Lymphocytes % 24.1 Monocytes % 12.3 H Eosinophils % 1.0 Basophils % 0.7 Nucleated Red Blood Cells % 0.0 Neutrophils # (Manual) 2.4 Lymphocytes # 1.0 Monocytes # 0.5 Eosinophils # 0.0 Basophils # 0.0 Nucleated Red Blood Cells # 0.0 Sodium Level 140 Potassium Level 3.7 Chloride Level 113 H Carbon Dioxide Level 24 Anion Gap 7 L Blood Urea Nitrogen 6 L Creatinine 0.65 Glucose Level 113 Calcium Level 6.5 L Phosphorus Level 2.1 L Magnesium Level 2.0 Albumin 2.3 L Test 06/30/17 07:56 Bedside Glucose 132 Medications Medications Current Medications Acetaminophen (Tylenol Tab) 650 mg Q6H PRN PO PAIN LEVEL 1-3 OR FEVER; Start at 04:30 Ondansetron HCl (Zofran Inj) 4 mg Q6H PRN IV NAUSEA AND/OR VOMITING Last administered on 06/18/17 20:50; Admin Dose 4 MG; Start 06/17/17 at 04:30 Diagnostic Test (Pha) (Accu-Chek) 1 ea 02 XX Last administered on 06/26/17 02: 00; Admin Dose 1 EA; Start 06/18/17 at 02:00 Miscellaneous Information 1 ea NOTE XX ; Start 06/17/17 at 05:00 Glucose (Glutose) 15 gm Q15M PRN PO DECREASED GLUCOSE; Start 06/17/17 at 05:00 Glucose (Glutose) 22.5 gm Q15M PRN PO DECREASED GLUCOSE; Start 06/17/17 at 05: 00 Dextrose (D50w Syringe) 25 ml Q15M PRN IV DECREASED GLUCOSE; Start 06/17/17 at 05:00 Dextrose (D50w Syringe) 50 ml Q15M PRN IV DECREASED GLUCOSE; Start 06/17/17 at 05:00 Glucagon (Glucagen) 1 mg Q15M PRN IM DECREASED GLUCOSE; Start 06/17/17 at 05:00 Glucose (Glutose) 15 gm Q15M PRN BUCCAL DECREASED GLUCOSE; Start 06/17/17 at 05 :00 Lactobacillus Acidophilus/ Rhamnosus (Culturelle) 1 cap BID PO Last administered on 06/27/17 07:58; Admin Dose 1 CAP; Start 06/17/17 at 21:00 Famotidine (Pepcid) 20 mg DAILY PO Last administered on 06/27/17 07:58; Admin Dose 20 MG; Start 06/18/17 at 09:00 Guaifenesin (Robitussin Liquid Cup) 100 mg Q4H PRN PO COUGH; Start 06/17/17 at 18:30 IV Flush (NS 10 ml) 10 ml PRN PRN IV IV PROTOCOL; Start 06/18/17 at 17:00 Spironolactone (Aldactone) 25 mg DAILY PO Last administered on 06/27/17 07:58; Admin Dose 25 MG; Start 06/20/17 at 09:30 Hydralazine HCl (Apresoline) 5 mg Q4H PRN IV ELEVATED SYSTOLIC BP; Start at 18:30 Amlodipine Besylate (Norvasc) 5 mg DAILY PO Last administered on 06/27/17 07:58 ; Admin Dose 5 MG; Start 06/20/17 at 18:30 Docusate Sodium (Colace) 100 mg HS PO Last administered on 06/26/17 20:33; Admin Dose 100 MG; Start 06/20/17 at 21:00 Potassium Chloride (Potassium Chloride Pwd/Soln) 40 meq BID PO Last administered on 06/27/17 07:56; Admin Dose 40 MEQ; Start 06/20/17 at 21:00 Methimazole 5 mg 5 mg QAM PO Last administered on 06/27/17 07:56; Admin Dose 5 MG; Start 06/22/17 at 15:00 Potassium Chloride/Dextrose 1,000 ml @ 50 mls/hr Q20H IV Last administered on 06/29/17t 09:52; Admin Dose 50 MLS/HR; Start 06/29/17 at 09:00 Potassium Phosphate/Sodium Chloride (K Phos (Meq)/NS) 259.0909 ml @ 64.773 m... ONCE ONCE IVPB ; Start 06/30/17 at 10:00; Stop 06/30/17 at 13:59 MONA ADAIR MD Jun 30, 2017 09:19
[2017-06-30] MEDS ORDERED: POTASSIUM PHOSPHATE 40 MEQ in SOD CHLORIDE 0.9% 250 ML IVPB ONE (10:00)
[2017-06-30] MEDS: ONDANSETRON 4 MG INJ IV PRN (10:01)
[2017-06-30] MEDS: LACTOBACILLUS RHAMNOSUS CAP PO SCH ×2 (10:17→21:00)
[2017-06-30] MEDS: FAMOTIDINE 20 MG TAB PO SCH (10:18)
[2017-06-30] MEDS: POTASSIUM CHLORIDE 20 MEQ POWDER FOR ORAL SOLN PO SCH ×2 (10:18→21:00)
[2017-06-30] MEDS: AMLODIPINE 5 MG TAB PO SCH (10:18)
[2017-06-30] MEDS: METHIMAZOLE 5 MG TAB PO SCH (10:18)
[2017-06-30] MEDS: SPIRONOLACTONE 25 MG TAB PO SCH (10:18)
[2017-06-30 10:30] VITALS: BP 102/66; PULSE 91
[2017-06-30 13:14] VITALS: BP 120/65; RESP 20
[2017-06-30 19:34] VITALS: BP 96/51; RESP 20
[2017-06-30] MEDS: DOCUSATE SODIUM 100 MG CAP PO SCH (21:00)
[2017-07-01] MEDS: D5W + KCL 20 MEQ 1,000 ML IV SCH ×2 (01:00→08:37)
[2017-07-01 01:50] VITALS: BP 81/53; RESP 20
[2017-07-01] MEDS: ACCU-CHEK XX SCH (02:00)
[2017-07-01] MEDS: INSULIN ASPART [NOVOLOG] 3 ML PEN SC SCH ×4 (07:50→21:00)
[2017-07-01 08:03] VITALS: BP 95/55; RESP 18
[2017-07-01] MEDS: LACTOBACILLUS RHAMNOSUS CAP PO SCH ×2 (09:00→22:01)
[2017-07-01] MEDS: METHIMAZOLE 5 MG TAB PO SCH (09:00)
[2017-07-01] MEDS: SPIRONOLACTONE 25 MG TAB PO SCH (09:00)
[2017-07-01] MEDS: FAMOTIDINE 20 MG TAB PO SCH (09:00)
[2017-07-01] MEDS: AMLODIPINE 5 MG TAB PO SCH (09:00)
[2017-07-01] MEDS: POTASSIUM CHLORIDE 20 MEQ POWDER FOR ORAL SOLN PO SCH ×2 (09:00→22:01)
--- NOTE | 2017-07-01 12:12 | PDOCDIS ---
Discharge Instructions CONDITION Patient Condition: Stable HOME CARE INSTRUCTIONS: Special Diet: 1800 ada FOLLOW UP/APPOINTMENTS Follow-up Plan 1.Follow up with primary care physician in 1 week If you don't have one please let someone know, we can give you resources that may help you pick one. You may also call your insurance company to assign one to you. Review your medication list with your nurse before leaving and if you need new prescriptions please let your nurse know. I may have made changes to your home medications or given you new prescriptions, please let your primary doctor know as well. Stay compliant with your medications and report any side effects to your PCP or pharmacist. Return to the ER if you have any concerns and cannot reach your doctors or call your insurance company, they usually have a nurse that can help you. 2. Call 911 or go to the nearest emergency room if experiencing loss of consciousness, dizziness, chest pain, shortness of breath, vomiting/abdominal pain, speech difficulties, motor weakness or any unusual symptoms. SHEILA MELENDEZ NP Jul 01, 2017 12:12
[2017-07-01] MEDS ORDERED: METH-493 PO (12:13)
[2017-07-01] MEDS ORDERED: SPIR25TA PO (12:13)
[2017-07-01] MEDS ORDERED: AMLO-145 PO (12:13)
[2017-07-01 14:12] VITALS: BP 108/60; RESP 20
--- NOTE | 2017-07-01 14:57 | DS ---
Date/Time of Note Date/Time of Note DATE: 07/01/17 TIME: 14:57 Discharge Summary Admission/Discharge Info Admit Date/Time Jun 17, 2017 at 03:48 Discharge Date/Time Discharge Diagnosis 1. Failure to thrive 2/2 metastatic breast cancer. Supportive care 2. Hypernatremia. Etiology secondary to insensible losses- resolved 3. Hypokalemia-resolved 4. Hypophosphatemia. 5. 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 Abnormal thyroid function 7. Pituitary adenoma 8. Sepsis 2/2 RLL PNA- resolved 9. Acute encephalopathy- multifactorial Patient Condition: Stable Consults ,Endocrinology ,ID ,Crads ,Nephro Procedures 06/27/2017. Brain MRI MPRESSION: 1. 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 Postcontrast imaging cannot be performed as the patient was unable to continue. Further evaluation with contrast imaging is recommended to exclude the possibility of macroadenoma. 2. Moderate chronic microvascular ischemic changes and age related volume loss. No acute or early subacute ischemic infarction. 3. Sinus disease as detailed above. Hx of Present Illness Hospital Course This is a very unfortunate 86-year-old bedbound female with a past medical history of metastatic brain cancer with metastases to the lungs and brain, who was brought to the emergency room paramedics after patient fell from bed. Patient has been altered and progressively weak over the past few weeks. Patient was in severe electrolyte disturbance with failure to thrive upon arrival. Patient was admitted. Electrolyte levels was monitored closely. Patient was also evaluated by nephrology for underlying hyponatremia likely with dehydration. We continue to monitor lites closely and replaced as indicated. Patient also had associated hypokalemia and hypophosphatemia. In regards to metastatic cancer, patient was evaluated palliative care team. However, patient's family was not receptive for hospice at this time. Patient continued to refuse medications and treatment. Her mental status remained altered on and off. Patient and family was not in agreement for a DNR status. She was continued on supportive care with current medical management. She was also evaluated by endocrinology for underlying pituitary adenoma and conservative medical management was recommended. Patient was also treated for sepsis secondary to pneumonia. She was evaluated by multiple specialities including nephrology, cardiology and endocrinology. Recommendation was to continue conservative medical management as patient with documented poor prognosis with metastatic cancer. At this time, her condition remains at baseline. Her mental status remains at baseline. As patient's family wanted to take her home with home health, there is no need for further workup although patient was an appropriate candidate for hospice evaluation and a comfort focused care. Disposition: She will be discharged home with home health. She was instructed to follow-up with primary care physician. Patient to continue on home medications upon discharge. Patient and family verbalized discharge instructions. Overall patient with poor prognosis. However family is not receptive to hospice at this time. Patient was sent home in stable condition. Home Meds Active Scripts Methimazole* (Methimazole*) 5 Mg Tablet, 5 MG PO QAM, #30 TAB Prov:SHEILA MELENDEZ NP 07/01/17 Bisacodyl* (Bisacodyl*) 5 Mg Tablet.dr, 5 MG PO DAILY Y for CONSTIPATION for 1 Day, #1 Prov:MICHAEL RAMSAY MD 03/27/17 Guaifenesin-Dextromethorphan* (Robitussin* DM) 100MG/10MG/5ML Syrup, 10 ML PO Q4H Y for COUGH for 1 Day, #1 Prov:MICHAEL RAMSAY MD 03/27/17 Acetaminophen (MAPAP) 325 Mg Tablet, 650 MG PO Q6H Y for PAIN LEVEL 1-3 OR FEVER for 1 Day, #1 TAB Prov:MICHAEL RAMSAY MD 03/27/17 Reported Medications Multivits-Min/Iron/FA/Lutein (Centrum Silver Women Tablet) 1 Each Tablet, 1 EACH PO, TAB 03/27/17 Discontinued Scripts Levofloxacin* (Levaquin*) 750 Mg Tablet, 750 MG PO DAILY@06 for 5 Days, #5 TAB Prov:MICHAEL RAMSAY MD 03/27/17 Follow-up Plan HOME CARE INSTRUCTIONS: Special Diet: 1800 ada FOLLOW UP/APPOINTMENTS Follow-up Plan 1.Follow up with primary care physician in 1 week If you don't have one please let someone know, we can give you resources that may help you pick one. You may also call your insurance company to assign one to you. Review your medication list with your nurse before leaving and if you need new prescriptions please let your nurse know. I may have made changes to your home medications or given you new prescriptions, please let your primary doctor know as well. Stay compliant with your medications and report any side effects to your PCP or pharmacist. Return to the ER if you have any concerns and cannot reach your doctors or call your insurance company, they usually have a nurse that can help you. 2. Call 911 or go to the nearest emergency room if experiencing loss of consciousness, dizziness, chest pain, shortness of breath, vomiting/abdominal pain, speech difficulties, motor weakness or any unusual symptoms. Primary Care Provider Not On Staff Doctor Pending Labs Laboratory Tests Test 06/30/17 17:08 06/30/17 21:46 07/01/17 07:50 07/01/17 11:56 Bedside Glucose 104mg/dL (70-220) 104mg/dL (70-220) 110mg/dL (70-220) 115mg/dL (70-220) SHEILA MELENDEZ NP Jul 01, 2017 14:57
--- NOTE | 2017-07-01 18:47 | PN ---
DATE: 07/01/2017 SUBJECTIVE DATA: The patient is stable. No events overnight. No fevers, chills, nausea, or vomiting. The patient has poor p.o. intake. No other events noted. OBJECTIVE DATA: Blood pressure is 95/55, respirations 18, pulse 79, and temperature 97.6. HEENT: Head is normocephalic. NECK: Supple. HEART: Regular rate. LUNGS: Diminished breath sounds at the base. ABDOMEN: Soft, nontender to palpation. No rebound or guarding. EXTREMITIES: Negative for clubbing, cyanosis. No edema. DERMATOLOGIC: Clean. No rashes. MUSCULOSKELETAL: No joint effusion. NEUROLOGIC: No change in exam. MEDICATIONS: Reviewed. LABORATORY AND DIAGNOSTIC DATA: Reviewed. No new labs. ASSESSMENT AND PLAN: 1. Hypernatremia, improved. Continue D5 water. 2. Hypokalemia. Continue to monitor and replete. 3. Hypothyroidism. Continue Synthroid. 4. Adrenal adenoma. Follow up with Endocrinology. 5. Metastatic breast cancer. 6. Sepsis, clinically improving. 7. Hypertension. Continue current blood pressure regimen. 8. Hypophosphatemia. Continue to monitor and replete as needed. Dictated By: Saqib Duncan DO /bam/yuridia /Document#: [id number]
[2017-07-01 19:29] VITALS: BP 93/55; RESP 18
--- NOTE | 2017-07-01 19:32 | CONS ---
Date/Time of Note Date/Time of Note DATE: 07/01/17 TIME: 19:31 Consult Date/Type/Reason Admit Date/Time Jun 17, 2017 at 03:48 Initial Consult Date 06/17/17 Type of Consultation: CARDIOLOGY Ordering Provider: KEVEN MESSER Subjective CARDIOLOGY FOLLOW UP NOTE: D/W staff . She denies any cp or pressure to me. no bleeding no palpitations. OBJECTIVE: HEENT: Normocephalic, atraumatic Pupils are equal. CARDIOVASCULAR: RRR systolic murmur. PULMONARY: no wheezes. Minimal rhonchi. GASTROINTESTINAL: Soft, obese, nontender. no rebound or guarding. EXTREMITIES: + lower extremity edema. NEUROLOGIC: Awake. Oriented to person only. PSYCH: calm. pleasant DERMATOLOGY: No evidence of bleeding. Multiple seborrheic keratosis noted echo personally reviewed 1. Hyperdynamic left ventricular systolic function. Normal left ventricular cavity size. Moderate concentric left ventricular hypertrophy. Ejection fraction is visually estimated at 70 %. Abnormal Diastolic Function. 2. There is moderate enlargement of left atrium. 3. Mitral valve leaflets appear mildly thickened. Severe mitral annular calcification. Mild mitral valve regurgitation. Mitral valve Max Velocity 1.44 m/sec. MaxPG 8.00 mmHg. MeanPG 2.00 mmHg. 4. Aortic sclerosis without stenosis. Trace aortic valve regurgitation. 5. Normal appearance of the tricuspid valve. Estimated peak PA systolic pressure 47 mmHg. There is mild tricuspid regurgitation. 6. Normal size and normal respiratory collapse consistent with normal right atrial pressure. Objective Vital Signs Date Time Temp Pulse Resp B/P Pulse Ox O2 Delivery O2 Flow Rate FiO2 07/01/17 14:12 97.5 89 20 108/60 93 06/30/17 00:34 2.0 06/29/17 16:58 28 Intake and Output 06/30/17 06/30/17 07/01/17 14:59 22:59 06:59 Intake Total 200 ml 1509.0909 ml Balance 200 ml 1509.0909 ml Results/Medications Result Diagram: 06/30/17 0503 06/30/17 0503 Results 24 hrs Laboratory Tests Test 06/30/17 21:46 07/01/17 07:50 07/01/17 11:56 07/01/17 16:49 Bedside Glucose 104 110 115 105 Medications Current Medications Acetaminophen (Tylenol Tab) 650 mg Q6H PRN PO PAIN LEVEL 1-3 OR FEVER; Start at 04:30 Ondansetron HCl (Zofran Inj) 4 mg Q6H PRN IV NAUSEA AND/OR VOMITING Last administered on 06/30/17 10:01; Admin Dose 4 MG; Start 06/17/17 at 04:30 Diagnostic Test (Pha) (Accu-Chek) 1 ea 02 XX Last administered on 06/26/17 02: 00; Admin Dose 1 EA; Start 06/18/17 at 02:00 Miscellaneous Information 1 ea NOTE XX ; Start 06/17/17 at 05:00 Glucose (Glutose) 15 gm Q15M PRN PO DECREASED GLUCOSE; Start 06/17/17 at 05:00 Glucose (Glutose) 22.5 gm Q15M PRN PO DECREASED GLUCOSE; Start 06/17/17 at 05: 00 Dextrose (D50w Syringe) 25 ml Q15M PRN IV DECREASED GLUCOSE; Start 06/17/17 at 05:00 Dextrose (D50w Syringe) 50 ml Q15M PRN IV DECREASED GLUCOSE; Start 06/17/17 at 05:00 Glucagon (Glucagen) 1 mg Q15M PRN IM DECREASED GLUCOSE; Start 06/17/17 at 05:00 Glucose (Glutose) 15 gm Q15M PRN BUCCAL DECREASED GLUCOSE; Start 06/17/17 at 05 :00 Lactobacillus Acidophilus/ Rhamnosus (Culturelle) 1 cap BID PO Last administered on 06/30/17 10:17; Admin Dose 1 CAP; Start 06/17/17 at 21:00 Famotidine (Pepcid) 20 mg DAILY PO Last administered on 06/30/17 10:18; Admin Dose 20 MG; Start 06/18/17 at 09:00 Guaifenesin (Robitussin Liquid Cup) 100 mg Q4H PRN PO COUGH; Start 06/17/17 at 18:30 IV Flush (NS 10 ml) 10 ml PRN PRN IV IV PROTOCOL; Start 06/18/17 at 17:00 Spironolactone (Aldactone) 25 mg DAILY PO Last administered on 06/30/17 10:18 ; Admin Dose 25 MG; Start 06/20/17 at 09:30 Hydralazine HCl (Apresoline) 5 mg Q4H PRN IV ELEVATED SYSTOLIC BP; Start at 18:30 Amlodipine Besylate (Norvasc) 5 mg DAILY PO Last administered on 06/30/17 10: 18; Admin Dose 5 MG; Start 06/20/17 at 18:30 Docusate Sodium (Colace) 100 mg HS PO Last administered on 06/26/17 20:33; Admin Dose 100 MG; Start 06/20/17 at 21:00 Potassium Chloride (Potassium Chloride Pwd/Soln) 40 meq BID PO Last administered on 06/30/17 10:18; Admin Dose 40 MEQ; Start 06/20/17 at 21:00 Methimazole 5 mg 5 mg QAM PO Last administered on 06/30/17 10:18; Admin Dose 5 MG; Start 06/22/17 at 15:00 Potassium Chloride/Dextrose (D5W + KCl 20 Meq) 1,000 ml @ 50 mls/hr Q20H IV Last administered on 07/01/17 08:37; Admin Dose 50 MLS/HR; Start 06/29/17 at 09: 00 Assessment/Plan Chief Complaint/Hosp Course 1. Mildly abnormal troponin with no chest pain and ejection fraction of 70%. Most likely c/w a false positive troponin. 2. Hypertension with hypertensive heart disease.:improved now 3. Abnormal EKG secondary to above. 4. Brain mass/tumor, possible adenoma per CT. 5. 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 6. Thyroid disorder. 7. Possible sepsis. 8. Status post fall. 9. Encephalopathy. 10. Hyperglycemia. 11. Elevated lactic acid/lactic acidosis and possible sepsis. 12. severe hypo K: replaced now RECOMMENDATIONS: . cont BP control. currently well controlled. Diabetic management as per Internal Medicine/ endocrine rec Antibiotic as per Internal Medicine. Thyroid management as per Internal Medicine and endocrine consult Conservative cardiac therapy is only recommended at this point. replace K and Mg prn. Thank you MELISSA LIZARRAGA MD [facility] Problems: MELISSA LIZARRAGA MD Jul 01, 2017 19:32
[2017-07-01] MEDS: DOCUSATE SODIUM 100 MG CAP PO SCH (22:01)
[2017-07-02] MEDS: ACCU-CHEK XX SCH (02:00)
[2017-07-02 02:27] VITALS: BP 101/61; RESP 19
[2017-07-02] MEDS: D5W + KCL 20 MEQ 1,000 ML IV SCH ×2 (02:50→21:55)
[2017-07-02 07:35] VITALS: BP 92/55; RESP 18
[2017-07-02] MEDS: INSULIN ASPART [NOVOLOG] 3 ML PEN SC SCH ×4 (08:12→20:35)
[2017-07-02] MEDS: AMLODIPINE 5 MG TAB PO SCH (09:00)
[2017-07-02] MEDS: LACTOBACILLUS RHAMNOSUS CAP PO SCH ×2 (09:42→21:54)
[2017-07-02] MEDS: POTASSIUM CHLORIDE 20 MEQ POWDER FOR ORAL SOLN PO SCH ×2 (09:42→20:30)
[2017-07-02] MEDS: METHIMAZOLE 5 MG TAB PO SCH (09:43)
[2017-07-02] MEDS: FAMOTIDINE 20 MG TAB PO SCH (09:43)
[2017-07-02] MEDS: SPIRONOLACTONE 25 MG TAB PO SCH (09:43)
--- NOTE | 2017-07-02 10:47 | PN ---
DATE: 07/02/2017 SUBJECTIVE DATA: The patient is stable. No events overnight. Poor p.o. intake. OBJECTIVE DATA: VITAL SIGNS: Blood pressure is 92/55, respirations 18, pulse 75, temperature 97.4. HEENT: Head is normocephalic. NECK: Supple. HEART: Regular rate. LUNGS: Showed diminished breath sounds at the base. ABDOMEN: Soft, nontender to palpation. No rebound or guarding. EXTREMITIES: Negative for clubbing, cyanosis. No edema. DERMATOLOGIC: Clean. No rashes. MUSCULOSKELETAL: No joint effusion. NEUROLOGIC: No change in exam. MEDICATIONS: Reviewed. LABORATORY AND DIAGNOSTIC DATA: Reviewed. No new labs. ASSESSMENT AND PLAN: 1. Hypernatremia, improved. Continue D5 water. 2. Hypokalemia. Continue to monitor and replete. 3. Hypothyroidism. Continue Synthroid. 4. History of metastatic breast cancer. 5. Sepsis, clinically improving. 6. Hypertension. Continue current blood pressure regimen. 7. Hypophosphatemia. Continue to monitor and replete. Dictated By: Saqib Duncan DO /bam/brianna /Document#: [id number]
--- NOTE | 2017-07-02 11:11 | PN ---
DATE: SUBJECTIVE DATA: The patient has poor p.o. intake. No other events noted. No hemoptysis, hematemesis, hematochezia. OBJECTIVE DATA: VITAL SIGNS: Blood pressure 163/55, respirations 18, pulse 81, temperature 97.8. HEENT: Head is normocephalic. NECK: Supple. HEART: Regular rate. LUNGS: Showed diminished breath sounds at the base. ABDOMEN: Soft, nontender to palpation. No rebound or guarding. EXTREMITIES: Negative for clubbing, cyanosis. No edema. DERMATOLOGIC: Clean. No rashes. MUSCULOSKELETAL: No joint effusions. NEUROLOGIC: Unchanged exam. MEDICATIONS: Reviewed. LABORATORY AND DIAGNOSTIC DATA: Shows sodium 140, potassium 3.7, chloride 113, BUN 6, creatinine 0.65. White count 4.1, hemoglobin 11.5, hematocrit 34.7, platelet count is 259. ASSESSMENT AND PLAN: 1. Hypernatremia, improved. Continue D5 water. 2. Hypokalemia. Continue to monitor and replete. 3. Hypophosphatemia. We will replete with potassium phosphate. 4. Metastatic breast cancer. Continue medical management. 5. Hypothyroidism. continue Synthroid. 6. Adrenal adenoma. Follow up with Endocrinology. 7. Sepsis, clinically improving. Continue to monitor. 8. Hypertension. Continue current blood pressure regimen. 9. Acute encephalopathy. Etiology is multifactorial. Continue to monitor. Dictated By: Saqib Duncan DO /bam/brianna /Document#: [id number]
--- NOTE | 2017-07-02 11:30 | PN ---
Date/Time of Note Date/Time of Note DATE: 07/02/17 TIME: 11:18 Assessment/Plan VTE Prophylaxis VTE Prophylaxis Intervention: SCD's Lines/Catheters IV [facility] PICC Line Central line still needed: Yes Urinary Cath still in place: No Assessment/Plan Chief Complaint/Hosp Course 1. Failure to thrive 2/2 metastatic breast cancer. -Supportive care 2. Hypernatremia. Etiology secondary to insensible losses- resolved 3. Hypokalemia-resolved 4. Hypophosphatemia. Status post repletion. Will monitor 5. 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 Continue supportive care. Refused hospice. 6. Abnormal thyroid function 7. Pituitary adenoma -Status post endocrinology evaluation and recommended conservative medical management. 8. Sepsis 2/2 RLL PNA- resolved 9. Acute encephalopathy- multifactorial. At baseline. 10. Obesity. Plan: Patient has been refusing medications. Family note in agreement for hospice even though she would have benefited from comfort focused care. At this time, the plan is to send patient home with home health as this is what patient's and family's decision. Currently awaiting for choice of home health. Case management following. Case discussed with Dr. Vo. Problems: Subjective 24 Hr Interval Summary Free Text/Dictation Patient was kept in house secondary to family not have come up with the home health of their choice. Exam/Review of Systems Vital Signs Vitals Vital Signs Date Time Temp Pulse Resp B/P Pulse Ox O2 Delivery O2 Flow Rate FiO2 07/02/17 07:35 97.4 75 18 92/55 93 06/30/17 00:34 2.0 06/29/17 16:58 28 Intake and Output 07/01/17 07/01/17 07/02/17 15:00 23:00 07:00 Intake Total 760 ml 400 ml Balance 760 ml 400 ml Exam General: Chronically ill looking female, resting comfortably.. HEENT: Normocephalic, Atraumatic, No laceration or hematoma; Eyes: PEERL, Conjunctiva clear, Anicteric sclera Neck: Supple without any lymphadenopathy, nontender, no JVD, no carotid bruits, trachea midline, no thyromegaly Cardiac: S1, S2 auscultated, regular rhythm and rate, no mumurs or gallop Pulmonary: Diminished breath sound bibasilar. Normal respiratory effort. no adventitious breath sounds GI: Abdomen normal to inspection. Soft, non tender, non- distended, no masses, no rebound tenderness or guarding. Bowel sounds active on all four quadrants Genitourinary: Deferred Extremities: With generalized lymphedema. Generalized muscle weakness no cyanosis, clubbing, or edema. Pulses [2+] bilaterally. Neurologic: Awake and follows simple commands. Skin: With skin excoriations with diarrhea. Results Result Diagram: 06/30/17 0503 06/30/17 0503 Results 24 hrs Laboratory Tests Test 07/01/17 11:56 07/01/17 16:49 07/01/17 22:03 07/02/17 07:43 Bedside Glucose 115 105 103 103 Medications Medications Current Medications Acetaminophen (Tylenol Tab) 650 mg Q6H PRN PO PAIN LEVEL 1-3 OR FEVER; Start at 04:30 Ondansetron HCl (Zofran Inj) 4 mg Q6H PRN IV NAUSEA AND/OR VOMITING Last administered on 06/30/17 10:01; Admin Dose 4 MG; Start 06/17/17 at 04:30 Diagnostic Test (Pha) (Accu-Chek) 1 ea 02 XX Last administered on 06/26/17 02: 00; Admin Dose 1 EA; Start 06/18/17 at 02:00 Miscellaneous Information 1 ea NOTE XX ; Start 06/17/17 at 05:00 Glucose (Glutose) 15 gm Q15M PRN PO DECREASED GLUCOSE; Start 06/17/17 at 05:00 Glucose (Glutose) 22.5 gm Q15M PRN PO DECREASED GLUCOSE; Start 06/17/17 at 05: 00 Dextrose (D50w Syringe) 25 ml Q15M PRN IV DECREASED GLUCOSE; Start 06/17/17 at 05:00 Dextrose (D50w Syringe) 50 ml Q15M PRN IV DECREASED GLUCOSE; Start 06/17/17 at 05:00 Glucagon (Glucagen) 1 mg Q15M PRN IM DECREASED GLUCOSE; Start 06/17/17 at 05:00 Glucose (Glutose) 15 gm Q15M PRN BUCCAL DECREASED GLUCOSE; Start 06/17/17 at 05 :00 Lactobacillus Acidophilus/ Rhamnosus (Culturelle) 1 cap BID PO Last administered on 07/02/17 09:42; Admin Dose 1 CAP; Start 06/17/17 at 21:00 Famotidine (Pepcid) 20 mg DAILY PO Last administered on 07/02/17 09:43; Admin Dose 20 MG; Start 06/18/17 at 09:00 Guaifenesin (Robitussin Liquid Cup) 100 mg Q4H PRN PO COUGH; Start 06/17/17 at 18:30 IV Flush (NS 10 ml) 10 ml PRN PRN IV IV PROTOCOL; Start 06/18/17 at 17:00 Spironolactone (Aldactone) 25 mg DAILY PO Last administered on 07/02/17 09:43 ; Admin Dose 25 MG; Start 06/20/17 at 09:30 Hydralazine HCl (Apresoline) 5 mg Q4H PRN IV ELEVATED SYSTOLIC BP; Start at 18:30 Amlodipine Besylate (Norvasc) 5 mg DAILY PO Last administered on 06/30/17 10: 18; Admin Dose 5 MG; Start 06/20/17 at 18:30 Docusate Sodium (Colace) 100 mg HS PO Last administered on 07/01/17 22:01; Admin Dose 100 MG; Start 06/20/17 at 21:00 Potassium Chloride (Potassium Chloride Pwd/Soln) 40 meq BID PO Last administered on 07/02/17 09:42; Admin Dose 40 MEQ; Start 06/20/17 at 21:00 Methimazole 5 mg 5 mg QAM PO Last administered on 07/02/17 09:43; Admin Dose 5 MG; Start 06/22/17 at 15:00 Potassium Chloride/Dextrose (D5W + KCl 20 Meq) 1,000 ml @ 50 mls/hr Q20H IV Last administered on 07/02/17 02:50; Admin Dose 50 MLS/HR; Start 06/29/17 at 09: 00 SHEILA MELENDEZ NP Jul 02, 2017 11:29
[2017-07-02 14:12] VITALS: BP 99/55; RESP 18
--- NOTE | 2017-07-02 17:55 | CONS ---
Date/Time of Note Date/Time of Note DATE: 07/02/17 TIME: 17:54 Consult Date/Type/Reason Admit Date/Time Jun 17, 2017 at 03:48 Initial Consult Date 06/17/17 Type of Consultation: CARDIOLOGY Ordering Provider: KEVEN MESSER Subjective CARDIOLOGY FOLLOW UP NOTE: D/W staff . She denies any cp or pressure to me. no bleeding no palpitations. pt with poor appetite and has not been eating OBJECTIVE: HEENT: Normocephalic, atraumatic Pupils are equal. CARDIOVASCULAR: RRR systolic murmur. PULMONARY: no wheezes. Minimal rhonchi. GASTROINTESTINAL: Soft, obese, nontender. no rebound or guarding. EXTREMITIES: + lower extremity edema. NEUROLOGIC: Awake. Oriented to person only. PSYCH: calm. pleasant DERMATOLOGY: No evidence of bleeding. Multiple seborrheic keratosis noted echo personally reviewed 1. Hyperdynamic left ventricular systolic function. Normal left ventricular cavity size. Moderate concentric left ventricular hypertrophy. Ejection fraction is visually estimated at 70 %. Abnormal Diastolic Function. 2. There is moderate enlargement of left atrium. 3. Mitral valve leaflets appear mildly thickened. Severe mitral annular calcification. Mild mitral valve regurgitation. Mitral valve Max Velocity 1.44 m/sec. MaxPG 8.00 mmHg. MeanPG 2.00 mmHg. 4. Aortic sclerosis without stenosis. Trace aortic valve regurgitation. 5. Normal appearance of the tricuspid valve. Estimated peak PA systolic pressure 47 mmHg. There is mild tricuspid regurgitation. 6. Normal size and normal respiratory collapse consistent with normal right atrial pressure. Objective Vital Signs Date Time Temp Pulse Resp B/P Pulse Ox O2 Delivery O2 Flow Rate FiO2 07/02/17 14:12 97.8 80 18 99/55 92 06/30/17 00:34 2.0 06/29/17 16:58 28 Intake and Output 07/01/17 07/01/17 07/02/17 15:00 23:00 07:00 Intake Total 760 ml 400 ml Balance 760 ml 400 ml Results/Medications Result Diagram: 06/30/17 0503 06/30/17 0503 Results 24 hrs Laboratory Tests Test 07/01/17 22:03 07/02/17 07:43 07/02/17 11:34 07/02/17 17:00 Bedside Glucose 103 103 107 107 Medications Current Medications Acetaminophen (Tylenol Tab) 650 mg Q6H PRN PO PAIN LEVEL 1-3 OR FEVER; Start at 04:30 Ondansetron HCl (Zofran Inj) 4 mg Q6H PRN IV NAUSEA AND/OR VOMITING Last administered on 06/30/17 10:01; Admin Dose 4 MG; Start 06/17/17 at 04:30 Diagnostic Test (Pha) (Accu-Chek) 1 ea 02 XX Last administered on 06/26/17 02: 00; Admin Dose 1 EA; Start 06/18/17 at 02:00 Miscellaneous Information 1 ea NOTE XX ; Start 06/17/17 at 05:00 Glucose (Glutose) 15 gm Q15M PRN PO DECREASED GLUCOSE; Start 06/17/17 at 05:00 Glucose (Glutose) 22.5 gm Q15M PRN PO DECREASED GLUCOSE; Start 06/17/17 at 05: 00 Dextrose (D50w Syringe) 25 ml Q15M PRN IV DECREASED GLUCOSE; Start 06/17/17 at 05:00 Dextrose (D50w Syringe) 50 ml Q15M PRN IV DECREASED GLUCOSE; Start 06/17/17 at 05:00 Glucagon (Glucagen) 1 mg Q15M PRN IM DECREASED GLUCOSE; Start 06/17/17 at 05:00 Glucose (Glutose) 15 gm Q15M PRN BUCCAL DECREASED GLUCOSE; Start 06/17/17 at 05 :00 Lactobacillus Acidophilus/ Rhamnosus (Culturelle) 1 cap BID PO Last administered on 07/02/17 09:42; Admin Dose 1 CAP; Start 06/17/17 at 21:00 Famotidine (Pepcid) 20 mg DAILY PO Last administered on 07/02/17 09:43; Admin Dose 20 MG; Start 06/18/17 at 09:00 Guaifenesin (Robitussin Liquid Cup) 100 mg Q4H PRN PO COUGH; Start 06/17/17 at 18:30 IV Flush (NS 10 ml) 10 ml PRN PRN IV IV PROTOCOL; Start 06/18/17 at 17:00 Spironolactone (Aldactone) 25 mg DAILY PO Last administered on 07/02/17 09:43 ; Admin Dose 25 MG; Start 06/20/17 at 09:30 Hydralazine HCl (Apresoline) 5 mg Q4H PRN IV ELEVATED SYSTOLIC BP; Start at 18:30 Amlodipine Besylate (Norvasc) 5 mg DAILY PO Last administered on 06/30/17 10: 18; Admin Dose 5 MG; Start 06/20/17 at 18:30 Docusate Sodium (Colace) 100 mg HS PO Last administered on 07/01/17 22:01; Admin Dose 100 MG; Start 06/20/17 at 21:00 Potassium Chloride (Potassium Chloride Pwd/Soln) 40 meq BID PO Last administered on 07/02/17 09:42; Admin Dose 40 MEQ; Start 06/20/17 at 21:00 Methimazole 5 mg 5 mg QAM PO Last administered on 07/02/17 09:43; Admin Dose 5 MG; Start 06/22/17 at 15:00 Potassium Chloride/Dextrose (D5W + KCl 20 Meq) 1,000 ml @ 50 mls/hr Q20H IV Last administered on 07/02/17 02:50; Admin Dose 50 MLS/HR; Start 06/29/17 at 09: 00 Assessment/Plan Chief Complaint/Hosp Course 1. Mildly abnormal troponin with no chest pain and ejection fraction of 70%. Most likely c/w a false positive troponin. 2. Hypertension with hypertensive heart disease.:improved now 3. Abnormal EKG secondary to above. 4. Brain mass/tumor, possible adenoma per CT. 5. 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 6. Thyroid disorder. 7. Possible sepsis. 8. Status post fall. 9. Encephalopathy. 10. Hyperglycemia. 11. Elevated lactic acid/lactic acidosis and possible sepsis. 12. severe hypo K: replaced now RECOMMENDATIONS: . cont BP control. currently well controlled. Diabetic management as per Internal Medicine/ endocrine rec Antibiotic as per Internal Medicine. Thyroid management as per Internal Medicine and endocrine consult Conservative cardiac therapy is only recommended at this point. DC planning is in process Thank you MELISSA LIZARRAGA MD [facility] Problems: MELISSA LIZARRAGA MD Jul 02, 2017 17:55
[2017-07-02 20:18] VITALS: BP 124/55; PULSE 79; RESP 20
[2017-07-02] MEDS: DOCUSATE SODIUM 100 MG CAP PO SCH (20:30)
[2017-07-03] MEDS: ACCU-CHEK XX SCH (02:00)
[2017-07-03 02:09] VITALS: BP 106/59; RESP 18
[2017-07-03] MEDS: INSULIN ASPART [NOVOLOG] 3 ML PEN SC SCH ×3 (07:58→17:33)
[2017-07-03 08:09] VITALS: BP 92/50; RESP 16
[2017-07-03] MEDS: METHIMAZOLE 5 MG TAB PO SCH (09:00)
[2017-07-03] MEDS: FAMOTIDINE 20 MG TAB PO SCH (09:00)
[2017-07-03] MEDS: POTASSIUM CHLORIDE 20 MEQ POWDER FOR ORAL SOLN PO SCH (09:00)
[2017-07-03] MEDS: LACTOBACILLUS RHAMNOSUS CAP PO SCH (09:00)
[2017-07-03] MEDS: AMLODIPINE 5 MG TAB PO SCH (09:00)
[2017-07-03] MEDS: SPIRONOLACTONE 25 MG TAB PO SCH (09:00)
--- NOTE | 2017-07-03 09:04 | CONS ---
Date/Time of Note Date/Time of Note DATE: 07/03/17 TIME: 09:04 Consult Date/Type/Reason Admit Date/Time Jun 17, 2017 at 03:48 Initial Consult Date 06/17/17 Type of Consultation: CARDIOLOGY Ordering Provider: KEVEN MESSER Subjective CARDIOLOGY FOLLOW UP NOTE: D/W staff . She denies any cp or pressure to me. no report of any bleeding or palpitations. pt with poor appetite and has not been eating OBJECTIVE: HEENT: Normocephalic, atraumatic Pupils are equal. CARDIOVASCULAR: RRR systolic murmur. PULMONARY: no wheezes. Minimal rhonchi. GASTROINTESTINAL: Soft, obese, nontender. no rebound or guarding. EXTREMITIES: + lower extremity edema. NEUROLOGIC: Awake. Oriented to person only. PSYCH: calm. pleasant DERMATOLOGY: No evidence of bleeding. Multiple seborrheic keratosis noted echo personally reviewed 1. Hyperdynamic left ventricular systolic function. Normal left ventricular cavity size. Moderate concentric left ventricular hypertrophy. Ejection fraction is visually estimated at 70 %. Abnormal Diastolic Function. 2. There is moderate enlargement of left atrium. 3. Mitral valve leaflets appear mildly thickened. Severe mitral annular calcification. Mild mitral valve regurgitation. Mitral valve Max Velocity 1.44 m/sec. MaxPG 8.00 mmHg. MeanPG 2.00 mmHg. 4. Aortic sclerosis without stenosis. Trace aortic valve regurgitation. 5. Normal appearance of the tricuspid valve. Estimated peak PA systolic pressure 47 mmHg. There is mild tricuspid regurgitation. 6. Normal size and normal respiratory collapse consistent with normal right atrial pressure. Objective Vital Signs Date Time Temp Pulse Resp B/P Pulse Ox O2 Delivery O2 Flow Rate FiO2 07/03/17 08:09 97.7 92 16 92/50 93 07/02/17 20:18 Room Air 06/30/17 00:34 2.0 06/29/17 16:58 28 Intake and Output 07/02/17 07/02/17 07/03/17 15:00 23:00 07:00 Intake Total 500 ml 2280 ml 830 ml Balance 500 ml 2280 ml 830 ml Results/Medications Result Diagram: 06/30/17 0503 06/30/17 0503 Results 24 hrs Laboratory Tests Test 07/02/17 11:34 07/02/17 17:00 07/02/17 20:33 07/03/17 07:57 Bedside Glucose 107 107 96 119 Medications Current Medications Acetaminophen (Tylenol Tab) 650 mg Q6H PRN PO PAIN LEVEL 1-3 OR FEVER; Start at 04:30 Ondansetron HCl (Zofran Inj) 4 mg Q6H PRN IV NAUSEA AND/OR VOMITING Last administered on 06/30/17 10:01; Admin Dose 4 MG; Start 06/17/17 at 04:30 Diagnostic Test (Pha) (Accu-Chek) 1 ea 02 XX Last administered on 06/26/17 02: 00; Admin Dose 1 EA; Start 06/18/17 at 02:00 Miscellaneous Information 1 ea NOTE XX ; Start 06/17/17 at 05:00 Glucose (Glutose) 15 gm Q15M PRN PO DECREASED GLUCOSE; Start 06/17/17 at 05:00 Glucose (Glutose) 22.5 gm Q15M PRN PO DECREASED GLUCOSE; Start 06/17/17 at 05: 00 Dextrose (D50w Syringe) 25 ml Q15M PRN IV DECREASED GLUCOSE; Start 06/17/17 at 05:00 Dextrose (D50w Syringe) 50 ml Q15M PRN IV DECREASED GLUCOSE; Start 06/17/17 at 05:00 Glucagon (Glucagen) 1 mg Q15M PRN IM DECREASED GLUCOSE; Start 06/17/17 at 05:00 Glucose (Glutose) 15 gm Q15M PRN BUCCAL DECREASED GLUCOSE; Start 06/17/17 at 05 :00 Lactobacillus Acidophilus/ Rhamnosus (Culturelle) 1 cap BID PO Last administered on 07/02/17 21:54; Admin Dose 1 CAP; Start 06/17/17 at 21:00 Famotidine (Pepcid) 20 mg DAILY PO Last administered on 07/02/17 09:43; Admin Dose 20 MG; Start 06/18/17 at 09:00 Guaifenesin (Robitussin Liquid Cup) 100 mg Q4H PRN PO COUGH; Start 06/17/17 at 18:30 IV Flush (NS 10 ml) 10 ml PRN PRN IV IV PROTOCOL; Start 06/18/17 at 17:00 Spironolactone (Aldactone) 25 mg DAILY PO Last administered on 07/02/17 09:43 ; Admin Dose 25 MG; Start 06/20/17 at 09:30 Hydralazine HCl (Apresoline) 5 mg Q4H PRN IV ELEVATED SYSTOLIC BP; Start at 18:30 Amlodipine Besylate (Norvasc) 5 mg DAILY PO Last administered on 06/30/17 10: 18; Admin Dose 5 MG; Start 06/20/17 at 18:30 Docusate Sodium (Colace) 100 mg HS PO Last administered on 07/02/17 20:30; Admin Dose 100 MG; Start 06/20/17 at 21:00 Potassium Chloride (Potassium Chloride Pwd/Soln) 40 meq BID PO Last administered on 07/02/17 20:30; Admin Dose 40 MEQ; Start 06/20/17 at 21:00 Methimazole 5 mg 5 mg QAM PO Last administered on 07/02/17 09:43; Admin Dose 5 MG; Start 06/22/17 at 15:00 Potassium Chloride/Dextrose (D5W + KCl 20 Meq) 1,000 ml @ 50 mls/hr Q20H IV Last administered on 07/02/17 21:55; Admin Dose 50 MLS/HR; Start 06/29/17 at 09: 00 Assessment/Plan Chief Complaint/Hosp Course 1. Mildly abnormal troponin with no chest pain and ejection fraction of 70%. Most likely c/w a false positive troponin. 2. Hypertension with hypertensive heart disease.:improved now 3. Abnormal EKG secondary to above. 4. Brain mass/tumor, possible adenoma per CT. 5. 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 6. Thyroid disorder. 7. Possible sepsis. 8. Status post fall. 9. Encephalopathy. 10. Hyperglycemia. 11. Elevated lactic acid/lactic acidosis and possible sepsis. 12. severe hypo K: replaced now RECOMMENDATIONS: . cont BP control. currently well controlled. Diabetic management as per Internal Medicine/ endocrine rec Antibiotic as per Internal Medicine. Thyroid management as per Internal Medicine and endocrine consult Conservative cardiac therapy is only recommended at this point. DC planning is in process Thank you MELISSA LIZARRAGA MD [facility] Problems: MELISSA LIZARRAGA MD Jul 03, 2017 09:04
--- NOTE | 2017-07-03 09:55 | PN ---
Date/Time of Note Date/Time of Note DATE: 07/03/17 TIME: 09:50 Assessment/Plan VTE Prophylaxis VTE Prophylaxis Intervention: SCD's Lines/Catheters IV Catheter Type (from [facility]): PICC Line Central line still needed: Yes Urinary Cath still in place: No Assessment/Plan Chief Complaint/Hosp Course 1. Failure to thrive 2/2 metastatic breast cancer. -Supportive care 2. 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 Continue supportive care. Refused hospice at this time. 3. Hypokalemia-resolved 4. Hypophosphatemia. Status post repletion. Will monitor 5.Hypernatremia. Etiology secondary to insensible losses- resolved 6. Abnormal thyroid function / #7 -Status post endo eval 7. Pituitary adenoma -Status post endocrinology evaluation and no aggressive medical/surgical management 2/ #2 8. Sepsis 2/2 RLL PNA- resolved 9. Acute encephalopathy- multifactorial. At baseline. 10. Obesity. Plan: Patient has been refusing medications. Family not in agreement for hospice even though she would have benefited from Hospice focused care. At this time, the plan is to send patient home with home health as this is what patient's and family's decision. Currently awaiting for choice of home health. Case management following. Case discussed with Dr. Vo. Problems: Subjective 24 Hr Interval Summary Free Text/Dictation No acute overnight episodes. Exam/Review of Systems Vital Signs Vitals Vital Signs Date Time Temp Pulse Resp B/P Pulse Ox O2 Delivery O2 Flow Rate FiO2 07/03/17 08:09 97.7 92 16 92/50 93 07/02/17 20:18 Room Air 06/30/17 00:34 2.0 06/29/17 16:58 28 Intake and Output 07/02/17 07/02/17 07/03/17 15:00 23:00 07:00 Intake Total 500 ml 2280 ml 830 ml Balance 500 ml 2280 ml 830 ml Exam General: Chronically ill looking female, resting comfortably.. HEENT: Normocephalic, Atraumatic, No laceration or hematoma; Eyes: PEERL, Conjunctiva clear, Anicteric sclera Neck: Supple without any lymphadenopathy, nontender, no JVD, no carotid bruits, trachea midline, no thyromegaly Cardiac: S1, S2 auscultated, regular rhythm and rate, no mumurs or gallop Pulmonary: Diminished breath sound bibasilar. Normal respiratory effort. no adventitious breath sounds GI: Abdomen normal to inspection. Soft, non tender, non- distended, no masses, no rebound tenderness or guarding. Bowel sounds active on all four quadrants Genitourinary: Deferred Extremities: With generalized lymphedema. Generalized muscle weakness no cyanosis, clubbing, or edema. Pulses [2+] bilaterally. Neurologic: Awake and follows simple commands. Skin: With skin excoriations with diarrhea. Results Result Diagram: 06/30/17 0503 06/30/17 0503 Results 24 hrs Laboratory Tests Test 07/02/17 11:34 07/02/17 17:00 07/02/17 20:33 07/03/17 07:57 Bedside Glucose 107 107 96 119 Medications Medications Current Medications Acetaminophen (Tylenol Tab) 650 mg Q6H PRN PO PAIN LEVEL 1-3 OR FEVER; Start at 04:30 Ondansetron HCl (Zofran Inj) 4 mg Q6H PRN IV NAUSEA AND/OR VOMITING Last administered on 06/30/17 10:01; Admin Dose 4 MG; Start 06/17/17 at 04:30 Diagnostic Test (Pha) (Accu-Chek) 1 ea 02 XX Last administered on 06/26/17 02: 00; Admin Dose 1 EA; Start 06/18/17 at 02:00 Miscellaneous Information 1 ea NOTE XX ; Start 06/17/17 at 05:00 Glucose (Glutose) 15 gm Q15M PRN PO DECREASED GLUCOSE; Start 06/17/17 at 05:00 Glucose (Glutose) 22.5 gm Q15M PRN PO DECREASED GLUCOSE; Start 06/17/17 at 05: 00 Dextrose (D50w Syringe) 25 ml Q15M PRN IV DECREASED GLUCOSE; Start 06/17/17 at 05:00 Dextrose (D50w Syringe) 50 ml Q15M PRN IV DECREASED GLUCOSE; Start 06/17/17 at 05:00 Glucagon (Glucagen) 1 mg Q15M PRN IM DECREASED GLUCOSE; Start 06/17/17 at 05:00 Glucose (Glutose) 15 gm Q15M PRN BUCCAL DECREASED GLUCOSE; Start 06/17/17 at 05 :00 Lactobacillus Acidophilus/ Rhamnosus (Culturelle) 1 cap BID PO Last administered on 07/02/17 21:54; Admin Dose 1 CAP; Start 06/17/17 at 21:00 Famotidine (Pepcid) 20 mg DAILY PO Last administered on 07/02/17 09:43; Admin Dose 20 MG; Start 06/18/17 at 09:00 Guaifenesin (Robitussin Liquid Cup) 100 mg Q4H PRN PO COUGH; Start 06/17/17 at 18:30 IV Flush (NS 10 ml) 10 ml PRN PRN IV IV PROTOCOL; Start 06/18/17 at 17:00 Spironolactone (Aldactone) 25 mg DAILY PO Last administered on 07/02/17 09:43 ; Admin Dose 25 MG; Start 06/20/17 at 09:30 Hydralazine HCl (Apresoline) 5 mg Q4H PRN IV ELEVATED SYSTOLIC BP; Start at 18:30 Amlodipine Besylate (Norvasc) 5 mg DAILY PO Last administered on 06/30/17 10: 18; Admin Dose 5 MG; Start 06/20/17 at 18:30 Docusate Sodium (Colace) 100 mg HS PO Last administered on 07/02/17 20:30; Admin Dose 100 MG; Start 06/20/17 at 21:00 Potassium Chloride (Potassium Chloride Pwd/Soln) 40 meq BID PO Last administered on 07/02/17 20:30; Admin Dose 40 MEQ; Start 06/20/17 at 21:00 Methimazole 5 mg 5 mg QAM PO Last administered on 07/02/17 09:43; Admin Dose 5 MG; Start 06/22/17 at 15:00 Potassium Chloride/Dextrose (D5W + KCl 20 Meq) 1,000 ml @ 50 mls/hr Q20H IV Last administered on 07/02/17 21:55; Admin Dose 50 MLS/HR; Start 06/29/17 at 09: 00 SHEILA MELENDEZ NP Jul 03, 2017 09:55
--- NOTE | 2017-07-03 10:53 | PN ---
DATE: 07/03/2017 SUBJECTIVE DATA: The patient is stable. No events overnight. No fevers, chills, nausea, vomiting. OBJECTIVE DATA: VITAL SIGNS: Blood pressure is 92/50, respirations 16, pulse temperature 97.7. HEENT: Head is normocephalic. NECK: Supple. HEART: Regular rate. LUNGS: Diminished breath sounds at the base. ABDOMEN: Soft, nontender to palpation. No rebound or guarding. EXTREMITIES: Negative for clubbing, cyanosis. No edema. DERMATOLOGIC: No rashes. MUSCULOSKELETAL: No joint effusion. NEUROLOGIC: No change in exam. MEDICATIONS: Reviewed. LABORATORY AND DIAGNOSTIC DATA: Has been reviewed. No new labs. ASSESSMENT AND PLAN: 1. Hyponatremia, improved. Continue D5 water. 2. Hypokalemia. Continue to monitor and replete. 3. Hyperphosphatemia. Continue to monitor and replete. 4. Metastatic breast cancer. Continue current treatment plan. 5. Hypothyroidism. Continue Synthroid. 6. Sepsis, clinically improving. Continue to monitor. 7. Hypertension. Continue current blood pressure regimen. 8. Acute encephalopathy. Etiology multifactorial. Continue to monitor. Dictated By: Saqib Duncan DO /bam/joe /Document#: [id number]
[2017-07-03 14:00] VITALS: BP 81/51; RESP 20
--- NOTE | 2017-07-03 15:32 | DS ---
Date/Time of Note Date/Time of Note DATE: 07/03/17 TIME: 15:28 Discharge Summary Admission/Discharge Info Admit Date/Time Jun 17, 2017 at 03:48 Discharge Date/Time Discharge Diagnosis 1. Failure to thrive 2/2 metastatic breast cancer. Supportive care 2. Hypernatremia. Etiology secondary to insensible losses- resolved 3. Hypokalemia-resolved 4. Hypophosphatemia. 5. 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 Abnormal thyroid function 7. Pituitary adenoma 8. Sepsis 2/2 RLL PNA- resolved 9. Acute encephalopathy- multifactorial Patient Condition: Stable Consults ,Endocrinology ,ID ,Crads ,Nephro Procedures 06/27/2017. Brain MRI MPRESSION: 1. 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 Postcontrast imaging cannot be performed as the patient was unable to continue. Further evaluation with contrast imaging is recommended to exclude the possibility of macroadenoma. 2. Moderate chronic microvascular ischemic changes and age related volume loss. No acute or early subacute ischemic infarction. 3. Sinus disease as detailed above. Hx of Present Illness Hospital Course This is a very unfortunate 86-year-old bedbound female with a past medical history of metastatic brain cancer with metastases to the lungs and brain, who was brought to the emergency room paramedics after patient fell from bed. Patient has been altered and progressively weak over the past few weeks. Patient was in severe electrolyte disturbance with failure to thrive upon arrival. Patient was admitted. Electrolyte levels was monitored closely. Patient was also evaluated by nephrology for underlying hyponatremia likely with dehydration. We continue to monitor lites closely and replaced as indicated. Patient also had associated hypokalemia and hypophosphatemia. In regards to metastatic cancer, patient was evaluated palliative care team. However, patient's family was not receptive for hospice at this time. Patient continued to refuse medications and treatment. Her mental status remained altered on and off. Patient and family was not in agreement for a DNR status. She was continued on supportive care with current medical management. She was also evaluated by endocrinology for underlying pituitary adenoma and conservative medical management was recommended. Patient was also treated for sepsis secondary to pneumonia. She was evaluated by multiple specialities including nephrology, cardiology and endocrinology. Recommendation was to continue conservative medical management as patient with documented poor prognosis with metastatic cancer. At this time, her condition remains at baseline. Her mental status remains at baseline. As patient's family wanted to take her home with home health, there is no need for further workup although patient was an appropriate candidate for hospice evaluation and a comfort focused care. Disposition: She will be discharged home with home health. She was instructed to follow-up with primary care physician. Patient to continue on home medications upon discharge. Patient and family verbalized discharge instructions. Overall patient with poor prognosis. However family is not receptive to hospice at this time. Patient was sent home in stable condition. Case discussed with Dr. Vo. Home Meds Active Scripts Methimazole* (Methimazole*) 5 Mg Tablet, 5 MG PO QAM, #30 TAB Prov:SHEILA MELENDEZ NP 07/01/17 Bisacodyl* (Bisacodyl*) 5 Mg Tablet.dr, 5 MG PO DAILY Y for CONSTIPATION for 1 Day, #1 Prov:MICHAEL RAMSAY MD 03/27/17 Guaifenesin-Dextromethorphan* (Robitussin* DM) 100MG/10MG/5ML Syrup, 10 ML PO Q4H Y for COUGH for 1 Day, #1 Prov:MICHAEL RAMSAY MD 03/27/17 Acetaminophen (MAPAP) 325 Mg Tablet, 650 MG PO Q6H Y for PAIN LEVEL 1-3 OR FEVER for 1 Day, #1 TAB Prov:MICHAEL RAMSAY MD 03/27/17 Reported Medications Multivits-Min/Iron/FA/Lutein (Centrum Silver Women Tablet) 1 Each Tablet, 1 EACH PO, TAB 03/27/17 Discontinued Scripts Levofloxacin* (Levaquin*) 750 Mg Tablet, 750 MG PO DAILY@06 for 5 Days, #5 TAB Prov:MICHAEL RAMSAY MD 03/27/17 Follow-up Plan 1.Follow up with primary care physician in 1 week If you don't have one please let someone know, we can give you resources that may help you pick one. You may also call your insurance company to assign one to you. Review your medication list with your nurse before leaving and if you need new prescriptions please let your nurse know. I may have made changes to your home medications or given you new prescriptions, please let your primary doctor know as well. Stay compliant with your medications and report any side effects to your PCP or pharmacist. Return to the ER if you have any concerns and cannot reach your doctors or call your insurance company, they usually have a nurse that can help you. 2. Call 911 or go to the nearest emergency room if experiencing loss of consciousness, dizziness, chest pain, shortness of breath, vomiting/abdominal pain, speech difficulties, motor weakness or any unusual symptoms. Primary Care Provider Not On Staff Doctor Primary Care Provider Not On Staff Doctor Pending Labs Laboratory Tests Test 07/02/17 17:00 07/02/17 20:33 07/03/17 07:57 07/03/17 11:57 Bedside Glucose 107mg/dL (70-220) 96mg/dL (70-220) 119mg/dL (70-220) 114mg/dL (70-220) SHEILA MELENDEZ NP Jul 03, 2017 15:32
[2017-07-03] MEDS: D5W + KCL 20 MEQ 1,000 ML IV SCH (17:49)
[2017-07-03 20:24] VITALS: BP 104/53; RESP 18
== END 2017-07-03 21:20 | disposition home health service (06) | DRG 871 ==
LOC: E/R 01:50 → MS3 03:48 → MS4 23:57 → MS2 06-26 21:04
PROVIDERS: ADMIT Family Medicine; ATTEND Family Medicine
PROC: 02HV33Z Insertion of Infusion Device into Superior Vena Cava, Percutaneous Approach (ICD-10-PCS; principal; 2017-06-18)
PROC: B548ZZA Ultrasonography of Superior Vena Cava, Guidance (ICD-10-PCS; 2017-06-18)
DX: A41.9 Sepsis, unspecified organism (principal); J18.9 Pneumonia, unspecified organism; G93.40 Encephalopathy, unspecified; J81.1 Chronic pulmonary edema; J90 Pleural effusion, not elsewhere classified; D61.818 Other pancytopenia; C78.01 Secondary malignant neoplasm of right lung; E87.0 Hyperosmolality and hypernatremia; C78.02 Secondary malignant neoplasm of left lung; C78.7 Secondary malignant neoplasm of liver and intrahepatic bile duct; C79.31 Secondary malignant neoplasm of brain; C79.89 Secondary malignant neoplasm of other specified sites; E87.2 Acidosis; I24.8 Other forms of acute ischemic heart disease; E87.1 Hypo-osmolality and hyponatremia; E83.39 Other disorders of phosphorus metabolism; R65.20 Severe sepsis without septic shock; E03.9 Hypothyroidism, unspecified; R73.9 Hyperglycemia, unspecified; Z90.2 Acquired absence of lung [part of]; Z90.12 Acquired absence of left breast and nipple; Z92.3 Personal history of irradiation; Z81.2 Family history of tobacco abuse and dependence; I11.9 Hypertensive heart disease without heart failure; Z85.3 Personal history of malignant neoplasm of breast; J44.9 Chronic obstructive pulmonary disease, unspecified; I08.3 Combined rheumatic disorders of mitral, aortic and tricuspid valves; R62.7 Adult failure to thrive; E87.6 Hypokalemia; D35.2 Benign neoplasm of pituitary gland; Z74.01 Bed confinement status; E86.0 Dehydration; E66.9 Obesity, unspecified; Z68.34 Body mass index [BMI] 34.0-34.9, adult
CPT/HCPCS: 36415; 36569; 70450; 70553; 71010; 76937; 80048; 80053; 80069; 80202; 81003; 82140; 82306; 82533; 82550; 82553; 82962; 83036; 83605; 83735; 84100; 84146; 84403; 84439; 84443; 84480; 84481; 84484; 85025; 85610; 85730; 87040; 87075; 87086; 93005; 93306; 96365; 96372; 96375; 96376; 97110; 97161; 97530; J0360; J0692; J1650; J1720; J2060; J2405; J2543; J3370; J3475; J3480; J7030; J7050; J7070